=== PATIENT | female | born 1960 | race Caucasian/White ===

== ENCOUNTER 2020-01-11 15:42 | Outpatient (REF) | payer BC, SELFPAY | END 2020-01-11 15:43 | disposition home or self-care (01) | LOC: HO.LNP 15:42 | PROVIDERS: Visit Provider Hospitalist | DX: Z20.828 Contact with and (suspected) exposure to other viral communicable diseases (principal) | CPT/HCPCS: U0003 ==

== ENCOUNTER 2020-05-21 14:21 | Outpatient (REF) | payer MEDICARE, SELFPAY ==
--- NOTE | ~2020-05-21 | MR_ITS ---
EXAMINATION: MR HEAD/BRAIN WITHOUT CONTRAST CLINICAL INFORMATION: 60-year-old with left-sided facial pain syndrome. Evaluate for possible trigeminal nerve lesion. COMPARISON: None TECHNIQUE: Multiplanar multisequence MR imaging of the brain and trigeminal nerve pathways was performed without intravenous contrast material and the study is limited in this regard. FINDINGS: The brain demonstrates normal overall morphology. There is a 4 mm faint FLAIR/T2 hyperintensity in the left parietal white matter which is a nonspecific finding. The remainder of the brain is normal in signal intensity. Scattered perivascular spaces are seen in the white matter bilaterally and in the basal ganglia. DWI imaging demonstrates no restricted diffusion. Specifically, there is no evidence for recent or acute infarct. Gradient echo imaging demonstrates no evidence for hemorrhage, hemosiderin staining or abnormal mineral deposition. The cisternal and cavernous portions of the trigeminal nerves are visualized bilaterally and appear normal with a normal appearance to the root exit zones and adjacent brainstem. Meckel's caves appear unremarkable bilaterally. There is a normal appearance to the trigeminal fat pads bilaterally. The cavernous sinuses are relatively symmetric in appearance with limited assessment without IV contrast. The visualized basal cisterns appear grossly unremarkable. Normal appearance to the infraorbital grooves bilaterally. Infratemporal fossa soft tissue appears normal with normal fat signal. Normal appearance to the infraorbital grooves bilaterally. The ventricular system and subarachnoid spaces appear within normal limits, without hydrocephalus. Normal signal voids are noted in the visualized major intracranial vessels. Note is made of multiple T2 hyperintensities in the premalar fat pads bilaterally, likely reflecting cosmetic injections. Correlate with clinical history. Note is made of bilateral TMJ arthrosis. Mild upper cervical DDD and spondylosis is noted at C4-C5 with slight anterolisthesis at C3-C4 with bilateral cervical facet arthrosis. MR/MR head/brain wo con IMPRESSION: 1. A single small nonspecific left parietal white matter T2 hyperintensity is noted. Remainder of the brain is normal in signal intensity. 2. Unremarkable appearance to the trigeminal nerve pathways bilaterally. No definite lesion identified within the limitations of a noncontrast examination. 3. Bilateral TMJ arthrosis and cervical degenerative changes. Correlate clinically. 4. Findings suggesting bilateral premalar fat pad cosmetic injections. Correlate with clinical history.
[2020-05-21 16:20] LABS: MANUAL DIFF FLAG NO
[2020-05-21 16:28] LABS: Basophils Percent Auto 0.6 % (0-2); Eosinophils Absolute Auto 0.1 X10*3/uL (0.0-0.4); Eosinophils Percent Auto 1.3 % (0-4); Hematocrit 41.5 % (37-47); Hemoglobin 14.2 g/dl (12.0-16.0); Imm Gran Abs Auto 0.01 X10*3/uL (0.00-0.03); Imm Gran Pct Auto 0.2 % (0.0-0.4); Lymphocytes Percent Auto 22.1 % (20-40); Mean Corpuscular HGB Conc 34.2 g/dl (31.0-35.0); Mean Corpuscular Hemoglobin 33.2 pg (27.0-33.0); Mean Platelet Volume 10.3 fL (9.4-12.3); Monocytes Absolute Auto 0.5 X10*3/uL (0.1-1.2); Monocytes Percent Auto 11.1 % (2-11); Neutrophils Percent Auto 64.7 % (45-73); Platelet Count 274 X10*3/uL (160-400); Red Blood Count 4.28 X10*6/uL (4.20-5.50); Red Cell Distribution Width 11.6 % (11.0-16.0); White Blood Count 4.7 X10*3/uL (4.8-10.8)
[2020-05-21 16:33] LABS: Estimated Average Glucose 100 mg/dL; Hemoglobin A1c % 5.1 %
[2020-05-21 16:54] LABS: Alanine Aminotransferase 16 U/L (0-31); Albumin Level 4.4 g/dL (3.5-5.0); Alkaline Phosphatase 66 U/L (39-117); Anion Gap 14 (12-20); Aspartate Amino Transferase 17 U/L (5-31); Bilirubin Total 0.7 mg/dL (0.0-1.0); Blood Urea Nitrogen 21 mg/dL (9-16); Calcium 9.3 mg/dL (8.4-10.2); Carbon Dioxide 28 mmol/L (22-29); Chloride 103 mmol/L (96-108); Cholesterol 189 mg/dL; Estimated Glomerular Filt Rate > 60; Glucose Fasting 90 mg/dL (60-99); HDL Cholesterol 51 mg/dL; LDL Cholesterol Calculated 100 mg/dl; Sodium 141 mmol/L (135-145); Total Protein 7.2 g/dL (6.5-8.0); Triglycerides 193 mg/dL
[2020-05-21 17:12] LABS: Free T4 (Free Thyroxine) 0.97 ng/dL (0.71-1.85)
[2020-05-21 17:15] LABS: Thyroid Stimulating Hormone 0.98 uIU/mL (0.32-4.0)
[2020-05-22 04:11] LABS: Triiodothyronine T3 Free 2.9 pg/mL (2.3-4.2)
[2020-05-22 05:22] LABS: Follicle Stimulating Hormone 86.5 mIU/mL; Lutenizing Hormone 30.7 mIU/mL
[2020-05-22 09:21] LABS: DHEA Sulfate 178 mcg/dL (12-133)
[2020-05-22 11:47] LABS: Thyroglobulin Antibodies 2 IU/mL (< or = 1); Thyroid Peroxidase Antibodies 16 IU/mL (<9)
[2020-05-25 14:31] LABS: Testosterone, Free 2.4 pg/mL (0.1-6.4); Testosterone, Total 28 ng/dL (2-45)
[2020-05-26 11:31] LABS: Pregnenolone, LC/MS 73 ng/dL (22-237)
[2020-05-26 19:41] LABS: Progesterone 0.9 ng/mL
[2020-05-29 17:06] LABS: Estradiol Free 0.07 pg/mL; Estradiol, Ultrasensitive 5 pg/mL
== END 2020-05-21 14:22 | disposition home or self-care (01) ==
LOC: HO.MRI 14:21
PROVIDERS: Internal Medicine; Nurse Practitioner Family; Visit Provider Psychiatry & Neurology Neurology
DX: G50.0 Trigeminal neuralgia (principal)
CPT/HCPCS: 36415; 70551; 80053; 80061; 82306; 82627; 82670; 82681; 83001; 83002; 83036; 84143; 84144; 84402; 84403; 84439; 84443; 84481; 85025; 86376; 86800

== ENCOUNTER 2020-08-08 12:55 | Outpatient (REF) | payer MEDICARE, SELFPAY ==
[2020-08-09 11:53] LABS: CDIFF Ag Negative (Negative); CDIFF Internal ctrl Dots and bkg OK (V); CDiff Toxin Negative (Negative)
== END 2020-08-08 12:56 | disposition home or self-care (01) ==
LOC: HO.HMGCLNP 12:55
PROVIDERS: Visit Provider Internal Medicine
DX: R19.7 Diarrhea, unspecified (principal)
CPT/HCPCS: 87045; 87046; 87324; 87449

== ENCOUNTER 2023-12-01 12:47 | Outpatient (REF) | payer MEDICARE, SELFPAY ==
--- NOTE | ~2023-12-01 | XR_ITS ---
EXAMINATION: XR ABDOMEN KUB CLINICAL INDICATION: Abdominal discomfort COMPARISON: Abdominal ultrasound 06/06/2017 TECHNIQUE: AP view of the abdomen. FINDINGS: The bowel gas pattern is normal with no evidence of ileus or obstruction. About 24 midline surgical clips are noted presumably secondary to the hernia repair which the patient reported concordant 2001. No unusual soft tissue calcifications are noted. The bones are unremarkable aside from mild degenerative changes. XR/XR abdomen 1V IMPRESSION: No evidence of bowel obstruction. Postsurgical changes as described above. Electronically signed by: Ishmael Nguyen MD 12/01/2023 02:40 PM EDT
== END 2023-12-01 12:48 | disposition home or self-care (01) ==
LOC: HO.XRAY 12:47
PROVIDERS: PCP Internal Medicine; Visit Provider Internal Medicine
DX: R10.9 Unspecified abdominal pain (principal)
CPT/HCPCS: 74018

== ENCOUNTER → 2024-04-30 15:54 | Outpatient (AMB) | payer MEDICARE, SELFPAY ==
--- NOTE | 2024-04-30 15:56 | MHC.PC.OV ---
Vital Signs 04/30/24 16:10 Height 5 ft Weight 113 lb BMI 22.1 BP 108/60 Blood Pressure Location Rt brachial Pulse 64 Pulse Source Pulse Oximeter Temp 98.2 F Pulse Oximetry (%) 99 Intake Visit Reasons: neck and right hip pain Intake Note: having a BM issue for over a month Allergies amlodipine Allergy (Unknown, Verified 04/30/24 16:46) tachycardia clyndamycin Allergy (Uncoded 04/30/24 16:46) Abdominal Pain Medication List - Last Reconciled 04/30/24 by Shelli Butterfield PA-C albuterol sulfate 90 mcg/actuation 2 puffs PO Q6H PRN epinephrine IM DIRECTED lorazepam 1 mg PO DAILY PRN metoprolol tartrate 12.5 mg PO BID PFSH Medical History (Updated 04/30/24 @ 16:51 by Shelli Butterfield PA-C) Spondylosis Abdominal pain Left shoulder pain Right hip pain History of mammogram (~01/2023) Clostridium difficile colitis Bee sting allergy Hx gestational diabetes Anxiety Depression GERD (gastroesophageal reflux disease) Paroxysmal supraventricular tachycardia Thyroiditis Hypertension Surgical History History of colonoscopy (~01/12/21) S/P tendon repair History of radiofrequency ablation (RFA) procedure for cardiac arrhythmia History of section History of adenoidectomy History of tonsillectomy History of abdominoplasty Physical exam (Primary Care) Vital Signs: Last Vital Signs Temp 98.2 F 04/30/24 16:10 Pulse 64 04/30/24 16:10 BP 108/60 04/30/24 16:10 Pulse Ox 99 04/30/24 16:10 Care Plan Goal for BP management: <130/80 BMI result Body Mass Index 22.1 normal bmi Coding Level of Care Code Est Pt Level 4 (67920) Complex EM visit Add On G2211 Diagnoses Right hip pain M25.551 Left shoulder pain M25.512 Abdominal pain R10.9 Spondylosis M47.9 Assessment & Plan Assessment & Plan (1) Right hip pain: Code(s): M25.551 - Pain in right hip Category: Medical Plan: With atraumatic right hip pain. On exam she has full range of motion no obvious deformities no signs of infection. Will obtain outpatient x-ray. Refer to physical therapy and orthopedic. Condition is chronic and stable continue to monitor. (2) Left shoulder pain: Code(s): M25.512 - Pain in left shoulder Category: Medical Plan: Patient with atraumatic left shoulder pain. On exam she has full range of motion no obvious deformities no signs of infection. Will obtain outpatient x-ray. Refer to physical therapy and orthopedic. Condition is chronic and stable continue to monitor. (3) Abdominal pain: Code(s): R10.9 - Unspecified abdominal pain Category: Medical Plan: Patient with abdominal pain with gassy sensation. Concerned for C diff as she had this in the past. Will obtain stool cultures if negative will further pursue the abdominal pain. Condition is chronic and stable continue to monitor. (4) Spondylosis: Code(s): M47.9 - Spondylosis, unspecified Category: Medical Plan: Patient with spondylosis of cervical spine. Will refer to physical therapy and she has an appointment with orthopedic. Condition is chronic and stable continue to monitor. Plan Plan Physical therapy is advised for cervical spondylosis and associated neck pain, with an x-ray to examine the right hip. An orthopedic referral was placed, and the patient is scheduled to return in May. Gastrointestinal symptoms prompted stool cultures for bacterial infection screening including H. pylori, with plans for further imaging if needed. Comprehensive blood work has been ordered, excluding diabetes markers as these are monitored by her education rep. Pain management options include NSAIDs or a muscle relaxant, both previously acquired by the patient. Education regarding possible sensitivity to colder environments which could exacerbate symptoms was also provided. Orders: Orders XR hip RT w PEL1V Today M25.551 - Pain in right hip Giardia Ag Stool EIA Today R10.9 - Unspecified abdominal pain H pylori Ag Stool Today R10.9 - Unspecified abdominal pain Chymotrypsin, Stool Today R10.9 - Unspecified abdominal pain Complete Blood Count Auto Diff Today Z00.00 - Encounter for general adult medical examination without abnormal findings Comprehensive [place]. Panel Fast Today Z00.00 - Encounter for general adult medical examination without abnormal findings C Reactive Protein Today Z00.00 - Encounter for general adult medical examination without abnormal findings Liver Panel Today Z00.00 - Encounter for general adult medical examination without abnormal findings Vitamin B1 Today Z00.00 - Encounter for general adult medical examination without abnormal findings Vitamin B12 and Folate Today Z00.00 - Encounter for general adult medical examination without abnormal findings Vitamin D 25-OH Total Today Z00.00 - Encounter for general adult medical examination without abnormal findings TSH reflex Free T4 Today Z00.00 - Encounter for general adult medical examination without abnormal findings CDiff Gene PCR Today R10.9 - Unspecified abdominal pain XR shoulder LT min 2V Today M25.512 - Pain in left shoulder Cyclospora & Isospora Stool Today R10.9 - Unspecified abdominal pain Leukocytes Stool Qualitative Today R10.9 - Unspecified abdominal pain Lipid Panel Today Z00.00 - Encounter for general adult medical examination without abnormal findings Magnesium Today Z00.00 - Encounter for general adult medical examination without abnormal findings Patient Instructions: Patient Instructions - Attend physical therapy sessions for neck and shoulder pain management. - Schedule and complete the x-ray for your right hip as soon as possible. - Submit stool samples for bacterial testing as instructed. - Use currently available pain medications as needed, aware of the advised dosing. - Follow up with the scheduled appointment in May for orthopedic evaluation. - Contact my office should symptoms escalate or if there are adverse reactions to medications. - Monitor any triggers such as cold weather that may exacerbate symptoms. Scribe Plan - Not visible on output: History of Present Illness The patient is a 64-year-old female presenting with neck and hip pain. Her symptoms began with neck pain a couple of months ago, localized on the left side and causing insomnia due to discomfort when lying on that side. Previous x-rays confirmed cervical spondylosis and bone spurs. The neck pain has progressed to involve her shoulder, interfering with activities like arm extension. In recent weeks, she developed right hip pain, described as severe with movement and impacting her daily activities. rn coronary care unit has not alleviated her symptoms. The patient also presents with gastrointestinal disturbances, including abdominal pain, diarrhea, and flatulence. She worries about a recurrence of Clostridioides difficile infection, previously diagnosed eight years ago, although current symptoms lack telltale yellow or mucous stools. Regular stool consistency varies, and she describes an increase in gas production. No significant weight change has been noted, but she reports skinny stools and a prior history of hemorrhoids. Social History - Patient is possibly engaged in dating relationships, having recently been in a relationship with a man born in [place]. 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 - Considers herself active in social affairs, including interactions and relationships. - Denies tobacco or alcohol use pattern in conversation. Review of Systems - Musculoskeletal: Reports neck pain, right hip pain, shoulder pain. - Gastrointestinal: Reports abdominal pain, diarrhea, increased gas production. - Neurologic: Denies memory disturbances. - General: Denies weight changes or fever. Physical Exam Appearance: Alert. Oriented X3. No acute distress. Head: Normal external exam. Normocephalic. Atraumatic. Eyes: Pupils are equal, round, and reactive to light. Extraocular movements intact. Conjunctiva and sclera normal. Eyelids normal. Throat: Pharynx normal. Uvula midline. Moist mucous membranes. Neck: Normal inspection. Neck supple. Full range of motion. No adenopathy. Thyroid Normal. No meningeal signs. No neck mass noted. Patient reports neck pain on the side, possibly related to multilevel cervical spondylosis and bone spurs. Cardiovascular: Normal heart rate and rhythm. Heart sound normal. No murmurs noted. Pulses normal throughout. Respiratory: No respiratory distress. Painless inspiration. Breath sounds normal. No wheezes/rales/rhonchi noted. Chest nontender. No accessory muscle usage noted or decreased air movement noted. Abdomen: Soft and nontender. Bowel sounds normal in all 4 quadrants. No distention noted. No organomegaly noted. No visible injury noted. Patient reports abdominal pain and cramping, with changes in stool consistency. Back: Full range of motion noted. Skin: Skin warm and dry. Normal skin color. Normal skin turgor. No rashes/lesions/lacerations noted. Extremities: Extremities exhibit normal range of motion. Extremities nontender. Patient reports right hip pain and difficulty with movement. Neuro: Oriented X 3. No motor deficit. No sensory deficit. Reflexes normal. Patient reports shoulder pain, particularly on movement. Results - Imaging: Previous diagnostic imaging revealed multilevel cervical spondylosis and cervical bone spurs. Plan Physical therapy is advised for cervical spondylosis and associated neck pain, with an x-ray to examine the right hip. An orthopedic referral was placed, and the patient is scheduled to return in May. Gastrointestinal symptoms prompted stool cultures for bacterial infection screening including H. pylori, with plans for further imaging if needed. Comprehensive blood work has been ordered, excluding diabetes markers as these are monitored by her education rep. Pain management options include NSAIDs or a muscle relaxant, both previously acquired by the patient. Education regarding possible sensitivity to colder environments which could exacerbate symptoms was also provided. Patient was informed and verbally consented to the use of an ambient scribe for clinic note documentation during this visit. Discussion Notes I discussed with the patient the probable diagnosis of cervical spondylosis with related neck and shoulder discomfort, recommending physical therapy as a preferable management modality over chiropractic treatment. An x-ray for the right hip was deemed necessary to determine the source of related discomfort, and an orthopedic consult is scheduled for further assessment. As her gastrointestinal symptoms raised concerns for a potential Clostridioides difficile recurrence, a stool culture was ordered. I explained the value of further testing if initial tests do not yield necessary answers. We considered the impacts of cold weather on her arthritic symptoms, and multiple pain management modalities were elaborated on, although the patient has course of medication already obtained. Follow-ups are contingent upon lab results and additional imaging findings. Patient Instructions - Attend physical therapy sessions for neck and shoulder pain management. - Schedule and complete the x-ray for your right hip as soon as possible. - Submit stool samples for bacterial testing as instructed. - Use currently available pain medications as needed, aware of the advised dosing. - Follow up with the scheduled appointment in May for orthopedic evaluation. - Contact my office should symptoms escalate or if there are adverse reactions to medications. - Monitor any triggers such as cold weather that may exacerbate symptoms.
[2024-04-30 16:10] VITALS: BP 108/60; PULSE 64; TEMP 36.8; O2SAT 99; BMI 22.1
--- OUTSIDE RECORDS SUMMARY | 2024-04-30 18:38 | XMS_ITS | Clinical Summary ---
Author Organization [facility] Address [address] [place] [address] Care Team Providers Care Commercial Account Officer Name Role Phone AngelLars baez Primary Care Provider [phone] Allergies Active Allergy Reactions Criticality Noted Date Comments Amlodipine 06/15/2017 Medications Medication Sig Dispensed Refills Start Date End Date Status metoprolol succinate (TOPROL-XL) 24 hr tablet 25 mg Take by mouth daily. 0 Active omeprazole (PRILOSEC) 20 MG capsule Take 20 mg by mouth daily. 0 Active Active Problems No known active problems Social History Tobacco Use Types Packs/Day Years Used Date Smoking Tobacco: Former Smokeless Tobacco: Never Alcohol Use Standard Drinks/Week Comments Yes 0 (1 standard drink = 0.6 oz pur e alcohol) Sex and Gender Information Value Date Recorded Sex Assigned at Not on file Gender Identity Not on file Sexual Orientation Not on file Job Start Date Occupation Industry Not on file Not on file Not on file Last Filed Vital Signs Vital Sign Reading Time Taken Comments Blood Pressure 110/70 06/15/2017 2:49 PM EDT Pulse - - Temperature - - Respiratory Rate - - Oxygen Saturation - - Inhaled Oxygen Concentration - - Weight 52.6 kg (116 lb) 06/15/2017 2:49 PM EDT Height 154.9 cm (5' 1 ) 06/15/2017 2:49 PM EDT Body Mass Index 21.92 06/15/2017 2:49 PM EDT Plan of Treatment Health Maintenance Due Date Last Done Comments Hepatitis C Screening 1960 COVID-19 Vaccine (#1) 1959 Depression Screening 1971 Preventative Health Evaluation 1977 DTap / Tdap / Td (1 - Tdap) 1978 Cervical Cancer Screening (P ap Smear) 01/26/1980 Colon Cancer Screening (Colonoscopy) 01/26/2004 Breast Cancer Screening (Mammogram) 2009 Shingrix-Zoster Vaccine (1 of 2) 2009 Influenza Vaccine (#1) 2023 Fall Risk Assessment 01/26/2024 Osteoporosis Screening (DEXA Scan) 01/26/2024 Pneumococcal Vaccine (1 of 1 - PCV) 01/26/2024 RSV Adult > 60+ Yrs or Pregn ant (1 - 1-dose 75+ series) 2034 Hepatitis B Vaccines Aged Out No long er eligible based on patient's age to complete this topic Pneumococcal Vaccine Aged Out No long er eligible based on patient's age to complete this topic RSV Ped < 20 months Aged Out No longe r eligible based on patient's age to complete this topic Care Teams Commercial Account Officer Relationship Specialty Start Date End Date Lars Ortiz DO [address] [place] [phone] PCP - General Internal Medicine 06/13/17
--- OUTSIDE RECORDS SUMMARY | 2024-04-30 18:38 | XMS_ITS | Encounter Summary ---
Author Organization [facility] Address [address] [place] [address] Care Team Providers Care Superintendent Sanitation Name Role Phone Lars Ortiz DO Primary Care Provider [phone] Reason for Visit * Reason Comments Follow-up Review 7 day ROCT Encounter Details Date Type Department Care Team (Late st Contact Info) Description 04/23/2024 12:40 PM EST Office Visit [facility] - [address] [place] [phone] Jenifer Brooks PA [address] [place] [address] Palpitations (Primary Dx); PAC (premature atrial contraction); SVT (supraventricular tachycardia) (CMS/HCC); Atrial premature depolarization; Snoring; Other fatigue Social History Tobacco Use Types Packs/Day Years Used Date Smoking Tobacco: Former Smokeless Tobacco: Never Tobacco Cessation:Counseling Given: Not Answered Alcohol Use Standard Drinks/Week Comments No 0 (1 standard drink = 0.6 oz pur e alcohol) Comments Unknown Sex and Gender Information Value Date Recorded Sex Assigned at Not on file Legal Sex Female 4:01 AM EST Gender Identity Not on file Sexual Orientation Not on file documented as of this encounter Last Filed Vital Signs Vital Sign Reading Time Taken Comments Blood Pressure 110/70 04/23/2024 12:52 PM EST Pulse 63 04/23/2024 12:52 PM EST Temperature - - Respiratory Rate - - Oxygen Saturation 98% 04/23/2024 12:52 PM EST Inhaled Oxygen Concentration - - Weight 51.7 kg (114 lb) 04/23/2024 12:52 PM EST Height 157.5 cm (5' 2 ) 04/23/2024 12:52 PM EST Body Mass Index 20.85 04/23/2024 12:52 PM EST documented in this encounter Ordered Prescriptions Prescription Sig Dispense Quantity Refills Last Filled Start Date End Date metoprolol tartrate (LOPRESSOR) 25 mg tabletIndications:Sergo lpitations,Atrial premature depolarization Take 0.5 tablets (12.5 mg total) by mouth 2 (two) times a day. 90 each 2 04/23/2024 documented in this encounter Progress Notes * SERGO Echols - 04/23/2024 12:40 PM EST Please call with any questions or concerns Jenifer Brooks PA-C [phone] [facility] [address] [place] [address] Continue current medication * SERGO Echols - 04/23/2024 12:40 PM EST Images from the original note were not included. 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 old female Past medical history includes- Paroxysmal supraventricular tachycardia. 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 Palpitations correlating to PAC's/PVC's Prolonged Chest pain , EKG with baseline chronic T wave inversions inferior laterally-normal stresstest. Cardiac testing -Coronary calcium score October 2023- Zero -14-day R NOVSeptember 2023 Average heart rate 71 bpm range 45 to 144 bpm PVC and PAC burden less than 1%, brief AT 8 beats, 36 patient triggered events nearly all correlated with normal sinus rhythm She presents today for evaluation of her palpitations. She states on rare instances she feels a skipped beat that makes her anxious. She denies presyncope, syncope, chest pain at rest or exertion, dyspnea at rest or exertion, orthopnea, PND, lower leg edema or change in her weight or exercise capacity. ACTIVE MEDICATIONS: Outpatient Medications Marked as Taking for the 04/23/24 encounter (Office Visit) with SERGO Echols Medication Sig Dispense Refill ASCORBIC ACID, VITAMIN C, ORAL Take by mouth daily. CHOLECALCIFEROL, VITAMIN D3, ORAL Take by mouth. coenzyme Q-10 10 mg capsule Take by mouth. cyanocobalamin (VITAMIN B-12) 250 mcg tablet ferrous gluconate (FERGON) 240 mg (27 mg iron) tablet Take by mouth. folic acid (FOLVITE) 400 mcg tablet Take 400 mcg by mouth daily. metoprolol tartrate (LOPRESSOR) 25 mg tablet Take 0.5 tablets (12.5 mg total) by mouth 2 (two) times a day. 90 each 2 multivitamin (MULTIPLE VITAMINS ORAL) multivitamin with minerals tablet Take 1 tablet by mouth 1 (one) time each day. OMEGA-3 FATTY ACIDS-FISH OIL ORAL Take by mouth. psyllium seed, with sugar, (FIBER ORAL) Take by mouth. ZINC SULFATE ORAL Take by mouth. [DISCONTINUED] metoprolol tartrate (LOPRESSOR) 25 mg tablet TAKE 1/2 TABLET TWICE A DAY BY MOUTH 90tablet 2 ALLERGIES: Allergies Allergen Reactions Amlodipine Bupropion Clindamycin Diarrhea Doxycycline Hyclate Escitalopram Oxalate Lisinopril Moxifloxacin Hcl Omeprazole Diarrhea and Nausea And Vomiting FAMILY HISTORY: No family history on file. SOCIAL HISTORY: Social History Tobacco Use Smoking status: Former Smokeless tobacco: Never Substance Use Topics Alcohol use: No PHYSICAL EXAM: Blood pressure 110/70, pulse 63, height 1.575 m (62 ), weight 51.7 kg (114 lb), SpO2 98%. Body mass index is 20.85 kg/m??. Physical Exam Constitutional: General: She is not in acute distress. Appearance: She is not diaphoretic. Comments: Younger appearing, fit Eyes: Pupils: Pupils are equal, round, and reactive to light. Neck: Vascular: No carotid bruit. Cardiovascular: Rate and Rhythm: Normal rate and regular rhythm. Heart sounds: Normal heart sounds. Pulmonary: Breath sounds: Normal breath sounds. Abdominal: Palpations: Abdomen is soft. Musculoskeletal: General: No swelling. Cervical back: No rigidity. Skin: General: Skin is warm and dry. Coloration: Skin is not jaundiced. Neurological: General: No focal deficit present. Mental Status: She is alert and oriented to person, place, and time. Psychiatric: Mood and Affect: Mood normal. EKG: Normal sinus rhythm rate 63 bpm TESTING: No results found for: NA , K , CL , CO2 , GLUCOSE , BUN , CREATININE , CALCIUM , PROT , ALBUMIN , BILITOT , AST , ALT , URICACID , PHOS , MG , ALKPHOS , CKTOTAL , EGFR , No results found for: WBC , HGB , HCT , MCV , PLT , and Lab Results Component Value Date CHOL 178 09/28/2023 Lab Results Component Value Date HDL 55 09/28/2023 No results found for: LDLCALC Lab Results Component Value Date TRIG 90 09/28/2023 No results found for: CHOLHDL PAST MEDICAL HISTORY: Patient Active Problem List Diagnosis Date Noted Fatigue 09/21/2023 Snoring 09/21/2023 PAC (premature atrial contraction) 11/25/2021 Palpitations 11/25/2021 SOB (shortness of breath) 11/25/2021 Other chest pain 07/15/2020 Hypertensive disorder 02/11/2020 SVT (supraventricular tachycardia) (CMS/HCC) 02/11/2020 As per AHA guidelines and previously established plan of care by Dr. Michael Farah MD we discussed the following today: ASSESSMENT/PLAN: Problem List Items Addressed This Visit PAC (premature atrial contraction) Relevant Medications metoprolol tartrate (LOPRESSOR) 25 mg tablet Palpitations - Primary Relevant Medications metoprolol tartrate (LOPRESSOR) 25 mg tablet Other Relevant Orders ECG 12 lead (Completed) SVT (supraventricular tachycardia) (CMS/HCC) Relevant Medications metoprolol tartrate (LOPRESSOR) 25 mg tablet Other Visit Diagnoses Atrial premature depolarization Relevant Medications metoprolol tartrate (LOPRESSOR) 25 mg tablet Palpitations correlating to PACs brief AT of 8 beats, prior ablation for AVNRT extensive reassurance given she remains on metoprolol 12.5 mg twice daily. History for early coronary artery disease-coronary CTA 0. Presently without angina or overt heart failure. Snoring and daytime fatigue she was to have a sleep study which she has rescheduled several times encouraged to call to make the appointment. Thank you for allowing us to participate in the care of this patient. Today's documentation was made using voice recognition software.This note may contain grammatical errors secondary to this software. Cosigned by Michael Farah MD at 04/24/2024 9:54 AM EST documented in this encounter Plan of Treatment Upcoming Encounters Date Type Department Care Team (Late st Contact Info) Description 10/23/2024 1:40 PM EDT Office Visit [facility] - [address] [place] [address] Jenifer Brooks PA [address] [place] [address] documented as of this encounter Procedures Procedure Name Priority Date/Time Associated Diagnosis Comments ECG 12-LEAD Routine 04/23/2024 1:05 PM EST Palpitations documented in this encounter Results * ECG 12 lead (04/23/2024 1:05 PM EST) Ventricular Rate ECG 63 BPM GEMUSE Atrial Rate 63 BPM GEMUSE P-R Interval 172 ms GEMUSE QRS Duration 90 ms GEMUSE Q-T Interval 414 ms GEMUSE QTc 423 ms GEMUSE P Wave [place] 67 degrees GEMUSE R [place] 46 degrees GEMUSE T [place] 0 degrees GEMUSE ECG Interpretation Normal sinus rhythm When compared with ECG of 11-MAR-2006 10:00, No significant change was found Confirmed by AILEEN SMITH ([id number]) on 04/24/2024 6:06:12 PM GEMUSE 04/23/2024 1:02 PM EST 04/24/2024 6:06 PM EST us Jenifer STEPHEN ECG ORDERABLES Edited Result - Final GEMUSE documented in this encounter Visit Diagnoses Diagnosis Palpitations- Primary PAC (premature atrial contraction) Supraventricular premature beats SVT (supraventricular tachycardia) (CMS/HCC) Other specified cardiac dysrhythmias Atrial premature depolarization Supraventricular premature beats Snoring Other dyspnea and respiratory abnormality Other fatigue documented in this encounter Discontinued Medications Medication Sig Discontinue Reason Start Date End Da te metoprolol tartrate (LOPRESSOR) 25 mg tabletIndications:Palpitat ions,Atrial premature depolarization TAKE 1/2 TABLET TWICE A DAY BY MOUTH Reorder 02/10/2024 04/23/2024 documented as of this encounter Historical Medications * This list may reflect changes made after this encounter. geriatric multivitamins-min erals 0.5-0.6-7-0.7 mg elixir Take 5 mL by mouth 1 (one) time each day. multivitamin with minerals tablet Take 1 tablet by mouth 1 (one) time each day. added in this encounter Care Teams Superintendent Sanitation Relationship Specialty Start Date End Date Lars Ortiz DO [address] [place] [phone] PCP - General Internal Medicine 01/29/20 documented as of this encounter
--- OUTSIDE RECORDS SUMMARY | 2024-04-30 18:38 | XMS_ITS | Clinical Summary ---
Author Organization [address] [place] [address] [place] [phone] Phone Care Team Providers Care Grant Coordinator Name Role Phone Angel Miller Primary Care Provider Allergies Active Allergy Reactions Criticality Noted Date Comments Amlodipine 04/02/2024 Bupropion 08/11/2020 Clindamycin Diarrhea 09/21/2023 Doxycycline Hyclate 04/02/2024 Escitalopram Oxalate 04/02/2024 Lisinopril 04/02/2024 Moxifloxacin Hcl 04/02/2024 Omeprazole Diarrhea,Nausea And Vomiting 021 Medications ASCORBIC ACID, VITAMIN C, ORAL Take by mouth daily. Active coenzyme Q-10 10 mg capsule Take by mouth. Active ferrous gluconate (FERGON) 240 mg (27 mg iron) tablet Take by mouth. Active psyllium seed, with sugar, (FIBER ORAL) Take by mouth. Active multivitamin (MULTIPLE VITAMINS ORAL) Active OMEGA-3 FATTY ACIDS-FISH OIL ORAL Take by mouth. Active CHOLECALCIFEROL, VITAMIN D3, ORAL Take by mouth. Active ZINC SULFATE ORAL Take by mouth. Active cyanocobalamin (VITAMIN B-12) 250 mcg tablet Active folic acid (FOLVITE) 400 mcg tablet Take 400 mcg by mouth daily. Active multivitamin with minerals tablet Take 1 tablet by mouth 1 (one) time each day. 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-mine rals 0.5-0.6-7-0.7 mg elixir Take 5 mL by mouth 1 (one) time each day. Active metoprolol tartrate (LOPRESSOR) 25 mg tabletIndications: Palpitations,Atria l premature depolarization Take 0.5 tablets (12.5 mg total) by mouth 2 (two) times a day. 90 each 2 5 07/23/19 25 Active metoprolol tartrate (LOPRESSOR) 25 mg tabletIndications: Palpitations,Atria l premature depolarization TAKE 1/2 TABLET TWICE A DAY BY MOUTH 90 tablet 2 4 04/23/19 25 Discontin ued(Reord er) Active Problems Problem Noted Date Diagnosed Date Fatigue 09/21/2023 Snoring 09/21/2023 PAC (premature atrial contraction) 11/25/2021 Palpitations 11/25/2021 SOB (shortness of breath) 11/25/2021 Other chest pain 07/15/2020 Hypertensive disorder 02/11/2020 Overview (04/02/2024): Hypertensive disorder SVT (supraventricular tachycardia) 02/11/2020 Encounters Date Type Department Care Team Description 04/23/2024 12:40 PM EST Office Visit [facility] - [address] [place] [address] Jenifer Brooks PA Palpitations (Primary Dx); PAC (premature atrial contraction); SVT (supraventricular tachycardia) (CMS/HCC); Atrial premature depolarization; Snoring; Other fatigue from Last 3 Months Social History Tobacco Use Types Packs/Day Years [...] on file Sexual Orientation Not on file Obstetrics History Last Filed Vital Signs Vital Sign Reading [...] Mass Index 20.85 04/23/2024 12:52 PM EST Plan of Treatment Upcoming Encounters Date Type Department Care Team (Late st Contact Info) Description 10/23/2024 1:40 PM EDT Office Visit [facility] - [address] [place] [address] Jenifer Brooks PA [address] [place] [address] Health Maintenance Due Date Last Done Comments Cervical Cancer Screening: Pap Smear 01/26/1980 Pneumococcal Vaccine: 50+ Years (1 of 1 - PCV) 2009 Zoster Vaccines (1 of 2) 2009 Breast Cancer Screening 12/13/2019 12/12/2017 Colorectal Cancer Screening: Colonoscopy 01/31/2022 Depression Screening 01/31/2022 Hepatitis C Screening 01/31/2022 Medicare Annual Wellness Visit 01/31/2022 Osteoporosis Screening (Bone Density Screening) 01/31/2022 Social Influencers of Health Screening 01/31/2022 COVID-19 Vaccine ( season) 2023 02/15/2022, 04/21/2021, 10/16/2020, Additional history exists Falls Risk Assessment 01/26/2024 Hypertension/CHF/CAD Annual BMP Blood Test 09/27/2024 09/28/2023, 09/28/2023 Cholesterol Screening (Lipid Panel) 09/27/2028 09/28/2023, 09/28/2023 DTaP,Tdap,and Td Vaccines (2 - Td or Tdap) 03/13/2032 03/13/2022 RSV Immunization Patients 60+ Years Old (1 - 1-dose 75+ series) 2034 Influenza Vaccine Completed 01/22/2024, , 01/12/2022, Additional history exists HIB Vaccines Aged Out No longer eligi ble based on patient's age to complete this topic HPV Vaccines Aged Out No longer eligi ble based on patient's age to complete this topic Hepatitis A Vaccines Aged Out No long er eligible based on patient's age to complete this topic Hepatitis B Vaccines Aged Out No long er eligible based on patient's age to complete this topic IPV Vaccines Aged Out No longer eligi ble based on patient's age to complete this topic MMR Vaccines Aged Out No longer eligi ble based on patient's age to complete this topic Meningococcal ACWY Vaccine Aged Out N o longer eligible based on patient's age to complete this topic Meningococcal B Vacine Aged Out No lo nger eligible based on patient's age to complete this topic Pneumococcal Vaccine: Pediatrics (0 to 5 Years) and At-Risk Patients (6 to 64 Years) Aged Out No longer eligible based on patient's age to complete this topic RSV Immunization Patients Under 20 months Aged Out No longer eligible based on patient's age to complete this topic Varicella Vaccines Aged Out No longer eligible based on patient's age to complete this topic Procedures Procedure Name Priority Date/Time Associated Diagnosis Comments ECG 12-LEAD Routine 04/23/2024 1:05 PM EST Palpitations ANNUAL BMP BLOOD TEST Routine 09/28/2023 LIPID PANEL Routine 09/28/2023 [facility] SCREENING DIGITAL Routine 12/12/2017 5:13 PM EDT Encounter for screening mammogram for malignant neoplasm of breast from Last 3 Months or Most Recently Relevant to Health Maintenance Results * ECG 12 lead (04/23/2024 1:05 PM EST) Ventricular Rate ECG 63 BPM GEMUSE Atrial Rate 63 BPM GEMUSE P-R Interval 172 ms GEMUSE QRS Duration 90 ms GEMUSE Q-T Interval 414 ms GEMUSE QTc 423 ms GEMUSE P Wave [place] 67 degrees GEMUSE R [place] 46 degrees GEMUSE T [place] 0 degrees GEMUSE ECG Interpretation Normal sinus rhythm When compared with ECG of 11-MAR-2006 10:00, No significant change was found Confirmed by AILEEN SMITH ([id number]) on 04/24/2024 6:06:12 PM GEMUSE 04/23/2024 1:02 PM EST 04/24/2024 6:06 PM EST us Jenifer STEPHEN ECG ORDERABLES Edited Result - Final GEMUSE * Annual BMP Blood Test (09/28/2023) Annual BMP Blood Test abstracted Historical Provider HEALTH MAINTENANCE Final Result * (ABNORMAL) Lipid panel (09/28/2023) LDL/HDL Ratio 3 0 - 4 Triglycerides 90 0 - 150 mg/dL Cholesterol 178 0 - 200 mg/dL HDL 55 >=40 mg/dL LDL Cholesterol 105(A) 0 - 100 mg/dL Blood Venous blood specimen / Unknown Historical Provider LAB BLOOD ORDERABLES Melida l Result * MIKEY SCREENING DIGITAL (12/12/2017 5:13 PM EDT) Anatomical Region Laterality Modality Mammography 12/12/2017 11:1 4 AM EDT Narrative 12/12/2017 5:13 PM EDT [facility] Diagnostic Imaging Department [address] [place] [address] Patient: ??DAPHNE JACOB ?/Age/Sex: 1960 - 57 - F Unit#: ??[id number] ? Location/Status: ??SPDIMAM/REG CLI ? Mnemonic/Ordering Site: ??DIGSC/SPMAM Ordering Physician: ??MILLER TEJEDA DO Mikey Screening Digital - 12/12/17 - 1154 History: Bilateral breast cancer screening. Previous augmentation mammoplasty. Technique: ??Digital mammography. Conventional CC and MLO projections with implant displaced views, tomography and computer aided detection. Comparison: [facility] 12/30/2005, 11/04/2004 and 07/16/2003. Findings: ?? Breast tissue consists of fatty and fibroglandular elements (category b density) bilaterally. Bilateral subglandular breast implants in place, lucent; therefore, likely saline containing. There is no suspicious group of microcalcifications, mass, architectural distortion or suspicious change in breast tissue density. Impression: No mammographic evidence of malignancy. BIRADS category 1; negative study, 3341F 95619, [id number] Note: Patient information entered into a reminder system with a target due date for the next mammogram: ??CPT II 7025F Dictating Physician: ??GEN RILEY MD Electronically Signed by: ??GEN RILEY MD Dic Date/Time: ??12/12/171711 Sign date/Time: ??12/12/171712 Procedure Note Gen Riley MD - 02/16/2022 [facility] Diagnostic Imaging Department [address] [place] [address] Patient: DAPHNE JACOB Darcie /Age/Sex: 1960 - 57 - F Unit#: [id number] Location/Status: [facility] CLI Mnemonic/Ordering Site: [facility] Ordering Physician: MILLER TEJEDA DO Mikey Screening Digital - 12/12/17 - 1154 History: Bilateral breast cancer screening. Previous augmentationmammoplasty. Technique: Digital mammography. Conventional CC and MLO projectionswith implant displaced views, tomography and computer aided detection. Comparison: [facility] 12/30/2005, 11/04/2004 and 07/16/2003. Findings: Breast tissue consists of fatty and fibroglandular elements (category b density) bilaterally. Bilateral subglandular breast implantsin place, lucent; therefore, likely saline containing. There is no suspiciousgroup of microcalcifications, mass, architectural distortion or suspiciouschange in breast tissue density. Impression: No mammographic evidence of malignancy. BIRADS category 1; negative study, 3341F 03767, [id number] Note: Patient information entered into a reminder system with a target duedate for the next mammogram: CPT II 7025F Dictating Physician: GEN RILEY MD Electronically Signed by: GEN RILEY MD Dic Date/Time: 12/12/171711 Sign date/Time: 12/12/171712 Miller Tejeda DO IMG BI PROCEDURES Final Result from Last 3 Months or Most Recently Relevant to Health Maintenance Insurance [employer] - [place] MEDICARE ADVANTAGE Care Teams Grant Coordinator Relationship Specialty Start Date End Date Miller Tejeda DO [address] [place] [phone] PCP - General Internal Medicine 01/29/20
--- OUTSIDE RECORDS SUMMARY | 2024-04-30 18:39 | XMS_ITS | Data Portability ---
Author Organization [place] - [facility], Allergy Address [address] [address] Assessment Encounter Date Assessment Date Assessment LastModified by Organization Details LastModified Time 08/17/2023 08/17/2023 63 year old female presents today to review CT scan of the sinuses and with dizziness concerns. Her CT scan was normal. Reassurance was provided. Thankfully her facial pressure has improved. She would like to proceed with the RAST testing as planned, order was placed. I will call the patient with the results or she will touch base via the portal. In regards to her dizziness, she did defer Mihaela Hallpike today for fear of symptoms worsening. 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 I am suspicious of some element of migraine given her history of facial pressure and low level imbalance. I did give her some migraine information for her review and suggested a trial of magnesium and riboflavin. [email or web address] Not available 08/17/2023 17:05:57 Plan of Treatment Reminders Order Date Submit Date Provider Last Modified By Organization Details Last Modified Time Details Appointments None recorded. Lab unlisted lab - allergens, zone 1 2023 024 [facility] (Centralized Electronic Ordering - All Locations), Patient Can Go To The Location Of Their Choice, 4 07:35:22 nettle IgE Ab, serum 2023 024 [facility] (Centralized [facility] Ordering - All Locations), Patient Can Go To The Location Of Their Choice, 4 07:46:21 bahia grass IgE Ab, quantitati ve, serum 2023 024 [facility] (Centralized [facility] Ordering - All Locations), Patient Can Go To The Location Of Their Choice, 4 12:52:39 bermuda grass ige, serum 2023 024 [facility] (Centralized [facility] Ordering - All Locations), Patient Can Go To The Location Of Their Choice, 4 12:52:39 thai plantain ige, serum 2023 024 [place] [facility] ([facility] Ordering - All Locations), Patient Can Go To The Location Of Their Choice, 4 07:46:22 ige, total, serum 2023 [place] [facility] ([facility] Ordering - All Locations), Patient Can Go To The Location Of Their Choice, 07:35:23 Referral None recorded. Procedures None recorded. Surgeries None recorded. Imaging None recorded. Medication Orders None recorded. Patient TargetsNo targets recorded. Patient InstructionsNo instructions recorded. Reason for Referral None Reported. Results Created Date Observation Date Name Description Value Unit Range Abnormal Flag Note LastModifiedBy Organization Detail LastModifiedTime 08/18/1908/18/2023 ALLER GENS, ZONE 1 class description Commen t Level s of Speci fic IgE Class Descr iptio n of Class ----- ----- ----- ----- ----- -- ----- ----- ----- ----- ----- < 0.10 0 Negat zaki 0.10 - 0.31 0/I Equiv ocal/ Low 0.32 - 0.55 I Low 0.56 - 1.40 II Moder ate 1.41 - 3.90 III High 3.91 - 19.00 IV Very High 19.01 - 100.0 0 V Very High >100. 00 Very High Not Available [facility] ([facility]) [address] [facility], [place], [address], 08/22/2023 07:35:22 06/20/20 24 08/21/2023 ALLER GENS, ZONE 1 K244-JaL D pteronyssinu s <0.10 kU/L class 0 Not Available [facility] ([facility]) [address] [facility] [place], [address], 08/22/2023 07:35:22 08/18/19 24 08/21/2023 ALLER GENS, ZONE 1 S193-ZkB D farinae <0.10 kU/L class 0 Not Available [facility] ([facility]) [address] [place], [address], 08/22/2023 07:35:22 08/18/19 24 08/21/2023 ALLER GENS, ZONE 1 E217-XpD CAT dander <0.10 kU/L class 0 Not Available [facility] ([facility]) [address] [facility] [place], [address], 08/22/2023 07:35:22 08/18/19 24 08/21/2023 ALLER GENS, ZONE 1 F244-EtW dog dander <0.10 kU/L class 0 Not Available [facility] ([facility]) [address] [place], [address], 08/22/2023 07:35:22 08/18/19 24 08/21/2023 ALLER GENS, ZONE 1 u498-KpO bermuda grass <0.10 kU/L class 0 Not Available [facility] ([facility]) [address] [place], [address], 08/22/2023 07:35:22 08/18/19 24 08/21/2023 ALLER GENS, ZONE 1 u971-RbW bluegrass, [facility] <0.10 kU/L class 0 Not Available [facility] ([facility]) [address] [place], [address], 08/22/2023 07:35:22 08/18/19 24 08/21/2023 ALLER GENS, ZONE 1 h910-VhY bahia grass <0.10 kU/L class 0 Not Available [facility] ([facility]) [address] [place], [address], 08/22/2023 07:35:22 08/18/19 24 08/21/2023 ALLER GENS, ZONE 1 T840-KmS cockroach, paraguayan <0.10 kU/L class 0 Not Available [facility] ([facility]) [address] [place], [address], 08/22/2023 07:35:22 08/18/19 24 08/21/2023 ALLER GENS, ZONE 1 U630-OgU penicillium chrysogen <0.10 kU/L class 0 Not Available [facility] ([facility]) [address] [facility], [place], [address], 08/22/2023 07:35:22 08/18/19 24 08/21/2023 ALLER GENS, ZONE 1 T555-UgD cladosporium herbarum <0.10 kU/L class 0 Not Available [facility] ([facility]) [address] [place], [address], 08/22/2023 07:35:22 08/18/19 24 08/21/2023 ALLER GENS, ZONE 1 J717-ZbA aspergillus fumigatus <0.10 kU/L class 0 Not Available [facility] ([facility]) [address] [place], [address], 08/22/2023 07:35:22 08/18/19 24 08/21/2023 ALLER GENS, ZONE 1 C327-HoL mucor racemosus <0.10 kU/L class 0 Not Available [facility] ([facility]) [address] [place], [address], 08/22/2023 07:35:22 08/18/19 24 08/21/2023 ALLER GENS, ZONE 1 S849-LqN alternaria alternata <0.10 kU/L class 0 Not Available [facility] ([facility]) [address], [place], [address], 08/22/2023 07:35:22 08/18/19 24 08/21/2023 ALLER GENS, ZONE 1 P109-PoU stemphylium herbarum <0.10 kU/L class 0 Not Available [facility] ([facility]) [address], [place], [address], 08/22/2023 07:35:22 08/18/19 24 08/21/2023 ALLER GENS, ZONE 1 J279-XfD common silver birch <0.10 kU/L class 0 Not Available [facility] ([facility]) [address], [place], [address], 08/22/2023 07:35:22 08/18/19 24 08/21/2023 ALLER GENS, ZONE 1 N729-XlO oak, white <0.10 kU/L class 0 Not Available [facility] ([facility]) [address], [place], [address], 08/22/2023 07:35:22 08/18/19 24 08/21/2023 ALLER GENS, ZONE 1 Y991-EyY elm, paraguayan <0.10 kU/L class 0 Not Available [facility] ([facility]) [address], [place], [address], 08/22/2023 07:35:22 08/18/19 24 08/21/2023 ALLER GENS, ZONE 1 J113-UsS den, white <0.10 kU/L class 0 Not Available [facility] ([facility]) [address], [place], [address], 08/22/2023 07:35:22 08/18/19 24 08/21/2023 ALLER GENS, ZONE 1 N199-DsW maple/box elder <0.10 kU/L class 0 Not Available [facility] ([facility]) [address], [place], [address], 08/22/2023 07:35:22 08/18/19 24 08/21/2023 ALLER GENS, ZONE 1 T030-PeO hazelnut tree <0.10 kU/L class 0 Not Available [facility] ([facility]) [address], [place], [address], 08/22/2023 07:35:22 08/18/19 24 08/21/2023 ALLER GENS, ZONE 1 J645-NhS hickory, white <0.10 kU/L class 0 Not Available [facility] ([facility]) [address], [place], [address], 08/22/2023 07:35:22 08/18/19 24 08/21/2023 ALLER GENS, ZONE 1 B549-UeC white mulberry <0.10 kU/L class 0 Not Available [facility] ([facility]) [address], [place], [address], 08/22/2023 07:35:22 08/18/19 24 08/21/2023 ALLER GENS, ZONE 1 X218-ZvE cedar, mountain <0.10 kU/L class 0 Not Available [facility] ([facility]) [address], [place], [address], 08/22/2023 07:35:22 08/18/19 24 08/21/2023 ALLER GENS, ZONE 1 P980-SyR ragweed, short <0.10 kU/L class 0 Not Available [facility] ([facility]) [address], [place], [address], 08/22/2023 07:35:22 08/18/19 24 08/21/2023 ALLER GENS, ZONE 1 P483-CuY mugwort <0.10 kU/L class 0 Not Available [facility] ([place]) [address], [place], [address], 08/22/2023 07:35:22 08/18/19 24 08/21/2023 ALLER GENS, ZONE 1 C826-QlD plantain, thai <0.10 kU/L class 0 Not Available [facility] ([facility]) [address] [facility], [place], [address], 08/22/2023 07:35:22 08/18/19 24 08/21/2023 ALLER GENS, ZONE 1 C479-BgS pigweed, common <0.10 kU/L class 0 Not Available [facility] ([facility]) [address] [facility], [place], [address], 08/22/2023 07:35:22 08/18/19 24 08/21/2023 ALLER GENS, ZONE 1 N378-MrA sheep sorrel <0.10 kU/L class 0 Not Available [facility] ([facility]) [address] [facility], [place], [address], 08/22/2023 07:35:22 08/18/19 24 08/21/2023 ALLER GENS, ZONE 1 G701-SwM nettle <0.10 kU/L class 0 Not Available [facility] ([facility]) [address] [facility], [place], [address], 08/22/2023 07:35:22 08/18/19 24 08/21/2023 IMMUN OGLOB ULIN E, TOTAL immunoglobul in E, total 66 IU/mL 6-495 Not Available [facility] ([facility]) [address] [facility], [place], [address], 08/22/2023 07:35:23 08/02/19 24 02/04/2021 CT, abdom en + pelvi s, w/o contr ast No observ ation record ed. BARCODE Not Available 2023 09:55:11 08/05/19 24 08/04/2023 [facility] Diagno stic Imagin g Depart [address] [address] [phone] ____ Patien t: ANNETTE L,KOLBY Y A /Age/S ex: 1959 - 63 - F Unit#: [id number] Locati on/Sta tus: SPDICA T/REG CLI Accoun t#: [id number] Mnemon ic/Ord ering Site: [facility] MOLINA/SP CT Orderi ng Physic delon: JULIETTE LOU MD ___ CT CT Maxill ofacia l WO - - 1502 Report Status :Vijaya d EXAMIN ATION: CT maxill ofacia l bones INDICA TION left ear pain, atypic al face pain. TECHNI QUE: Noncon trast maxill ofacia l CT obtain ed. No prior studie s availa ble for compar apurva. Scanne r: [employer] peed 64 slice VCT Dose reduct ion techni que: ASIR (Adapt zaki statis tical iterat zaki recons tructi on) and/or AEC (autom ated exposu re contro l) Dose: total exam DLP 1116 mGy/cm FINDIN GS: No eviden ce of acute fractu re. No signif icant soft tissue hemato ma or swelli ng. Parana tila sinuse s are clear. No eviden ce of a paraph arynge al or prever tebral soft tissue swelli ng. Airway patent . Visual ized intrao rbital and intrac ranial conten ts are within normal limits limits except for focal calcif icatio n in the optic disc of bilate ral optic globes . Skull base intact . Visual ized portio ns of the cervic al spine are unrema rkable . IMPRES ARTHUR: No facial fractu re or signif icant soft tissue swelli ng. Incide ntal findin g of bilate ral optic drusen 's. Dictat ing Physic delon: Monty BENITES Electr onical ly Signed by: Monty BENITES Dic Date/T jacek: 1117 Sign date/T jacek: 1124 [email or web address] [facility] ([facility]) Any [facility], [place], [address], 08/05/2023 13:06:37 08/17/19 24 08/04/2023 CT, maxil lofac ial, w/o contr ast No observ ation record ed. [email or web address] Not Available 2023 16:37:11 10/19/19 24 06/02/2023 imagi ng/di agnos tic resul t No observ ation record ed. [email or web address] Not Available 20:58:19 10/19/19 24 10/16/2018 imagi ng/di agnos tic resul t No observ ation record ed. [email or web address] Not Available 20:58:25 10/19/19 24 10/16/2018 audio gram No observ ation record ed. [email or web address] Not Available 20:59:18 Result Notes None recorded. Problems Name Problem SNOMED Code Status Onset Date Resolution Date Notes Provider Name and Address Organization Details Recorded Time Gastroeso phageal reflux disease without esophagit is 986368760 Active 2016 Gastro-es ophageal reflux disease without esophagit is; Note: Date Diagnosed : 03/25/2016 12:06 PM (K21.9) Not Available [facility] 02:34:48 Bilateral temporoma ndibular joint pain 15308520189 780815 Active 2020 Arthralgi a of bilateral temporoma ndibular joint; Note: Date Diagnosed : 04/09/2020 2:38 PM (M26.623) Not Available [facility] 4 02:34:56 Temporoma ndibular joint disorder 69401096 Active 2016 Temporoma ndibular joint disorder, unspecifi ed; Note: Date Diagnosed : 03/24/2016 12:38 PM (M26.60) Not Available [facility] 4 02:34:44 Otalgia of left ear 6231714215 Active 2020 Otalgia, left ear; Note: Date Diagnosed : 04/09/2020 2:38 PM (H92.02) Not Available [facility] 4 02:34:51 Chronic rhinitis 96036185 Active 2016 Chronic rhinitis; Note: Date Diagnosed : 03/25/2016 12:05 PM (J31.0) Not Available [facility] 4 02:34:49 Benign paroxysma l positiona l vertigo 185415460 Active 2017 Benign paroxysma l vertigo, right ear; Note: Date Diagnosed : 01/03/2018 3:32 PM (H81.11) Benign paroxysma l vertigo, left ear; Note: Date Diagnosed : 7 4:29 PM (H81.12) ; Start Date : 7 Not Available [facility] 4 02:34:49 Dizziness and giddiness 873582688 Active 2016 Dizziness and giddiness ; Note: Date Diagnosed : 7 4:11 PM (R42) Not Available [facility] 4 02:34:43 Acute sinusitis 60961114 Active 2022 Other acute sinusitis ; Note: Date Diagnosed : 07/05/2022 12:08 PM (J01.80) Not Available [facility] 4 02:34:43 Atypical facial pain 00255100 Active 2023 CRISTINA MOROCHO MD [address] [place] [address], [facility] [place], [place], [phone] , [facility] - [facility] 4 21:21:14 Pain of left temporoma ndibular joint 40056037971 221273 Active 2023 Arthralgi a of left temporoma ndibular joint; Note: Date Diagnosed : 06/02/2023 3:09 PM (M26.622) Not Available [facility] 02:34:53 Problem Notes None recorded. Procedures Surgical History None recorded. Imaging Results Imaging Date Name Status LastModified by Organiz ation Details LastModified Time 02/04/2021 CT, abdomen + pelvis, w/o contrast completed BARCODE Information not available 08/02/2023 09:55:11 08/04/20[email or web address] [place] [address] ( [facility]) [facility] [place], [address], 08/05/2023 13:06:37 08/04/2023 CT, maxillofacial, w/o contrast completed [email or web address] Information not available 08/17/2023 16:37:11 06/02/2023 imaging/diagno stic result completed Information not available 10/19/2023 20:58:19 10/16/2018 imaging/diagno stic result completed Information not available 10/19/2023 20:58:25 10/16/2018 audiogram completed Information not available 10/19/2023 20:59:18 Procedure Notes None recorded. Medical Equipment None Reported. Allergies Allergen ID Allergen Name Allergen Category Reaction Reaction Severity Criticality Documentation Date Start Date Code Code System Note Provider Name and Address Organization Details Recorded Time 398241 amlodipin e medicatio n Not available Not available Not available 08/17/2023 64026 RxNorm Jenifer mehta [place] - [facility] 14:16:13 Medications Name Sig Start Date Stop Date Status Note LastModified by Organization Details LastModified Time amoxicill in 500 mg capsule TAKE 1 CAPSULE BY MOUTH THREE TIMES A DAY FOR 7 DAYS 08/16 completed Not Available Not Available Not Available Augmentin 875 mg-125 mg tablet Take 1 tablet by mouth twice a day with meals 08/16 completed Medicati on ID: [id number] D uration Value: 14 Brand Name: Augmenti n Send Method: E-Prescr ibed Sub s Allowed: subs OK Medic ationGen ericName : Augmenti n Medica tion ID: [id number] D uration Value: 14 Brand Name: Augmenti n Send Method: E-Prescr ibed Sub s Allowed: subs OK Medic ationGen ericName : Augmenti n Not Available Not Available Not Available fluconazo le 150 mg tablet TAKE 1 TABLET BY MOUTH FOR 1 DAY,MAY REPEAT IN 3 DAYS 08/16 completed Not Available Not Available Not Available valacyclo vir 500 mg tablet 07/05 completed Medicati on ID: [id number] D uration Value: 30 Brand Name: valacycl ovir Sen d Method: E-Prescr ibed Sub s Allowed: subs OK Medic ationGen ericName : valacycl ovir Not Available Not Available Not Available tramadol 50 mg tablet TAKE 1 TABLET 4 TIMES DAILY NEEDED FOR PAIN. 08/16 completed Not Available Not Available Not Available famotidin e 20 mg tablet active Medicati on ID: [id number] B rand Name: famotidi ne Send Method: E-Prescr ibed Sub s Allowed: subs OK Medic ationGen ericName : famotidi ne Not Available Not Available Not Available sulfaceta mide sodium 10 % eye drops INSTILL 1 DROP INTO AFFECTED EYE EVERY 6 HOURS FOR 5 DAYS 08/16 completed Not Available Not Available Not Available cephalexi n 500 mg capsule TAKE 1 CAPSULE BY MOUTH EVERY 8 HOURS UNTIL FINISHED 08/16 completed Not Available Not Available Not Available paroxetin e 20 mg tablet 01/27 completed Medicati on ID: [id number] D uration Value: 30 Brand Name: paroxeti ne HCl Send Method: E-Prescr ibed Sub s Allowed: subs OK Medic ationGen ericName : paroxeti ne HCl Not Available Not Available Not Available mupirocin 2 % topical ointment PLEASE SEE ATTACHED FOR DETAILED DIRECTIO NS active Not Available Not Available No t Available lorazepam 1 mg tablet active Medicati on ID: [id number] B rand Name: lorazepa m Send Method: E-Prescr ibed Sub s Allowed: subs OK Medic ationGen ericName : lorazepa m Not Available Not Available Not Available epinephri ne 0.3 mg/0.3 mL injection , auto-inje ctor INJECT 1 PEN INTRAMUS CULARLY DIRECTED active Not Available Not Available No t Available ibuprofen 600 mg tablet TAKE 1 TABLET BY MOUTH THREE TIMES A DAY WITH FOOD NEEDED 08/16 completed Not Available Not Available Not Available albuterol sulfate HFA 90 mcg/actua tion aerosol inhaler INHALE 1 PUFF INTO THE LUNGS EVERY 4 HOURS NEEDED FOR 30 DAYS active Not Available Not Available No t Available cyclobenz aprine 5 mg tablet TAKE 1 TABLET BY MOUTH THREE TIMES A DAY NEEDED 08/16 completed Not Available Not Available Not Available metoprolo l tartrate 25 mg tablet active Not Available Not Available Not Available nitrofura ntoin monohydra te/macroc rystals 100 mg capsule TAKE 1 CAPSULE BY MOUTH EVERY 12 HOURS FOR 5 DAYS active Not Available Not Available No t Available OneTouch Ultra Blue Test Strip 07/05 completed Medicati on ID: [id number] D uration Value: 90 Brand Name: OneTouch Ultra Blue Test Strip Se nd Method: E-Prescr ibed Sub s Allowed: subs OK Medic ationGen ericName : OneTouch Ultra Blue Test Strip Not Available Not Available Not Available Vitals Date Recorded Body height Body mass index (BMI) Body weight Provider Name and Address Organization Details Last Updated DateTime 08/17/2023 154.94 cm 20.6 kg/m2 15912.57 g Jenifer Olivera [place] - [facility] 08/17/2023 14:16:02 Social History None recorded. Functional Status None recorded. Mental Status None recorded. Family History Nothing Reported. Medical History No medical history recorded. Gynecological HistoryNo gynecological history recorded. Obstetrics History GPAL:G 0 P 0 0 0 0 Past Encounters Encounter ID Performer Location Encounter Start Date Encounter Closed Date Diagnosis/Indication Diagnosis SNOMED-CT Code Diagnosis ICD10 Code Diagnosis Note [id number] MASHA TORRES PA-C [facility] [address] [place] [address] 08/17/2023 14:06:29 08/17/2023 14:44:36 Chronic rhinitis 66289943 J31.0 Atypical facial pain 713 15266 G50.1 Dizziness and giddiness 675193978 R42 Health Concerns Section Related Observation LastModified by Organization Detai ls LastModified Time None Recorded Concern Status LastModified by Organization Details LastModified Time None Recorded Advance Directives Directive None Recorded Payers Encounter Date Sequence Insurance Name Policy Number Policy Waterman Covered Member ID Waterman Member ID Guarantor Name 08/17/2023 1 [place] (MEDICARE REPLACEMENT PPO) [id number] Daphne Ernst [id number] Daphne Ernst Notes Date Note Type Note Provider Name and Address Organization Details Recorded Time 08/17/2023 text/html 63 year old emilee thomas presents today to review CT scan of the sinuses. CT scan was ordered by . She was seen by him for ear pressure, which was felt to be related to TMJ issues. She was complaining of left cheek pressure at the time, so a CT was ordered. Previously seen by ZAFAR Garza for sinus issues, and RAST testing was ordered, but was not done. She does feel the prior facial pressure has resolved mostly, but it had lingered for quite some time following a URI in the spring. She also has concerns today about dizziness. She has a history of recurrent BPPV. She is currently seeing PT for bilateral BPPV and is feeling discouraged by how long it is taking for her symptoms to resolve. She has had BPPV for over 10 years now. She has had a chronic low level sense of imbalance for about 3-4 years, as though she feels she is on a boat. She is doing balance exercises with PT too. She reports some light sensitivity but equates this to vision issues with her left eye. She has no real headache history, she maybe had a few menstrual migraines when she was younger. No fluctuations in hearing or tinnitus when she has the dizziness. Audiogram in May with demonstrated normal hearing. ZAFAR WAITE-Cyril [address] [place] [address], [place], [address], [facility] - [facility] 08/17/2023 17:07:03 OBGyn Episode No OBEpisode recorded.
--- OUTSIDE RECORDS SUMMARY | 2024-04-30 18:39 | XMS_ITS ---
[facility] Address [address] [place] [address] Care Team Providers Care Environmental Services Coordinator Name Role Phone Lars Ortiz MD Primary Care Provider Unavail able Tommie Avila Unavailable [phone] Allergies Allergen (clinical drug ingredient) Drug/Non Drug Allergy documented on EMR Reaction Allergy Type Onset Date Status amlodipine amLODIPine Besylate Tachycardia Drug Allergy Active moxifloxacin Avelox Dizziness/Palpit a tions Drug Allergy Active clindamycin Clindamycin HCl Clostridium Difficile Drug Allergy Active doxycycline Doxycycline Hyclate Dizziness/Nausea/ Headache Drug Allergy Active escitalopram Lexapro Dizziness/Nausea Drug Allergy Active Lisinopril Cough Drug Allergy Active bupropion Wellbutrin XL Headache Drug Allergy Act zaki Bee Sting Unknown Allergy Active Medications Medication SIG (Take, Route, Frequency, Duration) Notes Start Date End Date Status Fish Oil 1200 MG 1 capsule Orally Onc e a day Active Metoprolol Tartrate 25 MG 1 tablet with food Orally Twice a day Active Multivitamin - 1 tablet Orally Once a day Active Florastor 250 MG as directed Orally Active Vitamin D 25 MCG (1000 UT) 1 tablet Orally Once a day Active Vitamin C 1000 MG 1 tablet Orally Once a day Active Folic Acid 800 MCG 1 tablet Orally Once a day Active Ibuprofen 800 MG 1 tablet with food o r milk as needed Orally every 8 hrs Active Zinc 50 MG 1 tablet Orally Once a day Active ProAir HFA 108(90BAse) Active EPINEPHrine 0.3 MG/0.3ML as directed Injection Active LORazepam 1 MG 1 tablet at bedtime as needed Orally Once a day Active Social History Tobacco Use: Social History Observation Description Date Details (start date - stop date) Former Smoker NA - NA Tobacco Use/Smoking Question Answer Notes Are you a: former smoker Additional Findings: Tobacco Non-User Current no n-smoker Alcohol Screen Question Answer Notes Did you have a drink containing alcohol in the p ast year? Yes Points 0 Interpretation Negative Tobacco use other than smoking: Question Answer Notes Are you an other tobacco user? No Vital Signs Height 5'1 in 11/10/2022 Weight 108 lbs 11/10/2022 BMI 20.4 kg/m2 11/10/2022 Encounters Encounter Location Date [facility] [place] [address] [place] [address] 11/10/2022 Tommie Avila Plan Of Treatment No Information Progress Notes * Daphne JACOB ADOB:[birth year] (64 yo F)Acc No.[id number]:11/10/2022 Progress Notes Patient:?Daphne JACOB A Provider:?Tommie Avila DPM :1960???Age:62 Y???Sex:Female D ate:11/10/2022 Phone: Address:[address] [place] [address] [place] Pcp:Lars Ortiz MD Subjective: * Chief Complaints: * ??? * ROS:?General/Constitutional:?Nausea?denies.?Vomiting?denies.?Hunger Thirst?denies.?Loss appetite?denies.?Chills?denies.?Fatigue?denies.?Fever?denies.?Night Sweats?denies.?Unexplained weight loss?denies.?Unexplained weight gain?denies.?HEENTM:?Dentures?denies.?Dizziness?denies.?Glasses/contacts?denies.?Retinopathy?de nies.?Blurred/double vision?admits.?TMJ?denies.?Discharge/drainage?denies.?Implants?denies.?Sore throat?denies.?Dental implants?denies.?Hard of hearing ?denies.?Difficulty chewing/swallowing/speaking?denies.?Nose bleeds?denies.?Sore mouth?denies.?Respiratory:?On Oxygen?denies.?Pneumonia/pleurisy?denies.?Bronchitis?denies.?Emphysema?denies.?C oughing?denies.?Cough blood?denies.?Shortness of breath?denies.?Wheezing?denies.?Cardiovascular:?Pacemaker?denies.?MVP?denies.?WPW?denies.?CHF?denies.?Heart attack?denies.?Septal defect?denies.?Rapid beat?denies.?Chest pain ?denies.?Atrial Fib.?denies.?Murmur/Palpitations?denies.?Gastrointestinal:?Hemorrhoids?denies.?Stomach/Abdominal pain?denies.?Dark blood stool?denies.?Irritable bowel ?denies.?Constipation?denies.?Diarrhea?denies.?Hematology:?Swelling?denies.?Clots?denies.?Varicose Veins?denies.?Bruising?denies.?Bleeding problem?denies.?Genitourinary:?Blood urine?denies.?Frequent/Painfu/urination/bladder control?denies.?Kidney stones?denies.?Infection (UTI)?denies.?Nephropathy?denies.?sex trans dis (STD)?denies.?Prostate?denies.?Musculoskeletal:?Hammertoes?denies.?Bunions?denies.?Back Pain?denies.?Muscle Cramps/ Resting?denies.?Muscle cramps / walking?denies.?Generalized aches and pains?denies.?Weakness?denies.?Integ.:?Root?denies.?Scars?denies.?Corns/calluses?denies.?Ingrown nails?denies.?Painful nails?denies.?Open Sores?denies.?Rashes?denies.?Neurologic:?Difficulty sleeping?denies.?Brain disorder?denies.?Numbness?denies.?Balance trouble?denies.?Confusion?denies.?Fainting/blackouts?denies.?Tingling?denies.?Tr emors?denies.? * Medical History:?High blood pressure, Thyroiditis, Reflux ( GERD), Depression, Anxiety, Gestational diabetes, Paroxysmal Supraventricular lachycardia, Clostridium Difficile, Hernia. * Surgical History:?tonsillect ada and adenoidectomy , wisdom teeth extraction , section 3x , dilatation and curettage , Tummy tuck , cardiac ablasion , tendon repair . * Family History:?Mother: dece ased, heart disease, diagnosed with Unspecified heart disease.?Father: , hypertension, diabetes mellitus, heart disease, diagnosed with Diabetic - NIDDM, Unspecified essential hypertension, Unspecified heart disease.?Son(s): alive, attention deficit hyperactivity disorder, Asberger's Syndrome (son).?Siblings: congestive heart failure, Older sister()thyroid cancer, thyroidectomy, Younger sister (Alive), diagnosed with Unspecified heart disease, Other malignant neoplasm of unspecified site.? * Social History:?Tobacco Use:?Tobacco Use/Smoking?Are you a:?former smoker ?Additional Findings: Tobacco Non-User?Current non-smoker ?Tobacco use other than smoking?Are you an other tobacco user??No ???Drugs/Alcohol:?Drugs?Have you used drugs other than those for medical reasons in the past 12 months??No ?Alcohol Screen?Did you have a drink containing alcohol in the past year??Yes ?Points?0 ?Interpretation?Negative ???Miscellaneous:?Caffeine: yes, 1-2 cups per day. ?Children: yes. ?Exercise: yes, occasional. ?Home smoke detector use: yes, smoke detectors, carbon monoxide detector. ?Housing: owning. ?Marital status: single, . ?Occupation: Employed, [employer]. * Medications:?Taking EPINEPHr ine 0.3 MG/0.3ML Solution Prefilled Syringe as directed Injection , Taking LORazepam 1 MG Tablet 1 tablet at bedtime as needed Orally Once a day , Taking ProAir HFA , Notes to Pharmacist: 108(90BAse), Taking Ibuprofen 800 MG Tablet 1 tablet with food or milk as needed Orally every 8 hrs , Taking Zinc 50 MG Tablet 1 tablet Orally Once a day , Taking Vitamin C 1000 MG Tablet 1 tablet Orally Once a day , Taking Folic Acid 800 MCG Tablet 1 tablet Orally Once a day , Taking Vitamin D 25 MCG (1000 UT) Tablet 1 tablet Orally Once a day , Taking Multivitamin - Tablet 1 tablet Orally Once a day , Taking Florastor 250 MG Capsule as directed Orally , Taking Fish Oil 1200 MG Capsule 1 capsule Orally Once a day , Taking Metoprolol Tartrate 25 MG Tablet 1 tablet with food Orally Twice a day * Allergies:?Bee Sting, Lisino pril: Cough, amLODIPine Besylate: Tachycardia, Wellbutrin XL: Headache, Lexapro: Dizziness/Nausea, Doxycycline Hyclate: Dizziness/Nausea/Headache, Avelox: Dizziness/Palpitations, Clindamycin HCl: Clostridium Difficile. Objective: * Vitals:?Ht:5'1 , Wt:108, BMI :20.4, Ht-cm: 154.94 cm, Wt-k.99 kg. Assessment: Plan: * Treatment: * Images: * The named appointment provid er may or may not be the originator of this progress note, and it is not deemed complete until electronically signed by the appointment provider. Sign off status: Pending * Provider:?Tommie Avila DPM Date:? 023 Generated for Sushma pathak/Shana/Ida on:?04/30/2024 06:39 PM EST
--- OUTSIDE RECORDS SUMMARY | 2024-04-30 18:39 | XMS_ITS | Patient Health Record ---
Author Organization [facility] Jasmeet Diaz Address [address] [place] [address] Care Team Providers Care Cuffer Name Role Phone Lars Ortiz MD Primary Care Provider Unavail able Tommie Avila Unavailable [phone] Allergies Allergen (clinical drug ingredient) Drug/Non Drug [...] Act zaki Bee Sting Unknown Allergy Active Reason For Referral No Information Medications Medication SIG (Take, Route, Frequency, Duration) Notes Start Date End Date Status Fish Oil 1200 MG 1 capsule Orally Onc e a day Active EPINEPHrine 0.3 MG/0.3ML as directed Injection Active Metoprolol Tartrate 25 MG 1 tablet [...] 1 tablet Orally Once a day Active LORazepam 1 MG 1 tablet at bedtime as needed Orally Once a day Active ProAir HFA 108(90BAse) Active Social History Tobacco Use: Social History [...] Are you an other tobacco user? No Plan Of Treatment No Information Insurance Providers Payer Name Payer Address Payer Phone Subscriber Number Group Number Insured Name Patient Relationship to Insured Coverage Start Date Coverage End Date [facility] Others [address] [place] [address] [phone] [id number] Daphne Ernst Self - patient is the insured Medical (General) History Medical History History ICD Code High blood pressure thyroiditis Reflux ( GERD) Depression Anxiety gestational diabetes Paroxysmal Supraventricular lachycardia Clostridium Difficile Hernia Surgical History Surgery Date(Month/Year) tonsillectomy and adenoidectomy wisdom teeth extraction section 3x dilatation and curettage Tummy tuck cardiac ablasion tendon repair
== END ==
LOC: HO.HMCSH 15:54
PROVIDERS: PCP Internal Medicine; Visit Provider Physician Assistant Medical
DX: M25.551 Pain in right hip (principal); M25.512 Pain in left shoulder; R10.9 Unspecified abdominal pain; M47.9 Spondylosis, unspecified

== ENCOUNTER → 2024-04-30 15:54 | Outpatient (BNVA) | payer MEDICARE, SELFPAY | PROVIDERS: PCP Internal Medicine; Visit Provider Physician Assistant Medical | DX: M25.551 Pain in right hip (principal); M25.512 Pain in left shoulder; R10.9 Unspecified abdominal pain; M47.9 Spondylosis, unspecified | CPT/HCPCS: 99212 ==

== ENCOUNTER 2024-05-11 13:34 | Outpatient (AMB) | payer MEDICARE, SELFPAY ==
--- NOTE | 2024-05-11 13:35 | MHC.PC.OV ---
Intake Visit Reasons: recurring indigestion Escrow Processor Required: No Campaign Specialist: Not Required per policy Accompanied by: Self / Same As Patient Allergies amlodipine Allergy (Unknown, Verified 05/11/24 13:56) tachycardia clyndamycin Allergy (Uncoded 05/11/24 13:56) Abdominal Pain Medication List - Last Reconciled 05/11/24 by Shelli Butterfield PA-C albuterol sulfate 90 mcg/actuation 2 puffs PO Q6H PRN epinephrine IM DIRECTED lorazepam 1 mg PO DAILY PRN metoprolol tartrate 12.5 mg PO BID Tobacco use date assessed: 05/11/24 Fall risk assessment: No Falls in past year Last assessed Fall Risk: 05/11/24 Dental Screening Dental Screen Date: 05/11/24 Did you have a dental visit in the last 12 months?: Yes Did you have a dental problem in the last 6 months where you did not have access to dental care?: No Was dental information given to patient?: Patient has [facility] Medical History Chest discomfort Spondylosis Abdominal pain Left shoulder pain Right hip pain History of mammogram (~01/2023) Clostridium difficile colitis Bee sting allergy Hx gestational diabetes Anxiety Depression GERD (gastroesophageal reflux disease) Paroxysmal supraventricular tachycardia Thyroiditis Hypertension Surgical History History of colonoscopy (~01/12/21) S/P tendon repair History of radiofrequency ablation (RFA) procedure for cardiac arrhythmia History of section History of adenoidectomy History of tonsillectomy History of abdominoplasty Social History Housing: House Alcohol intake: current Alcohol intake frequency: holidays/special occasions only Patient Tobacco Use Status: Former Tobacco user e-Cigarette/Vaping Use: Never Used Second Hand Smoke Exposure: Yes service: No Current occupational status: disabled Vision needs: Yes (Reading glasses) Questionnaire PHQ-9 Over the last 2 weeks, how often have you been bothered by any of the following problems? 1. Little interest or pleasure in doing things: not at all 2. Feeling down, depressed, or hopeless: not at all 3. Trouble falling or staying asleep, or sleeping too much: not at all 4. Feeling tired or having little energy: not at all 5. Poor appetite or overeating: not at all 6. Feeling bad about yourself - or that you are a failure or have let yourself or your family down: not at all 7. Trouble concentrating on things, such as reading the newspaper or watching television: not at all 8. Moving or speaking so slowly that other people could have noticed. Or the opposite - being so fidgety or restless that you have been moving around a lot more than usual: not at all 9. Thoughts that you would be better off or of hurting yourself in some way: not at all Total score: 0 Depression Screening Interpretation: Negative Depression Screening Done: Yes Source: Developed by Drs. Lars Clay, Yanet Manriquez, Og Oliver and colleagues, with an educational jm from [employer]. Thrive Questionnaire Date Thrive assessed: 05/11/24 I am a: Patient What is your living situation today?: I have a steady place to live Within the past 12 months, did the food you bought not last and you didn't have the money to get more?: Never true Within the past 12 months, did you worry whether your food would run out before you got money to buy more?: Never true Do you have trouble paying for medicines?: No Do you have trouble getting transportation to medical appointments?: No Do you have trouble paying your heating and electricity bill?: No Do you have trouble taking care of your child, family member or friend?: No Do you have trouble with day-to-day activities such as bathing, preparing meals, shopping, managing finances, etc.?: No Are you currently unemployed and looking for a job?: No Are you interested in more education?: No Please select the resources that you would like help with: None Currently or been in a relationship where the following occur: No concerns reported THRIVE Score: 0 AUDIT C Alcohol Use Questionnaire (AUDIT-C) 1. How often do you have a drink containing alcohol?: Never Total Score: 0 RADHA-7 AMB Questionnaire RADHA-7 Date RADHA - 7 assessed: 05/11/24 Feeling nervous, anxious, or on edge: 0 = Not at all Not being able to stop or control worryin = Not at all Worrying too much about different things: 0 = Not at all Trouble relaxin = Not at all Being so restless that it is hard to sit still: 0 = Not at all Becoming easily annoyed or irritable: 0 = Not at all Feeling afraid as if something awful might happen: 0 = Not at all Total RADHA-7 score (0-4 normal; 5-9 mild; 10-14 moderate; 15-21 severe): 0 Source: Developed by Drs. Lars Clay, Yanet Manriquez, Og Oliver and colleagues, with an educational jm from [employer]. Physical exam (Primary Care) Tobacco/Smoking Status: Tobacco use Status Tobacco use date assessed 05/11/24 05/11/24 13:38 Patient Tobacco Use Status Former Tobacco user 05/11/24 13:38 e-Cigarette/Vaping Use Never Used 05/11/24 13:38 PHQ-9: PHQ-9 Score PHQ-9: Total score 0 05/11/24 13:38 Depression Screening Interpretation: Negative Thrive Assessment: Date of Thrive Assessment Date Thrive assessed 05/11/24 05/11/24 13:38 Currently or been in a relationship where the following occur: No concerns reported Telehealth Telehealth Telehealth Platform: Telephone Location of provider rendering services: practice address Location of patient: address on file Patient Identification confirmed using: Name, : Yes Telehealth method: voice only Patient verbally consented to treatment: Yes Patient verbally consented to billing insurance company: Yes Patient informed of any privacy concerns related to visit: Yes Minutes spent on Phone/Video with Pt.: 15 Coding Level of Care Code Tele Est Pt Level 4 (26548) Complex EM visit Add On G2211 Diagnoses Chest discomfort R07.89 Assessment & Plan Assessment & Plan (1) Chest discomfort: Code(s): R07.89 - Other chest pain Category: Medical Plan: Patient directed to take aspirin 324 mg chewable. To head directly to the emergency department for further evaluation and treatment. She understands the risks and benefits. Plan Plan Patient was informed and verbally consented to the use of an ambient scribe for clinic note documentation during this visit. 1. Chest Pain Recommend emergency department evaluation for EKG and serial cardiac enzyme studies to rule out myocardial infarction; aspirin administration was recommended. Further evaluation needed to exclude acute cardiac conditions. 2. Dyspepsia Current symptoms managed with Tums; further assessment warranted if unresolved after addressing cardiac concerns. 3. History Of Heart Disease Elevated risk for cardiac events due to prior cardiac history; necessary cardiac workup and potential cardiology consultation based on emergency department findings. Discussion Notes We discussed the likely differential of dyspepsia and possible cardiac involvement given the patient's reported symptoms and significant cardiac history. I emphasized the importance of emergency evaluation due to the risk of atypical presentations in females and the necessity for an EKG and cardiac enzyme testing to rule out myocardial infarction. The patient was advised that emergency presentation was the appropriate course of action for timely evaluation and possible intervention. Aspirin's role was explained as a preventative measure pending further cardiac assessment. I explained the transfer procedures if immediate intervention at a cardiac-specialized facility becomes necessary or warranted based on findings. Immediate ED visit and subsequent care were stressed as necessary considering her clinical presentation. Patient Instructions: Patient Instructions - Seek immediate evaluation at the emergency department for EKG and cardiac enzyme testing due to chest pain and pressure. - Continue aspirin as directed if experiencing chest discomfort until seen by medical personnel. - Follow up with cardiac care at [facility] if transfer is needed after initial evaluation. - Report any worsening symptoms such as increased chest pain, shortness of breath, or changes in intensity/frequency. Scribe Plan - Not visible on output: History of Present Illness The patient is a 64-year-old female presenting with indigestion and chest pain. She has been experiencing these symptoms since Tuesday night, leading to her current telehealth visit. The indigestion is being managed intermittently with Tums, but she is concerned due to a history of heart disease. This concern is compounded by episodes of chest pressure that she intermittently experiences. The patient's previous heart issues prompt her to consider the possibility of a cardiac cause for her symptoms, although an at-home EKG showed a normal sinus rhythm. The patient is aware of the need for a more comprehensive assessment in a hospital setting, particularly looking at cardiac enzymes to evaluate heart muscle damage. While she took aspirin which provided some symptom relief, indicating possible cardiac involvement, she remains apprehensive about visiting the emergency department due to prolonged waiting periods, although she acknowledges the necessity should symptoms persist. Review of Systems - Cardiovascular: Reports chest pain and pressure, alleviated in part by aspirin. - Gastrointestinal: Reports indigestion managed intermittently with Tums.
--- OUTSIDE RECORDS SUMMARY | 2024-05-11 15:12 | XMS_ITS | Encounter Summary ---
Author Organization [facility] Address [address] [place] [address] Care Team Providers Care Order Checker Packer Processer Name Role Phone Lars Ortiz DO Primary Care Provider [phone] Reason for Visit * Reason Comments Follow-up Review 7 day ROCT Encounter Details Date Type Department Care Team (Late st Contact Info) Description 04/23/2024 12:40 PM EST Office Visit [facility] - [address] [place] [phone] Jenifer Brooks PA [address] [place] [address] Palpitations (Primary Dx); PAC (premature atrial contraction); [...] any questions or concerns Jenifer Brooks PA-C [phone] [facility] [address] [place] [address] Continue current medication * SERGO Echols - 04/23/2024 12:40 PM EST Images from the original note were not included. PRIMARY TECHNICAL SUPPORT MANAGER: Carrol Smith MD PCP: DO Daphne Moe [...] Description 10/23/2024 1:40 PM EDT Office Visit [facility] - [address] [place] [address] Jenifer Brooks PA [address] [place] [address] documented as of this encounter Procedures Procedure [...] GEMUSE QTc 423 ms GEMUSE P Wave [place] 67 degrees GEMUSE R [place] 46 degrees GEMUSE T [place] 0 degrees GEMUSE ECG Interpretation Normal sinus [...] day. added in this encounter Care Teams Order Checker Packer Processer Relationship Specialty Start Date End Date Lars Ortiz DO [address] [place] [phone] PCP - General Internal Medicine 01/29/20 documented as of this encounter
--- OUTSIDE RECORDS SUMMARY | 2024-05-11 15:12 | XMS_ITS | Clinical Summary ---
Author Organization [address] [place] [address] [place] [phone] Phone Care Team Providers Care Historic Sites Registrar Name Role Phone Angel Miller Primary Care Provider [phone] Allergies Active Allergy Reactions Criticality Noted Date [...] Description 04/23/2024 12:40 PM EST Office Visit [facility] - [address] [place] [address] Jenifer Brooks PA Palpitations (Primary Dx); PAC [...] Description 10/23/2024 1:40 PM EDT Office Visit [facility] - [address] [place] [address] Jenifer Brooks PA [address] [place] [address] Health Maintenance Due Date Last Done Comments [...] TEST Routine 09/28/2023 LIPID PANEL Routine 09/28/2023 [facility] SCREENING DIGITAL Routine 12/12/2017 5:13 PM [...] GEMUSE QTc 423 ms GEMUSE P Wave [place] 67 degrees GEMUSE R [place] 46 degrees GEMUSE T [place] 0 degrees GEMUSE ECG Interpretation Normal sinus [...] EDT Narrative 12/12/2017 5:13 PM EDT [facility] Diagnostic Imaging Department [address] [place] [address] Patient: ??DAPHNE JACOB ?/Age/Sex: 1960 - 57 - F Unit#: ??[id number] ? Location/Status: ??SPDIMAM/REG CLI ? Mnemonic/Ordering Site: ??DIGSC/SPMAM Ordering Physician: ??MILLER TEJEDA DO Mikey Screening Digital - 12/12/17 - 1154 History: Bilateral breast cancer screening. Previous augmentation mammoplasty. Technique: ??Digital mammography. Conventional CC and MLO projections with implant displaced views, tomography and computer aided detection. Comparison: [facility] 12/30/2005, 11/04/2004 and 07/16/2003. Findings: ?? Breast tissue consists of fatty and fibroglandular elements (category b density) bilaterally. Bilateral subglandular breast implants in place, lucent; therefore, likely saline containing. There is no suspicious group of microcalcifications, mass, architectural distortion or suspicious change in breast tissue density. Impression: No mammographic evidence of malignancy. BIRADS category 1; negative study, 3341F [id number], [id number] Note: Patient information entered into a reminder system with a target due date for the next mammogram: ??CPT II 7025F Dictating Physician: ??GEN RILEY MD Electronically Signed by: ??GEN RILEY MD Dic Date/Time: ??12/12/171711 Sign date/Time: ??12/12/171712 Procedure Note Gen Riley MD - 02/16/2022 [facility] Diagnostic Imaging Department [address] [place] [address] Patient: DAPHNE JACOB Darcie /Age/Sex: 1960 - 57 - F Unit#: [id number] Location/Status: [facility] CLI Mnemonic/Ordering Site: [facility] Ordering Physician: MILLER TEJEDA DO Mikey Screening Digital - 12/12/17 - 1154 History: Bilateral breast cancer screening. Previous augmentationmammoplasty. Technique: Digital mammography. Conventional CC and MLO projectionswith implant displaced views, tomography and computer aided detection. Comparison: [facility] 12/30/2005, 11/04/2004 and 07/16/2003. Findings: Breast tissue consists of fatty and fibroglandular elements (category b density) bilaterally. Bilateral subglandular breast implantsin place, lucent; therefore, likely saline containing. There is no suspiciousgroup of microcalcifications, mass, architectural distortion or suspiciouschange in breast tissue density. Impression: No mammographic evidence of malignancy. BIRADS category 1; negative study, 3341F [id number], [id number] Note: Patient information entered into a reminder [...] CROSS - [place] [employer] [employer] Care Teams Historic Sites Registrar Relationship Specialty Start Date End Date Miller Tejeda DO [address] [place] [phone] PCP - General Internal Medicine 01/29/20
--- OUTSIDE RECORDS SUMMARY | 2024-05-11 15:12 | XMS_ITS | Clinical Summary ---
Author Organization [facility] Address [address] [place] [address] Care Team Providers Care Client Services Administrator Name Role Phone AngelLars baez Primary Care Provider [phone] Allergies Active Allergy Reactions Criticality Noted Date [...] age to complete this topic Care Teams Client Services Administrator Relationship Specialty Start Date End Date Lars Ortiz DO [address] [place] [phone] PCP - General Internal Medicine 06/13/17
--- OUTSIDE RECORDS SUMMARY | 2024-05-11 15:13 | XMS_ITS | Data Portability ---
Author Organization [place] - [facility], Allergy Address [address] [address] Assessment Encounter Date Assessment Date Assessment LastModified [...] IgE Ab, quantitati ve, serum 2023 024 [facility] ([facility] Ordering - All Locations), Patient Can Go To The Location Of Their Choice, 4 12:52:39 bermuda grass ige, serum 2023 024 [facility] ([facility] Ordering - All Locations), Patient Can Go To The Location Of Their Choice, 4 12:52:39 palestinian plantain ige, serum 2023 024 [place] [facility] ([facility] Ordering - All Locations), Patient Can Go To The Location Of Their Choice, 4 07:46:22 ige, total, serum 2023 [place] [facility] ([facility]ized Electronic Ordering - All Locations), [...] >100. 00 Very High Not Available [facility] ([facility]) [address] [facility], [place], [address], 08/22/2023 07:35:22 06/20/20 24 08/21/2023 ALLER GENS, ZONE 1 S642-IpL D pteronyssinu s <0.10 kU/L class 0 Not Available [facility] ([facility]) [address] [facility] [place], [address], 08/22/2023 07:35:22 08/18/19 24 08/21/2023 ALLER GENS, ZONE 1 H468-YoV D farinae <0.10 kU/L class 0 Not Available [facility] ([facility]) [address] [place], [address], 08/22/2023 07:35:22 08/18/19 24 08/21/2023 ALLER GENS, ZONE 1 K963-ObC CAT dander <0.10 kU/L class 0 Not Available [facility] ([facility]) [address] [facility] [place], [address], 08/22/2023 07:35:22 08/18/19 24 08/21/2023 ALLER GENS, ZONE 1 M341-DzR dog dander <0.10 kU/L class 0 Not Available [facility] ([facility]) [address] [place], [address], 08/22/2023 07:35:22 08/18/19 24 08/21/2023 ALLER GENS, ZONE 1 i098-RpP bermuda grass <0.10 kU/L class 0 Not Available [facility] ([facility]) [address] [place], [address], 08/22/2023 07:35:22 08/18/19 24 08/21/2023 ALLER GENS, ZONE 1 z004-SfB bluegrass, kentgrand view healthy <0.10 kU/L class 0 Not Available [facility] ([facility]) [address] [place], [address], 08/22/2023 07:35:22 08/18/19 24 08/21/2023 ALLER GENS, ZONE 1 n792-KlD bahia grass <0.10 kU/L class 0 Not Available [facility] ([facility]) [address] [place], [address], 08/22/2023 07:35:22 08/18/19 24 08/21/2023 ALLER GENS, ZONE 1 G063-BuW cockroach, cypriot <0.10 kU/L class 0 Not Available [facility] ([facility]) [address] [place], [address], 08/22/2023 07:35:22 08/18/19 24 08/21/2023 ALLER GENS, ZONE 1 D584-SeG penicillium chrysogen <0.10 kU/L class 0 Not Available [facility] ([facility]) [address] [facility], [place], [address], 08/22/2023 07:35:22 08/18/19 24 08/21/2023 ALLER GENS, ZONE 1 C249-OnT cladosporium herbarum <0.10 kU/L class 0 Not Available [facility] ([facility]) [address] [place], [address], 08/22/2023 07:35:22 08/18/19 24 08/21/2023 ALLER GENS, ZONE 1 C149-UgU aspergillus fumigatus <0.10 kU/L class 0 Not Available [facility] ([facility]) [address] [place], [address], 08/22/2023 07:35:22 08/18/19 24 08/21/2023 ALLER GENS, ZONE 1 H948-GjZ mucor racemosus <0.10 kU/L class 0 Not Available [facility] ([facility]) [address] [place], [address], 08/22/2023 07:35:22 08/18/19 24 08/21/2023 ALLER GENS, ZONE 1 W498-WwP alternaria alternata <0.10 kU/L class 0 Not Available [facility] ([facility]) [address], [place], [address], 08/22/2023 07:35:22 08/18/19 24 08/21/2023 ALLER GENS, ZONE 1 V818-DbM stemphylium herbarum <0.10 kU/L class 0 Not Available [facility] ([facility]) [address], [place], [address], 08/22/2023 07:35:22 08/18/19 24 08/21/2023 ALLER GENS, ZONE 1 M283-WgQ common silver birch <0.10 kU/L class 0 Not Available [facility] ([facility]) [address], [place], [address], 08/22/2023 07:35:22 08/18/19 24 08/21/2023 ALLER GENS, ZONE 1 C736-DkR oak, white <0.10 kU/L class 0 Not Available [facility] ([facility]) [address], [place], [address], 08/22/2023 07:35:22 08/18/19 24 08/21/2023 ALLER GENS, ZONE 1 M647-VuV elm, cypriot <0.10 kU/L class 0 Not Available [facility] ([facility]) [address], [place], [address], 08/22/2023 07:35:22 08/18/19 24 08/21/2023 ALLER GENS, ZONE 1 G386-QuL den, white <0.10 kU/L class 0 Not Available [facility] ([facility]) [address], [place], [address], 08/22/2023 07:35:22 08/18/19 24 08/21/2023 ALLER GENS, ZONE 1 D012-CbF maple/box elder <0.10 kU/L class 0 Not Available [facility] ([facility]) [address], [place], [address], 08/22/2023 07:35:22 08/18/19 24 08/21/2023 ALLER GENS, ZONE 1 X449-SwW hazelnut tree <0.10 kU/L class 0 Not Available [facility] ([facility]) [address], [place], [address], 08/22/2023 07:35:22 08/18/19 24 08/21/2023 ALLER GENS, ZONE 1 U559-RiJ hickory, white <0.10 kU/L class 0 Not Available [facility] ([facility]) [address], [place], [address], 08/22/2023 07:35:22 08/18/19 24 08/21/2023 ALLER GENS, ZONE 1 J335-XkP white mulberry <0.10 kU/L class 0 Not Available [facility] ([facility]) [address], [place], [address], 08/22/2023 07:35:22 08/18/19 24 08/21/2023 ALLER GENS, ZONE 1 F145-RiE cedar, mountain <0.10 kU/L class 0 Not Available [facility] ([facility]) [address], [place], [address], 08/22/2023 07:35:22 08/18/19 24 08/21/2023 ALLER GENS, ZONE 1 P881-PcA ragweed, short <0.10 kU/L class 0 Not Available [facility] ([facility] [facility]) [address], [place], [address], 08/22/2023 07:35:22 08/18/19 24 08/21/2023 ALLER GENS, ZONE 1 Q102-PlE mugwort <0.10 kU/L class 0 Not Available [facility] ([place] [facility]) [address], [place], [address], 08/22/2023 07:35:22 08/18/19 24 08/21/2023 ALLER GENS, ZONE 1 G865-MiY plantain, palestinian <0.10 kU/L class 0 Not Available [facility] ([facility]) [address] [facility], [place], [address], 08/22/2023 07:35:22 08/18/19 24 08/21/2023 ALLER GENS, ZONE 1 W173-KbL pigweed, common <0.10 kU/L class 0 Not Available [facility] ([facility]) [address] [facility], [place], [address], 08/22/2023 07:35:22 08/18/19 24 08/21/2023 ALLER GENS, ZONE 1 H231-OnT sheep sorrel <0.10 kU/L class 0 Not Available [facility] ([facility]) [address] [facility], [place], [address], 08/22/2023 07:35:22 08/18/19 24 08/21/2023 ALLER GENS, ZONE 1 U915-IwG nettle <0.10 kU/L class 0 Not Available [facility] ([facility]) [address] [facility], [place], [address], 08/22/2023 07:35:22 08/18/19 24 08/21/2023 IMMUN OGLOB ULIN E, TOTAL immunoglobul in E, total 66 IU/mL 6-495 Not Available [facility] ([facility]) [address] [facility], [place], [address], 08/22/2023 07:35:23 08/02/19 24 02/04/2021 CT, abdom en + pelvi s, w/o contr ast No observ ation record ed. BARCODE Not Available 2023 09:55:11 08/05/19 24 08/04/2023 [facility] Diagno stic Imagin g Depart [address] [address] [phone] ____ Patien t: ANNETTE L,KOLBY Y A /Age/S ex: 1959 - 63 - F Unit#: [id number] Locati on/Sta tus: SPDICA T/REG CLI Accoun t#: [id number] Mnemon ic/Ord ering Site: [facility] MOLINA/SP CT [...] availa ble for compar apurva. Scanne r: [employer] peed 64 slice VCT Dose reduct ion [...] Date/T jacek: 1117 Sign date/T jacek: 1124 [id number] [facility] ([facility] [[email or web address] Central Scheduling) [facility], [place], [address], 08/05/2023 13:06:37 08/17/19 24 08/04/2023 CT, maxil [...] Gastroeso phageal reflux disease without esophagit is 543068885 Active 2016 Gastro-es ophageal reflux disease without esophagit is; Note: Date Diagnosed : 03/25/2016 12:06 PM (K21.9) Not Available [facility] 02:34:48 Bilateral temporoma ndibular joint pain 77874576594 058621 Active 2020 Arthralgi a of bilateral temporoma ndibular joint; Note: Date Diagnosed : 04/09/2020 2:38 PM (M26.623) Not Available [facility] 02:34:56 Temporoma ndibular joint disorder 67023492 Active 2016 Temporoma ndibular joint disorder, unspecifi ed; Note: Date Diagnosed : 03/24/2016 12:38 PM (M26.60) Not Available [facility] 4 02:34:44 Otalgia of left ear 0648628135 Active 2020 Otalgia, left ear; Note: Date Diagnosed : 04/09/2020 2:38 PM (H92.02) Not Available [facility] 4 02:34:51 Chronic rhinitis 95395972 Active 2016 Chronic rhinitis; Note: Date Diagnosed : 03/25/2016 12:05 PM (J31.0) Not Available [facility] 4 02:34:49 Benign paroxysma l positiona l vertigo 406483923 Active 2017 Benign paroxysma l vertigo, right ear; Note: Date Diagnosed : 01/03/2018 3:32 PM (H81.11) Benign paroxysma l vertigo, left ear; Note: Date Diagnosed : 7 4:29 PM (H81.12) ; Start Date : 7 Not Available [facility] 4 02:34:49 Dizziness and giddiness 915054324 Active 2016 Dizziness and giddiness ; Note: Date Diagnosed : 7 4:11 PM (R42) Not Available [facility] 4 02:34:43 Acute sinusitis 91410067 Active 2022 Other acute sinusitis ; Note: Date Diagnosed : 07/05/2022 12:08 PM (J01.80) Not Available [facility] 4 02:34:43 Atypical facial pain 07220398 Active 2023 CRISTINA MOROCHO MD [address] [place] [address], [facility] [place], [place], [address] , [facility] - [facility] 4 21:21:14 Pain of left temporoma ndibular joint 19644754359 978102 Active 2023 Arthralgi a of left temporoma ndibular joint; Note: Date Diagnosed : 06/02/2023 3:09 PM (M26.622) Not Available [facility] 02:34:53 Problem Notes None recorded. Procedures Surgical History None recorded. Imaging Results Imaging Date Name Status LastModified by Organiz ation Details LastModified Time 02/04/2021 CT, abdomen + pelvis, w/o contrast completed BARCODE Information not available 08/02/2023 09:55:11 08/04/2023 [email or web address] completed [id number] [place] [address] ( [facility] [[email or web address] Central Scheduling) [email or web address], [place], [address], 08/05/2023 13:06:37 08/04/2023 CT, maxillofacial, w/o contrast [...] Name and Address Organization Details Recorded Time 128061 amlodipin e medicatio n Not available Not available Not available 08/17/2023 52257 RxNorm Jenifer mehta [place] - [facility] 14:16:13 Medications Name Sig Start Date Stop Date Status Note LastModified by Organization Details LastModified Time amoxicill in 500 mg capsule TAKE 1 CAPSULE BY MOUTH THREE TIMES A DAY FOR 7 DAYS 08/16 completed Not Available Not Available Not Available Augmentin 875 mg-125 mg tablet Take 1 tablet by mouth twice a day with meals 08/16 completed Medicati on ID: [id number] D uration Value: 14 Brand Name: Augmenti n Send Method: E-Prescr ibed Sub s Allowed: subs OK Medic ationGen ericName : Augmenti n Medica tion ID: [id number] D uration Value: 14 Brand Name: Augmenti [...] mg tablet 07/05 completed Medicati on ID: [id number] D uration Value: 30 Brand Name: valacycl ovir Sen d Method: E-Prescr ibed Sub s Allowed: subs OK Medic ationGen ericName : valacycl ovir Not Available Not Available Not Available tramadol 50 mg tablet TAKE 1 TABLET 4 TIMES DAILY NEEDED FOR PAIN. 08/16 completed Not Available Not Available Not Available famotidin e 20 mg tablet active Medicati on ID: [id number] B rand Name: famotidi ne Send Method: [...] mg tablet 01/27 completed Medicati on ID: [id number] D uration Value: 30 Brand Name: paroxeti ne HCl Send Method: E-Prescr ibed Sub s Allowed: subs OK Medic ationGen ericName : paroxeti ne HCl Not Available Not Available Not Available mupirocin 2 % topical ointment PLEASE SEE ATTACHED FOR DETAILED DIRECTIO NS active Not Available Not Available No t Available lorazepam 1 mg tablet active Medicati on ID: [id number] B rand Name: lorazepa m Send Method: [...] Test Strip 07/05 completed Medicati on ID: [id number] D uration Value: 90 Brand Name: OneTouch Ultra Blue Test Strip Se nd Method: E-Prescr ibed Sub s Allowed: subs OK Medic ationGen ericName : OneTouch Ultra Blue Test Strip Not Available Not Available Not Available Vitals Date Recorded Body height Body mass index (BMI) Body weight Provider Name and Address Organization Details Last Updated DateTime 08/17/2023 154.94 cm 20.6 kg/m2 51458.57 g Jenifer Olivera [place] - [facility] 08/17/2023 14:16:02 Social History None recorded. Functional [...] Note 4356 MASHA TORRES PA-C [facility] on [address] [place] [address] 08/17/2023 14:06:29 08/17/2023 14:44:36 Chronic rhinitis 07374490 J31.0 Atypical facial pain 713 [address]2810 G50.1 Dizziness and giddiness 690708283 R42 Health Concerns Section Related Observation LastModified by Organization Detai ls LastModified Time None Recorded Concern Status LastModified by Organization Details LastModified Time None Recorded Advance Directives Directive None Recorded Payers Encounter Date Sequence Insurance Name Policy Number Policy Waterman Covered Member ID Waterman Member ID Guarantor Name 08/17/2023 1 [place] (MEDICARE REPLACEMENT PPO) [id number] Daphne Ernst [id number] Daphne Ernst Notes Date Note Type [...] May with demonstrated normal hearing. ZAFAR WAITE-Cyril [address] [place] [address], [place], [address], [facility] - [facility] 08/17/2023 17:07:03 OBGyn Episode No OBEpisode recorded.
== END 2024-05-11 13:59 | disposition home or self-care (01) ==
LOC: HO.HMCH 13:34
PROVIDERS: PCP Internal Medicine; Visit Provider Physician Assistant Medical
DX: R07.89 Other chest pain (principal)

== ENCOUNTER → 2024-05-11 13:34 | Outpatient (BNVA) | payer MEDICARE, SELFPAY | PROVIDERS: PCP Internal Medicine; Visit Provider Physician Assistant Medical ==

== ENCOUNTER 2024-05-11 14:29 | Emergency (ER) | payer MEDICARE, SELFPAY ==
--- NOTE | ~2024-05-11 | XR_ITS ---
EXAMINATION: XR CHEST 2 VIEWS HISTORY: chest pain COMPARISON: There are no prior studies for comparison. FINDINGS: PA and lateral views of the chest are submitted. The lungs are expanded and clear. There is no pleural effusion, pneumothorax, or pulmonary vascular congestion. The heart is normal in size. The bones are intact. XR/XR chest 2V IMPRESSION: Clear lungs. Electronically signed by: Lars Callejas MD 05/11/2024 03:03 PM EDT
--- NOTE | 2024-05-11 14:31 | ECG_ITS ---
Test Reason : chestpain Blood Pressure : */* mmHG Vent. Rate : 65 BPM Atrial Rate : 65 BPM P-R Int : 176 ms QRS Dur : 88 ms QT Int : 388 ms P-R-T Axes : 71 14 8 degrees QTcB Int : 403 ms Normal sinus rhythm Possible Left atrial enlargement T wave abnormality, consider inferior ischemia Abnormal ECG When compared with ECG of 28-Jun-2002 14:23, Inverted T waves have replaced nonspecific T wave abnormality in Inferior leads Referred By: Gela Matthews Electronically Signed By: JEWELL MAZARIEGOS
[2024-05-11 14:55] LABS: MANUAL DIFF FLAG NO
[2024-05-11 14:58] VITALS: BP 133/64; PULSE 62; RESP 18; TEMP 36.9; O2SAT 99; BMI 21.9
[2024-05-11 15:00] LABS: Basophils Percent Auto 0.6 % (0-2); Eosinophils Absolute Auto 0.1 X10*3/uL (0.0-0.4); Eosinophils Percent Auto 1.2 % (0-4); Hematocrit 39.5 % (37.0-47.0); Hemoglobin 13.7 g/dl (12.0-16.0); Imm Gran Abs Auto 0.03 X10*3/uL (0.00-0.03); Imm Gran Pct Auto 0.4 % (0.0-0.4); Lymphocytes Absolute Auto 1.3 X10*3/uL (1.2-4.9); Lymphocytes Percent Auto 18.1 % (20-40); Mean Corpuscular HGB Conc 34.7 g/dl (31.0-35.0); Mean Corpuscular Hemoglobin 34.2 pg (27.0-33.0); Mean Corpuscular Volume 98.5 fL (80.0-98.0); Mean Platelet Volume 9.7 fL (9.4-12.3); Monocytes Absolute Auto 0.6 X10*3/uL (0.1-1.2); Monocytes Percent Auto 8.7 % (2-11); Neutrophils Absolute Auto 4.9 x10*3/uL (2.0-8.3); Platelet Count 258 X10*3/uL (160-400); Red Blood Count 4.01 X10*6/uL (4.20-5.50); Red Cell Distribution Width 11.6 % (11.0-16.0); White Blood Count 6.9 X10*3/uL (4.8-10.8)
--- NOTE | 2024-05-11 15:08 | ED_ITS ---
HPI - Chest Pain General Chief Complaint: Chest Pain Stated Complaint: Chest pressure Time Seen by Provider: 05/11/24 17:38 Source: patient Mode of arrival: ambulatory Limitations: no limitations History of Present Illness ED Provider: Rani Ott PA-C HPI narrative: Patient is a 64 year old assigned female at with a history of depression, anxiety, HTN, GERD, atrial fib s/p ablation NOT on ACs, presenting to the emergency department today with central chest pain and nausea. Patient states that over the last 5 days she has had central chest pain with nausea. Patient states that nothing has made it better and nothing has made it worse. Patient denies any dizziness, lightheadedness, abdominal pain, vomiting, fever, chills, blurry vision, double vision, loss of vision, difficulty breathing, shortness of breath, back pain, night sweats, pain with urination, increased urinary frequency, increased urinary urgency, blood in her urine or stool, syncope or a near syncopal episode, recent trauma or falls, bowel incontinence, bladder incontinence, or any other complaints at this time. Related Data Home Medications ?Medication ?Instructions ?Recorded ?Confirmed albuterol sulfate 90 mcg/actuation 2 puff PO Q6H PRN 01/11/20 05/11/24 aerosol inhaler epinephrine 0.3 mg/0.3 mL IM DIRECTED 01/11/20 05/11/24 injection, auto-injector metoprolol tartrate 25 mg tablet 12.5 mg PO BID 01/11/20 05/11/24 Previous Rx's ?Medication ?Instructions ?Recorded lorazepam 1 mg tablet 1 mg PO DAILY PRN anxiety #30 tabs 04/18/24 Allergies Allergy/AdvReac Type Severity Reaction Status Date / Time amlodipine Allergy Intermediate tachycardia Verified 05/11/24 14:59 clyndamycin Allergy Intermediate Abdominal Uncoded 05/11/24 14:58 Pain Review of Systems 2 Constitutional: Constitutional: Reports no additional constitutional complaints, Denies chills, Denies fever(s) and Denies night sweats Eyes: Eyes: Reports no additional eye complaints, Denies blurry vision, Denies change in vision, Denies diplopia, Denies eye discharge, Denies loss of vision and Denies eye pain ENT: Denies dizziness Cardiovascular: Cardiovascular: Reports no additional cardiovascular complaints, Reports chest pain (central - non-radiating), Denies lightheadedness, Denies Loss of Consciousness and Denies dyspnea Respiratory: Respiratory: Reports no additional respiratory complaints and Denies dyspnea Gastrointestinal: Gastrointestinal: Reports no additional gastrointestinal complaints, Denies abdominal pain, Denies melena, Denies hematochezia, Denies change in bowel habits, Denies change in stool character, Reports nausea and Denies vomiting Genitourinary: Genitourinary: Denies hematuria, Denies urinary frequency, Denies dysuria, Denies urinary incontinence, Denies urinary hesitancy and Denies urinary urgency Musculoskeletal: Musculoskeletal: Reports no additional musculoskeletal complaints, Denies numbness and Denies tingling Neurologic: Denies dizziness, Denies loss of vision, Denies numbness and Denies tingling Psychiatric: Psychiatric: Reports no additional psychiatric complaints Endocrine: Endocrine: Reports no additional endocrine complaints Hematologic/Lymphatic: Hematologic/Lymphatic: Reports no additional hematologic/lymphatic complaints Allergic/Immunologic: Allergic/Immunologic: Reports no additional allergic/immunologic complaints PMFSH Past Medical History Attestation statement: The following information was validated with the patient. Source: old records reviewed and nursing notes reviewed Medical History Chest discomfort Spondylosis Abdominal pain Left shoulder pain Right hip pain History of mammogram (~01/2023) Clostridium difficile colitis Bee sting allergy Hx gestational diabetes Anxiety Depression GERD (gastroesophageal reflux disease) Paroxysmal supraventricular tachycardia Thyroiditis Hypertension Surgical History History of colonoscopy (~01/12/21) S/P tendon repair History of radiofrequency ablation (RFA) procedure for cardiac arrhythmia History of section History of adenoidectomy History of tonsillectomy History of abdominoplasty Social History Social History Housing: House Alcohol intake: current Alcohol intake frequency: holidays/special occasions only Patient Tobacco Use Status: Former Tobacco user e-Cigarette/Vaping Use: Never Used Second Hand Smoke Exposure: Yes Advance Directives: No Advance Directives Information Provided: No Do you have a plan to hurt others: No Plan service: No Current occupational status: disabled Vision needs: Yes (Reading glasses) Physical Exam 2 Vital Signs: Vital Signs: Last Vital Signs Temp 98.4 F 05/11/24 14:58 Pulse 62 05/11/24 14:58 Resp 18 05/11/24 14:58 BP 133/64 05/11/24 14:58 Pulse Ox 99 05/11/24 14:58 O2 Del Method Room Air 05/11/24 14:58 BMI result Body Mass Index 21.9 Const: General: cooperative, no acute distress, alert and awake Nutritional Appearance: well nourished Orientation/consciousness: patient oriented x3 Limitations: no limitations HEENT: Head: Yes normal to inspection and Yes atraumatic Ears: hearing grossly normal bilaterally and external ears normal General nose exam: Normal external nose present, no nasal discharge noted and no epistaxis Face and sinus: Yes normal facial exam, No abrasion and No laceration Mouth: Normal oral and palatal mucosa present, no drooling and no muffled voice Eyes: General: appearance normal, both eyes and all related structures P eriorbital: periorbital findings normal Eyelids: Yes eyelids normal C onjunctivae: conjunctivae normal Pupils: Equal, round and reactive pupils present EOM: EOMs intact bilaterally Neck: Neck: Yes normal visual inspection, Yes full ROM and Yes no lymphadenopathy Chest: Chest palpation & inspection: normal inspection of the chest Resp: Effort & Inspection: normal respiratory effort and able to speak in complete sentences GI: Inspection: Yes normal to inspection Neuro: General: patient oriented x3, moves all extremities and CN's II-XI intact bilaterally Cranial nerves: Yes Equal, round and reactive pupils present Cognition (Neuro): normal cognition Extrem: General: Yes normal to inspection, Yes full ROM and Yes capillary refill normal Psych: Appearance: grossly normal Mental Status: mental status grossly normal Affect: normal affect Attitude: cooperative Thought process: N ormal thought process present Thought content: Normal thought content present Insight: Good insight present (Psych) Course Course Course Narrative: This is a rapid medical exam performed by Facundo Matthews NP: Additional HPI, ROS, PE not included below will be deferred to primary provider. Patient is a 64y/o F with history of HTN, thyroiditis, GERD, paroxysmal SVT presenting from PCP office with complaint of chest pain x 1 week, rates 3-4/10. Also complaining of indigestion, left shoulder pain. EKG was normal at PCP office. Plan: EKG, labs, CXR Medical Decision Making Medical Decision Making [facility] Narrative: Patient is a 64 year old assigned female at with a history of depression, anxiety, HTN, GERD, atrial fib s/p ablation NOT on ACs, presenting to the emergency department today with central chest pain and nausea. Patient's physical exam was unremarkable. Patient's blood work was unremarkable including 2 troponin levels. Patient's EKG was unremarkable. Patient's chest x-ray showed no acute process. I explained my physical exam findings as well as all test results to the patient. I answered all questions asked by the patient. I stressed the importance of the patient taking her medication as directed (either prescribed or as the over the counter packaging recommends). I stressed the importance of the patient following up with her primary care provider and her dietician. I stressed the importance of the patient returning to the emergency department immediately if her symptoms were to worsen or if she were to develop any dizziness, shortness of breath, difficulty breathing, chest pain, blurry vision, loss of vision, nausea, vomiting, abdominal pain, fever, chills, back pain, or any other complaints. Patient verbalized agreement and understanding with this treatment plan and discharge. Differential Diagnosis Differential Diagnoses: The differential diagnosis associated with the presentation includes Chest pain GERD Nausea Vomiting Admission/Observation Consideration of admission/observation: Escalation of care including admission/observation considered Patient would have been admitted to the hospital had her work up had any findings where hospital admission was appropriate and her clinical presentation warranted hospital admission. Lab Data [facility] Lab Attestation statement: I reviewed the patient's lab results. My interpretation of these results are in the [facility] Rationale portion of this note. 05/11/24 14:45 05/11/24 14:45 Labs: Lab Results 05/11/24 05/11/24 Range/Units 14:45 17:09 WBC 6.9 (4.8-10.8) X10*3/uL RBC 4.01 L (4.20-5.50) X10*6/uL Hgb 13.7 (12.0-16.0) g/dl Hct 39.5 (37.0-47.0) % MCV 98.5 H (80.0-98.0) fL MCH 34.2 H (27.0-33.0) pg MCHC 34.7 (31.0-35.0) g/dl RDW 11.6 (11.0-16.0) % Plt Count 258 (160-400) X10*3/uL MPV 9.7 (9.4-12.3) fL Immature Gran % (Auto) 0.4 (0.0-0.4) % Neut % (Auto) 71.0 (45-73) % Lymph % (Auto) 18.1 L (20-40) % [place] % (Auto) 8.7 (2-11) % Eos % (Auto) 1.2 (0-4) % Baso % (Auto) 0.6 (0-2) % Lymph # (Auto) 1.3 (1.2-4.9) X10*3/uL [place] # (Auto) 0.6 (0.1-1.2) X10*3/uL Eos # (Auto) 0.1 (0.0-0.4) X10*3/uL Baso # (Auto) 0.0 (0.0-0.2) X10*3/uL Abs Immat Gran (auto) 0.03 (0.00-0.03) X10*3/uL Absolute Neuts (auto) 4.9 (2.0-8.3) x10*3/uL Absolute Nucleated RBC 0.000 (0.0-0.012) X10*3/uL Nucleated RBC % (auto) 0.0 (0.0-0.2) /100WBC Sodium 140 (135-145) mmol/L Potassium 3.9 (3.3-5.1) mmol/L Chloride 107 (96-108) mmol/L Carbon Dioxide 27 (22-29) mmol/L Anion Gap 10 L (12-20) BUN 17 H (9-16) mg/dL Creatinine 0.74 (0.5-1.4) mg/dL Estim Creat Clear Calc 54.4 Estimated GFR > 60 Random Glucose 98 (60-115) mg/dL Calcium 8.6 D (8.4-10.2) mg/dL Magnesium 1.7 (1.6-2.6) mg/dL Total Bilirubin 0.5 (0.0-1.0) mg/dL AST 13 (5-31) U/L ALT 15 (0-31) U/L Alkaline Phosphatase 47 (39-117) U/L Troponin I High Sens < 2.7 < 2.7 (<3.5-17.0) ng/L Total Protein 6.7 (6.5-8.0) g/dL Albumin 3.7 (3.5-5.0) g/dL TSH 0.84 (0.32-4.0) uIU/mL Influenza Type A (PCR) NEGATIVE (Negative) Influenza Type B (PCR) NEGATIVE (Negative) RSV RNA Qual (PCR) NEGATIVE (Negative) SARS-CoV-2 RNA (RT-PCR) NEGATIVE (Negative) Independent Interpretation I performed an independent interpretation of an: EKG and Plain X-Ray Interpretation: My interpretation is in agreement with the radiologist's impression of this imaging study. L EXAMINATION: XR CHEST 2 VIEWS HISTORY: chest pain COMPARISON: There are no prior studies for comparison. FINDINGS: PA and lateral views of the chest are submitted. The lungs are expanded and clear. There is no pleural effusion, pneumothorax, or pulmonary vascular congestion. The heart is normal in size. The bones are intact. XR/XR chest 2V IMPRESSION: Clear lungs. Electronically signed by: Lars Callejas MD 05/11/2024 03:03 PM EDT RP Dictated By: Lars Callejas MD Signed By: Electronically signed by Lars Callejas MD 05/11/24 1503 I independently interpreted this EKG and am in agreement with the below findings: Vent. Rate: 65 BPM Atrial Rate: 65 BPM P-R Int: 176 ms QRS Dur: 88 ms QT Int: 388 ms P-R-T Axes: 71 14 8 degrees QTcB Int: 403 ms Normal sinus rhythm Possible Left atrial enlargement T wave abnormality When compared with ECG of 28-Jun-2002 14:23, Inverted T waves have replaced nonspecific T wave abnormality in Inferior leads DD/ 1434 Radiology Impression Discussion of test interpretation with radiology: I have reviewed the radiologist's reading. Discharge Plan Discharge Clinical Impression: Atypical chest pain Patient Disposition: Home, Self-Care Instructions: Chest Pain (DC) Additional Instructions: Your work up today was reassuring. Follow up with your primary care provider and your dietician. Return to the emergency department immediately if your symptoms worsen or if you develop any numbness, tingling, dizziness, shortness of breath, difficulty breathing, chest pain, blurry vision, loss of vision, nausea, vomiting, abdominal pain, fever, chills, back pain, or any other complaints. Please see the information below about our Patient Portal. If you are not yet enrolled in the [facility] Patient Portal, you will receive an enrollment email invitation following your visit to any [facility] care setting. You may also self-enroll in the Patient Portal by visiting our website: [email or web address] The following information is required to access the Patient Portal: - Your [facility] Medical Record Number - Your personal home email address (must match what is in your electronic medical record, Registration staff can assist with this) - Name - Date of Capabilities of the Patient Portal: - Message some providers - View upcoming appointments - Access your health summary, medical history, and visit history - View current conditions and allergies - View procedure and lab results - View your medications, including guidelines, side effects, and precautions - Complete pre-appointment questionnaires requested by your provider - Ready summary reports of your office visits and procedures To access the Patient Portal Mobile [employer], follow these directions: - Search [employer] in the [employer] Store or [employer] Store - Download the [employer] - Search for [facility] - Enter your login/password Prescriptions: No Action lorazepam 1 mg tablet 1 mg PO DAILY PRN (Reason: anxiety) Qty: 30 0RF metoprolol tartrate 25 mg tablet 12.5 mg PO BID epinephrine 0.3 mg/0.3 mL auto-injector IM DIRECTED albuterol sulfate 90 mcg/actuation HFA aerosol inhaler 2 puff PO Q6H PRN Referrals: Pop Gómez MD [Primary Care Provider] - Discharge Date/Time: 05/11/24 17:49 Print Language: Uzbek
[2024-05-11 15:18] LABS: Alanine Aminotransferase 15 U/L (0-31); Albumin Level 3.7 g/dL (3.5-5.0); Alkaline Phosphatase 47 U/L (39-117); Anion Gap 10 (12-20); Aspartate Amino Transferase 13 U/L (5-31); Bilirubin Total 0.5 mg/dL (0.0-1.0); Blood Urea Nitrogen 17 mg/dL (9-16); Calcium 8.6 mg/dL (8.4-10.2); Carbon Dioxide 27 mmol/L (22-29); Chloride 107 mmol/L (96-108); Creatinine Clr Calc Pharmacy 54.4; Estimated Glomerular Filt Rate > 60; Glucose Random 98 mg/dL (60-115); Magnesium 1.7 mg/dL (1.6-2.6); Potassium 3.9 mmol/L (3.3-5.1); Sodium 140 mmol/L (135-145); Total Protein 6.7 g/dL (6.5-8.0)
[2024-05-11 15:22] LABS: Troponin-I High Sensitivity < 2.7 ng/L (<3.5-17.0)
[2024-05-11 15:32] LABS: TSH reflex Free T4 0.84 uIU/mL (0.32-4.0)
[2024-05-11 15:37] LABS: Influenza A PCR NEGATIVE (Negative); Influenza B PCR NEGATIVE (Negative); Resp Syncy Virus RNA Qual PCR NEGATIVE (Negative); SARS COV2 PCR INHOUSE NEGATIVE (Negative)
[2024-05-11 17:43] LABS: Troponin-I High Sensitivity < 2.7 ng/L (<3.5-17.0)
--- OUTSIDE RECORDS SUMMARY | 2024-05-11 17:43 | XMS_ITS | Encounter Summary ---
Author Organization [facility] Address [address] [place] [address] Care Team Providers Care Spindle Tester Name Role Phone Lars Ortiz DO Primary Care Provider [phone] Reason for Visit * Reason Comments Follow-up Review 7 day ROCT Encounter Details Date Type Department Care Team (Late st Contact Info) Description 04/23/2024 12:40 PM EST Office Visit [facility] - [address] [place] [phone] Jenifer Brooks PA [address] [place] [address] Palpitations (Primary Dx); PAC (premature atrial contraction); [...] any questions or concerns Jenifer Brooks PA-C [phone] [facility] [address] [place] [address] Continue current medication * SERGO Echols - 04/23/2024 12:40 PM EST Images from the original note were not included. PRIMARY SUPERVISOR CONTINGENTS: Carrol Smith MD PCP: DO Daphne Moe [...] Description 10/23/2024 1:40 PM EDT Office Visit [facility] - [address] [place] [address] Jenifer Brooks PA [address] [place] [address] documented as of this encounter Procedures Procedure [...] GEMUSE QTc 423 ms GEMUSE P Wave [place] 67 degrees GEMUSE R [place] 46 degrees GEMUSE T [place] 0 degrees GEMUSE ECG Interpretation Normal sinus [...] day. added in this encounter Care Teams Spindle Tester Relationship Specialty Start Date End Date Lars Ortiz DO [address] [place] [phone] PCP - General Internal Medicine 01/29/20 documented as of this encounter
--- OUTSIDE RECORDS SUMMARY | 2024-05-11 17:43 | XMS_ITS | Clinical Summary ---
Author Organization [facility] Address [address] [place] [address] Care Team Providers Care Boiler House Supervisor Name Role Phone AngelLars baez Primary Care Provider [phone] Allergies Active Allergy Reactions Criticality Noted Date [...] age to complete this topic Care Teams Boiler House Supervisor Relationship Specialty Start Date End Date Lars Ortiz DO [address] [place] [phone] PCP - General Internal Medicine 06/13/17
--- OUTSIDE RECORDS SUMMARY | 2024-05-11 17:43 | XMS_ITS | Clinical Summary ---
Author Organization [address] [place] [address] [place] [phone] Phone Care Team Providers Care Machine Fancy Stitcher Name Role Phone Angel Miller Primary Care Provider [phone] Allergies Active Allergy Reactions Criticality Noted Date [...] Description 04/23/2024 12:40 PM EST Office Visit [facility] - [address] [place] [address] Jenifer Brooks PA Palpitations (Primary Dx); PAC [...] Description 10/23/2024 1:40 PM EDT Office Visit [facility] - [address] [place] [address] Jenifer Brooks PA [address] [place] [address] Health Maintenance Due Date Last Done Comments [...] TEST Routine 09/28/2023 LIPID PANEL Routine 09/28/2023 [facility] SCREENING DIGITAL Routine 12/12/2017 5:13 PM EDT [...] GEMUSE QTc 423 ms GEMUSE P Wave [place] 67 degrees GEMUSE R [place] 46 degrees GEMUSE T [place]arr[place] 0 degrees GEMUSE ECG Interpretation Normal sinus [...] AM EDT Narrative 12/12/2017 5:13 PM EDT [facility] Diagnostic Imaging Department [address] [place] [address] Patient: ??DAPHNE JACOB ?/Age/Sex: 1960 - 57 - F Unit#: ??[id number] ? Location/Status: ??SPDIMAM/REG CLI ? Mnemonic/Ordering Site: ??DIGSC/SPMAM Ordering Physician: ??MILLER TEJEDA DO Mikey Screening Digital - 12/12/17 - 1154 History: Bilateral breast cancer screening. Previous augmentation mammoplasty. Technique: ??Digital mammography. Conventional CC and MLO projections with implant displaced views, tomography and computer aided detection. Comparison: [facility] 12/30/2005, 11/04/2004 and 07/16/2003. Findings: ?? Breast tissue consists of fatty and fibroglandular elements (category b density) bilaterally. Bilateral subglandular breast implants in place, lucent; therefore, likely saline containing. There is no suspicious group of microcalcifications, mass, architectural distortion or suspicious change in breast tissue density. Impression: No mammographic evidence of malignancy. BIRADS category 1; negative study, 3341F 41308, [address] Note: Patient information entered into a reminder system with a target due date for the next mammogram: ??CPT II 7025F Dictating Physician: ??GEN RILEY MD Electronically Signed by: ??GEN RILEY MD Dic Date/Time: ??12/12/171711 Sign date/Time: ??12/12/171712 Procedure Note Gen Riley MD - 02/16/2022 [facility] Diagnostic Imaging Department [address] [place] [address] Patient: DAPHNE JACOB Darcie /Age/Sex: 1960 - 57 - F Unit#: [id number] Location/Status: [facility] CLI Mnemonic/Ordering Site: [facility] Ordering Physician: MILLER TEJEDA DO Mikey Screening Digital - 12/12/17 - 1154 History: Bilateral breast cancer screening. Previous augmentationmammoplasty. Technique: Digital mammography. Conventional CC and MLO projectionswith implant displaced views, tomography and computer aided detection. Comparison: [facility] 12/30/2005, 11/04/2004 and 07/16/2003. Findings: Breast tissue consists of fatty and fibroglandular elements (category b density) bilaterally. Bilateral subglandular breast implantsin place, lucent; therefore, likely saline containing. There is no suspiciousgroup of microcalcifications, mass, architectural distortion or suspiciouschange in breast tissue density. Impression: No mammographic evidence of malignancy. BIRADS category 1; negative study, 3341F [address], [address] Note: Patient information entered into a reminder [...] [place] - [place] Care Teams Machine Fancy Stitcher Relationship Specialty Start Date End Date Miller Tejeda DO [address] [place] [phone] PCP - General Internal Medicine 01/29/20
--- NOTE | 2024-05-11 17:49 | PC.NURSE ---
PT WAS SEEN AND DISCHARGED BY PROVIDER FROM
== END 2024-05-11 17:49 | disposition home or self-care (01) ==
LOC: HO.ED 17:41
PROVIDERS: Registered Nurse Emergency; Emergency Provider Emergency Medicine; PCP Internal Medicine
DX: R07.89 Other chest pain (principal); R11.0 Nausea; Z03.818 Encounter for observation for suspected exposure to other biological agents ruled out; Z79.899 Other long term (current) drug therapy; Z87.891 Personal history of nicotine dependence
CPT/HCPCS: 0241U; 36415; 71046; 80053; 83735; 84443; 84484; 85025; 93005; 99283

== ENCOUNTER → 2024-05-11 14:31 | Outpatient (BNV) | payer MEDICARE, SELFPAY | PROVIDERS: Emergency Provider Emergency Medicine; PCP Internal Medicine; Visit Provider Internal Medicine | DX: R94.31 Abnormal electrocardiogram [ECG] [EKG] (principal); R07.9 Chest pain, unspecified | CPT/HCPCS: 93010 ==

== ENCOUNTER → 2024-05-11 14:32 | Outpatient (BNV) | payer MEDICARE, SELFPAY | PROVIDERS: PCP Internal Medicine; Visit Provider Radiology Diagnostic Radiology | DX: R07.9 Chest pain, unspecified (principal) | CPT/HCPCS: 71046 ==

== ENCOUNTER 2024-05-21 11:25 | Outpatient (REF) | payer MEDICARE, SELFPAY ==
[2024-05-21 13:34] LABS: MANUAL DIFF FLAG NO
[2024-05-21 13:42] LABS: Basophils Percent Auto 0.7 % (0-2); Eosinophils Absolute Auto 0.1 X10*3/uL (0.0-0.4); Eosinophils Percent Auto 2.2 % (0-4); Hematocrit 40.2 % (37.0-47.0); Hemoglobin 13.9 g/dl (12.0-16.0); Imm Gran Abs Auto 0.01 X10*3/uL (0.00-0.03); Imm Gran Pct Auto 0.2 % (0.0-0.4); Lymphocytes Absolute Auto 1.3 X10*3/uL (1.2-4.9); Lymphocytes Percent Auto 24.6 % (20-40); Mean Corpuscular HGB Conc 34.6 g/dl (31.0-35.0); Mean Corpuscular Hemoglobin 34.5 pg (27.0-33.0); Mean Corpuscular Volume 99.8 fL (80.0-98.0); Mean Platelet Volume 10.4 fL (9.4-12.3); Monocytes Absolute Auto 0.7 X10*3/uL (0.1-1.2); Monocytes Percent Auto 12.1 % (2-11); Neutrophils Absolute Auto 3.3 x10*3/uL (2.0-8.3); Neutrophils Percent Auto 60.2 % (45-73); Platelet Count 253 X10*3/uL (160-400); Red Blood Count 4.03 X10*6/uL (4.20-5.50); Red Cell Distribution Width 11.7 % (11.0-16.0); White Blood Count 5.5 X10*3/uL (4.8-10.8)
[2024-05-21 13:57] LABS: Alanine Aminotransferase 15 U/L (0-31); Albumin Level 3.9 g/dL (3.5-5.0); Alkaline Phosphatase 49 U/L (39-117); Anion Gap 10 (12-20); Aspartate Amino Transferase 19 U/L (5-31); Bilirubin Direct 0.3 mg/dL (0.0-0.5); Blood Urea Nitrogen 14 mg/dL (9-16); C Reactive Protein < 0.10 mg/dL (< or = 0.50); Calcium 8.4 mg/dL (8.4-10.2); Carbon Dioxide 27 mmol/L (22-29); Chloride 105 mmol/L (96-108); Cholesterol 192 mg/dL (<200); Estimated Glomerular Filt Rate > 60; Glucose Fasting 86 mg/dL (60-99); HDL Cholesterol 53 mg/dL (>40); LDL Cholesterol Calculated 122 mg/dL (<100); Potassium 3.5 mmol/L (3.3-5.1); Sodium 138 mmol/L (135-145); Total Protein 6.7 g/dL (6.5-8.0); Triglycerides 89 mg/dL (<150)
[2024-05-21 14:13] LABS: TSH reflex Free T4 1.11 uIU/mL (0.32-4.0); Vitamin D 25-OH Total 83.7 ng/mL (>30)
[2024-05-21 14:22] LABS: Vitamin B12 1020 pg/mL (200-900)
[2024-05-28 05:49] LABS: Vitamin B1 11 nmol/L (8-30)
== END 2024-05-21 11:26 | disposition home or self-care (01) ==
LOC: HO.HMGCLDS 11:25
PROVIDERS: PCP Internal Medicine; Visit Provider Physician Assistant Medical
DX: Z00.00 Encounter for general adult medical examination without abnormal findings (principal); Z13.6 Encounter for screening for cardiovascular disorders
CPT/HCPCS: 36415; 80053; 80061; 80076; 82248; 82306; 82607; 82746; 83735; 84425; 84443; 85025; 86140

== ENCOUNTER 2024-05-28 13:38 | Outpatient (AMB) | payer MEDICARE, SELFPAY ==
--- NOTE | 2024-05-28 13:40 | A.OFFPC_ITS ---
Vital Signs 05/28/24 13:43 Height 5 ft Weight 112 lb BMI 21.9 BP 138/68 Blood Pressure Location Rt brachial Pulse 70 Pulse Source Pulse Oximeter Temp 98.4 F Pulse Oximetry (%) 99 Intake Visit Reasons: elevated BPs Intake Note: chest pain Allergies amlodipine Allergy (Intermediate, Verified 05/28/24 14:53) tachycardia clyndamycin Allergy (Intermediate, Uncoded 05/28/24 14:53) Abdominal Pain Medication List - Last Reconciled 05/28/24 by Shelli Butterfield PA-C albuterol sulfate 90 mcg/actuation 2 puffs PO Q6H PRN aspirin (Mishel Chewable Low Dose Aspirin) 81 mg PO DAILY epinephrine IM DIRECTED lorazepam 1 mg PO DAILY PRN metoprolol tartrate 12.5 mg PO BID multivitamin 1 tab PO DAILY valsartan 40 mg PO ONCE Tobacco use date assessed: 05/11/24 Dental Screening Dental Screen Date: 05/11/24 [facility] Medical History (Updated 05/28/24 @ 14:58 by Shelli Butterfield PA-C) Atrial fibrillation Chest discomfort Spondylosis Abdominal pain Left shoulder pain Right hip pain History of mammogram (~01/2023) Clostridium difficile colitis Bee sting allergy Hx gestational diabetes Anxiety Depression GERD (gastroesophageal reflux disease) Paroxysmal supraventricular tachycardia Thyroiditis Hypertension Surgical History History of colonoscopy (~01/12/21) S/P tendon repair History of radiofrequency ablation (RFA) procedure for cardiac arrhythmia History of section History of adenoidectomy History of tonsillectomy History of abdominoplasty Social History Housing: House Alcohol intake: current Alcohol intake frequency: holidays/special occasions only Patient Tobacco Use Status: Former Tobacco user e-Cigarette/Vaping Use: Never Used Second Hand Smoke Exposure: Yes service: No Current occupational status: disabled Vision needs: Yes (Reading glasses) Questionnaire PHQ-9 Over the last 2 weeks, how often have you been bothered by any of the following problems? 1. Little interest or pleasure in doing things: not at all 2. Feeling down, depressed, or hopeless: not at all 3. Trouble falling or staying asleep, or sleeping too much: several days 4. Feeling tired or having little energy: several days 5. Poor appetite or overeating: not at all 6. Feeling bad about yourself - or that you are a failure or have let yourself or your family down: not at all 7. Trouble concentrating on things, such as reading the newspaper or watching television: not at all 8. Moving or speaking so slowly that other people could have noticed. Or the opposite - being so fidgety or restless that you have been moving around a lot more than usual: not at all 9. Thoughts that you would be better off or of hurting yourself in some way: not at all Total score: 2 Depression Screening Interpretation: Negative Depression Screening Done: Yes 86316 - PHQ-9 Billing: Yes Source: Developed by Drs. Lars Clay, Yanet Manriquez, Og Oliver and colleagues, with an educational jm from [employer]. Thrive Questionnaire Date Thrive assessed: 05/28/24 I am a: Patient What is your living situation today?: I have a steady place to live Within the past 12 months, did the food you bought not last and you didn't have the money to get more?: Never true Within the past 12 months, did you worry whether your food would run out before you got money to buy more?: Never true Do you have trouble paying for medicines?: No Do you have trouble getting transportation to medical appointments?: No Do you have trouble paying your heating and electricity bill?: No Do you have trouble taking care of your child, family member or friend?: No Do you have trouble with day-to-day activities such as bathing, preparing meals, shopping, managing finances, etc.?: No Are you currently unemployed and looking for a job?: No Are you interested in more education?: No THRIVE Score: 0 AUDIT C Alcohol Use Questionnaire (AUDIT-C) 1. How often do you have a drink containing alcohol?: 2-4 times a month 3. How often do you have six or more drinks on one occasion?: Never Total Score: 2 Score Reviewed/Action Taken: No RADHA-7 AMB Questionnaire RADHA-7 Date RADHA - 7 assessed: 05/28/24 Feeling nervous, anxious, or on edge: 0 = Not at all Not being able to stop or control worryin = Not at all Worrying too much about different things: 0 = Not at all Trouble relaxin = Not at all Being so restless that it is hard to sit still: 0 = Not at all Becoming easily annoyed or irritable: 0 = Not at all Feeling afraid as if something awful might happen: 0 = Not at all Total RADHA-7 score (0-4 normal; 5-9 mild; 10-14 moderate; 15-21 severe): 0 Source: Developed by Drs. Lars Clay, Yanet Manriquez, Og Oliver and colleagues, with an educational jm from [employer]. RADHA-7 Assessment Billing RADHA-7 Assessment Tool: RADHA-7 Assessment 10071 Physical exam (Primary Care) Vital Signs: Last Vital Signs Temp 98.4 F 05/28/24 13:43 Pulse 70 05/28/24 13:43 BP 138/68 05/28/24 13:43 Pulse Ox 99 05/28/24 13:43 Care Plan Goal for BP management: <130/80 patient will be started on valsartan 40 mg daily BMI result Body Mass Index 21.9 Normal BMI Tobacco/Smoking Status: Tobacco use Status Tobacco use date assessed 05/11/24 05/28/24 13:46 Patient Tobacco Use Status Former Tobacco user 05/28/24 13:46 e-Cigarette/Vaping Use Never Used 05/28/24 13:46 PHQ-9: PHQ-9 Score PHQ-9: Total score 2 05/28/24 15:16 Depression Screening Interpretation: Negative Thrive Assessment: Date of Thrive Assessment Date Thrive assessed 05/28/24 05/28/24 13:54 Office Procedures EKG Details: EKG normal sinus rhythm with ventricular rate of 64 with a normal NE interval normal QRS duration normal QT/QTC interval no acute ischemic change are noted. 42880-Rdbiakhfxrnrvcleq, Complete Coding Level of Care Code Est Pt Level 4 (60752) Complex EM visit Add On G2211 Diagnoses Chest discomfort R07.89 Hypertension I10 Anxiety F41.9 Atrial fibrillation I48.91 CPT Codes EKG - CPT: 82595-Ajryszbzjcfxohtnu, Complete ([id number]) Additional Codes RADHA-7 Assessment Billing - RADHA-7 Assessment Tool: RADHA-7 Assessment 72735 ([id number]) PHQ-9 - 45411 - PHQ-9 Billing: Yes ([id number]) Assessment & Plan Assessment & Plan (1) Chest discomfort: Code(s): R07.89 - Other chest pain Category: Medical Plan: Implemented plan involves diagnostic imaging and monitoring while continuing aspirin therapy given symptomatology reflective of potential cardiac issues. Arranged for echocardiogram and Holter monitor to evaluate cardiac function and ascertain reasons for possible ischemia. Focus was placed on sharing EKG changes from 5061-0675 with her general duty nurse for further insight. (2) Hypertension: Code(s): I10 - Essential (primary) hypertension Category: Medical Plan: The particular focus was placed on controlling elevated blood pressure with valsartan 40 mg, adjusting timing based on symptom flare-ups, and maintaining metoprolol twice daily. Continued use of aspirin was highlighted, given the hypertensive episodes. (3) Anxiety: Code(s): F41.9 - Anxiety disorder, unspecified Category: Medical Plan: Patient to continue lorazepam daily/p.r.n. as needed. (4) Atrial fibrillation: Code(s): I48.91 - Unspecified atrial fibrillation Category: Medical Plan: Current management relies on metoprolol for heart rate control and continued observation through Holter monitor data over the prescribed period. Plan Plan Patient was informed and verbally consented to the use of an ambient scribe for clinic note documentation during this visit. 1. Essential Hypertension The particular focus was placed on controlling elevated blood pressure with valsartan 40 mg, adjusting timing based on symptom flare-ups, and maintaining metoprolol twice daily. Continued use of aspirin was highlighted, given the hypertensive episodes. 2. Hypersensitivity To Medications Medication decisions consider her history of adverse reactions, opting for valsartan over previously ineffective or adverse reaction-producing treatments. 3. Atrial Fibrillation Current management relies on metoprolol for heart rate control and continued observation through Holter monitor data over the prescribed period. 4. Possible Cardiac Ischemia Arranged for echocardiogram and Holter monitor to evaluate cardiac function and ascertain reasons for possible ischemia. Focus was placed on sharing EKG changes with her general duty nurse for further insight. 5. Chest Pain Implemented plan involves diagnostic imaging and monitoring while continuing aspirin therapy given symptomatology reflective of potential cardiac issues. Discussion Notes I discussed with the patient the arrangements for a comprehensive cardiac evaluation including an echocardiogram and Holter monitor. It was emphasized that potential ischemia needed exploration based on EKG observations and that cardiac imaging would assist in assessing heart function. We reviewed potential pharmacological therapies, particularly for blood pressure management. Specific mediation plans considered previous hypersensitivity responses, including reactions to lisinopril and amlodipine, and opted for valsartan given its reduced risk for adverse effects such as cough. The patient was advised of the continuing regimen of metoprolol as necessary, daily aspirin therapy, and reviewed timing for potential symptom flare-up monitoring. Follow-up discussions are encouraged with her general duty nurse once new results become available. Given her symptoms, a new oncology specialist opinion was offered to discuss broader or new therapeutic avenues. Plans for blood work were adjusted for non-fasting protocol to accommodate immediate analysis. I advised self-monitoring of blood pressure, emphasizing the importance of documenting readings for potential fluctuation patterns. Orders: Orders Prolactin Today . - Encounter for general adult medical examination without abnormal findings Parathyroid Hormone Intact Today . - Encounter for general adult medical examination without abnormal findings Erythrocyte Sedimentation Rate Today .00 - Encounter for general adult medical examination without abnormal findings C Reactive Protein Today . - Encounter for general adult medical examination without abnormal findings Hemoglobin A1c Today Z.00 - Encounter for general adult medical examination without abnormal findings Magnesium Today Z00.00 - Encounter for general adult medical examination without abnormal findings CA echo transthoracic complete Today R07.89 - Other chest pain Comprehensive Met. Panel Today Z. - Encounter for general adult medical examination without abnormal findings Progesterone Today Z.00 - Encounter for general adult medical examination without abnormal findings Testosterone, Total Today Z00.00 - Encounter for general adult medical examination without abnormal findings Estrogen Today Z.00 - Encounter for general adult medical examination without abnormal findings Phosphorus Today Z.00 - Encounter for general adult medical examination without abnormal findings Complete Blood Count Auto Diff Today Z00.00 - Encounter for general adult medical examination without abnormal findings Creatine Kinase Total Today Z00.00 - Encounter for general adult medical examination without abnormal findings Liver Panel Today Z00.00 - Encounter for general adult medical examination without abnormal findings Troponin-I High Sensitivity Today R07.89 - Other chest pain Medications: New valsartan 40 mg PO ONCE 30 tabs 0RF aspirin (Mishel Chewable Low Dose Aspirin) 81 mg PO DAILY 90 tabs 1RF Patient Instructions: Patient Instructions - Begin valsartan 40 mg daily to manage blood pressure. - Take prescribed aspirin 81 mg daily for heart health. - Continue metoprolol 12.5 mg twice daily for heart rate control. - Adhere to the Holter monitor placement and troubleshooting as advised. - Undergo an echocardiogram as scheduled. - Monitor blood pressure at home and bring documented readings in for review. - Contact your general duty nurse to share the results of recent monitoring and diagnostics. - Return to the office in 2-4 weeks or sooner should symptoms escalate. - Maintain lifestyle adjustments such as regular exercise and balanced diet. - Pay attention to signs indicating a worsening condition prompting timely medical review. Scribe Plan - Not visible on output: History of Present Illness The patient is a 64-year-old female presenting with elevated blood pressure and intermittent chest pain. Her symptoms began approximately two and a half weeks ago, with episodes of spiking blood pressure peaking at 175 mmHg systolic accompanied by chest pressure radiating to the back, jaw, and wrists. These symptoms mimic prior episodes that eventually led to the diagnosis of atrial fibrillation in 2011. Multiple evaluations including ED visits and previous Holter monitoring have detected abnormalities back in 2011 although has been stable since. Despite normal cardiac enzyme tests, she's suspected of experiencing possible cardiac ischemia due to episodic chest pain and changes in her electrocardiogram observed over the years. She continues treatment with metoprolol and attempted withdrawal from testosterone supplements to determine symptom causality. The patient is under evaluation for additional cardiac assessment, including echocardiogram and current Holter monitor arrangement with her general duty nurse at [facility]. She?s explored self-management strategies including baby aspirin and lorazepam, albeit observed consistent elevation of her blood pressure intermittently without specific causality determined. Her history includes hypersensitivity to medications, with adverse reactions to previous antihypertensive agents like amlodipine and lisinopril. Social History - Engages in regular stretching and yoga as a form of exercise. - Attempts lifestyle modifications including stopping testosterone supplements. - Consumes a diet with an emphasis on vegetable intake following cholesterol concerns. - Uses self-monitoring techniques such as checking blood pressure at home. Review of Systems - Cardiovascular: Reports episodes of chest pressure, discomfort radiating to the back, jaw, and wrists, palpitations. - Neurological: Reports occasional episodic headaches. - Gastrointestinal: Denies symptoms consistent with acid reflux despite initial self-treatment attempts. Physical Exam Appearance: Alert. Oriented X3. No acute distress. Head: Normal external exam. Normocephalic. Atraumatic. Eyes: Pupils are equal, round, and reactive to light. Extraocular movements intact. Conjunctiva and sclera normal. Eyelids normal. Ears: External auditory canal normal. Tympanic membranes normal. Throat: Pharynx normal. Uvula midline. Moist mucous membranes. Neck: Normal inspection. Neck supple. Full range of motion. No adenopathy. Thyroid Normal. No meningeal signs. No neck mass noted. Cardiovascular: Normal heart rate and rhythm. Heart sound normal. No murmurs noted. Pulses normal throughout. Respiratory: No respiratory distress. Painless inspiration. Breath sounds normal. No wheezes/rales/rhonchi noted. Chest nontender. No accessory muscle usage noted or decreased air movement noted. Abdomen: Soft and nontender. Bowel sounds normal in all 4 quadrants. No distention noted. No organomegaly noted. No visible injury noted. Back: No costovertebral angle tenderness. Full range of motion noted. Pain in the middle of the back noted. Skin: Skin warm and dry. Normal skin color. Normal skin turgor. No rashes/lesions/lacerations noted. Extremities: No lower extremity edema. Extremities exhibit normal range of motion. Extremities nontender. Pain in the wrists noted. Neuro: Oriented X 3. No motor deficit. No sensory deficit. Reflexes normal. Pain in the jaw noted. Results - Tests and Diagnostics: Previous blood work returned normal values, thyroid panel normal. Recent EKG findings indicate normal sinus rhythm with a heart rate of 64 beats per minute.
[2024-05-28 13:43] VITALS: BP 138/68; PULSE 70; TEMP 36.9; O2SAT 99; BMI 21.9
--- OUTSIDE RECORDS SUMMARY | 2024-05-28 15:25 | XMS_ITS | Encounter Summary ---
Author Organization [facility] Address [address] [place] [address] Care Team Providers Care Art Sales Consultant Name Role Phone Lars Ortiz DO Primary Care Provider [phone] Reason for Visit * Reason Onset Date Comments [id number] (ok to book) 05/24/2024 ROCT Enrollment 05/22/2024 Enrolling patien t for 14 day ROCT Encounter Details Date Type Department Care Team (Late st Contact Info) Description 05/22/2024 Telephone [facility] - [facility] [address] [facility] [address] [place] [id number] Deanna Noriega MD [address] [facility] [address] [place] [address] [id number] (ok to book); ROCT Enrollment (Enrolling patient for 14 day ROCT) Social History Tobacco Use Types Packs/Day Years Used Date Smoking Tobacco: Former Smokeless Tobacco: Never Alcohol Use Standard Drinks/Week Comments No 0 (1 standard drink = 0.6 oz pur e alcohol) Comments Unknown Sex and Gender Information Value Date Recorded Sex Assigned at Not on file Legal Sex Female 4:01 AM EST Gender Identity Not on file Sexual Orientation Not on file documented as of this encounter Progress Notes * Sarabjit Johnson MA - 05/28/2024 8:49 AM EDT 05/28/24- Enrolling patient for 14 day ROCT ordered by CARIDAD Santamaria// to read Dx: Palps, SVT I called and left a detailed message letting patient know [facility] will be reaching out to set up home delivery. * Adrianne Diaz MA - 05/24/2024 3:56 PM EDT Tentative date: Patient will be enrolled for 14 day ROCT with [facility] for home delivery per ZAFAR Echols/Dr. Noriega Dx: Palpitations and SVT. * Maliha De Luna - 05/24/2024 9:24 AM EDT Prior Auth Status: APPROVED Auth Number: [id number] Prior Auth Validity Dates: 05/22/24-08/20/24 CPT: 91557 - ROCT DX: R00.2, I47.10 Duration: 14 [place]: Hari BARR to BOOK * Maliha De Luna - 05/23/2024 9:41 AM EDT medical necessity review in progress conf# [id number] * Maliha De Luna - 05/22/2024 9:43 AM EDT Review for medical necessity for cpt code: 23591 submitted to [employer] [place]. documented in this encounter Plan of Treatment Upcoming Encounters Date Type Department Care Team (Late st Contact Info) Description 10/23/2024 1:40 PM EDT Office Visit [facility] - [address] [place] [address] Jenifer Brooks PA [address] [place] [address] documented as of this encounter Visit Diagnoses Not on filedocumented in this encounter Care Teams Art Sales Consultant Relationship Specialty Start Date End Date Lars Ortiz DO [address] [place] [phone] PCP - General Internal Medicine 01/29/20 documented as of this encounter
--- OUTSIDE RECORDS SUMMARY | 2024-05-28 15:25 | XMS_ITS | Clinical Summary ---
Author Organization [facility] Address [address] [place] [address] Care Team Providers Care Garnett Feeder Name Role Phone AngelLars baez Primary Care Provider [phone] Allergies Active Allergy Reactions Criticality Noted Date [...] age to complete this topic Care Teams Garnett Feeder Relationship Specialty Start Date End Date Lars Ortiz DO [address] [place] [phone] PCP - General Internal Medicine 06/13/17
--- OUTSIDE RECORDS SUMMARY | 2024-05-28 15:25 | XMS_ITS | Clinical Summary ---
Author Organization [address] [place] [address] [place] [phone] Phone Care Team Providers Care Research Assistant Professor Name Role Phone Nikhil Miller Primary Care Provider [phone] Allergies Active Allergy Reactions Criticality Noted Date [...] 1 (one) time each day. 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 Active metoprolol tartrate (LOPRESSOR) 25 mg tabletIndications:P alpitations,Atrial premature depolarization Take 0.5 tablets (12.5 mg total) by mouth 2 (two) times a day. 90 each 2 07/23/19 Active Active Problems Problem Noted Date Diagnosed Date Fatigue 09/21/2023 Snoring 09/21/2023 PAC (premature atrial contraction) 11/25/2021 Palpitations 11/25/2021 SOB (shortness of breath) 11/25/2021 Other chest pain 07/15/2020 Hypertensive disorder 02/11/2020 Overview (04/02/2024): Hypertensive disorder SVT (supraventricular tachycardia) 02/11/2020 Encounters Date Type Department Care Team Description 05/22/2024 Telephone [facility] - [address] [facility] [address] [place] [address] Deanna Smith MD [id number] (ok to book); ROCT Enrollment (Enrolling patient for 14 day ROCT) 05/16/2024 Telephone [facility] - [address] [facility] [address] [place] [address] Deanna Smith MD Chest Pain 04/23/2024 12:40 PM EST Office Visit [facility] - [address] [facility] [address] [place] [address] Jenifer Brooks PA Palpitations (Primary Dx); PAC [...] 1:40 PM EDT Office Visit [facility] - [address] [place] [address] Jenifer Brooks PA [address] [place] [address] Health Maintenance Due Date Last Done Comments [...] Name Priority Date/Time Associated Diagnosis Comments ECG EXTERNAL Routine 05/18/2024 10:46 AM EDT ECG 12-LEAD Routine 04/23/2024 1:05 PM EST Palpitations ANNUAL BMP BLOOD TEST Routine 09/28/2023 LIPID PANEL Routine 09/28/2023 [facility] SCREENING DIGITAL Routine 12/12/2017 5:13 PM EDT Encounter for screening mammogram for malignant neoplasm of breast from Last 3 Months or Most Recently Relevant to Health Maintenance Results * ECG-External (05/18/2024 10:46 AM EDT) us Historical Provider ECG ORDERABLES Final Res ult * ECG 12 lead (04/23/2024 1:05 PM EST) Ventricular Rate ECG 63 BPM GEMUSE Atrial Rate 63 BPM GEMUSE P-R Interval 172 ms GEMUSE QRS Duration 90 ms GEMUSE Q-T Interval 414 ms GEMUSE QTc 423 ms GEMUSE P Wave Braggadocio 67 degrees GEMUSE R Braggadocio 46 degrees GEMUSE T Braggadocio 0 degrees GEMUSE ECG Interpretation Normal sinus rhythm When compared with ECG of 11-MAR-2006 10:00, No significant change was found Confirmed by AILEEN SMITH ([id number]) on 04/24/2024 6:06:12 PM GEMUSE 04/23/2024 1:02 PM EST 04/24/2024 6:06 PM EST Jenifer STEPHEN ECG ORDERABLES Edited Result - Final GEMUSE * Annual BMP Blood Test (09/28/2023) Pathologist [facility] Annual BMP Blood Test abstracted Historical Provider [...] AM EDT Narrative 12/12/2017 5:13 PM EDT [facility] Diagnostic Imaging Department [address] [place] [address] Patient: ??DAPHNE JACOB ?/Age/Sex: 1960 - 57 - F Unit#: ??[id number] ? Location/Status: ??SPDIMAM/REG CLI ? Mnemonic/Ordering Site: ??DIGSC/SPMAM Ordering Physician: ??NIKHILMILLER DO Mikey Screening Digital - 12/12/17 - 1154 History: Bilateral breast cancer screening. Previous augmentation mammoplasty. Technique: ??Digital mammography. Conventional CC and MLO projections with implant displaced views, tomography and computer aided detection. Comparison: [facility] 12/30/2005, 11/04/2004 and 07/16/2003. Findings: ?? Breast tissue consists of fatty and fibroglandular elements (category b density) bilaterally. Bilateral subglandular breast implants in place, lucent; therefore, likely saline containing. There is no suspicious group of microcalcifications, mass, architectural distortion or suspicious change in breast tissue density. Impression: No mammographic evidence of malignancy. BIRADS category 1; negative study, 3341F [id number], [id number] Note: Patient information entered into a reminder system with a target due date for the next mammogram: ??CPT II 7025F Dictating Physician: ??GEN RILEY MD Electronically Signed by: ??GEN RILEY MD Dic Date/Time: ??12/12/171711 Sign date/Time: ??12/12/171712 Procedure Note Gen Riley MD - 02/16/2022 [facility] Diagnostic Imaging Department [address] [place] [address] Patient: NIDIADAPHNE /Age/Sex: 1960 - 57 - F Unit#: [id number] Location/Status: SPDIMAM/REG CLI Mnemonic/Ordering Site: [facility] Ordering Physician: MILLER TEJEDA DO Mikey Screening Digital - 12/12/17 - 1154 History: Bilateral breast cancer screening. Previous augmentationmammoplasty. Technique: Digital mammography. Conventional CC and MLO projectionswith implant displaced views, tomography and computer aided detection. Comparison: [facility] 12/30/2005, 11/04/2004 and 07/16/2003. Findings: Breast tissue consists of fatty and fibroglandular elements (category b density) bilaterally. Bilateral subglandular breast implantsin place, lucent; therefore, likely saline containing. There is no suspiciousgroup of microcalcifications, mass, architectural distortion or suspiciouschange in breast tissue density. Impression: No mammographic evidence of malignancy. BIRADS category 1; negative study, [id number], [id number] Note: Patient information entered into a reminder [...] CROSS - [place] MED[place] Care Teams Research Assistant Professor Relationship Specialty Start Date End Date Miller Tejeda DO [address] [place] [phone] PCP - General Internal Medicine 01/29/20
--- OUTSIDE RECORDS SUMMARY | 2024-05-28 15:26 | XMS_ITS | Encounter Summary ---
Author Organization [facility] Address [address] [place] [address] Care Team Providers Care Head Waitress Name Role Phone Angel Lars Primary Care Provider [phone] Reason for Referral * Cardiac Stress Testing (Routine) - Authorized Specialty Diagnoses / Procedures Referred By Contac t Referred To Contact Cardiology Diagnoses Palpitations SVT (supraventricular tachycardia) ([facility]) Procedures Cardiac event monitor RI EXTERNAL PATIENT ACTIVATED ECG DOWNLOAD W RESULTS & INTERP <= 30 DAYS RI EXTERNAL PAT AUTO ACTIVATED ECG INCLUDING TRANSMISSION UP TO 30 DAYS RI EXTERNAL MOBILE CV TELEMETRY W ECG RECORDING <=30D PHYSCIAN REV & INTERP RI EXTERNAL MOBILE CV TELEMETRY W ECG RECORDING TECH SUPPORT UP TO 30 DAYS RI ECG UP TO 30 DAYS RECORDING Jenifer Brooks PA [address] [place] [address] Phone: tel: fax: [facility] - [address] [place] [address] Phone: tel: fax: Referral ID Status Reason Start Date Expiration Date V isits Requested Visits Authorized [id number] Authorized 05/22/2024 08/20/2024 1 1 Reason for Visit * Reason Onset Date Comments Chest Pain 05/16/2024 Encounter Details Date Type Department Care Team (Late st Contact Info) Description 05/16/2024 Telephone [facility] - [address] [place] [phone] Deanna Noriega MD [address] [place] [address] Chest Pain Social History Tobacco Use Types Packs/Day Years [...] as of this encounter Progress Notes * Collette Larry RN - 05/21/2024 6:26 AM EDT Could you please advise patient of status of PA for ROCT ordered 05/16/24? Thank you. * Tal Davis RN - 05/18/2024 11:58 AM EDT Called pt back this AM and made aware of response below from Jessy Dougherty. Is aware to f/u with PCPregarding MOREL as most likely the SBP of 140 is not causing the MOREL. States she will do this. Is awarethat she can take Tylenol for the MOREL. Made aware again, If continuing to have chest pain or symptoms persist or worsen to return back to the emergency room and wait to be evaluated. Is also aware that a 14 day ROCT was ordered on 05/16 by Chace Brooks. * Martine Dougherty NP - 05/18/2024 11:30 AM EDT Unlikely this is cardiac in nature as evident by Jenifer's recent note in response to the patient's request for cardiac enzymes being drawn after her visit to [facility] ER. Would recommend Tylenol to help treat her headache as it is unlikely that a systolic blood pressure of 140 is causing her symptoms. She can also follow-up with her PCP to rule out noncardiac etiologies of her headache . If she continues to have chest pain or symptoms persist or worsen she needs to return back to the emergency room and wait until she is evaluated. * Tal Davis RN - 05/18/2024 10:37 AM EDT Please see below. Chace Brooks has ordered 14 day ROCT on 05/16. Had also been seen at [facility]. Not able to scan in ER notes as pt left AMA from [facility] yesterday. Scanned in ER labs/EKG for review. BP elevated yesterday and had MOREL/nausea/light CP. SBP 140s. Took xtra dose of metoprolol 12.5mg on top of her scheduled 12.5mg BID and xtra 81mg ASA on top of her scheduled ASA 81mg daily - states xtra ASA/extra Metoprolol 12.5mg helps with MOREL and chest pressure. HR 53 after xtra dose of Metoprolol. Went to [facility] for continued intermittent chest pressure/MOREL. Early this AM at midnight she had left AMA, stated her chest pressure was better. When she got homeshe took 3 asa, PRN lorazepam, xtra Metoprolol 1/4 of a 25mg pill and slept trough the rest of the AM. Later this AM after waking up she had a recurring bounding MOREL/slight chest pressure intermittently,had taken her AM meds and 2 (81mg) ASA tabs. Denies SOB. SBP continues in the 140s. Is aware to not take xtra doses of Metoprolol for BP - is aware this can cause symptomatic bradycardia. I have also asked her to stop taking additional ASA. Please advise further. Is aware for any continued CP lasting 10 min or longer or any other concerning s/s to call 911. * Cheyenne Fagan - 05/18/2024 9:38 AM EDT Patient is returning call, she went to the ER at [facility] on 05/15/24 and states no one saw her. Shesays her blood pressure is high with a headache and pressure still in her chest. She has been taking an extra metoprolol to try to help her increased blood pressure. Please give her a call back at [phone]. * Ines Manriquez RN - 05/16/2024 12:12 PM EDT Spoke with patient and relayed LM response. Cancelled hosp f/u appt. * ZAFAR Echols - 05/16/2024 12:03 PM EDT She does not need a hospital follow up on 05/23 will order 14 day roct for palpitaitons if any abnormalites will call her was just seen on 04/24 * Ines Manriquez RN - 05/16/2024 11:57 AM EDT Patient made aware LM response. Patient states last time sx started like this and had a Holter monitor ordered to diagnose issues. Booked hosp f/u appt. * ZAFAR Echols - 05/16/2024 11:32 AM EDT As you are well aware we do not do cardiac enzymes as outpatient, only can be done in the hospital her recent troponins were normal-her coronary calcium score was 0 with a normal stress test again highly supporting noncardiac chest pain. I did review the records at [facility] for noncardiac chest pain andnausea. Her adrenaline feeling with a normal heart rate does not support her prior history of AT. Blood pressure is stable there . If her symptoms gets worse she needs to go to the ER as they instructed her. * Ines Manriquez RN - 05/16/2024 10:37 AM EDT Patient asking for outpatient blood work cardiac enzymes. See my chart message yesterday and records from [facility]. I stated if still having cardiac sx to return to ER. She denied chest pressure at time of call. See [facility] notes 05/11/24. Patient reports adrenaline feeling but denied feeling hr elevated. Has anxious adrenaline feeling. States feels mild. Reports prior to this had same issue and was found to be having atrial tach. She reports takes baby asa or Tums and pressure goes away. Now reports does not have it today but then states only slight. No dizziness lightheadedness. Speaking full sentences. 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 She states BP was (see 05/15- my chart as well) 05/15. 126/75 a.m ,. P.M. 130/81 05/16 after speaking with me and walking around she checked BP 131/85 * Cheyenne Fagan - 05/16/2024 10:17 AM EDT Patient is calling, please reference patient messages 05/14/24. She is concerned she needs testing /enzyme labs, she is concerned she is feeling unwell with chest pressure. Patient is aware her records from [facility] are under review. documented in this encounter Plan of Treatment Upcoming Encounters Date Type Department Care Team (Late st Contact Info) Description 10/23/2024 1:40 PM EDT Office Visit [facility] - [address] [place] [phone] Jenifer Brooks PA [address] [place] [address] Scheduled Orders Name Type Priority Associated Diagnoses Orde r Schedule Cardiac event monitor Cardiac Services Routine Palpitations SVT (supraventricular tachycardia) ([facility]) Expected: 05/23/2024, Expires: 05/16/2025 documented as of this encounter Visit Diagnoses Diagnosis Palpitations- Primary SVT (supraventricular tachycardia) ([facility]) Other specified cardiac dysrhythmias documented in this encounter Care Teams Head Waitress Relationship Specialty Start Date End Date Lars Ortiz DO [address] [place] [phone] PCP - General Internal Medicine 01/29/20 documented as of this encounter
--- OUTSIDE RECORDS SUMMARY | 2024-05-28 15:26 | XMS_ITS | Data Portability ---
Author Organization [place] - [facility], Allergy Address [address] [address] Assessment Encounter Date Assessment Date Assessment LastModified [...] IgE Ab, quantitati ve, serum 2023 024 [facility] (Centralized [facility] Ordering - All Locations), Patient Can Go To The Location Of Their Choice, 4 12:52:39 bermuda grass ige, serum 2023 024 [facility] ([facility] Ordering - All Locations), Patient Can Go To The Location Of Their Choice, 4 12:52:39 polish plantain ige, serum 2023 024 [place] [facility] ([facility] Order[facility] - All Locations), Patient Can Go To The Location Of Their Choice, 4 07:46:22 ige, total, serum 2023 [place] [facility] ([facility] Order[facility] - All Locations), [...] >100. 00 Very High Not Available [facility] ([facility]) [address] [facility], [place], [address], 08/22/2023 07:35:22 06/20/20 24 08/21/2023 ALLER GENS, ZONE 1 U277-MsY D pteronyssinu s <0.10 kU/L class 0 Not Available [facility] ([facility]) [address] [facility], [address], 08/22/2023 07:35:22 08/18/19 24 08/21/2023 ALLER GENS, ZONE 1 V264-HmM D farinae <0.10 kU/L class 0 Not Available [facility] ([facility]) [address] [place], [address], 08/22/2023 07:35:22 08/18/19 24 08/21/2023 ALLER GENS, ZONE 1 R105-IkL CAT dander <0.10 kU/L class 0 Not Available [facility] ([facility]) [address] [facility], [address], 08/22/2023 07:35:22 08/18/19 24 08/21/2023 ALLER GENS, ZONE 1 C381-OlV dog dander <0.10 kU/L class 0 Not Available [facility] ([facility]) [address] [place], [address], 08/22/2023 07:35:22 08/18/19 24 08/21/2023 ALLER GENS, ZONE 1 i382-VjF bermuda grass <0.10 kU/L class 0 Not Available [facility] ([facility]) [address] [place], [address], 08/22/2023 07:35:22 08/18/19 24 08/21/2023 ALLER GENS, ZONE 1 j093-OvT bluegrass, [facility] <0.10 kU/L class 0 Not Available [facility] ([facility]) [address] [place], [address], 08/22/2023 07:35:22 08/18/19 24 08/21/2023 ALLER GENS, ZONE 1 f357-MpR bahia grass <0.10 kU/L class 0 Not Available [facility] ([facility]) [address] [place], [address], 08/22/2023 07:35:22 08/18/19 24 08/21/2023 ALLER GENS, ZONE 1 T621-QcJ cockroach, equatorial guinean <0.10 kU/L class 0 Not Available [facility] ([facility]) [address] [place], [address], 08/22/2023 07:35:22 08/18/19 24 08/21/2023 ALLER GENS, ZONE 1 T626-DsQ penicillium chrysogen <0.10 kU/L class 0 Not Available [facility] ([facility]) [address] [facility], [place], [address], 08/22/2023 07:35:22 08/18/19 24 08/21/2023 ALLER GENS, ZONE 1 J477-TbZ cladosporium herbarum <0.10 kU/L class 0 Not Available [facility] ([facility]) [address] [place], [address], 08/22/2023 07:35:22 08/18/19 24 08/21/2023 ALLER GENS, ZONE 1 B861-PsG aspergillus fumigatus <0.10 kU/L class 0 Not Available [facility] ([facility]) [address] [place], [address], 08/22/2023 07:35:22 08/18/19 24 08/21/2023 ALLER GENS, ZONE 1 I443-QaJ mucor racemosus <0.10 kU/L class 0 Not Available [facility] ([facility]) [address] [place], [address], 08/22/2023 07:35:22 08/18/19 24 08/21/2023 ALLER GENS, ZONE 1 Y000-RdZ alternaria alternata <0.10 kU/L class 0 Not Available [facility] ([facility]) [address], [place], [address], 08/22/2023 07:35:22 08/18/19 24 08/21/2023 ALLER GENS, ZONE 1 G557-WvM stemphylium herbarum <0.10 kU/L class 0 Not Available [facility] ([facility]) [address], [place], [address], 08/22/2023 07:35:22 08/18/19 24 08/21/2023 ALLER GENS, ZONE 1 L102-KuS common silver birch <0.10 kU/L class 0 Not Available [facility] ([facility]) [address], [place], [address], 08/22/2023 07:35:22 08/18/19 24 08/21/2023 ALLER GENS, ZONE 1 F903-IbD oak, white <0.10 kU/L class 0 Not Available [facility] ([facility]) [address], [place], [address], 08/22/2023 07:35:22 08/18/19 24 08/21/2023 ALLER GENS, ZONE 1 S215-TvQ elm, equatorial guinean <0.10 kU/L class 0 Not Available [facility] ([facility]) [address], [place], [address], 08/22/2023 07:35:22 08/18/19 24 08/21/2023 ALLER GENS, ZONE 1 A284-NwD den, white <0.10 kU/L class 0 Not Available [facility] ([facility]) [address], [place], [address], 08/22/2023 07:35:22 08/18/19 24 08/21/2023 ALLER GENS, ZONE 1 Y856-EiW maple/box elder <0.10 kU/L class 0 Not Available [facility] ([facility]) [address], [place], [address], 08/22/2023 07:35:22 08/18/19 24 08/21/2023 ALLER GENS, ZONE 1 W604-VvK hazelnut tree <0.10 kU/L class 0 Not Available [facility] ([facility]) [address], [place], [address], 08/22/2023 07:35:22 08/18/19 24 08/21/2023 ALLER GENS, ZONE 1 V161-ZlP hickory, white <0.10 kU/L class 0 Not Available [facility] ([facility]) [address], [place], [address], 08/22/2023 07:35:22 08/18/19 24 08/21/2023 ALLER GENS, ZONE 1 A029-BtU white mulberry <0.10 kU/L class 0 Not Available [facility] ([facility]) [address], [place], [address], 08/22/2023 07:35:22 08/18/19 24 08/21/2023 ALLER GENS, ZONE 1 G298-KaJ cedar, mountain <0.10 kU/L class 0 Not Available [facility] ([facility]) [address], [place], [address], 08/22/2023 07:35:22 08/18/19 24 08/21/2023 ALLER GENS, ZONE 1 R755-XvY ragweed, short <0.10 kU/L class 0 Not Available [facility] ([place] [facility]) [address], [place], [address], 08/22/2023 07:35:22 08/18/19 24 08/21/2023 ALLER GENS, ZONE 1 Y382-AqJ mugwort <0.10 kU/L class 0 Not Available [facility] ([place] [facility]) [address], [place], [address], 08/22/2023 07:35:22 08/18/19 24 08/21/2023 ALLER GENS, ZONE 1 S970-QcQ plantain, polish <0.10 kU/L class 0 Not Available [facility] ([facility]) [address] [facility], [place], [address], 08/22/2023 07:35:22 08/18/19 24 08/21/2023 ALLER GENS, ZONE 1 X723-CpC pigweed, common <0.10 kU/L class 0 Not Available [facility] ([facility]) [address] [facility], [place], [address], 08/22/2023 07:35:22 08/18/19 24 08/21/2023 ALLER GENS, ZONE 1 C867-LxE sheep sorrel <0.10 kU/L class 0 Not Available [facility] ([facility]) [address] [facility], [place], [address], 08/22/2023 07:35:22 08/18/19 24 08/21/2023 ALLER GENS, ZONE 1 C633-ClK nettle <0.10 kU/L class 0 Not Available [facility] ([facility]) [address] [facility], [place], [address], 08/22/2023 07:35:22 08/18/19 24 08/21/2023 IMMUN OGLOB ULIN E, TOTAL immunoglobul in E, total 66 IU/mL 6-495 Not Available [facility] ([facility]) [address] [facility], [place], [address], 08/22/2023 07:35:23 08/02/19 24 02/04/2021 CT, abdom en + pelvi s, w/o contr ast No observ ation record ed. BARCODE Not Available 2023 09:55:11 08/05/19 24 08/04/2023 ctsin inscription [facility] Diagno stic Imagin g Depart [address] [address] ____ Patien t: ANNETTE L,KOLBY Y A /Age/S ex: 1959 - 63 - F Unit#: [id number] Locati on/Sta tus: SPDICA T/REG CLI Accoun t#: [id number] Mnemon ic/Ord ering Site: [facility] MOLINA/SP CT [...] availa ble for compar apurva. Scanne r: [employer] peed 64 slice VCT Dose reduct ion [...] Date/T jacek: 1117 Sign date/T jacek: 1124 [id number] [facility] ([facility] Scheduling) Any [place], [place], [address], 08/05/2023 13:06:37 08/17/19 24 08/04/2023 CT, maxil [...] Gastroeso phageal reflux disease without esophagit is 425753506 Active 2016 Gastro-es ophageal reflux disease without esophagit is; Note: Date Diagnosed : 03/25/2016 12:06 PM (K21.9) Not Available [facility] 02:34:48 Bilateral temporoma ndibular joint pain 51761354945 203611 Active 2020 Arthralgi a of bilateral temporoma ndibular joint; Note: Date Diagnosed : 04/09/2020 2:38 PM (M26.623) Not Available [facility] 02:34:56 Temporoma ndibular joint disorder 74123801 Active 2016 Temporoma ndibular joint disorder, unspecifi ed; Note: Date Diagnosed : 03/24/2016 12:38 PM (M26.60) Not Available [facility] 4 02:34:44 Otalgia of left ear 4469734700 Active 2020 Otalgia, left ear; Note: Date Diagnosed : 04/09/2020 2:38 PM (H92.02) Not Available [facility] 4 02:34:51 Chronic rhinitis 68116105 Active 2016 Chronic rhinitis; Note: Date Diagnosed : 03/25/2016 12:05 PM (J31.0) Not Available [facility] 4 02:34:49 Benign paroxysma l positiona l vertigo 159348707 Active 2017 Benign paroxysma l vertigo, right ear; Note: Date Diagnosed : 01/03/2018 3:32 PM (H81.11) Benign paroxysma l vertigo, left ear; Note: Date Diagnosed : 7 4:29 PM (H81.12) ; Start Date : 7 Not Available [facility] 4 02:34:49 Dizziness and giddiness 644046008 Active 2016 Dizziness and giddiness ; Note: Date Diagnosed : 7 4:11 PM (R42) Not Available [facility] 4 02:34:43 Acute sinusitis 81261206 Active 2022 Other acute sinusitis ; Note: Date Diagnosed : 07/05/2022 12:08 PM (J01.80) Not Available [facility] 4 02:34:43 Atypical facial pain 13322084 Active 2023 CRISTINA MOROCHO MD [address] [place] [address], [facility] [place], [place], [address] , [facility] - [facility] 4 21:21:14 Pain of left temporoma ndibular joint 30307892624 649341 Active 2023 Arthralgi a of left temporoma ndibular joint; Note: Date Diagnosed : 06/02/2023 3:09 PM (M26.622) Not Available [facility] 02:34:53 Problem Notes None recorded. Procedures Surgical History None recorded. Imaging Results Imaging Date Name Status LastModified by Organiz ation Details LastModified Time 02/04/2021 CT, abdomen + pelvis, w/o contrast completed BARCODE Information not available 08/02/2023 09:55:11 08/04/2023 [id number] [place] [address] ( [facility] Sched[facility]) [facility] [place], [place], [address], 08/05/2023 13:06:37 08/04/2023 CT, maxillofacial, w/o contrast [...] Name and Address Organization Details Recorded Time 618958 amlodipin e medicatio n Not available Not available Not available 08/17/2023 45347 RxNorm Jenifer mehta [place] - [facility] 14:16:13 Medications Name Sig Start Date Stop Date Status Note LastModified by Organization Details LastModified Time amoxicill in 500 mg capsule TAKE 1 CAPSULE BY MOUTH THREE TIMES A DAY FOR 7 DAYS 08/16 completed Not Available Not Available Not Available Augmentin 875 mg-125 mg tablet Take 1 tablet by mouth twice a day with meals 08/16 completed Medicati on ID: [id number] D uration Value: 14 Brand Name: Augmenti n Send Method: E-Prescr ibed Sub s Allowed: subs OK Medic ationGen ericName : Augmenti n Medica tion ID: [id number] D uration Value: 14 Brand Name: Augmenti [...] mg tablet 07/05 completed Medicati on ID: [id number] D uration Value: 30 Brand Name: valacycl ovir Sen d Method: E-Prescr ibed Sub s Allowed: subs OK Medic ationGen ericName : valacycl ovir Not Available Not Available Not Available tramadol 50 mg tablet TAKE 1 TABLET 4 TIMES DAILY NEEDED FOR PAIN. 08/16 completed Not Available Not Available Not Available famotidin e 20 mg tablet active Medicati on ID: [id number] B rand Name: famotidi ne Send Method: [...] mg tablet 01/27 completed Medicati on ID: [id number] D uration Value: 30 Brand Name: paroxeti ne HCl Send Method: E-Prescr ibed Sub s Allowed: subs OK Medic ationGen ericName : paroxeti ne HCl Not Available Not Available Not Available mupirocin 2 % topical ointment PLEASE SEE ATTACHED FOR DETAILED DIRECTIO NS active Not Available Not Available No t Available lorazepam 1 mg tablet active Medicati on ID: [id number] B rand Name: lorazepa m Send Method: [...] Test Strip 07/05 completed Medicati on ID: [id number] D uration Value: 90 Brand Name: OneTouch Ultra Blue Test Strip Se nd Method: E-Prescr ibed Sub s Allowed: subs OK Medic ationGen ericName : OneTouch Ultra Blue Test Strip Not Available Not Available Not Available Vitals Date Recorded Body height Body mass index (BMI) Body weight Provider Name and Address Organization Details Last Updated DateTime 08/17/2023 154.94 cm 20.6 kg/m2 19910.57 g Jenifer Olivera [place] - [facility] 08/17/2023 14:16:02 Social History None recorded. [...] Note [id number] MASHA TORRES PA-C [facility] on [address] [place] [address] 08/17/2023 14:06:29 08/17/2023 14:44:36 Chronic rhinitis 70531331 J31.0 Atypical facial pain 713 35717 G50.1 Dizziness and giddiness 223944250 R42 Health Concerns Section Related Observation LastModified by Organization Detai ls LastModified Time None Recorded Concern Status LastModified by Organization Details LastModified Time None Recorded Advance Directives Directive None Recorded Payers Encounter Date Sequence Insurance Name Policy Number Policy Waterman Covered Member ID Waterman Member ID Guarantor Name 08/17/2023 1 [place] (MEDICARE [place]PLACEMENT PPO) [id number] Daphne Ernst [id number] Daphne Ernst Notes Date Note Type [...] May with demonstrated normal hearing. ZAFAR WAITE-Cyril [address] [place] [address], [place], [address], [facility] - [facility] 08/17/2023 17:07:03 OBGyn Episode No OBEpisode recorded.
== END 2024-05-28 14:33 | disposition home or self-care (01) ==
LOC: HO.HMCSH 13:38
PROVIDERS: PCP Internal Medicine; Visit Provider Physician Assistant Medical
DX: R07.89 Other chest pain (principal); I10 Essential (primary) hypertension; F41.9 Anxiety disorder, unspecified; I48.91 Unspecified atrial fibrillation

== ENCOUNTER → 2024-05-28 13:38 | Outpatient (BNVA) | payer MEDICARE, SELFPAY | PROVIDERS: PCP Internal Medicine; Visit Provider Physician Assistant Medical | DX: Z00.00 Encounter for general adult medical examination without abnormal findings (principal); R07.89 Other chest pain; I10 Essential (primary) hypertension; F41.9 Anxiety disorder, unspecified; I48.91 Unspecified atrial fibrillation | CPT/HCPCS: 93005; 96127; 99212 ==

== ENCOUNTER 2024-06-14 12:20 | Outpatient (REF) | payer MEDICARE, SELFPAY ==
[2024-06-14 13:14] LABS: MANUAL DIFF FLAG NO
[2024-06-14 13:31] LABS: Estimated Average Glucose 103 mg/dL; Hemoglobin A1c % 5.2 % (<6.0); Total Hemoglobin (HGBA1C) 4008.7993 umol/L
[2024-06-14 13:38] LABS: Basophils Absolute Auto 0.1 X10*3/uL (0.0-0.2); Basophils Percent Auto 1.1 % (0-2); Eosinophils Absolute Auto 0.2 X10*3/uL (0.0-0.4); Eosinophils Percent Auto 3.4 % (0-4); Hematocrit 44.2 % (37.0-47.0); Hemoglobin 15.2 g/dl (12.0-16.0); Imm Gran Abs Auto 0.01 X10*3/uL (0.00-0.03); Imm Gran Pct Auto 0.2 % (0.0-0.4); Lymphocytes Absolute Auto 1.2 X10*3/uL (1.2-4.9); Lymphocytes Percent Auto 27.4 % (20-40); Mean Corpuscular HGB Conc 34.4 g/dl (31.0-35.0); Mean Corpuscular Hemoglobin 33.9 pg (27.0-33.0); Mean Corpuscular Volume 98.4 fL (80.0-98.0); Mean Platelet Volume 9.9 fL (9.4-12.3); Monocytes Absolute Auto 0.5 X10*3/uL (0.1-1.2); Monocytes Percent Auto 10.5 % (2-11); Neutrophils Absolute Auto 2.5 x10*3/uL (2.0-8.3); Neutrophils Percent Auto 57.4 % (45-73); Platelet Count 277 X10*3/uL (160-400); Red Blood Count 4.49 X10*6/uL (4.20-5.50); Red Cell Distribution Width 11.8 % (11.0-16.0); White Blood Count 4.4 X10*3/uL (4.8-10.8)
[2024-06-14 14:04] LABS: Alanine Aminotransferase 23 U/L (0-31); Albumin Level 4.2 g/dL (3.5-5.0); Anion Gap 11 (12-20); Aspartate Amino Transferase 20 U/L (5-31); Bilirubin Direct 0.2 mg/dL (0.0-0.5); Bilirubin Total 0.7 mg/dL (0.0-1.0); Blood Urea Nitrogen 18 mg/dL (9-16); C Reactive Protein < 0.04 mg/dL (< or = 0.50); Calcium 8.9 mg/dL (8.4-10.2); Carbon Dioxide 28 mmol/L (22-29); Chloride 105 mmol/L (96-108); Estimated Glomerular Filt Rate > 60; Glucose Random 100 mg/dL (60-115); Magnesium 2.1 mg/dL (1.6-2.6); Phosphorus 3.5 mg/dL (2.7-4.5); Potassium 3.8 mmol/L (3.3-5.1); Sodium 140 mmol/L (135-145); Total Protein 7.1 g/dL (6.5-8.0); Troponin-I High Sensitivity < 2.7 ng/L (<3.5-17.0)
[2024-06-14 14:18] LABS: Erythrocyte Sedimentation Rate 4 MM/HR (0-20)
[2024-06-14 14:25] LABS: Alkaline Phosphatase 55 U/L (39-117)
--- OUTSIDE RECORDS SUMMARY | 2024-06-14 15:09 | XMS_ITS | Data Portability ---
Author Organization [place] - [facility], Allergy Address [address] [address] Assessment Encounter Date Assessment Date Assessment LastModified [...] IgE Ab, quantitati ve, serum 2023 024 [facility] [place] [facility] ([facility] - All Locations), Patient Can Go To The Location Of Their Choice, 4 12:52:39 bermuda grass ige, serum 2023 024 [facility] [place] [facility] ([facility] - All Locations), Patient Can Go To The Location Of Their Choice, 4 12:52:39 trinidadian plantain ige, serum 2023 024 [place] [facility] ([facility] Ordering - All Locations), Patient Can Go To The Location Of Their Choice, 4 07:46:22 ige, total, serum 2023 [place] [facility] ([facility] Ordering - All Locations), [...] Very High Not Available [facility] ([facility]) [address] [facility], [place], [address], 08/22/2023 07:35:22 06/20/20 24 08/21/2023 ALLER GENS, ZONE 1 N500-OxA D pteronyssinu s <0.10 kU/L class 0 Not Available [facility] ([facility]) [address] [place], [address], 08/22/2023 07:35:22 08/18/19 24 08/21/2023 ALLER GENS, ZONE 1 R457-ClW D farinae <0.10 kU/L class 0 Not Available [facility] ([facility]) [address] [place], [address], 08/22/2023 07:35:22 08/18/19 24 08/21/2023 ALLER GENS, ZONE 1 X930-NaJ CAT dander <0.10 kU/L class 0 Not Available [facility] ([facility]) [address] [place], [address], 08/22/2023 07:35:22 08/18/19 24 08/21/2023 ALLER GENS, ZONE 1 U421-CoQ dog dander <0.10 kU/L class 0 Not Available [facility] ([facility]) [address] [place], [address], 08/22/2023 07:35:22 08/18/19 24 08/21/2023 ALLER GENS, ZONE 1 m956-SpT bermuda grass <0.10 kU/L class 0 Not Available [facility] ([facility]) [address] [place], [address], 08/22/2023 07:35:22 08/18/19 24 08/21/2023 ALLER GENS, ZONE 1 e376-QdV bluegrass, [facility] <0.10 kU/L class 0 Not Available [facility] ([facility]) [address] [place], [address], 08/22/2023 07:35:22 08/18/19 24 08/21/2023 ALLER GENS, ZONE 1 j456-RqC bahia grass <0.10 kU/L class 0 Not Available [facility] ([facility]) [address] [place], [address], 08/22/2023 07:35:22 08/18/19 24 08/21/2023 ALLER GENS, ZONE 1 V858-QcW cockroach, marshallese <0.10 kU/L class 0 Not Available [facility] ([facility]) [address] [place], [address], 08/22/2023 07:35:22 08/18/19 24 08/21/2023 ALLER GENS, ZONE 1 B132-MlZ penicillium chrysogen <0.10 kU/L class 0 Not Available [facility] ([facility]) [address] [facility], [place], [address], 08/22/2023 07:35:22 08/18/19 24 08/21/2023 ALLER GENS, ZONE 1 Q749-BoP cladosporium herbarum <0.10 kU/L class 0 Not Available [facility] ([facility]) [address] [place], [address], 08/22/2023 07:35:22 08/18/19 24 08/21/2023 ALLER GENS, ZONE 1 Y314-FdU aspergillus fumigatus <0.10 kU/L class 0 Not Available [facility] ([facility]) [address] [place], [address], 08/22/2023 07:35:22 08/18/19 24 08/21/2023 ALLER GENS, ZONE 1 B066-CdQ mucor racemosus <0.10 kU/L class 0 Not Available [facility] ([facility]) [address] [place], [address], 08/22/2023 07:35:22 08/18/19 24 08/21/2023 ALLER GENS, ZONE 1 X037-JgP alternaria alternata <0.10 kU/L class 0 Not Available [facility] ([facility]) [address], [place], [address], 08/22/2023 07:35:22 08/18/19 24 08/21/2023 ALLER GENS, ZONE 1 Y683-KcY stemphylium herbarum <0.10 kU/L class 0 Not Available [facility] ([facility]) [address], [place], [address], 08/22/2023 07:35:22 08/18/19 24 08/21/2023 ALLER GENS, ZONE 1 V025-IfV common silver birch <0.10 kU/L class 0 Not Available [facility] ([facility]) [address], [place], [address], 08/22/2023 07:35:22 08/18/19 24 08/21/2023 ALLER GENS, ZONE 1 E995-DhT oak, white <0.10 kU/L class 0 Not Available [facility] ([facility]) [address], [place], [address], 08/22/2023 07:35:22 08/18/19 24 08/21/2023 ALLER GENS, ZONE 1 Q382-NtM elm, marshallese <0.10 kU/L class 0 Not Available [facility] ([facility]) [address], [place], [address], 08/22/2023 07:35:22 08/18/19 24 08/21/2023 ALLER GENS, ZONE 1 K654-CmS den, white <0.10 kU/L class 0 Not Available [facility] ([facility]) [address], [place], [address], 08/22/2023 07:35:22 08/18/19 24 08/21/2023 ALLER GENS, ZONE 1 J640-CaI maple/box elder <0.10 kU/L class 0 Not Available [facility] ([facility]) [address], [place], [address], 08/22/2023 07:35:22 08/18/19 24 08/21/2023 ALLER GENS, ZONE 1 V303-MzH hazelnut tree <0.10 kU/L class 0 Not Available [facility] ([place] [facility]) [address], [place], [address], 08/22/2023 07:35:22 08/18/19 24 08/21/2023 ALLER GENS, ZONE 1 K758-QfX hickory, white <0.10 kU/L class 0 Not Available [facility] ([place] [facility]) [address], [place], [address], 08/22/2023 07:35:22 08/18/19 24 08/21/2023 ALLER GENS, ZONE 1 G786-WfM white mulberry <0.10 kU/L class 0 Not Available [facility] ([place] [facility]) [address], [place], [address], 08/22/2023 07:35:22 08/18/19 24 08/21/2023 ALLER GENS, ZONE 1 Y260-OsL cedar, mountain <0.10 kU/L class 0 Not Available [facility] ([place] [facility]) [address], [place], [address], 08/22/2023 07:35:22 08/18/19 24 08/21/2023 ALLER GENS, ZONE 1 T690-RnF ragweed, short <0.10 kU/L class 0 Not Available [facility] ([place] [facility]) [address], [place], [address], 08/22/2023 07:35:22 08/18/19 24 08/21/2023 ALLER GENS, ZONE 1 R255-QqL mugwort <0.10 kU/L class 0 Not Available [facility] ([place] [facility]) [address], [place], [address], 08/22/2023 07:35:22 08/18/19 24 08/21/2023 ALLER GENS, ZONE 1 R463-TxX plantain, trinidadian <0.10 kU/L class 0 Not Available [facility] ([facility]) [address] [facility], [place], [address], 08/22/2023 07:35:22 08/18/19 24 08/21/2023 ALLER GENS, ZONE 1 L593-FhL pigweed, common <0.10 kU/L class 0 Not Available [facility] ([facility]) [address] [facility], [place], [address], 08/22/2023 07:35:22 08/18/19 24 08/21/2023 ALLER GENS, ZONE 1 V018-IjS sheep sorrel <0.10 kU/L class 0 Not Available [facility] ([facility]) [address] [facility], [place], [address], 08/22/2023 07:35:22 08/18/19 24 08/21/2023 ALLER GENS, ZONE 1 I115-BmY nettle <0.10 kU/L class 0 Not Available [facility] ([facility]) [address] [facility], [place], [address], 08/22/2023 07:35:22 08/18/19 24 08/21/2023 IMMUN OGLOB ULIN E, TOTAL immunoglobul in E, total 66 IU/mL 6-495 Not Available [facility] ([facility] [address] [facility], [place], [address], 08/22/2023 07:35:23 08/02/19 24 02/04/2021 CT, abdom en + pelvi s, w/o contr ast No observ ation record ed. BARCODE Not Available 2023 09:55:11 08/05/19 24 08/04/2023 [facility] Diagno stic Imagin g Depart [address] [address] ____ Patien t: ANNETTE L,KOLBY Y A /Age/S ex: 1959 - 63 - F Unit#: [id number] Locati on/Sta tus: SPDICA T/REG CLI Accoun t#: [id number] Mnemon ic/Ord ering Site: [facility] MOLINA/SP CT [...] availa ble for compar apurva. Scanne r: Emotify peed 64 slice VCT Dose reduct ion [...] Date/T jacek: 1117 Sign date/T jacek: 1124 [id number] [facility] ([facility] Scheduling) [facility], [place], [address], 08/05/2023 13:06:37 08/17/19 24 08/04/2023 CT, maxil [...] Gastroeso phageal reflux disease without esophagit is 645610016 Active 2016 Gastro-es ophageal reflux disease without esophagit is; Note: Date Diagnosed : 03/25/2016 12:06 PM (K21.9) Not Available [facility] 02:34:48 Bilateral temporoma ndibular joint pain 82196091837 346178 Active 2020 Arthralgi a of bilateral temporoma ndibular joint; Note: Date Diagnosed : 04/09/2020 2:38 PM (M26.623) Not Available [facility] 4 02:34:56 Temporoma ndibular joint disorder 68707769 Active 2016 Temporoma ndibular joint disorder, unspecifi ed; Note: Date Diagnosed : 03/24/2016 12:38 PM (M26.60) Not Available [facility] 4 02:34:44 Otalgia of left ear 5230680836 Active 2020 Otalgia, left ear; Note: Date Diagnosed : 04/09/2020 2:38 PM (H92.02) Not Available [facility] 4 02:34:51 Chronic rhinitis 13384977 Active 2016 Chronic rhinitis; Note: Date Diagnosed : 03/25/2016 12:05 PM (J31.0) Not Available [facility] 4 02:34:49 Benign paroxysma l positiona l vertigo 731667500 Active 2017 Benign paroxysma l vertigo, right ear; Note: Date Diagnosed : 01/03/2018 3:32 PM (H81.11) Benign paroxysma l vertigo, left ear; Note: Date Diagnosed : 7 4:29 PM (H81.12) ; Start Date : 7 Not Available [facility] 4 02:34:49 Dizziness and giddiness 425470438 Active 2016 Dizziness and giddiness ; Note: Date Diagnosed : 7 4:11 PM (R42) Not Available [facility] 4 02:34:43 Acute sinusitis 53704786 Active 2022 Other acute sinusitis ; Note: Date Diagnosed : 07/05/2022 12:08 PM (J01.80) Not Available [facility] 4 02:34:43 Atypical facial pain 79826900 Active 2023 CRISTINA MOROCHO MD [address] [place] [address], [facility] [place], [place], [address] , [facility] - [facility] 4 21:21:14 Pain of left temporoma ndibular joint 67834163552 458644 Active 2023 Arthralgi a of left temporoma ndibular joint; Note: Date Diagnosed : 06/02/2023 3:09 PM (M26.622) Not Available [facility] 02:34:53 Problem Notes None recorded. Procedures Surgical History None recorded. Imaging Results Imaging Date Name Status LastModified by Organiz ation Details LastModified Time 02/04/2021 CT, abdomen + pelvis, w/o contrast completed BARCODE Information not available 08/02/2023 09:55:11 08/04/2023 [email or web address] completed [id number] [place] [address] ( [facility] Scheduling) [facility], [place], [address], 08/05/2023 13:06:37 08/04/2023 CT, maxillofacial, w/o contrast [...] Name and Address Organization Details Recorded Time 206152 amlodipin e medicatio n Not available Not available Not available 08/17/2023 64114 RxNorm Jenifer mehta [place] - [facility] 14:16:13 Medications Name Sig Start Date Stop Date Status Note LastModified by Organization Details LastModified Time amoxicill in 500 mg capsule TAKE 1 CAPSULE BY MOUTH THREE TIMES A DAY FOR 7 DAYS 08/16 completed Not Available Not Available Not Available Augmentin 875 mg-125 mg tablet Take 1 tablet by mouth twice a day with meals 08/16 completed Medicati on ID: [id number] D uration Value: 14 Brand Name: Augmenti n Send Method: E-Prescr ibed Sub s Allowed: subs OK Medic ationGen ericName : Augmenti n Medica tion ID: [id number] D uration Value: 14 Brand Name: Augmenti [...] mg tablet 07/05 completed Medicati on ID: [id number] D uration Value: 30 Brand Name: valacycl ovir Sen d Method: E-Prescr ibed Sub s Allowed: subs OK Medic ationGen ericName : valacycl ovir Not Available Not Available Not Available tramadol 50 mg tablet TAKE 1 TABLET 4 TIMES DAILY NEEDED FOR PAIN. 08/16 completed Not Available Not Available Not Available famotidin e 20 mg tablet active Medicati on ID: [id number] B rand Name: famotidi ne Send Method: [...] mg tablet 01/27 completed Medicati on ID: [id number] D uration Value: 30 Brand Name: paroxeti ne HCl Send Method: E-Prescr ibed Sub s Allowed: subs OK Medic ationGen ericName : paroxeti ne HCl Not Available Not Available Not Available mupirocin 2 % topical ointment PLEASE SEE ATTACHED FOR DETAILED DIRECTIO NS active Not Available Not Available No t Available lorazepam 1 mg tablet active Medicati on ID: [id number] B rand Name: lorazepa m Send Method: [...] Test Strip 07/05 completed Medicati on ID: [id number] D uration Value: 90 Brand Name: OneTouch Ultra Blue Test Strip Se nd Method: E-Prescr ibed Sub s Allowed: subs OK Medic ationGen ericName : OneTouch Ultra Blue Test Strip Not Available Not Available Not Available Vitals Date Recorded Body height Body mass index (BMI) Body weight Provider Name and Address Organization Details Last Updated DateTime 08/17/2023 154.94 cm 20.6 kg/m2 63479.57 g Jenifer Olivera [place] - [facility] 08/17/2023 14:16:02 Social History None recorded. Functional Status None recorded. Mental Status None recorded. Family History Nothing Reported. Medical History No medical history recorded. Gynecological HistoryNo gynecological history recorded. Obstetrics History GPAL:G 0 P 0 0 0 0 Past Encounters Encounter ID Performer Location Encounter Start Date Encounter Closed Date Diagnosis/Indication Diagnosis SNOMED-CT Code Diagnosis ICD10 Code Diagnosis Note [id number] Codie Baldwin [facility] on [address] [place] [address] 08/17/2023 14:06:29 08/17/2023 14:44:36 Chronic rhinitis 60319437 J31.0 Atypical facial pain 713 45530 G50.1 Dizziness and giddiness 311364121 R42 Health Concerns Section Related Observation LastModified by Organization Detai ls LastModified Time None Recorded Concern Status LastModified by Organization Details LastModified Time None Recorded Advance Directives Directive None Recorded Payers Encounter Date Sequence Insurance Name Policy Number Policy Waterman Covered Member ID Waterman Member ID Guarantor Name 08/17/2023 1 [place]: MEDIC[place] PPO BLUE (MEDICARE REPLACEMENT PPO) [id number] Daphne Ernst [id number] Daphne Ernst Notes Date Note Type [...] Audiogram in May with demonstrated normal hearing. Codie mehta [place] - [facility] 08/17/2023 17:07:03 OBGyn Episode No OBEpisode recorded.
--- OUTSIDE RECORDS SUMMARY | 2024-06-14 15:09 | XMS_ITS | Clinical Summary ---
Author Organization [address] [place] [address] [place] [address] Phone Care Team Providers Care Tipple Operator Name Role Phone Angel Miller Primary Care Provider [phone] Allergies Active Allergy Reactions Criticality Noted Date [...] 1 (one) time each day. 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 0.5-0.6-7-0.7 mg elixir Take 5 mL [...] Overview (04/02/2024): Hypertensive disorder SVT (supraventricular tachycardia) ([facility] V24) 02/11/2020 Encounters Date Type Department Care Team Description 06/05/2024 9:00 AM EDT Ancillary Procedure [facility] [address] [place] [address] Palpitations; SVT (supraventricular tachycardia) ([facility] V24) 05/22/2024 Telephone [facility] [address] [place] [address] Deanna Smith MD [id number] (ok to book); ROCT Enrollment (Enrolling patient for 14 day ROCT) 05/16/2024 Telephone [facility] [address] [place] [address] Deanna Smith MD Chest Pain 04/23/2024 12:40 PM EST Office Visit [facility] [address] [place] [address] Jenifer Brooks PA Palpitations (Primary Dx); PAC (premature atrial contraction); SVT (supraventricular tachycardia) ([facility] V24); Atrial premature depolarization; Snoring; Other fatigue from [...] Description 10/23/2024 1:40 PM EDT Office Visit [facility] [address] [place] [address] Jenifer Brooks PA [address] [place] [address] Health Maintenance Due Date Last Done Comments Pneumococcal Vaccine: 50+ Years (1 of 2 - PCV) 1978 Pneumococcal Vaccine: Pediatrics (0 to 5 Years) and At-Risk Patients (6 to 64 Years) (1 of 2 - PCV) 1978 Zoster Vaccines (1 of 2) 1978 Cervical Cancer Screening: Pap Smear 01/26/1980 Breast Cancer Screening 12/13/2019 12/12/2017 Colorectal Cancer [...] Td or Tdap) 03/13/2032 03/13/2022 RSV Immunization Adult Patients (1 - 1-dose 75+ series) 2034 Influenza [...] age to complete this topic Meningococcal B Vaccine Aged Out No l onger eligible based on patient's age to complete [...] TEST Routine 09/28/2023 LIPID PANEL Routine 09/28/2023 MIKEY SCREENING DIGITAL Routine 12/12/2017 5:13 PM EDT Encounter for screening mammogram for malignant neoplasm of breast from Last 3 Months or Most Recently Relevant to Health Maintenance Results * ECG-External (05/18/2024 10:46 AM EDT) us Historical Provider ECG ORDERABLES Final Res ult * ECG 12 lead (04/23/2024 1:05 PM EST) [facility] Ventricular Rate ECG 63 BPM GEMUSE Atrial Rate 63 BPM GEMUSE P-R Interval 172 ms GEMUSE QRS Duration 90 ms GEMUSE Q-T Interval 414 ms GEMUSE QTc 423 ms GEMUSE P Wave [place] 67 degrees GEMUSE R [place] 46 degrees GEMUSE T [place] 0 degrees GEMUSE ECG Interpretation Normal sinus rhythm When compared with ECG of 11-MAR-2006 10:00, No significant change was found Confirmed by AILEEN SMITH ([id number]) on 04/24/2024 6:06:12 PM GEMUSE 04/23/2024 1:02 PM EST 04/24/2024 6:06 PM EST Jenifer STEPHEN ECG ORDERABLES Edited Result - Final GEMUSE * Annual BMP Blood Test (09/28/2023) Pathologist [facility] Annual BMP Blood Test abstracted Historical Provider HEALTH MAINTENANCE Final Result * (ABNORMAL) Lipid panel (09/28/2023) [facility] LDL/HDL Ratio 3 0 - 4 Triglycerides [...] AM EDT Narrative 12/12/2017 5:13 PM EDT [facility] Diagnostic Imaging Department [address] [place] [address] Patient: ??DAPHNE JACOB ?/Age/Sex: 1960 - 57 - F Unit#: ??[id number] ? Location/Status: ??SPDIMAM/REG CLI ? Mnemonic/Ordering Site: ??DIGSC/SPMAM Ordering Physician: ??MILLER TEJEDA DO Mikey Screening Digital - 12/12/17 - 1154 History: Bilateral breast cancer screening. Previous augmentation mammoplasty. Technique: ??Digital mammography. Conventional CC and MLO projections with implant displaced views, tomography and computer aided detection. Comparison: [facility] 12/30/2005, 11/04/2004 and 07/16/2003. Findings: ?? Breast tissue consists of fatty and fibroglandular elements (category b density) bilaterally. Bilateral subglandular breast implants in place, lucent; therefore, likely saline containing. There is no suspicious group of microcalcifications, mass, architectural distortion or suspicious change in breast tissue density. Impression: No mammographic evidence of malignancy. BIRADS category 1; negative study, 3341F [address]5795, [address] Note: Patient information entered into a reminder system with a target due date for the next mammogram: ??CPT II 7025F Dictating Physician: ??GEN RILEY MD Electronically Signed by: ??GEN RILEY MD Dic Date/Time: ??12/12/171711 Sign date/Time: ??12/12/171712 Procedure Note Gen Riley MD - 02/16/2022 [facility] Diagnostic Imaging Department [address] [place] [address] Patient: DAPHNE JACOB /Age/Sex: 1960 - 57 - F Unit#: [id number] Location/Status: SPDIMAM/REG CLI Mnemonic/Ordering Site: [facility] Ordering Physician: MILLER TEJEDA DO Mikey Screening Digital - 12/12/17 - 1154 History: Bilateral breast cancer screening. Previous augmentationmammoplasty. Technique: Digital mammography. Conventional CC and MLO projectionswith implant displaced views, tomography and computer aided detection. Comparison: [facility] 12/30/2005, 11/04/2004 and 07/16/2003. Findings: Breast tissue consists of fatty and fibroglandular elements (category b density) bilaterally. Bilateral subglandular breast implantsin place, lucent; therefore, likely saline containing. There is no suspiciousgroup of microcalcifications, mass, architectural distortion or suspiciouschange in breast tissue density. Impression: No mammographic evidence of malignancy. BIRADS category 1; negative study, 3341F [address]2400, [id number] Note: Patient information entered into a reminder [...] [place] - [place] Care Teams Tipple Operator Relationship Specialty Start Date End Date Miller Tejeda DO [address] [place] [phone] PCP - General Internal Medicine 01/29/20
--- OUTSIDE RECORDS SUMMARY | 2024-06-14 15:09 | XMS_ITS | Encounter Summary ---
Author Organization [facility] Address [address] [place] [address] Care Team Providers Care Crushing Machine Operator Name Role Phone Angel Lars Primary Care Provider [phone] Reason for Referral * Cardiac Stress Testing (Routine) - Closed Specialty Diagnoses / Procedures Referred By Contac t Referred To Contact Cardiology Diagnoses Palpitations SVT (supraventricular tachycardia) ([facility] V24) Procedures Cardiac event monitor UT EXTERNAL PATIENT ACTIVATED ECG DOWNLOAD W RESULTS & INTERP <= 30 DAYS UT EXTERNAL PAT AUTO ACTIVATED ECG INCLUDING TRANSMISSION UP TO 30 DAYS UT EXTERNAL MOBILE CV TELEMETRY W ECG RECORDING <=30D PHYSCIAN REV & INTERP UT EXTERNAL MOBILE CV TELEMETRY W ECG RECORDING TECH SUPPORT UP TO 30 DAYS UT ECG UP TO 30 DAYS RECORDING Jenifer Brooks PA [address] [place] [address] Phone: tel: fax: [facility] - [address] [place] [address] Phone: tel: fax: Referral ID Status Reason Start Date Expiration Date Visits Re quested Visits Authorized [id number] Closed 05/22/2024 08/20/2024 1 1 Reason for Visit * Reason Onset Date Comments Chest Pain 05/16/2024 Encounter Details Date Type Department Care Team (Late st Contact Info) Description 05/16/2024 Telephone [facility] - [address] [place] [phone] Deanna Noriega MD [address] [place] [address] Chest Pain Social History Tobacco Use Types [...] enzymes being drawn after her visit to [facility] ER. Would recommend Tylenol to help treat [...] on 05/16. Had also been seen at [facility] ER. Not able to scan in ER notes as pt left AMA from [facility] ER yesterday. Scanned in ER labs/EKG for review. BP elevated yesterday and had MOREL/nausea/light CP. SBP 140s. Took xtra dose of metoprolol 12.5mg on top of her scheduled 12.5mg BID and xtra 81mg ASA on top of her scheduled ASA 81mg daily - states xtra ASA/extra Metoprolol 12.5mg helps with MOREL and chest pressure. HR 53 after xtra dose of Metoprolol. Went to [facility] ER for continued intermittent chest pressure/MOREL. Early [...] call, she went to the ER at [facility] on 05/15/24 and states no one saw her. Shesays her blood pressure is high with a headache and pressure still in her chest. She has been taking an extra metoprolol to try to help her increased blood pressure. Please give her a call back at [phone]. * Ines Manriquez RN - 05/16/2024 12:12 [...] pain. I did review the records at [facility] for noncardiac chest pain andnausea. Her adrenaline [...] my chart message yesterday and records from [facility]. I stated if still having cardiac sx to return to ER. She denied chest pressure at time of call. See [facility] notes 05/11/24. 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 She states BP was (see 05/15- [...] pressure. Patient is aware her records from [facility] are under review. documented in this encounter Plan of Treatment Upcoming Encounters Date Type Department Care Team (Late st Contact Info) Description 10/23/2024 1:40 PM EDT Office Visit [facility] - [address] [place] [phone] Jenifer Brooks PA [address] [place] [address] Pending Results Name Type Priority Associated Diagnoses Date /Time Cardiac event monitor Cardiac Services Routine Palpitations SVT (supraventricular tachycardia) ([facility] V24) 06/06/2024 11:04 AM EDT Scheduled Orders Name Type Priority Associated Diagnoses Orde r Schedule Cardiac event monitor Cardiac Services Routine Palpitations SVT (supraventricular tachycardia) ([facility] V24) Expected: 05/23/2024, Expires: 05/16/2025 documented as of this encounter Visit Diagnoses Diagnosis Palpitations- Primary SVT (supraventricular tachycardia) ([facility] V24) Other specified cardiac dysrhythmias documented in this encounter Care Teams Crushing Machine Operator Relationship Specialty Start Date End Date Lars Ortiz DO [address] [place] [phone] PCP - General Internal Medicine 01/29/20 documented as of this encounter
--- OUTSIDE RECORDS SUMMARY | 2024-06-14 15:09 | XMS_ITS | Clinical Summary ---
Author Organization [facility] Address [address] [place] [address] Care Team Providers Care Director Product Name Role Phone AngelLars baez Primary Care Provider [phone] Allergies Active Allergy Reactions Criticality Noted Date [...] age to complete this topic Care Teams Director Product Relationship Specialty Start Date End Date Lars Ortiz DO [address] [place] [phone] PCP - General Internal Medicine 06/13/17
== END 2024-06-14 12:21 | disposition home or self-care (01) ==
LOC: HO.HMGCLDS 12:20
PROVIDERS: Visit Provider Physician Assistant Medical
DX: Z00.00 Encounter for general adult medical examination without abnormal findings (principal); R07.89 Other chest pain; Z13.1 Encounter for screening for diabetes mellitus
CPT/HCPCS: 36415; 80053; 82248; 82550; 83036; 83735; 84100; 84484; 85025; 85652; 86140

== ENCOUNTER 2024-06-18 13:10 | Outpatient (AMB) | payer MEDICARE, SELFPAY ==
[2024-06-18 13:03] VITALS: BP 132/80; PULSE 80; RESP 16; TEMP 36.4; O2SAT 98; BMI 21.7
--- NOTE | 2024-06-18 13:03 | A.OFFPC_ITS ---
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 Required: No Accompanied by: Self / Same As Patient Allergies amlodipine Allergy (Intermediate, Verified 06/18/24 14:46) tachycardia clyndamycin Allergy (Intermediate, Uncoded 06/18/24 14:46) Abdominal Pain Medication List - Last Reconciled 06/18/24 by Shelli Butterfield PA-C albuterol sulfate 90 mcg/actuation 2 puffs PO Q6H PRN aspirin (Mishel Chewable Low Dose Aspirin) 81 mg PO DAILY epinephrine IM DIRECTED lorazepam 1 mg PO DAILY PRN metoprolol tartrate 12.5 mg PO BID multivitamin 1 tab PO DAILY valacyclovir (Valtrex) 1,000 mg PO DAILY 5 days valsartan 40 mg PO DAILY Tobacco use date assessed: 06/18/24 Fall risk assessment: No Falls in past year Last assessed Fall Risk: 06/18/24 Dental Screening Dental Screen Date: 06/18/24 Did you have a dental visit in the last 12 months?: Yes Did you have a dental problem in the last 6 months where you did not have access to dental care?: No Was dental information given to patient?: Patient has dentist HPI 3 week follow up HPI Details The patient is a 64-year-old female presenting with concerns about her blood pressure management. Her blood pressure has been well-controlled during the day but experiences nocturnal hypertension, reaching up to 170 mmHg. She attributes recent spikes to alcohol consumption and has observed variability in her readings, often influenced by her experienced anxiety. The patient has a prior prescription for Losartan but has not initiated it, opting instead to base her intake on blood pressure readings. Additionally, the patient is addressing her anxiety management strategy, including the usage of Ativan, and is currently experiencing a herpes labialis outbreak prompted by stress. She prefers oral Valtrex for treatment of these episodes. Socail History - Reports being a former smoker. - Reports occasional alcohol consumption . - Notes exercise consisting of brisk wal kelly uphill. - Mentions stress related to family resp onsibilities and relationship. [facility] Medical History (Updated 06/18/24 @ 14:58 by Shelli Butterfield PA-C) Herpes labialis Atrial fibrillation Chest discomfort Spondylosis Abdominal pain Left shoulder pain Right hip pain History of mammogram (~01/2023) Clostridium difficile colitis Bee sting allergy Hx gestational diabetes Anxiety Depression GERD (gastroesophageal reflux disease) Paroxysmal supraventricular tachycardia Thyroiditis Hypertension Surgical History History of colonoscopy (~01/12/21) S/P tendon repair History of radiofrequency ablation (RFA) procedure for cardiac arrhythmia History of section History of adenoidectomy History of tonsillectomy History of abdominoplasty Social History Housing: House Alcohol intake: current Alcohol intake frequency: holidays/special occasions only Patient Tobacco Use Status: Former Tobacco user e-Cigarette/Vaping Use: Never Used Second Hand Smoke Exposure: Yes service: No Current occupational status: disabled Cognitive needs: No Hearing needs: No Vision needs: Yes (Reading glasses) Questionnaire PHQ-9 Over the last 2 weeks, how often have you been bothered by any of the following problems? 1. Little interest or pleasure in doing things: not at all 2. Feeling down, depressed, or hopeless: not at all 3. Trouble falling or staying asleep, or sleeping too much: several days 4. Feeling tired or having little energy: several days 5. Poor appetite or overeating: not at all 6. Feeling bad about yourself - or that you are a failure or have let yourself or your family down: not at all 7. Trouble concentrating on things, such as reading the newspaper or watching television: not at all 8. Moving or speaking so slowly that other people could have noticed. Or the opposite - being so fidgety or restless that you have been moving around a lot more than usual: not at all 9. Thoughts that you would be better off or of hurting yourself in some way: not at all Total score: 2 Depression Screening Interpretation: Negative Depression Screening Done: Yes 10078 - PHQ-9 Billing: Yes Source: Developed by Drs. Lars Clay, Yanet Manriquez, Og Oliver and colleagues, with an educational jm from [employer]. Thrive Questionnaire Date Thrive assessed: 05/28/24 I am a: Patient What is your living situation today?: I have a steady place to live Within the past 12 months, did the food you bought not last and you didn't have the money to get more?: Never true Within the past 12 months, did you worry whether your food would run out before you got money to buy more?: Never true Do you have trouble paying for medicines?: No Do you have trouble getting transportation to medical appointments?: No Do you have trouble paying your heating and electricity bill?: No Do you have trouble taking care of your child, family member or friend?: No Do you have trouble with day-to-day activities such as bathing, preparing meals, shopping, managing finances, etc.?: No Are you currently unemployed and looking for a job?: No Are you interested in more education?: No THRIVE Score: 0 AUDIT C Alcohol Use Questionnaire (AUDIT-C) 1. How often do you have a drink containing alcohol?: 2-4 times a month 3. How often do you have six or more drinks on one occasion?: Never Total Score: 2 Score Reviewed/Action Taken: No RADHA-7 AMB Questionnaire RADHA-7 Date RADHA - 7 assessed: 05/28/24 Feeling nervous, anxious, or on edge: 0 = Not at all Not being able to stop or control worryin = Not at all Worrying too much about different things: 0 = Not at all Trouble relaxin = Not at all Being so restless that it is hard to sit still: 0 = Not at all Becoming easily annoyed or irritable: 0 = Not at all Feeling afraid as if something awful might happen: 0 = Not at all Total RADHA-7 score (0-4 normal; 5-9 mild; 10-14 moderate; 15-21 severe): 0 Source: Developed by Drs. Lars Clay, Yanet Manriquez, Og Oliver and colleagues, with an educational jm from [employer]. RADHA-7 Assessment Billing RADHA-7 Assessment Tool: RADHA-7 Assessment 47668 Review of Systems Const Details: - Cardiovascular: Reports elevated blood pressure readings at night. - Respiratory: Denies shortness of breath. - Psychiatric: Reports anxiety; taking Ativan as needed. - Dermatological: Reports cold sore on the face indicative of herpes labialis. Physical exam (Primary Care) Vital Signs: Last Vital Signs Temp 97.6 F 06/18/24 13:03 Pulse 80 06/18/24 13:03 Resp 16 06/18/24 13:03 BP 132/80 06/18/24 13:03 Pulse Ox 98 06/18/24 13:03 Oxygen Delivery Method Room Air 06/18/24 13:03 Care Plan Goal for BP management: <130/90 at Goal at this time BMI result Body Mass Index 21.7 normal bmi Tobacco/Smoking Status: Tobacco use Status Tobacco use date assessed 06/18/24 06/18/24 13:05 Patient Tobacco Use Status Former Tobacco user 06/18/24 13:05 e-Cigarette/Vaping Use Never Used 06/18/24 13:05 PHQ-9: PHQ-9 Score PHQ-9: Total score 2 06/18/24 13:16 Depression Screening Interpretation: Negative Thrive Assessment: Date of Thrive Assessment Date Thrive assessed 05/28/24 06/18/24 13:05 Const Other: Appearance: Alert. Oriented X3. No acute distress. Head: Normal external exam. Normocephalic. Atraumatic. Eyes: Pupils are equal, round, and reactive to light. Extraocular movements intact. Conjunctiva and sclera normal. Eyelids normal. Throat: Pharynx normal. Uvula midline. Moist mucous membranes. Neck: Normal inspection. Neck supple. Full range of motion. Cardiovascular: Normal heart rate and rhythm. Respiratory: No respiratory distress. Painless inspiration. Back: Full range of motion noted. Skin: Skin warm and dry. Normal skin color. Normal skin turgor. Sore noted to left upper lip. No signs of acute infection. No additional sores noted. No rashes/lacerations noted. Extremities: Extremities exhibit normal range of motion. Extremities nontender. Neuro: Oriented X 3. No motor deficit. No sensory deficit. Reflexes normal. Results Reviewed Results Reviewed: - Labs: Kidney function tests performed on reported as normal. - Tests: Undergoing Holter monitoring; scheduled for echocardiogram. Coding Level of Care Code Est Pt Level 3 (76374) Complex EM visit Add On G2211 Diagnoses Herpes labialis B00.1 Anxiety F41.9 Hypertension I10 Additional Codes RADHA-7 Assessment Billing - RADHA-7 Assessment Tool: RADHA-7 Assessment 80873 ([id number]) PHQ-9 - 81922 - PHQ-9 Billing: Yes ([id number]) Assessment & Plan Assessment & Plan (1) Herpes labialis: Code(s): B00.1 - Herpesviral vesicular dermatitis Category: Medical Plan: Prescribed Valtrex for outbreak management, with refills for future episodes. Encouraged prompt initiation upon symptom onset. Condition is chronic and stable continue to monitor. (2) Anxiety: Code(s): F41.9 - Anxiety disorder, unspecified Category: Medical Plan: Ativan prescription updated to increase tablet quantity. Discussed potential stressors and management strategies. Condition is chronic and stable continue to monitor. (3) Hypertension: Code(s): I10 - Essential (primary) hypertension Category: Medical Plan: The patient is advised to take Losartan at night if blood pressure readings are elevated but avoid use if readings are normal. Echocardiogram and Holter monitoring are scheduled for further evaluation. Condition is chronic and stable continue to monitor. Plan Plan Patient was informed and verbally consented to the use of an ambient scribe for clinic note documentation during this visit. 1. Herpes Labialis Prescribed Valtrex for outbreak management, with refills for future episodes. Encouraged prompt initiation upon symptom onset. 2. Essential Hypertension The patient is advised to take Losartan at night if blood pressure readings are elevated but avoid use if readings are normal. Echocardiogram and Holter monitoring are scheduled for further evaluation. 3. Anxiety Disorder Ativan prescription updated to increase tablet quantity. Discussed potential stressors and management strategies. During this appointment, we discussed the management of her essential hypertension, emphasizing adaptation of medication use based on blood pressure monitoring. I reassured her regarding kidney function following recent tests and addressed her concerns regarding nocturnal spikes in blood pressure. For her anxiety, we continue managing with Ativan, providing more tablets but maintaining current dosage, advising on stress reduction strategies due to external psychosocial factors. Regarding herpes labialis, I reviewed her preference for Valtrex dosing and equipped her with adequate refills to address future episodes effectively. Recommended follow-up post echocardiogram results to further evaluate treatment efficacy and adjustments, if necessary. Medications: New valacyclovir (Valtrex) 1,000 mg PO DAILY 5 days 5 tabs 6RF cold sores Refilled lorazepam 1 mg PO DAILY PRN 60 tabs 0RF anxiety Patient Instructions: - Take Losartan at night if your blood pressure readings are high. - Don't take blood pressure meds if readings are normal in the morning. - Use Ativan as needed for anxiety; avoid increasing dose on your own. - Start Valtrex at the first sign of your cold sore to help it heal faster. - Follow up after your echocardiogram and other tests. - Continue with stress management strategies to help manage anxiety.
--- OUTSIDE RECORDS SUMMARY | 2024-06-18 13:12 | XMS_ITS | Clinical Summary ---
Author Organization [address] [place] [address] [place] [phone] Phone Care Team Providers Care Physicist Light And Optics Name Role Phone Angel Miller Primary Care Provider [phone] Allergies Active Allergy Reactions Criticality Noted Date [...] 1 (one) time each day. 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 als 0.5-0.6-7-0.7 mg elixir Take 5 [...] Overview (04/02/2024): Hypertensive disorder SVT (supraventricular tachycardia) ([facility] V24) 02/11/2020 Encounters Date Type Department Care Team Description 06/05/2024 9:00 AM EDT Ancillary Procedure [facility] [address] [place] [address] Palpitations; SVT (supraventricular tachycardia) ([facility] V24) 05/22/2024 Telephone [facility] [address] [place] [address] Deanna Smith MD [id number] (ok to book); ROCT Enrollment (Enrolling patient for 14 day ROCT) 05/16/2024 Telephone [facility] [address] [place] [address] Deanna Smith MD Chest Pain 04/23/2024 12:40 PM EST Office Visit [facility] [address] [place] [address] Jenifer Brooks PA Palpitations (Primary Dx); PAC (premature atrial contraction); SVT (supraventricular tachycardia) ([facility] V24); Atrial premature depolarization; Snoring; Other fatigue [...] Description 10/23/2024 1:40 PM EDT Office Visit [facility] [address] [place] [address] Jenifer Brooks PA [address] [place] [address] Health Maintenance Due Date Last Done Comments [...] ECG 12 lead (04/23/2024 1:05 PM EST) [facility] Ventricular Rate ECG 63 BPM GEMUSE Atrial Rate 63 BPM GEMUSE P-R Interval 172 ms GEMUSE QRS Duration 90 ms GEMUSE Q-T Interval 414 ms GEMUSE QTc 423 ms GEMUSE P Wave Lawrence 67 degrees GEMUSE R Lawrence 46 degrees GEMUSE T Lawrence 0 degrees GEMUSE ECG Interpretation Normal sinus rhythm When compared with ECG of 11-MAR-2006 10:00, No significant change was found Confirmed by AILEEN SMITH ([id number]) on 04/24/2024 6:06:12 PM GEMUSE 04/23/2024 1:02 PM EST 04/24/2024 6:06 PM EST Jenifer STEPHEN ECG ORDERABLES Edited Result - Final GEMUSE * Annual BMP Blood Test (09/28/2023) Pathologist [facility] Annual BMP Blood Test abstracted Historical Provider HEALTH MAINTENANCE Final Result * (ABNORMAL) Lipid panel (09/28/2023) [facility] LDL/HDL Ratio 3 0 - 4 Triglycerides [...] AM EDT Narrative 12/12/2017 5:13 PM EDT [facility] Diagnostic Imaging Department [address] [place] [id number] Patient: ??DAPHNE JACOB ?/Age/Sex: 1960 - 57 - F Unit#: ??[id number] ? Location/Status: ??SPDIMAM/REG CLI ? Mnemonic/Ordering Site: ??[facility]SC/SPMAM Ordering Physician: ??MILLER TEJEDA DO Mikey Screening Digital - 12/12/17 - 1154 History: Bilateral breast cancer screening. Previous augmentation mammoplasty. Technique: ??Digital mammography. Conventional CC and MLO projections with implant displaced views, tomography and computer aided detection. Comparison: [facility] 12/30/2005, 11/04/2004 and 07/16/2003. Findings: ?? Breast tissue consists of fatty and fibroglandular elements (category b density) bilaterally. Bilateral subglandular breast implants in place, lucent; therefore, likely saline containing. There is no suspicious group of microcalcifications, mass, architectural distortion or suspicious change in breast tissue density. Impression: No mammographic evidence of malignancy. BIRADS category 1; negative study, 3341F 80071, 19707 Note: Patient information entered into a reminder system with a target due date for the next mammogram: ??CPT II 7025F Dictating Physician: ??GEN RILEY MD Electronically Signed by: ??GEN RILEY MD Dic Date/Time: ??12/12/171711 Sign date/Time: ??12/12/171712 Procedure Note Gen Riley MD - 02/16/2022 [facility] Diagnostic Imaging Department [address] [place] [id number] Patient: DAPHNE JACOB /Age/Sex: 1960 - 57 - F Unit#: [id number] Location/Status: SPDIMAM/REG CLI Mnemonic/Ordering Site: [facility] Ordering Physician: MILLER TEJEDA DO Mikey Screening Digital - 12/12/17 - 1154 History: Bilateral breast cancer screening. Previous augmentationmammoplasty. Technique: Digital mammography. Conventional CC and MLO projectionswith implant displaced views, tomography and computer aided detection. Comparison: [facility] 12/30/2005, 11/04/2004 and 07/16/2003. Findings: Breast tissue consists of fatty and fibroglandular elements (category b density) bilaterally. Bilateral subglandular breast implantsin place, lucent; therefore, likely saline containing. There is no suspiciousgroup of microcalcifications, mass, architectural distortion or suspiciouschange in breast tissue density. Impression: No mammographic evidence of malignancy. BIRADS category 1; negative study, 3341F [id number], 76251 Note: Patient information entered into a reminder [...] CROSS - [place] MED[place] Care Teams Physicist [employer] Optics Relationship Specialty Start Date End Date Miller Tejeda DO [address] [place] [phone] PCP - General Internal Medicine 01/29/20
--- OUTSIDE RECORDS SUMMARY | 2024-06-18 13:12 | XMS_ITS | Clinical Summary ---
Author Organization [facility] Address [address] [place] [address] Care Team Providers Care Rat Farmer Name Role Phone AngelLars baez Primary Care Provider [phone] Allergies Active Allergy Reactions Criticality Noted Date [...] age to complete this topic Care Teams Rat Farmer Relationship Specialty Start Date End Date Lars Ortiz DO [address] [place] [phone] PCP - General Internal Medicine 06/13/17
--- OUTSIDE RECORDS SUMMARY | 2024-06-18 13:12 | XMS_ITS | Encounter Summary ---
Author Organization [facility] Address [address] [place] [address] Care Team Providers Care Analyst [employer] Name Role Phone Angel Lars Primary Care Provider [phone] Reason for Referral * Cardiac Stress Testing (Routine) - Closed Specialty Diagnoses / Procedures Referred By Contac t Referred To Contact Cardiology Diagnoses Palpitations SVT (supraventricular tachycardia) ([facility] V24) Procedures Cardiac event monitor OR EXTERNAL PATIENT ACTIVATED ECG DOWNLOAD W RESULTS & INTERP <= 30 DAYS OR EXTERNAL PAT AUTO ACTIVATED ECG INCLUDING TRANSMISSION UP TO 30 DAYS OR EXTERNAL MOBILE CV TELEMETRY W ECG RECORDING <=30D PHYSCIAN REV & INTERP OR EXTERNAL MOBILE CV TELEMETRY W ECG RECORDING TECH SUPPORT UP TO 30 DAYS OR ECG UP TO 30 DAYS RECORDING Jenifer Brooks PA [address] [place] [address] Phone: tel: fax: [facility] - [address] [place] [address] Phone: tel: fax: Referral ID Status Reason Start Date Expiration Date Visits Re quested Visits Authorized [id number] Closed 05/22/2024 08/20/2024 1 1 Reason for Visit * Reason Onset Date Comments Chest Pain 05/16/2024 Encounter Details Date Type Department Care Team (Late st Contact Info) Description 05/16/2024 Telephone [facility] - [address] [place] [phone] Deanna Noriega MD [address] [place] [address] Chest Pain Social History Tobacco Use Types [...] enzymes being drawn after her visit to [facility] ER. Would recommend Tylenol to help treat [...] on 05/16. Had also been seen at [facility]. Not able to scan in ER notes as pt left AMA from [facility] yesterday. Scanned in ER labs/EKG for review. BP elevated yesterday and had MOREL/nausea/light CP. SBP 140s. Took xtra dose of metoprolol 12.5mg on top of her scheduled 12.5mg BID and xtra 81mg ASA on top of her scheduled ASA 81mg daily - states xtra ASA/extra Metoprolol 12.5mg helps with MOREL and chest pressure. HR 53 after xtra dose of Metoprolol. Went to [facility] for continued intermittent chest pressure/MOREL. Early [...] call, she went to the ER at [facility] on 05/15/24 and states no one saw her. Shesays her blood pressure is high with a headache and pressure still in her chest. She has been taking an extra metoprolol to try to help her increased blood pressure. Please give her a call back at [phone]. * Ines Manriquez RN - 05/16/2024 12:12 [...] pain. I did review the records at [facility] for noncardiac chest pain andnausea. Her adrenaline [...] my chart message yesterday and records from [facility]. I stated if still having cardiac sx to return to ER. She denied chest pressure at time of call. See [facility] notes 05/11/24. 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 She states BP was (see 05/15- [...] pressure. Patient is aware her records from [facility] are under review. documented in this encounter Plan of Treatment Upcoming Encounters Date Type Department Care Team (Late st Contact Info) Description 10/23/2024 1:40 PM EDT Office Visit [facility] - [address] [place] [phone] Jenifer Brooks PA [address] [place] [address] Pending Results Name Type Priority Associated Diagnoses Date /Time Cardiac event monitor Cardiac Services Routine Palpitations SVT (supraventricular tachycardia) ([facility] V24) 06/06/2024 11:04 AM EDT Scheduled Orders Name Type Priority Associated Diagnoses Orde r Schedule Cardiac event monitor Cardiac Services Routine Palpitations SVT (supraventricular tachycardia) ([facility] V24) Expected: 05/23/2024, Expires: 05/16/2025 documented as of this encounter Visit Diagnoses Diagnosis Palpitations- Primary SVT (supraventricular tachycardia) ([facility] V24) Other specified cardiac dysrhythmias documented in this encounter Care Teams Analyst [employer]ochemical [employer]ing Relationship Specialty Start Date End Date Lars Ortiz DO [address] [place] [phone] PCP - General Internal Medicine 01/29/20 documented as of this encounter
== END 2024-06-18 13:40 | disposition home or self-care (01) ==
LOC: HO.HMCSH 13:10
PROVIDERS: PCP Internal Medicine; Visit Provider Physician Assistant Medical
DX: B00.1 Herpesviral vesicular dermatitis (principal); F41.9 Anxiety disorder, unspecified; I10 Essential (primary) hypertension

== ENCOUNTER → 2024-06-18 13:10 | Outpatient (BNVA) | payer MEDICARE, SELFPAY | PROVIDERS: PCP Internal Medicine; Visit Provider Physician Assistant Medical | DX: I10 Essential (primary) hypertension (principal); B00.1 Herpesviral vesicular dermatitis; F41.9 Anxiety disorder, unspecified; Z79.899 Other long term (current) drug therapy | CPT/HCPCS: 96127; 99212 ==

== ENCOUNTER 2024-06-27 15:30 | Outpatient (AMB) | payer MEDICARE, SELFPAY ==
[2024-06-27 15:43] VITALS: BP 122/70; PULSE 72; RESP 14; TEMP 37.7; O2SAT 99; BMI 21.7
--- NOTE | 2024-06-27 15:43 | MHC.PC.OV ---
Vital Signs 06/27/24 15:43 Height 5 ft Weight 111 lb BMI 21.7 BP 122/70 Respiration 14 Pulse 72 Pulse Source Pulse Oximeter Temp 99.9 F Temp Source Temporal Artery Scan Pulse Oximetry (%) 99 Oxygen Delivery Method Room Air Intake Visit Reasons: Blood Pressure Wire Drawer Required: No Accompanied by: Self / Same As Patient Allergies amlodipine Allergy (Intermediate, Verified 06/27/24 17:01) tachycardia clyndamycin Allergy (Intermediate, Uncoded 06/27/24 17:01) Abdominal Pain Medication List - Last Reconciled 06/27/24 by Shelli Butterfield PA-C albuterol sulfate 90 mcg/actuation 2 puffs PO Q6H PRN aspirin (Mishel Chewable Low Dose Aspirin) 81 mg PO DAILY epinephrine IM DIRECTED lorazepam 1 mg PO DAILY PRN metoprolol tartrate 12.5 mg PO BID multivitamin 1 tab PO DAILY valacyclovir (Valtrex) 1,000 mg PO DAILY 5 days valsartan 40 mg PO DAILY Tobacco use date assessed: 06/18/24 Fall risk assessment: No Falls in past year Last assessed Fall Risk: 06/27/24 Dental Screening Dental Screen Date: 06/27/24 Did you have a dental visit in the last 12 months?: Yes Did you have a dental problem in the last 6 months where you did not have access to dental care?: No Was dental information given to patient?: Patient has dentist HPI Blood Pressure HPI Details The patient is a 64-year-old female presenting with persistent chest and wrist discomfort. She describes the chest discomfort as pressure-like and reminiscent of indigestion. Symptoms have been intermittent for the past year, initiated after a breast implant replacement in January 2024, for which there has been no follow-up mammogram. Alongside this, the patient reports intermittent wrist pain and a sensation in her chest that has been concerning her, though she denies any shortness of breath. She is currently being followed by cardiology and has had negative workups. She has been seen in the emergency department and has had outpatient blood work ordered by myself and all has been negative including negative troponins and EKGs. She is scheduled for echocardiogram. She also reports having experienced extreme fatigue and unexplained fever recently, which was noted on exam today. She reports associated symptoms with generalized fatigue, malaise, sore throat and intermittent cough without sputum production. She denies any other symptoms related to this. She has a relevant medical history of essential hypertension managed with medications, including metoprolol, and mentioned that her blood pressure fluctuations cause additional concern. 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 [facility] Medical History Upper respiratory infection General medical exam Herpes labialis Atrial fibrillation Chest discomfort Spondylosis Abdominal pain Left shoulder pain Right hip pain History of mammogram (~01/2023) Clostridium difficile colitis Bee sting allergy Hx gestational diabetes Anxiety Depression GERD (gastroesophageal reflux disease) Paroxysmal supraventricular tachycardia Thyroiditis Hypertension Surgical History (Updated 06/27/24 @ 17:08 by Shelli Butterfield PA-C) Hx of breast implants, bilateral History of colonoscopy (~01/12/21) S/P tendon repair History of radiofrequency ablation (RFA) procedure for cardiac arrhythmia History of section History of adenoidectomy History of tonsillectomy History of abdominoplasty Social History Housing: House Alcohol intake: current Alcohol intake frequency: holidays/special occasions only Patient Tobacco Use Status: Former Tobacco user e-Cigarette/Vaping Use: Never Used Second Hand Smoke Exposure: Yes service: No Current occupational status: disabled Cognitive needs: No Hearing needs: No Vision needs: Yes (Reading glasses) Questionnaire PHQ-9 Over the last 2 weeks, how often have you been bothered by any of the following problems? 1. Little interest or pleasure in doing things: not at all 2. Feeling down, depressed, or hopeless: not at all 3. Trouble falling or staying asleep, or sleeping too much: several days 4. Feeling tired or having little energy: several days 5. Poor appetite or overeating: not at all 6. Feeling bad about yourself - or that you are a failure or have let yourself or your family down: not at all 7. Trouble concentrating on things, such as reading the newspaper or watching television: not at all 8. Moving or speaking so slowly that other people could have noticed. Or the opposite - being so fidgety or restless that you have been moving around a lot more than usual: not at all 9. Thoughts that you would be better off or of hurting yourself in some way: not at all Total score: 2 Depression Screening Interpretation: Negative Depression Screening Done: Yes 51446 - PHQ-9 Billing: Yes Source: Developed by Drs. Lars Clay, Yanet Manriquez, Og Oliver and colleagues, with an educational jm from [employer]. Thrive Questionnaire Date Thrive assessed: 06/18/24 I am a: Patient What is your living situation today?: I have a steady place to live Within the past 12 months, did the food you bought not last and you didn't have the money to get more?: Never true Within the past 12 months, did you worry whether your food would run out before you got money to buy more?: Never true Do you have trouble paying for medicines?: No Do you have trouble getting transportation to medical appointments?: No Do you have trouble paying your heating and electricity bill?: No Do you have trouble taking care of your child, family member or friend?: No Do you have trouble with day-to-day activities such as bathing, preparing meals, shopping, managing finances, etc.?: No Are you currently unemployed and looking for a job?: No Are you interested in more education?: No THRIVE Score: 0 AUDIT C Alcohol Use Questionnaire (AUDIT-C) 1. How often do you have a drink containing alcohol?: 2-4 times a month 3. How often do you have six or more drinks on one occasion?: Never Total Score: 2 Score Reviewed/Action Taken: No RADHA-7 AMB Questionnaire RADHA-7 Date RADHA - 7 assessed: 06/18/24 Feeling nervous, anxious, or on edge: 0 = Not at all Not being able to stop or control worryin = Not at all Worrying too much about different things: 0 = Not at all Trouble relaxin = Not at all Being so restless that it is hard to sit still: 0 = Not at all Becoming easily annoyed or irritable: 0 = Not at all Feeling afraid as if something awful might happen: 0 = Not at all Total RADHA-7 score (0-4 normal; 5-9 mild; 10-14 moderate; 15-21 severe): 0 Source: Developed by Drs. Lars Clay, Yanet Manriquez, Og Oliver and colleagues, with an educational jm from [employer]. RADHA-7 Assessment Billing RADHA-7 Assessment Tool: RADHA-7 Assessment 40456 Review of Systems Const Details: - General: Reports fatigue, denies weight loss. - Cardiovascular: Reports chest discomfort, denies palpitations. - Gastrointestinal: Reports indigestion-like symptoms. - Respiratory: Denies cough, shortness of breath. - Musculoskeletal: Reports wrist pain, denies joint swelling. - Neurological: Reports headaches. Physical exam (Primary Care) Vital Signs: Last Vital Signs Temp 99.9 F 06/27/24 15:43 Pulse 72 06/27/24 15:43 Resp 14 06/27/24 15:43 BP 122/70 06/27/24 15:43 Pulse Ox 99 06/27/24 15:43 Oxygen Delivery Method Room Air 06/27/24 15:43 Care Plan Goal for BP management: <130/90 at Goal BMI result Body Mass Index 21.7 normal bmi Tobacco/Smoking Status: Tobacco use Status Tobacco use date assessed 06/18/24 06/27/24 15:47 Patient Tobacco Use Status Former Tobacco user 06/27/24 15:47 e-Cigarette/Vaping Use Never Used 06/27/24 15:47 PHQ-9: PHQ-9 Score PHQ-9: Total score 2 06/27/24 15:49 Depression Screening Interpretation: Negative Thrive Assessment: Date of Thrive Assessment Date Thrive assessed 06/18/24 06/27/24 15:49 Const Other: Appearance: Alert. Oriented X3. No acute distress. Head: Normal external exam. Normocephalic. Atraumatic. Eyes: Pupils are equal, round, and reactive to light. Extraocular movements intact. Conjunctiva and sclera normal. Eyelids normal. Ears: External auditory canal normal. Tympanic membranes normal. No significant wax buildup. Throat: Pharynx normal. Uvula midline. Moist mucous membranes. Slight sore throat noted. Neck: Normal inspection. Neck supple. Full range of motion. No adenopathy. Thyroid Normal. No meningeal signs. No neck mass noted. Cardiovascular: Normal heart rate and rhythm. Heart sound normal. Slight murmur noted. Pulses normal throughout. Respiratory: No respiratory distress. Painless inspiration. Breath sounds normal. No wheezes/rales/rhonchi noted. Chest nontender. No accessory muscle usage noted or decreased air movement noted. Back: Full range of motion noted. Skin: Skin warm and dry. Normal skin color. Normal skin turgor. No rashes/lesions/lacerations noted. Extremities: No lower extremity edema. Extremities exhibit normal range of motion. Extremities nontender. Neuro: Oriented X 3. No motor deficit. No sensory deficit. Reflexes normal. Results Reviewed Results Reviewed: - Labs: White blood cell count low at 4.4 (variable), Hemoglobin A1c 5.2, Troponin and CRP negative. - Previous Imaging (not current): Normal chest X-ray findings. Coding Level of Care Code Est Pt Level 4 (68340) Complex EM visit Add On G2211 Diagnoses Chest discomfort R07.89 Upper respiratory infection J06.9 GERD (gastroesophageal reflux disease) K21.9 Hx of breast implants, bilateral Z98.82 Additional Codes RADHA-7 Assessment Billing - RADHA-7 Assessment Tool: RADHA-7 Assessment 69162 ([id number]) PHQ-9 - 39939 - PHQ-9 Billing: Yes ([id number]) Assessment & Plan Assessment & Plan (1) Chest discomfort: Code(s): R07.89 - Other chest pain Category: Medical Plan: Patient being followed by Cardiology. Has had negative EKGs and negative troponins. Is scheduled for echocardiogram. Condition is chronic and stable continue to monitor. (2) Upper respiratory infection: Code(s): J06.9 - Acute upper respiratory infection, unspecified Category: Medical Plan: The patient will undergo swab retesting to evaluate for possible COVID/RSV/flu/mononucleosis/strep, and preventive measures were discussed to minimize family transmission. Condition is acute and stable will continue to monitor. (3) GERD (gastroesophageal reflux disease): Code(s): K21.9 - Gastro-esophageal reflux disease without esophagitis Category: Medical Plan: I suggested retrying omeprazole and referred her to a activities attendant for further evaluation to rule out esophageal or gastric abnormalities. Condition is chronic and stable continue to monitor. (4) Hx of breast implants, bilateral: Code(s): Z98.82 - Breast implant status Category: Surgical Plan: A mammogram and CT of the chest were arranged to understand if any implant complications were contributing to her discomfort, especially considering poor follow-up post-procedure. Condition is chronic and stable continue to monitor. Plan Plan Patient was informed and verbally consented to the use of an ambient scribe for clinic note documentation during this visit. 1. URI The patient will undergo swab testing for COVID/RSV/flu/strep and mononucleosis. 2. Essential Hypertension The continued antihypertensive treatment with metoprolol was recommended, with encouragement for periodic monitoring and reporting any new symptoms. 3. Gastroesophageal Reflux Disease Gerd I suggested retrying omeprazole and referred her to a activities attendant for further evaluation to rule out esophageal or gastric abnormalities. 4. Breast Implant Complications A mammogram and CT of the chest were arranged to understand if any implant complications were contributing to her discomfort, especially considering poor follow-up post-procedure. During this consultation, we discussed the importance of testing for COVID-19/RSV/flu/strep/mononucleosis. Her longstanding chest discomfort post-implant was explored with plans for chest imaging and a mammogram. Management with metoprolol is stabilized for hypertension but requires follow-up for consistency. Omeprazole will be retried for G.E.R.D., with activities attendant input advised if symptoms persist. Comprehensive testing and retesting will be conducted to address both current and underlying health concerns. Orders: Orders CT chest wo IV con Today R07.89 - Other chest pain MM screening mammo BI Today Z12.31 - Encounter for screening mammogram for malignant neoplasm of breast Monotest Today J06.9 - Acute upper respiratory infection, unspecified H pylori Ag Stool Today R10.9 - Unspecified abdominal pain Estradiol Ultra Sensitive Today Z00.00 - Encounter for general adult medical examination without abnormal findings Estrad Free (Tot Ultra + Free) Today Z00.00 - Encounter for general adult medical examination without abnormal findings Estrone Today Z00.00 - Encounter for general adult medical examination without abnormal findings SARS-CoV2/FLU/RSV Today R09.89 - Other specified symptoms and signs involving the circulatory and respiratory systems Strep A Nucleic Acid Today J02.9 - Acute pharyngitis, unspecified Patient Instructions: - Isolate from others while awaiting COVID-19/RSV/flu/strep and mono test results. - Continue taking prescribed medications like metoprolol. - Try omeprazole for indigestion symptoms as tolerated. - Schedule and attend mammogram and CTA chest imaging appointments. - Follow up with referred specialists as advised. - Seek medical attention if symptoms severely worsen. - Monitor blood pressure periodically and note fluctuations.
--- OUTSIDE RECORDS SUMMARY | 2024-06-27 16:25 | XMS_ITS | Clinical Summary ---
Author Organization [facility] Address [address] [place] [address] Care Team Providers Care Checker In Name Role Phone AngelLars baez Primary Care Provider [phone] Allergies Active Allergy Reactions Criticality Noted Date [...] age to complete this topic Care Teams Checker In Relationship Specialty Start Date End Date Lars Ortiz DO [address] [place] [phone] PCP - General Internal Medicine 06/13/17
--- OUTSIDE RECORDS SUMMARY | 2024-06-27 16:25 | XMS_ITS | Clinical Summary ---
Author Organization [address] [place] [address] [place] [phone] Phone Care Team Providers Care Plant Quality Manager Name Role Phone Angel Miller Primary Care Provider [phone] Allergies Active Allergy Reactions Criticality Noted Date [...] 1 (one) time each day. 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-analytical data miner als 0.5-0.6-7-0.7 mg elixir Take 5 mL [...] Overview (04/02/2024): Hypertensive disorder SVT (supraventricular tachycardia) ([facility] V24) 02/11/2020 Encounters Date Type Department Care Team Description 06/05/2024 9:00 AM EDT Ancillary Procedure [facility] Cardiology [facility] - [address] [place] [address] Palpitations; SVT (supraventricular tachycardia) ([facility] V24) 05/22/2024 Telephone [facility] Cardiology [facility] - [address] [place] [address] Deanna Smith MD [id number] (ok to book); ROCT Enrollment (Enrolling patient for 14 day ROCT) 05/16/2024 Telephone [facility] - [address] [place] [address] Deanna Smith MD Chest Pain 04/23/2024 12:40 PM EST Office Visit [facility] Cardiology [facility] - [address] [place] [address] Jenifer Brooks PA Palpitations (Primary Dx); PAC (premature atrial contraction); SVT (supraventricular tachycardia) ([facility] V24); Atrial premature depolarization; Snoring; Other fatigue [...] Description 10/23/2024 1:40 PM EDT Office Visit [facility] [address] [place] [address] Jenifer Brooks PA [address] [place] [address] Health Maintenance Due Date Last Done Comments [...] ECG 12 lead (04/23/2024 1:05 PM EST) [facility] Ventricular Rate ECG 63 BPM GEMUSE Atrial Rate 63 BPM GEMUSE P-R Interval 172 ms GEMUSE QRS Duration 90 ms GEMUSE Q-T Interval 414 ms GEMUSE QTc 423 ms GEMUSE P Wave [place] 67 degrees GEMUSE R [place] 46 degrees GEMUSE T [place] 0 degrees GEMUSE ECG Interpretation Normal sinus rhythm When compared with ECG of 11-MAR-2006 10:00, No significant change was found Confirmed by AILEEN SMITH ([id number]) on 04/24/2024 6:06:12 PM GEMUSE 04/23/2024 1:02 PM EST 04/24/2024 6:06 PM EST Jenifer STEPHEN ECG ORDERABLES Edited Result - Final GEMUSE * Annual BMP Blood Test (09/28/2023) Pathologist [facility] Annual BMP Blood Test abstracted Historical Provider HEALTH MAINTENANCE Final Result * (ABNORMAL) Lipid panel (09/28/2023) [facility] LDL/HDL Ratio 3 0 - 4 Triglycerides [...] AM EDT Narrative 12/12/2017 5:13 PM EDT [facility] Diagnostic Imaging Department [address] [place] [address] Patient: ??DAPHNE JACOB ?/Age/Sex: 1960 - 57 - F Unit#: ??[id number] ? Location/Status: ??SPDIMAM/REG CLI ? Mnemonic/Ordering Site: ??DIGSC/SPMAM Ordering Physician: ??MILLER TEJEDA DO Mikey Screening Digital - 12/12/17 - 1154 History: Bilateral breast cancer screening. Previous augmentation mammoplasty. Technique: ??Digital mammography. Conventional CC and MLO projections with implant displaced views, tomography and computer aided detection. Comparison: [facility] 12/30/2005, 11/04/2004 and 07/16/2003. Findings: ?? Breast tissue consists of fatty and fibroglandular elements (category b density) bilaterally. Bilateral subglandular breast implants in place, lucent; therefore, likely saline containing. There is no suspicious group of microcalcifications, mass, architectural distortion or suspicious change in breast tissue density. Impression: No mammographic evidence of malignancy. BIRADS category 1; negative study, 3341F [id number], [id number] Note: Patient information entered into a reminder system with a target due date for the next mammogram: ??CPT II 7025F Dictating Physician: ??GEN RILEY MD Electronically Signed by: ??GEN RILEY MD Dic Date/Time: ??12/12/171711 Sign date/Time: ??12/12/171712 Procedure Note Gen Riley MD - 02/16/2022 [facility] Diagnostic Imaging Department [address] [place] [address] Patient: DAPHNE JACOB /Age/Sex: 1960 - 57 - F Unit#: [id number] Location/Status: SPDIMAM/REG CLI Mnemonic/Ordering Site: [facility] Ordering Physician: MILLER TEJEDA DO Mikey Screening Digital - 12/12/17 - 1154 History: Bilateral breast cancer screening. Previous augmentationmammoplasty. Technique: Digital mammography. Conventional CC and MLO projectionswith implant displaced views, tomography and computer aided detection. Comparison: [facility] 12/30/2005, 11/04/2004 and 07/16/2003. Findings: Breast tissue consists of fatty and fibroglandular elements (category b density) bilaterally. Bilateral subglandular breast implantsin place, lucent; therefore, likely saline containing. There is no suspiciousgroup of microcalcifications, mass, architectural distortion or suspiciouschange in breast tissue density. Impression: No mammographic evidence of malignancy. BIRADS category 1; negative study, 3341F [id number], [id number] Note: Patient information entered into a reminder [...] CROSS - [place] MED[place] Care Teams Plant Quality Manager Relationship Specialty Start Date End Date Miller Tejeda DO [address] [place] [phone] PCP - General Internal Medicine 01/29/20
== END 2024-06-27 16:19 | disposition home or self-care (01) ==
LOC: HO.HMCSH 15:30
PROVIDERS: PCP Internal Medicine; Visit Provider Physician Assistant Medical
DX: R07.89 Other chest pain (principal); J06.9 Acute upper respiratory infection, unspecified; K21.9 Gastro-esophageal reflux disease without esophagitis; Z98.82 Breast implant status

== ENCOUNTER → 2024-06-27 15:30 | Outpatient (BNVA) | payer MEDICARE, SELFPAY | PROVIDERS: PCP Internal Medicine; Visit Provider Physician Assistant Medical | DX: R07.89 Other chest pain (principal); J06.9 Acute upper respiratory infection, unspecified; K21.9 Gastro-esophageal reflux disease without esophagitis; J02.9 Acute pharyngitis, unspecified; Z98.82 Breast implant status | CPT/HCPCS: 96127; 99212 ==

== ENCOUNTER 2024-06-28 15:09 | Outpatient (REF) | payer MEDICARE, SELFPAY ==
[2024-06-28 16:49] LABS: Monotest Negative (Negative)
[2024-06-28 16:55] LABS: Parathyroid Hormone Intact 48.3 pg/mL (8.7-77.1)
--- OUTSIDE RECORDS SUMMARY | 2024-06-28 17:02 | XMS_ITS | Clinical Summary ---
Author Organization [facility] Address [address] [place] [address] Care Team Providers Care Marzipan Maker Name Role Phone AngelLars baez Primary Care Provider [phone] Allergies Active Allergy Reactions Criticality Noted Date [...] age to complete this topic Care Teams Marzipan Maker Relationship Specialty Start Date End Date Lars Ortiz DO [address] [place] [phone] PCP - General Internal Medicine 06/13/17
--- OUTSIDE RECORDS SUMMARY | 2024-06-28 17:02 | XMS_ITS | Clinical Summary ---
Author Organization [address] [place] [address] [place] [phone] Phone Care Team Providers Care Netbackup Admin Name Role Phone Angel Miller Primary Care Provider [phone] Allergies Active Allergy Reactions Criticality Noted Date [...] 1 (one) time each day. 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 als 0.5-0.6-7-0.7 mg elixir Take 5 [...] Overview (04/02/2024): Hypertensive disorder SVT (supraventricular tachycardia) ([facility] V24) 02/11/2020 Encounters Date Type Department Care Team Description 06/05/2024 9:00 AM EDT Ancillary Procedure [facility] Cardiology [facility] - [address] [place] [address] Palpitations; SVT (supraventricular tachycardia) ([facility] V24) 05/22/2024 Telephone [facility] Cardiology [facility] - [address] [place] [address] Deanna Smith MD [id number] (ok to book); ROCT Enrollment (Enrolling patient for 14 day ROCT) 05/16/2024 Telephone [facility] - [address] [place] [address] Deanna Smith MD Chest Pain 04/23/2024 12:40 PM EST Office Visit [facility] Cardiology [facility] - [address] [place] [address] Jenifer Brooks PA Palpitations (Primary Dx); PAC (premature atrial contraction); SVT (supraventricular tachycardia) ([facility] V24); Atrial premature depolarization; Snoring; Other fatigue [...] Description 10/23/2024 1:40 PM EDT Office Visit [facility] - [address] [place] [address] Jenifer Brooks PA [address] [place] [address] Health Maintenance Due Date Last Done Comments [...] ECG 12 lead (04/23/2024 1:05 PM EST) [facility] Ventricular Rate ECG 63 BPM GEMUSE Atrial Rate 63 BPM GEMUSE P-R Interval 172 ms GEMUSE QRS Duration 90 ms GEMUSE Q-T Interval 414 ms GEMUSE QTc 423 ms GEMUSE P Wave [place] 67 degrees GEMUSE R [place] 46 degrees GEMUSE T [place] 0 degrees GEMUSE ECG Interpretation Normal sinus rhythm When compared with ECG of 11-MAR-2006 10:00, No significant change was found Confirmed by AILEEN SMITH ([id number]) on 04/24/2024 6:06:12 PM GEMUSE 04/23/2024 1:02 PM EST 04/24/2024 6:06 PM EST Jenifer STEPHEN ECG ORDERABLES Edited Result - Final GEMUSE * Annual BMP Blood Test (09/28/2023) Pathologist [facility] Annual BMP Blood Test abstracted Historical Provider HEALTH MAINTENANCE Final Result * (ABNORMAL) Lipid panel (09/28/2023) [facility] LDL/HDL Ratio 3 0 - 4 Triglycerides [...] AM EDT Narrative 12/12/2017 5:13 PM EDT [facility] Diagnostic Imaging Department [address] [place] [address] Patient: ??DAPHNE JACOB ?/Age/Sex: 1960 - 57 - F Unit#: ??[id number] ? Location/Status: ??SPDIMAM/REG CLI ? Mnemonic/Ordering Site: ??[facility]SC/SPMAM Ordering Physician: ??MILLER TEJEDA DO Mikey Screening Digital - 12/12/17 - 1154 History: Bilateral breast cancer screening. Previous augmentation mammoplasty. Technique: ??Digital mammography. Conventional CC and MLO projections with implant displaced views, tomography and computer aided detection. Comparison: [facility] 12/30/2005, 11/04/2004 and 07/16/2003. Findings: ?? Breast tissue consists of fatty and fibroglandular elements (category b density) bilaterally. Bilateral subglandular breast implants in place, lucent; therefore, likely saline containing. There is no suspicious group of microcalcifications, mass, architectural distortion or suspicious change in breast tissue density. Impression: No mammographic evidence of malignancy. BIRADS category 1; negative study, 3341F 92959, [address] Note: Patient information entered into a reminder system with a target due date for the next mammogram: ??CPT II 7025F Dictating Physician: ??GEN RILEY MD Electronically Signed by: ??GEN RILEY MD Dic Date/Time: ??12/12/171711 Sign date/Time: ??12/12/171712 Procedure Note Gen Riley MD - 02/16/2022 [facility] Diagnostic Imaging Department [address] [place] [address] Patient: DAPHNE JACOB /Age/Sex: 1960 - 57 - F Unit#: [id number] Location/Status: SPDIMAM/REG CLI Mnemonic/Ordering Site: [facility] Ordering Physician: MILLER TEJEDA DO Mikey Screening Digital - 12/12/17 - 1154 History: Bilateral breast cancer screening. Previous augmentationmammoplasty. Technique: Digital mammography. Conventional CC and MLO projectionswith implant displaced views, tomography and computer aided detection. Comparison: [facility] 12/30/2005, 11/04/2004 and 07/16/2003. Findings: Breast tissue consists of fatty and fibroglandular elements (category b density) bilaterally. Bilateral subglandular breast implantsin place, lucent; therefore, likely saline containing. There is no suspiciousgroup of microcalcifications, mass, architectural distortion or suspiciouschange in breast tissue density. Impression: No mammographic evidence of malignancy. BIRADS category 1; negative study, 3341F 40846, 85515 Note: Patient information entered into a reminder [...] [place] - [place] Care Teams Netbackup Admin Relationship Specialty Start Date End Date Miller Tejeda DO [address] [place] [phone] PCP - General Internal Medicine 01/29/20
--- OUTSIDE RECORDS SUMMARY | 2024-06-28 17:02 | XMS_ITS | Data Portability ---
Author Organization [place] - [facility], Allergy Address [address] [address] Assessment Encounter Date Assessment Date Assessment LastModified [...] regards to her dizziness, she did defer [place] today for fear of symptoms worsening. [...] IgE Ab, quantitati ve, serum 2023 024 [facility] (Centralized [facility] Ordering - All Locations), Patient Can Go To The Location Of Their Choice, 4 12:52:39 bermuda grass ige, serum 2023 024 [facility] ([facility]ized [facility] Ordering - All Locations), Patient Can Go To The Location Of Their Choice, 4 12:52:39 kenyan plantain ige, serum 2023 024 [place] [facility] ([facility]ized [facility] Ordering - All Locations), Patient Can Go To The Location Of Their Choice, 4 07:46:22 ige, total, serum 2023 [place] [facility] (Centralized [facility] Ordering - All Locations), [...] >100. 00 Very High Not Available [facility] ([facility]) [address] [facility], [place], [address], 08/22/2023 07:35:22 06/20/20 24 08/21/2023 ALLER GENS, ZONE 1 Q908-JvT D pteronyssinu s <0.10 kU/L class 0 Not Available [facility] ([facility]) [address] [facility] [place] [place], [address], 08/22/2023 07:35:22 08/18/19 24 08/21/2023 ALLER GENS, ZONE 1 I658-YfQ D farinae <0.10 kU/L class 0 Not Available [facility] ([facility]) [address] [place], [address], 08/22/2023 07:35:22 08/18/19 24 08/21/2023 ALLER GENS, ZONE 1 N278-EkL CAT dander <0.10 kU/L class 0 Not Available [facility] ([facility]) [address] [facility] [place] [place], [address], 08/22/2023 07:35:22 08/18/19 24 08/21/2023 ALLER GENS, ZONE 1 O212-GxU dog dander <0.10 kU/L class 0 Not Available [facility] ([facility]) [address] [place], [address], 08/22/2023 07:35:22 08/18/19 24 08/21/2023 ALLER GENS, ZONE 1 i845-EaR bermuda grass <0.10 kU/L class 0 Not Available [facility] ([facility]) [address] [place], [address], 08/22/2023 07:35:22 08/18/19 24 08/21/2023 ALLER GENS, ZONE 1 y319-YgP bluegrass, [facility] <0.10 kU/L class 0 Not Available [facility] ([facility]) [address] [place], [address], 08/22/2023 07:35:22 08/18/19 24 08/21/2023 ALLER GENS, ZONE 1 a128-DjY bahia grass <0.10 kU/L class 0 Not Available [facility] ([facility]) [address] [place], [address], 08/22/2023 07:35:22 08/18/19 24 08/21/2023 ALLER GENS, ZONE 1 A132-TfC cockroach, mozambican <0.10 kU/L class 0 Not Available [facility] ([facility]) [address] [place], [address], 08/22/2023 07:35:22 08/18/19 24 08/21/2023 ALLER GENS, ZONE 1 T112-JtF penicillium chrysogen <0.10 kU/L class 0 Not Available [facility] ([facility]) [address] [facility], [place], [address], 08/22/2023 07:35:22 08/18/19 24 08/21/2023 ALLER GENS, ZONE 1 X846-GvM cladosporium herbarum <0.10 kU/L class 0 Not Available [facility] ([facility]) [address] [place], [address], 08/22/2023 07:35:22 08/18/19 24 08/21/2023 ALLER GENS, ZONE 1 F220-TyL aspergillus fumigatus <0.10 kU/L class 0 Not Available [facility] ([facility]) [address] [place], [address], 08/22/2023 07:35:22 08/18/19 24 08/21/2023 ALLER GENS, ZONE 1 P917-HyX mucor racemosus <0.10 kU/L class 0 Not Available [facility] ([facility]) [address] [place], [address], 08/22/2023 07:35:22 08/18/19 24 08/21/2023 ALLER GENS, ZONE 1 P857-JjX alternaria alternata <0.10 kU/L class 0 Not Available [facility] ([facility]) [address], [place], [address], 08/22/2023 07:35:22 08/18/19 24 08/21/2023 ALLER GENS, ZONE 1 J728-YxA stemphylium herbarum <0.10 kU/L class 0 Not Available [facility] ([facility]) [address], [place], [address], 08/22/2023 07:35:22 08/18/19 24 08/21/2023 ALLER GENS, ZONE 1 W777-IeD common silver birch <0.10 kU/L class 0 Not Available [facility] ([facility]) [address], [place], [address], 08/22/2023 07:35:22 08/18/19 24 08/21/2023 ALLER GENS, ZONE 1 O018-QeZ oak, white <0.10 kU/L class 0 Not Available [facility] ([facility]) [address], [place], [address], 08/22/2023 07:35:22 08/18/19 24 08/21/2023 ALLER GENS, ZONE 1 A981-QoP elm, mozambican <0.10 kU/L class 0 Not Available [facility] ([facility]) [address], [place], [address], 08/22/2023 07:35:22 08/18/19 24 08/21/2023 ALLER GENS, ZONE 1 M138-AwX den, white <0.10 kU/L class 0 Not Available [facility] ([facility]) [address], [place], [address], 08/22/2023 07:35:22 08/18/19 24 08/21/2023 ALLER GENS, ZONE 1 J232-DiR maple/box elder <0.10 kU/L class 0 Not Available [facility] ([facility]) [address], [place], [address], 08/22/2023 07:35:22 08/18/19 24 08/21/2023 ALLER GENS, ZONE 1 N956-SyB hazelnut tree <0.10 kU/L class 0 Not Available [facility] ([facility]) [address], [place], [address], 08/22/2023 07:35:22 08/18/19 24 08/21/2023 ALLER GENS, ZONE 1 C716-PaS hickory, white <0.10 kU/L class 0 Not Available [facility] ([facility]) [address], [place], [address], 08/22/2023 07:35:22 08/18/19 24 08/21/2023 ALLER GENS, ZONE 1 T517-VdK white mulberry <0.10 kU/L class 0 Not Available [facility] ([facility]) [address], [place], [address], 08/22/2023 07:35:22 08/18/19 24 08/21/2023 ALLER GENS, ZONE 1 G985-WzY cedar, mountain <0.10 kU/L class 0 Not Available [facility] ([facility]) [address], [place], [address], 08/22/2023 07:35:22 08/18/19 24 08/21/2023 ALLER GENS, ZONE 1 S818-MmI ragweed, short <0.10 kU/L class 0 Not Available [facility] ([facility]) [address], [place], [address], 08/22/2023 07:35:22 08/18/19 24 08/21/2023 ALLER GENS, ZONE 1 L889-ReS mugwort <0.10 kU/L class 0 Not Available [facility] ([facility]) [address], [place], [address], 08/22/2023 07:35:22 08/18/19 24 08/21/2023 ALLER GENS, ZONE 1 T267-CqC plantain, kenyan <0.10 kU/L class 0 Not Available [facility] ([facility]) [address] [facility], [place], [address], 08/22/2023 07:35:22 08/18/19 24 08/21/2023 ALLER GENS, ZONE 1 B824-EtZ pigweed, common <0.10 kU/L class 0 Not Available [facility] ([facility]) [address] [facility], [place], [address], 08/22/2023 07:35:22 08/18/19 24 08/21/2023 ALLER GENS, ZONE 1 G686-ZxB sheep sorrel <0.10 kU/L class 0 Not Available [facility] ([facility]) [address] [facility], [place], [address], 08/22/2023 07:35:22 08/18/19 24 08/21/2023 ALLER GENS, ZONE 1 E342-ZlD nettle <0.10 kU/L class 0 Not Available [facility] ([facility]) [address] [facility], [place], [address], 08/22/2023 07:35:22 08/18/19 24 08/21/2023 IMMUN OGLOB ULIN E, TOTAL immunoglobul in E, total 66 IU/mL 6-495 Not Available [facility] ([facility]) [address] [facility], [place], [address], 08/22/2023 07:35:23 08/02/19 24 02/04/2021 CT, abdom en + pelvi s, w/o contr ast No observ ation record ed. BARCODE Not Available 2023 09:55:11 08/05/19 24 08/04/2023 ctsin unm cancer centero [facility] Diagno stic Imagin g Depart [address] [address] [phone] ____ Patien t: ANNETTE L,KOLBY Y A /Age/S ex: 1959 - 63 - F Unit#: [id number] Locati on/Sta tus: SPDICA T/REG CLI Accoun t#: [id number] Mnemon ic/Ord ering Site: [facility] MOLINA/SP CT [...] availa ble for compar apurva. Scanne r: [employer] peed 64 slice VCT Dose reduct ion [...] Date/T jacek: 1117 Sign date/T jacek: 1124 [facility] ([facility] Central Scheduling) Any [place], [place], [address], 08/05/2023 13:06:37 08/17/19 24 08/04/2023 CT, maxil [...] Gastroeso phageal reflux disease without esophagit is 761932649 Active 2016 Gastro-es ophageal reflux disease without esophagit is; Note: Date Diagnosed : 03/25/2016 12:06 PM (K21.9) Not Available [facility] 02:34:48 Bilateral temporoma ndibular joint pain [id number] 413156 Active 2020 Arthralgi a of bilateral temporoma ndibular joint; Note: Date Diagnosed : 04/09/2020 2:38 PM (M26.623) Not Available [facility] 02:34:56 Temporoma ndibular joint disorder 89306202 Active 2016 Temporoma ndibular joint disorder, unspecifi ed; Note: Date Diagnosed : 03/24/2016 12:38 PM (M26.60) Not Available [facility] 4 02:34:44 Otalgia of left ear 6744937220 Active 2020 Otalgia, left ear; Note: Date Diagnosed : 04/09/2020 2:38 PM (H92.02) Not Available [facility] 4 02:34:51 Chronic rhinitis 32198717 Active 2016 Chronic rhinitis; Note: Date Diagnosed : 03/25/2016 12:05 PM (J31.0) Not Available [facility] 4 02:34:49 Benign paroxysma l positiona l vertigo 471732695 Active 2017 Benign paroxysma l vertigo, right ear; Note: Date Diagnosed : 01/03/2018 3:32 PM (H81.11) Benign paroxysma l vertigo, left ear; Note: Date Diagnosed : 7 4:29 PM (H81.12) ; Start Date : 7 Not Available [facility] 4 02:34:49 Dizziness and giddiness 903998205 Active 2016 Dizziness and giddiness ; Note: Date Diagnosed : 7 4:11 PM (R42) Not Available [facility] 4 02:34:43 Acute sinusitis 77612365 Active 2022 Other acute sinusitis ; Note: Date Diagnosed : 07/05/2022 12:08 PM (J01.80) Not Available [facility] 4 02:34:43 Atypical facial pain 49479553 Active 2023 CRISTINA MOROCHO MD [address] [place] [address], [facility] [place], [place], [address] , [facility] - [facility] 4 21:21:14 Pain of left temporoma ndibular joint 49702688211 524364 Active 2023 Arthralgi a of left temporoma ndibular joint; Note: Date Diagnosed : 06/02/2023 3:09 PM (M26.622) Not Available [facility] 02:34:53 Problem Notes None recorded. Procedures Surgical History None recorded. Imaging Results Imaging Date Name Status LastModified by Organiz ation Details LastModified Time 02/04/2021 CT, abdomen + pelvis, w/o contrast completed BARCODE Information not available 08/02/2023 09:55:11 08/04/2023 [email or web address] completed [email or web address] [place] [address] ( [facility] Central Scheduling) [facility] [place], [place], [address], 08/05/2023 13:06:37 08/04/2023 CT, maxillofacial, w/o contrast [...] Name and Address Organization Details Recorded Time 428106 amlodipin e medicatio n Not available Not available Not available 08/17/2023 70119 RxNorm Jenifer mehta [place] - [facility] 14:16:13 Medications Name Sig Start Date Stop Date Status Note LastModified by Organization Details LastModified Time amoxicill in 500 mg capsule TAKE 1 CAPSULE BY MOUTH THREE TIMES A DAY FOR 7 DAYS 08/16 completed Not Available Not Available Not Available Augmentin 875 mg-125 mg tablet Take 1 tablet by mouth twice a day with meals 08/16 completed Medicati on ID: [id number] D uration Value: 14 Brand Name: Augmenti n Send Method: E-Prescr ibed Sub s Allowed: subs OK Medic ationGen ericName : Augmenti n Medica tion ID: [id number] D uration Value: 14 Brand Name: Augmenti [...] mg tablet 07/05 completed Medicati on ID: [id number] D uration Value: 30 Brand Name: valacycl ovir Sen d Method: E-Prescr ibed Sub s Allowed: subs OK Medic ationGen ericName : valacycl ovir Not Available Not Available Not Available tramadol 50 mg tablet TAKE 1 TABLET 4 TIMES DAILY NEEDED FOR PAIN. 08/16 completed Not Available Not Available Not Available famotidin e 20 mg tablet active Medicati on ID: [id number] B rand Name: famotidi ne Send Method: [...] mg tablet 01/27 completed Medicati on ID: [id number] D uration Value: 30 Brand Name: paroxeti ne HCl Send Method: E-Prescr ibed Sub s Allowed: subs OK Medic ationGen ericName : paroxeti ne HCl Not Available Not Available Not Available mupirocin 2 % topical ointment PLEASE SEE ATTACHED FOR DETAILED DIRECTIO NS active Not Available Not Available No t Available lorazepam 1 mg tablet active Medicati on ID: [id number] B rand Name: lorazepa m Send Method: [...] Test Strip 07/05 completed Medicati on ID: [id number] D uration Value: 90 Brand Name: OneTouch Ultra Blue Test Strip Se nd Method: E-Prescr ibed Sub s Allowed: subs OK Medic ationGen ericName : OneTouch Ultra Blue Test Strip Not Available Not Available Not Available Vitals Date Recorded Body height Body mass index (BMI) Body weight Provider Name and Address Organization Details Last Updated DateTime 08/17/2023 154.94 cm 20.6 kg/m2 93281.57 g Jenifer Olivera [place] - [facility] 08/17/2023 14:16:02 Social History None recorded. Functional Status None recorded. Mental Status None recorded. Family History Nothing Reported. Medical History No medical history recorded. Gynecological HistoryNo gynecological history recorded. Obstetrics History GPAL:G 0 P 0 0 0 0 Past Encounters Encounter ID Performer Location Encounter Start Date Encounter Closed Date Diagnosis/Indication Diagnosis SNOMED-CT Code Diagnosis ICD10 Code Diagnosis Note [id number] CODIE TORRES PA-C [facility] on [address] [place] [address] 08/17/2023 14:06:29 08/17/2023 14:44:36 Chronic rhinitis 88867007 J31.0 Atypical facial pain 713 13966 G50.1 Dizziness and giddiness 656713280 R42 Health Concerns Section Related Observation LastModified by Organization Detai ls LastModified Time None Recorded Concern Status LastModified by Organization Details LastModified Time None Recorded Advance Directives Directive None Recorded Payers Encounter Date Sequence Insurance Name Policy Number Policy Waterman Covered Member ID Waterman Member ID Guarantor Name 08/17/2023 1 [place]: [place] P[place] BLUE (MEDICARE REPLACEMENT PPO) [id number] Daphne Ernst [id number] Daphne Ernst Notes Date Note Type [...] mehta [place] - [facility] 08/17/2023 17:07:03 OBGyn Episode No OBEpisode recorded.
[2024-06-29 09:05] LABS: Prolactin 2.9 ng/mL
[2024-07-04 15:59] LABS: Testosterone, Total 29 ng/dL (2-45)
[2024-07-04 16:29] LABS: Estrogen 102 pg/mL
[2024-07-06 05:24] LABS: Estrone 16 pg/mL
[2024-07-12 03:49] LABS: Estradiol Free <0.03 pg/mL; Estradiol, Ultrasensitive <2 pg/mL
[2024-07-16 00:49] LABS: Progesterone 0.4 ng/mL
== END 2024-06-28 15:10 | disposition home or self-care (01) ==
LOC: HO.HMGCLDS 15:09
PROVIDERS: PCP Internal Medicine; Visit Provider Physician Assistant Medical
DX: Z00.00 Encounter for general adult medical examination without abnormal findings (principal); J06.9 Acute upper respiratory infection, unspecified
CPT/HCPCS: 36415; 82670; 82672; 82679; 82681; 83970; 84144; 84146; 84403; 86308

== ENCOUNTER 2024-07-02 14:20 | Outpatient (AMB) | payer MEDICARE, SELFPAY ==
--- NOTE | 2024-07-02 14:35 | A.OFFPC_ITS ---
Vital Signs 07/02/24 14:38 Temp 101.1 F H Temp Source Oral Comment temperature taken at home by patient. 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 Required: No Accompanied by: Self / Same As Patient Allergies amlodipine Allergy (Intermediate, Verified 07/02/24 15:06) tachycardia prednisone Allergy (Mild, Verified 07/02/24 15:06) tachycardia clyndamycin Allergy (Intermediate, Uncoded 07/02/24 15:06) Abdominal Pain Medication List - Last Reconciled 07/02/24 by Shelli Butterfield PA-C albuterol sulfate 90 mcg/actuation 2 puffs PO Q6H PRN amoxicillin 500 mg PO BID aspirin (Mishel Chewable Low Dose Aspirin) 81 mg PO DAILY azithromycin For 250 mg dose pack: take 500 mg today (day 1), then 250 mg for 4 days (days 2-5) PO codeine-guaifenesin 10-100 mg/5 mL 5 mL PO Q6H PRN epinephrine IM DIRECTED lorazepam 1 mg PO DAILY PRN metoprolol tartrate 12.5 mg PO BID multivitamin 1 tab PO DAILY ondansetron 4 mg PO Q8H PRN valacyclovir (Valtrex) 1,000 mg PO DAILY 5 days valsartan 40 mg PO DAILY Tobacco use date assessed: 06/18/24 Dental Screening Dental Screen Date: 06/27/24 HPI sick HPI Details The patient is a 64-year-old female presenting with persistent cough and chest congestion. Her symptoms began approximately one week ago, characterized by intense chest congestion and uncontrolled coughing fits. An urgent care visit resulted in a prescription for amoxicillin, but significant improvement was not noted. On administration of prednisone, the patient observed an increased heart rate up to 125 bpm, acknowledging her history of atrial tachycardia as a complicating factor. The lack of fever and negative viral swab tests for COVID-19, RSV, and influenza, alongside a negative chest X-ray, provide context to the current concerns. Persistent inflammation of the lungs was identified, raising concerns about appropriate antibiotic coverage. The patient's existing issues with atrial tachycardia complicate medication selection, necessitating careful consideration of treatment regimens to avoid exacerbation of this condition. [facility] Medical History Upper respiratory disease Upper respiratory infection General medical exam Herpes labialis Atrial fibrillation Chest discomfort Spondylosis Abdominal pain Left shoulder pain Right hip pain History of mammogram (~01/2023) Clostridium difficile colitis Bee sting allergy Hx gestational diabetes Anxiety Depression GERD (gastroesophageal reflux disease) Paroxysmal supraventricular tachycardia Thyroiditis Hypertension Surgical History Hx of breast implants, bilateral History of colonoscopy (~01/12/21) S/P tendon repair History of radiofrequency ablation (RFA) procedure for cardiac arrhythmia History of section History of adenoidectomy History of tonsillectomy History of abdominoplasty Social History Housing: House Alcohol intake: current Alcohol intake frequency: holidays/special occasions only Patient Tobacco Use Status: Former Tobacco user e-Cigarette/Vaping Use: Never Used Second Hand Smoke Exposure: Yes service: No Current occupational status: disabled Cognitive needs: No Hearing needs: No Vision needs: Yes (Reading glasses) Questionnaire Thrive Questionnaire Date Thrive assessed: 06/18/24 RADHA-7 AMB Questionnaire RADHA-7 Date RADHA - 7 assessed: 06/18/24 Source: Developed by Drs. Lars Clay, Yanet Manriquez, Og Oliver and colleagues, with an educational jm from [employer]. Review of Systems Const Details: - Respiratory: Reports severe chest congestion and coughing fits, difficulty expectorating sputum. - Cardiovascular: Reports increased heart rate upon taking prednisone; known history of atrial tachycardia. - General: Denies fever; complaints of body aches and general malaise. - Infectious Disease: Negative COVID-19, influenza, and RSV testing. Physical exam (Primary Care) Vital Signs: Last Vital Signs Temp 101.1 F H 07/02/24 14:38 Tobacco/Smoking Status: Tobacco use Status Tobacco use date assessed 06/18/24 07/02/24 14:39 Patient Tobacco Use Status Former Tobacco user 07/02/24 14:39 e-Cigarette/Vaping Use Never Used 07/02/24 14:39 Thrive Assessment: Date of Thrive Assessment Date Thrive assessed 06/18/24 07/02/24 14:39 Telehealth Telehealth Telehealth Platform: Telephone Location of provider rendering services: practice address Location of patient: address on file Patient Identification confirmed using: Name, : Yes Telehealth method: voice only Patient verbally consented to treatment: Yes Patient verbally consented to billing insurance company: Yes Patient informed of any privacy concerns related to visit: Yes Minutes spent on Phone/Video with Pt.: 15 Coding Level of Care Code Tao Pt Level 4 (50704) Diagnoses Upper respiratory infection J06.9 Assessment & Plan Assessment & Plan (1) Upper respiratory infection: Code(s): J06.9 - Acute upper respiratory infection, unspecified Category: Medical Plan: The current respiratory symptoms led to prescription adjustments. Alongside ongoing amoxicillin, azithromycin was added to cover a broader spectrum of pathogens due to lack of improvement on amoxicillin alone. Administering dextromethorphan-guaifenesin with codeine will help alleviate severe coughing, and ondansetron will be provided to manage nausea. Plan Plan Patient was informed and verbally consented to the use of an ambient scribe for clinic note documentation during this visit. 1. Upper respiratory infection The current respiratory symptoms led to prescription adjustments. Alongside ongoing amoxicillin, azithromycin was added to cover a broader spectrum of pat hogens due to lack of improvement on amoxicillin alone. Administering dextromethorphan-guaifenesin with codeine will help alleviate severe coughing, and ondansetron will be provided to manage nausea. 2. Atrial Tachycardia The patient's atrial tachycardia was considered when adjusting the treatment plan, particularly after prednisone use resulted in tachycardia. Safer alternatives were chosen, focusing on minimal cardiovascular impact while ensuring effective management of her current symptoms. The medication regimen was optimized to avoid exacerbating tachycardia. During the visit, the treatment approach was reviewed due to the ongoing symptoms of coughing and chest congestion. I decided to add azithromycin to her treatment alongside existing amoxicillin based on ongoing symptoms and the need for broader antimicrobial coverage. Robitussin with codeine was discussed as beneficial for managing cough while addressing any associated nausea with ondansetron. We reviewed atrial tachycardia management, deciding to carefully limit medications that exacerbate heart rate. Emphasis was placed on adherence and timely follow-up with a repeat chest X-ray within a week at her preferred location to monitor symptom resolution and lung status. Orders: Orders XR chest 2V Today J06.9 - Acute upper respiratory infection, unspecified Medications: New codeine-guaifenesin 10-100 mg/5 mL 5 mL PO Q6H PRN 120 mL 0RF cough azithromycin For 250 mg dose pack: take 500 mg today (day 1), then 250 mg for 4 days (days 2-5) PO 6 tabs 0RF ondansetron 4 mg PO Q8H PRN 20 tabs 0RF nausea and vomiting Patient Instructions: - Take amoxicillin as prescribed for 10 days and start azithromycin for 5 days. - Use Robitussin with codeine at the same time as lorazepam; it may make you sleepy. - If you feel nauseous, take the nausea medication provided. - Monitor your symptoms and return for medical attention if they worsen. - Follow up with a chest X-ray at [facility] within one week. - Let us know if you experience any side effects or new symptoms. - Keep hydrated and rest as much as possible.
[2024-07-02 14:38] VITALS: TEMP 38.4
--- OUTSIDE RECORDS SUMMARY | 2024-07-02 15:52 | XMS_ITS | Data Portability ---
Author Organization [place] - [facility], Allergy Address [address] [address] Assessment Encounter Date Assessment Date Assessment LastModified [...] regards to her dizziness, she did defer [place] today for fear of symptoms worsening. [...] IgE Ab, quantitati ve, serum 2023 024 [facility] (Centralized Electronic Ordering - All Locations), Patient Can Go To The Location Of Their Choice, 4 12:52:39 bermuda grass ige, serum 2023 024 [facility] (Centralized Electronic Ordering - All Locations), Patient Can Go To The Location Of Their Choice, 4 12:52:39 macanese plantain ige, serum 2023 024 [place] [facility] ([facility]ized Electronic Ordering - All Locations), Patient Can Go To The Location Of Their Choice, 4 07:46:22 ige, total, serum 2023 [place] [facility] (Centralized [facility] Ordering - All Locations), [...] 00 Very High Not Available [facility] ([facility]) [address] [facility], [place], [address], 08/22/2023 07:35:22 06/20/20 24 08/21/2023 ALLER GENS, ZONE 1 B422-ImJ D pteronyssinu s <0.10 kU/L class 0 Not Available [facility] ([facility]) [address] [place], [address], 08/22/2023 07:35:22 08/18/19 24 08/21/2023 ALLER GENS, ZONE 1 X332-TpL D farinae <0.10 kU/L class 0 Not Available [facility] ([facility]) [address] [place], [address], 08/22/2023 07:35:22 08/18/19 24 08/21/2023 ALLER GENS, ZONE 1 H561-ZyB CAT dander <0.10 kU/L class 0 Not Available [facility] ([facility]) [address] [place], [address], 08/22/2023 07:35:22 08/18/19 24 08/21/2023 ALLER GENS, ZONE 1 B952-MvY dog dander <0.10 kU/L class 0 Not Available [facility] ([facility]) [address] [place], [address], 08/22/2023 07:35:22 08/18/19 24 08/21/2023 ALLER GENS, ZONE 1 b149-ObP bermuda grass <0.10 kU/L class 0 Not Available [facility] ([facility]) [address] [place], [address], 08/22/2023 07:35:22 08/18/19 24 08/21/2023 ALLER GENS, ZONE 1 v385-NlM bluegrass, [facility] <0.10 kU/L class 0 Not Available [facility] ([facility]) [address] [place], [address], 08/22/2023 07:35:22 08/18/19 24 08/21/2023 ALLER GENS, ZONE 1 x943-SzQ bahia grass <0.10 kU/L class 0 Not Available [facility] ([facility]) [address] [place], [address], 08/22/2023 07:35:22 08/18/19 24 08/21/2023 ALLER GENS, ZONE 1 X733-CcW cockroach, mongolian <0.10 kU/L class 0 Not Available [facility] ([facility]) [address] [place], [address], 08/22/2023 07:35:22 08/18/19 24 08/21/2023 ALLER GENS, ZONE 1 G764-WvR penicillium chrysogen <0.10 kU/L class 0 Not Available [facility] ([facility]) [address] [facility], [place], [address], 08/22/2023 07:35:22 08/18/19 24 08/21/2023 ALLER GENS, ZONE 1 D450-PlV cladosporium herbarum <0.10 kU/L class 0 Not Available [facility] ([facility]) [address] [place], [address], 08/22/2023 07:35:22 08/18/19 24 08/21/2023 ALLER GENS, ZONE 1 L945-FjS aspergillus fumigatus <0.10 kU/L class 0 Not Available [facility] ([facility]) [address] [place], [address], 08/22/2023 07:35:22 08/18/19 24 08/21/2023 ALLER GENS, ZONE 1 L794-IvY mucor racemosus <0.10 kU/L class 0 Not Available [facility] ([facility]) [address] [place], [address], 08/22/2023 07:35:22 08/18/19 24 08/21/2023 ALLER GENS, ZONE 1 S902-RfV alternaria alternata <0.10 kU/L class 0 Not Available [facility] ([facility]) [address], [place], [address], 08/22/2023 07:35:22 08/18/19 24 08/21/2023 ALLER GENS, ZONE 1 M896-NmG stemphylium herbarum <0.10 kU/L class 0 Not Available [facility] ([facility]) [address], [place], [address], 08/22/2023 07:35:22 08/18/19 24 08/21/2023 ALLER GENS, ZONE 1 R276-JwY common silver birch <0.10 kU/L class 0 Not Available [facility] ([facility]) [address], [place], [address], 08/22/2023 07:35:22 08/18/19 24 08/21/2023 ALLER GENS, ZONE 1 M975-UoG oak, white <0.10 kU/L class 0 Not Available [facility] ([facility]) [address], [place], [address], 08/22/2023 07:35:22 08/18/19 24 08/21/2023 ALLER GENS, ZONE 1 T434-XyR elm, mongolian <0.10 kU/L class 0 Not Available [facility] ([facility]) [address], [place], [address], 08/22/2023 07:35:22 08/18/19 24 08/21/2023 ALLER GENS, ZONE 1 D329-YdE den, white <0.10 kU/L class 0 Not Available [facility] ([facility]) [address], [place], [address], 08/22/2023 07:35:22 08/18/19 24 08/21/2023 ALLER GENS, ZONE 1 R750-CaS maple/box elder <0.10 kU/L class 0 Not Available [facility] ([facility]) [address], [place], [address], 08/22/2023 07:35:22 08/18/19 24 08/21/2023 ALLER GENS, ZONE 1 M895-TcY hazelnut tree <0.10 kU/L class 0 Not Available [facility] ([facility]) [address], [place], [address], 08/22/2023 07:35:22 08/18/19 24 08/21/2023 ALLER GENS, ZONE 1 F583-WtB hickory, white <0.10 kU/L class 0 Not Available [facility] ([facility]) [address], [place], [address], 08/22/2023 07:35:22 08/18/19 24 08/21/2023 ALLER GENS, ZONE 1 P969-TnD white mulberry <0.10 kU/L class 0 Not Available [facility] ([facility]) [address], [place], [address], 08/22/2023 07:35:22 08/18/19 24 08/21/2023 ALLER GENS, ZONE 1 V043-HjH cedar, mountain <0.10 kU/L class 0 Not Available [facility] ([facility]) [address], [place], [address], 08/22/2023 07:35:22 08/18/19 24 08/21/2023 ALLER GENS, ZONE 1 O781-TtQ ragweed, short <0.10 kU/L class 0 Not Available [facility] ([facility]) [address], [place], [address], 08/22/2023 07:35:22 08/18/19 24 08/21/2023 ALLER GENS, ZONE 1 Q064-AkJ mugwort <0.10 kU/L class 0 Not Available [facility] ([facility] [facility]) [address], [place], [address], 08/22/2023 07:35:22 08/18/19 24 08/21/2023 ALLER GENS, ZONE 1 A971-VcJ plantain, macanese <0.10 kU/L class 0 Not Available [facility] ([facility]) [address] [facility], [place], [address], 08/22/2023 07:35:22 08/18/19 24 08/21/2023 ALLER GENS, ZONE 1 L395-CrC pigweed, common <0.10 kU/L class 0 Not Available [facility] ([facility]) [address] [facility], [place], [address], 08/22/2023 07:35:22 08/18/19 24 08/21/2023 ALLER GENS, ZONE 1 R673-WyQ sheep sorrel <0.10 kU/L class 0 Not Available [facility] ([facility]) [address] [facility], [place], [address], 08/22/2023 07:35:22 08/18/19 24 08/21/2023 ALLER GENS, ZONE 1 E984-JkM nettle <0.10 kU/L class 0 Not Available [facility] ([facility]) [address] [facility], [place], [address], 08/22/2023 07:35:22 08/18/19 24 08/21/2023 IMMUN OGLOB ULIN E, TOTAL immunoglobul in E, total 66 IU/mL 6-495 Not Available [facility] ([facility]) [address] [facility], [place], [address], 08/22/2023 07:35:23 08/02/19 24 02/04/2021 CT, abdom en + pelvi s, w/o contr ast No observ ation record ed. BARCODE Not Available 2023 09:55:11 08/05/19 24 08/04/2023 [facility] Diagno stic Imagin g Depart [address] [address] [phone] ____ Patien t: ANNETTE L,KOLBY Y A /Age/S ex: 1959 - 63 - F Unit#: [id number] Locati on/Sta tus: SPDICA T/REG CLI Accoun t#: [id number] Mnemon ic/Ord ering Site: [facility] MOLINA/SP CT [...] availa ble for compar apurva. Scanne r: [employer] peed 64 slice VCT Dose reduct ion [...] Date/T jacek: 1117 Sign date/T jacek: 1124 [email or web address] [facility] ([facility] Scheduling) [facility], [place], [address], 08/05/2023 13:06:37 08/17/19 24 08/04/2023 CT, maxil [...] Gastroeso phageal reflux disease without esophagit is 641387223 Active 2016 Gastro-es ophageal reflux disease without esophagit is; Note: Date Diagnosed : 03/25/2016 12:06 PM (K21.9) Not Available [facility] 02:34:48 Bilateral temporoma ndibular joint pain 34563217919 200964 Active 2020 Arthralgi a of bilateral temporoma ndibular joint; Note: Date Diagnosed : 04/09/2020 2:38 PM (M26.623) Not Available [facility] 02:34:56 Temporoma ndibular joint disorder 28384292 Active 2016 Temporoma ndibular joint disorder, unspecifi ed; Note: Date Diagnosed : 03/24/2016 12:38 PM (M26.60) Not Available [facility] 4 02:34:44 Otalgia of left ear 6488636430 Active 2020 Otalgia, left ear; Note: Date Diagnosed : 04/09/2020 2:38 PM (H92.02) Not Available [facility] 4 02:34:51 Chronic rhinitis 06502005 Active 2016 Chronic rhinitis; Note: Date Diagnosed : 03/25/2016 12:05 PM (J31.0) Not Available [facility] 4 02:34:49 Benign paroxysma l positiona l vertigo 522665827 Active 2017 Benign paroxysma l vertigo, right ear; Note: Date Diagnosed : 01/03/2018 3:32 PM (H81.11) Benign paroxysma l vertigo, left ear; Note: Date Diagnosed : 7 4:29 PM (H81.12) ; Start Date : 7 Not Available [facility] 4 02:34:49 Dizziness and giddiness 935036821 Active 2016 Dizziness and giddiness ; Note: Date Diagnosed : 7 4:11 PM (R42) Not Available [facility] 4 02:34:43 Acute sinusitis 59387635 Active 2022 Other acute sinusitis ; Note: Date Diagnosed : 07/05/2022 12:08 PM (J01.80) Not Available [facility] 4 02:34:43 Atypical facial pain 16654466 Active 2023 CRISTINA MOROCHO MD [address] [place] [address], [facility] [place], [place], [address] , [facility] - [facility] 4 21:21:14 Pain of left temporoma ndibular joint 74166031268 313206 Active 2023 Arthralgi a of left temporoma ndibular joint; Note: Date Diagnosed : 06/02/2023 3:09 PM (M26.622) Not Available [facility] 02:34:53 Problem Notes None recorded. Procedures Surgical History None recorded. Imaging Results Imaging Date Name Status LastModified by Organiz ation Details LastModified Time 02/04/2021 CT, abdomen + pelvis, w/o contrast completed BARCODE Information not available 08/02/2023 09:55:11 08/04/2023 [email or web address] [place] [address] ( [facility]) [facility], [place], [address], 08/05/2023 13:06:37 08/04/2023 CT, maxillofacial, w/o contrast [...] Name and Address Organization Details Recorded Time 216598 amlodipin e medicatio n Not available Not available Not available 08/17/2023 52985 RxNorm Jenifer mehta [place] - [facility] 14:16:13 Medications Name Sig Start Date Stop Date Status Note LastModified by Organization Details LastModified Time amoxicill in 500 mg capsule TAKE 1 CAPSULE BY MOUTH THREE TIMES A DAY FOR 7 DAYS 08/16 completed Not Available Not Available Not Available Augmentin 875 mg-125 mg tablet Take 1 tablet by mouth twice a day with meals 08/16 completed Medicati on ID: [id number] D uration Value: 14 Brand Name: Augmenti n Send Method: E-Prescr ibed Sub s Allowed: subs OK Medic ationGen ericName : Augmenti n Medica tion ID: [id number] D uration Value: 14 Brand Name: Augmenti [...] mg tablet 07/05 completed Medicati on ID: [id number] D uration Value: 30 Brand Name: valacycl ovir Sen d Method: E-Prescr ibed Sub s Allowed: subs OK Medic ationGen ericName : valacycl ovir Not Available Not Available Not Available tramadol 50 mg tablet TAKE 1 TABLET 4 TIMES DAILY NEEDED FOR PAIN. 08/16 completed Not Available Not Available Not Available famotidin e 20 mg tablet active Medicati on ID: [id number] B rand Name: famotidi ne Send Method: [...] mg tablet 01/27 completed Medicati on ID: [id number] D uration Value: 30 Brand Name: paroxeti ne HCl Send Method: E-Prescr ibed Sub s Allowed: subs OK Medic ationGen ericName : paroxeti ne HCl Not Available Not Available Not Available mupirocin 2 % topical ointment PLEASE SEE ATTACHED FOR DETAILED DIRECTIO NS active Not Available Not Available No t Available lorazepam 1 mg tablet active Medicati on ID: [id number] B rand Name: lorazepa m Send Method: [...] Test Strip 07/05 completed Medicati on ID: [id number] D uration Value: 90 Brand Name: OneTouch Ultra Blue Test Strip Se nd Method: E-Prescr ibed Sub s Allowed: subs OK Medic ationGen ericName : OneTouch Ultra Blue Test Strip Not Available Not Available Not Available Vitals Date Recorded Body height Body mass index (BMI) Body weight Provider Name and Address Organization Details Last Updated DateTime 08/17/2023 154.94 cm 20.6 kg/m2 39962.57 g Jenifer Olivera [place] - [facility] 08/17/2023 14:16:02 Social History None recorded. Functional [...] Note 4356 CODIE TORRES PA-C [facility] on [address] [place] [address] 08/17/2023 14:06:29 08/17/2023 14:44:36 Chronic rhinitis 02929149 J31.0 Atypical facial pain 713 74476 G50.1 Dizziness and giddiness 232610042 R42 Health Concerns Section Related Observation LastModified by Organization Detai ls LastModified Time None Recorded Concern Status LastModified by Organization Details LastModified Time None Recorded Advance Directives Directive None Recorded Payers Encounter Date Sequence Insurance Name Policy Number Policy Waterman Covered Member ID Waterman Member ID Guarantor Name 08/17/2023 1 JENNY-AR: MEDICARE PPO BLUE (MEDICARE REPLACEMENT PPO) [id number] Daphne Ernst [id number] Daphne Ernst Notes Date Note Type [...] mehta [place] - [facility] 08/17/2023 17:07:03 OBGyn Episode No OBEpisode recorded.
--- OUTSIDE RECORDS SUMMARY | 2024-07-02 15:52 | XMS_ITS | Clinical Summary ---
Author Organization [address] [place] [address] [place] [phone] Phone Care Team Providers Care Automated Manufacturing Instructor Name Role Phone Angel Miller Primary Care Provider [phone] Allergies Active Allergy Reactions Criticality Noted Date [...] 1 (one) time each day. 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 0.5-0.6-7-0.7 mg elixir Take 5 [...] Overview (04/02/2024): Hypertensive disorder SVT (supraventricular tachycardia) ([facility] V24) 02/11/2020 Encounters Date Type Department Care Team Description 06/05/2024 9:00 AM EDT Ancillary Procedure [facility] [address] [place] [address] Palpitations; SVT (supraventricular tachycardia) ([facility] V24) 05/22/2024 Telephone [facility] [address] [place] [address] Deanna Smith MD [id number] (ok to book); ROCT Enrollment (Enrolling patient for 14 day ROCT) 05/16/2024 Telephone [facility] [address] [place] [address] Deanna Smith MD Chest Pain 04/23/2024 12:40 PM EST Office Visit [facility] [address] [place] [address] Jenifer Brooks PA Palpitations (Primary Dx); PAC (premature atrial contraction); SVT (supraventricular tachycardia) ([facility] V24); Atrial premature depolarization; Snoring; Other fatigue [...] Description 10/23/2024 1:40 PM EDT Office Visit [facility] [address] [place] [address] Jenifer Brooks PA [address] [place] [address] Health Maintenance Due Date Last Done Comments [...] ECG 12 lead (04/23/2024 1:05 PM EST) [facility] Ventricular Rate ECG 63 BPM GEMUSE Atrial Rate 63 BPM GEMUSE P-R Interval 172 ms GEMUSE QRS Duration 90 ms GEMUSE Q-T Interval 414 ms GEMUSE QTc 423 ms GEMUSE P Wave Roosevelt 67 degrees GEMUSE R Roosevelt 46 degrees GEMUSE T Roosevelt 0 degrees GEMUSE ECG Interpretation Normal sinus rhythm When compared with ECG of 11-MAR-2006 10:00, No significant change was found Confirmed by AILEEN SMITH ([id number]) on 04/24/2024 6:06:12 PM GEMUSE 04/23/2024 1:02 PM EST 04/24/2024 6:06 PM EST Jenifer STEPHEN ECG ORDERABLES Edited Result - Final GEMUSE * Annual BMP Blood Test (09/28/2023) Pathologist [facility] Annual BMP Blood Test abstracted Historical Provider HEALTH MAINTENANCE Final Result * (ABNORMAL) Lipid panel (09/28/2023) [facility] LDL/HDL Ratio 3 0 - 4 [...] AM EDT Narrative 12/12/2017 5:13 PM EDT [facility] Diagnostic Imaging Department [address] [place] [address] Patient: ??DAPHNE JACOB ?/Age/Sex: 1960 - 57 - F Unit#: ??[id number] ? Location/Status: ??SPDIMAM/REG CLI ? Mnemonic/Ordering Site: [...] malignancy. BIRADS category 1; negative study, 3341F [address]5589, [address] Note: Patient information entered into a reminder system with a target due date for the next mammogram: ??CPT II 7025F Dictating Physician: ??GEN RILEY MD Electronically Signed by: ??GEN RILEY MD Dic Date/Time: ??12/12/171711 Sign date/Time: ??12/12/171712 Procedure Note Gen Riley MD - 02/16/2022 [facility] Diagnostic Imaging Department [address] [place] [address] Patient: DAPHNE JACOB /Age/Sex: 1960 - 57 - F Unit#: [id number] Location/Status: SPDIMAM/REG CLI Mnemonic/Ordering Site: [facility] Ordering Physician: MILLER TEJEDA DO Mikey Screening [...] malignancy. BIRADS category 1; negative study, 3341F [address], [address] Note: Patient information entered into a reminder [...] CROSS - [place] MEDICARE ADVANTAGE Care Teams Automated Manufacturing Instructor Relationship Specialty Start Date End Date Miller Tejeda DO [address] [place] [phone] PCP - General Internal Medicine 01/29/20
--- OUTSIDE RECORDS SUMMARY | 2024-07-02 15:52 | XMS_ITS | Clinical Summary ---
Author Organization [facility] Address [address] [place] [address] Care Team Providers Care Public Administration Professor Name Role Phone AngelLars baez Primary Care Provider [phone] Allergies Active Allergy Reactions Criticality Noted Date [...] age to complete this topic Care Teams Public Administration Professor Relationship Specialty Start Date End Date Lars Ortiz DO [address] [place] [address] PCP - General Internal Medicine 06/13/17
== END 2024-07-02 15:04 | disposition home or self-care (01) ==
LOC: HO.HMCSH 14:20
PROVIDERS: PCP Internal Medicine; Visit Provider Physician Assistant Medical
DX: J06.9 Acute upper respiratory infection, unspecified (principal)

== ENCOUNTER → 2024-07-02 14:20 | Outpatient (BNVA) | payer MEDICARE, SELFPAY | PROVIDERS: PCP Internal Medicine; Visit Provider Physician Assistant Medical | DX: J06.9 Acute upper respiratory infection, unspecified (principal) | CPT/HCPCS: 99212 ==

== ENCOUNTER → 2024-07-09 13:09 | Outpatient (REF) | payer MEDICARE, SELFPAY ==
--- NOTE | ~2024-07-09 | XR_ITS ---
EXAMINATION: XR CHEST 2 VIEWS HISTORY: J06.9 - Acute upper respiratory infection, unspecified COMPARISON: Comparison is made with the prior examination dated 05/11/2024. FINDINGS: PA and lateral views of the chest are submitted. The lungs are expanded and clear. There is no pleural effusion, pneumothorax, or pulmonary vascular congestion. The heart is normal in size. The bones are intact. XR/XR chest 2V IMPRESSION: No acute cardiopulmonary abnormality. Electronically signed by: Lars Callejas MD 07/09/2024 02:17 PM EDT
--- NOTE | 2024-07-09 13:11 | CA_ITS ---
Transthoracic Echocardiogram Patient (Last, First, Middle): Daphne Ernst A Gender: Female Date of : 1960 Age: 64 Procedure Date: 07/09/2024 Procedure Type: Transthoracic Echocardiogram Location: OP Height: 152. cm Weight: 49.44 kg BSA: 1.44 m2 Heart Rate: 71 bpm BP: 115 / 70 mmHg Leather Etcher: ZOIE Cowart MD: Shelli Butterfield PA-C Mill Stenciler: Geoffrey Gilman MD Symptoms: R07.89 - Other chest pain Study Quality: Adequate ECG Rhythm: Sinus Conclusions: - 1. Normal LV ejection fraction of 65-70% with grade 1 diastolic dysfunction 2. Normal cardiac valvular Dopplers 3. No gross pericardial effusion Findings Left Ventricle Normal left ventricular size, thickness, and systolic function. The visually estimated ejection fraction is between 65-70%. Spectral Doppler is indicative of an impaired relaxation filling pattern. E/E prime ratio is <8, consistent with normal filling pressures. Right Ventricle Normal right ventricular cavity size and systolic function. Atria Both atria are normal in size. There is no evidence of interatrial shunt. Aortic Valve The aortic valve structure and function is likely normal. There is no aortic valve stenosis. There is no aortic valve regurgitation. Mitral Valve Normal mitral valve structure and function. There is trace mitral valve regurgitation. There is no mitral valve stenosis. Pulmonic Valve The pulmonic valve was not well visualized. Tricuspid Valve Likely normal tricuspid valve structure and function. Tricuspid regurgitation envelope is inadequate for calculation of right ventricular systolic pressure. Normal right atrial pressure. Great Vessels All visible segments of the aorta are normal in size. The pulmonary artery was not well visualized. There is no dilatation of the ascending aorta measuring 2.90 cm. Venous The inferior vena cava is normal in size and collapses greater than 50% with inspiration. Pericardium/Pleural There is no evidence of pericardial effusion. Prior Study Comparison No prior study available for comparison. Measurements 2D Linear Measurements IVSd: 0.76 0.6-0.9/0.6-1.0 cm LVIDd: 3.51 3.9-5.3/4.2-5.9 cm LVIDd Index: 2.44 2.4-3.2/2.2-3.1 cm/m2 LVIDs: 2.15 2.0-3.6 cm LVPWd: 1.00 0.7-1.1 cm LA Diam: 3.00 2.7-3.8/3.0-4.0 cm LAIDs Index: 2.08 1.5-2.3 cm/m2 LV Mass: 106.98 67-162/88-224 g LV Mass Index: 74.29 43-95/49-115 g/m2 LVOT Diam: 2.00 3.0+(-)1.3 cm 2D Systolic Function EF 4C: 67.90 >55% EF 2C: 74.80 >55% EF BiP: 70.20 >55% Mitral Valve MV Pk E: 0.62 MV PK A: 0.76 MV Decel Time: 321.00 E/A: 0.80 E'Lateral: 6.96 E'Medial: 6.53 E/E' Med: 9.40 E/E' Lat: 8.90 PHT: 94.00 MVA PHT: 2.34 Decel Rosebud: 1.92 Aortic Valve AoV Pk Lester: 1.22 AoV Mn Lester: 0.86 AoV VTI: 0.27 AoV Pk Grad: 6.00 Aov Mn Grad: 3.00 JOHANNA Cont.VTI: 2.15 LVOT LVOT Pk Lester: 0.88 LVOT Mn Lester: 0.61 LVOT VTI: 0.18 LVOT Pk Grad: 3.00 LVOT Mn Grad: 2.00 LVOT Diam: 2.00 LVOT Area: 3.14 Diastolic Function MV Pk E: 0.62 MV Pk A: 0.76 E/A: 0.80 E'Medial: 6.53 E/E' Med: 9.40 E' Laterial: 6.96 E/E' Lat: 8.90 Right Ventricle TAPSE (mm): 23.60 TVS' Lester: 10.40 Tricuspid Valve RA Press: 3.00 Great Vessels Aorta Sinus of Valsalva: 3.10 2.0-3.5 cm Ao Asc: 2.90 2.1-3.4 cm Pulmonary Valve PV Pk Lester: 1.10 Peak PV Grad: 5.00 Updated in Other Vendor System with Status of Final Geoffrey Gilman MD electronically signed on 07/10/2024 12:30:51 PM with status of Final
--- OUTSIDE RECORDS SUMMARY | 2024-07-09 13:27 | XMS_ITS | Clinical Summary ---
Author Organization [facility] Address [address] [place] [address] Care Team Providers Care Cell Maker Name Role Phone AngelLars baez Primary Care Provider [phone] Allergies Active Allergy Reactions Criticality Noted Date [...] age to complete this topic Care Teams Cell Maker Relationship Specialty Start Date End Date Lars Ortiz DO [address] [place] [phone] PCP - General Internal Medicine 06/13/17
--- OUTSIDE RECORDS SUMMARY | 2024-07-09 13:28 | XMS_ITS | Data Portability ---
Author Organization [place] - [facility], Allergy Address [address] [address] Assessment Encounter Date Assessment Date Assessment LastModified [...] IgE Ab, quantitati ve, serum 2023 024 [facility] ([facility] Ordering - All Locations), Patient Can Go To The Location Of Their Choice, 4 12:52:39 bermuda grass ige, serum 2023 024 [facility] [place] ([facility] Order[facility] - All Locations), Patient Can Go To The Location Of Their Choice, 4 12:52:39 uruguayan plantain ige, serum 2023 024 [place] [facility] ([facility] Ordering - All Locations), Patient Can Go To The Location Of Their Choice, 4 07:46:22 ige, total, serum 2023 [place] [facility] (Central[facility] Ordering - All Locations), [...] >100. 00 Very High Not Available [facility] ([facility]) [address] [facility], [place], [address], 08/22/2023 07:35:22 06/20/20 24 08/21/2023 ALLER GENS, ZONE 1 M870-AkM D pteronyssinu s <0.10 kU/L class 0 Not Available [facility] ([facility]) [address] [facility] [place], [address], 08/22/2023 07:35:22 08/18/19 24 08/21/2023 ALLER GENS, ZONE 1 C314-JpJ D farinae <0.10 kU/L class 0 Not Available [facility] ([facility]) [address] [place], [address], 08/22/2023 07:35:22 08/18/19 24 08/21/2023 ALLER GENS, ZONE 1 R073-FkG CAT dander <0.10 kU/L class 0 Not Available [facility] ([facility]) [address] [facility] [place], [address], 08/22/2023 07:35:22 08/18/19 24 08/21/2023 ALLER GENS, ZONE 1 Z990-FrX dog dander <0.10 kU/L class 0 Not Available [facility] ([facility]) [address] [place], [address], 08/22/2023 07:35:22 08/18/19 24 08/21/2023 ALLER GENS, ZONE 1 k555-UdW bermuda grass <0.10 kU/L class 0 Not Available [facility] ([facility]) [address] [place], [address], 08/22/2023 07:35:22 08/18/19 24 08/21/2023 ALLER GENS, ZONE 1 c576-QaM bluegrass, [place] view healthy <0.10 kU/L class 0 Not Available [facility] ([facility]) [address] [place], [address], 08/22/2023 07:35:22 08/18/19 24 08/21/2023 ALLER GENS, ZONE 1 f306-GbP bahia grass <0.10 kU/L class 0 Not Available [facility] ([facility]) [address] [place], [address], 08/22/2023 07:35:22 08/18/19 24 08/21/2023 ALLER GENS, ZONE 1 I171-OgL cockroach, estonian <0.10 kU/L class 0 Not Available [facility] ([facility]) [address] [place], [address], 08/22/2023 07:35:22 08/18/19 24 08/21/2023 ALLER GENS, ZONE 1 C910-WyJ penicillium chrysogen <0.10 kU/L class 0 Not Available [facility] ([facility]) [address] [facility], [place], [address], 08/22/2023 07:35:22 08/18/19 24 08/21/2023 ALLER GENS, ZONE 1 I466-YhL cladosporium herbarum <0.10 kU/L class 0 Not Available [facility] ([facility]) [address] [place], [address], 08/22/2023 07:35:22 08/18/19 24 08/21/2023 ALLER GENS, ZONE 1 P677-KqR aspergillus fumigatus <0.10 kU/L class 0 Not Available [facility] ([facility]) [address] [place], [address], 08/22/2023 07:35:22 08/18/19 24 08/21/2023 ALLER GENS, ZONE 1 L848-YcJ mucor racemosus <0.10 kU/L class 0 Not Available [facility] ([facility]) [address] [place], [address], 08/22/2023 07:35:22 08/18/19 24 08/21/2023 ALLER GENS, ZONE 1 J946-CxE alternaria alternata <0.10 kU/L class 0 Not Available [facility] ([facility]) [address], [place], [address], 08/22/2023 07:35:22 08/18/19 24 08/21/2023 ALLER GENS, ZONE 1 Z608-KwW stemphylium herbarum <0.10 kU/L class 0 Not Available [facility] ([facility]) [address], [place], [address], 08/22/2023 07:35:22 08/18/19 24 08/21/2023 ALLER GENS, ZONE 1 U412-NeM common silver birch <0.10 kU/L class 0 Not Available [facility] ([facility]) [address], [place], [address], 08/22/2023 07:35:22 08/18/19 24 08/21/2023 ALLER GENS, ZONE 1 J833-RcF oak, white <0.10 kU/L class 0 Not Available [facility] ([facility]) [address], [place], [address], 08/22/2023 07:35:22 08/18/19 24 08/21/2023 ALLER GENS, ZONE 1 R371-PeX elm, estonian <0.10 kU/L class 0 Not Available [facility] ([facility]) [address], [place], [address], 08/22/2023 07:35:22 08/18/19 24 08/21/2023 ALLER GENS, ZONE 1 Z632-AjN den, white <0.10 kU/L class 0 Not Available [facility] ([facility]) [address], [place], [address], 08/22/2023 07:35:22 08/18/19 24 08/21/2023 ALLER GENS, ZONE 1 M718-FxZ maple/box elder <0.10 kU/L class 0 Not Available [facility] ([facility]) [address], [place], [address], 08/22/2023 07:35:22 08/18/19 24 08/21/2023 ALLER GENS, ZONE 1 Y778-ZtV hazelnut tree <0.10 kU/L class 0 Not Available [facility] ([facility]) [address], [place], [address], 08/22/2023 07:35:22 08/18/19 24 08/21/2023 ALLER GENS, ZONE 1 P726-XpD hickory, white <0.10 kU/L class 0 Not Available [facility] ([facility]) [address], [place], [address], 08/22/2023 07:35:22 08/18/19 24 08/21/2023 ALLER GENS, ZONE 1 Z243-QiG white mulberry <0.10 kU/L class 0 Not Available [facility] ([facility]) [address], [place], [address], 08/22/2023 07:35:22 08/18/19 24 08/21/2023 ALLER GENS, ZONE 1 L792-AlX cedar, mountain <0.10 kU/L class 0 Not Available [facility] ([facility]) [address], [place], [address], 08/22/2023 07:35:22 08/18/19 24 08/21/2023 ALLER GENS, ZONE 1 Y888-QkY ragweed, short <0.10 kU/L class 0 Not Available [facility] ([place] [facility]) [address], [place], [address], 08/22/2023 07:35:22 08/18/19 24 08/21/2023 ALLER GENS, ZONE 1 R630-YwV mugwort <0.10 kU/L class 0 Not Available [facility] ([facility] [facility]) [address], [place], [address], 08/22/2023 07:35:22 08/18/19 24 08/21/2023 ALLER GENS, ZONE 1 R407-FyB plantain, uruguayan <0.10 kU/L class 0 Not Available [facility] ([facility]) [address] [facility], [place], [address], 08/22/2023 07:35:22 08/18/19 24 08/21/2023 ALLER GENS, ZONE 1 M058-PgK pigweed, common <0.10 kU/L class 0 Not Available [facility] ([facility]) [address] [facility], [place], [address], 08/22/2023 07:35:22 08/18/19 24 08/21/2023 ALLER GENS, ZONE 1 D779-CyE sheep sorrel <0.10 kU/L class 0 Not Available [facility] ([facility]) [address] [facility], [place], [address], 08/22/2023 07:35:22 08/18/19 24 08/21/2023 ALLER GENS, ZONE 1 W171-XkP nettle <0.10 kU/L class 0 Not Available [facility] ([facility]) [address] [facility], [place], [address], 08/22/2023 07:35:22 08/18/19 24 08/21/2023 IMMUN OGLOB ULIN E, TOTAL immunoglobul in E, total 66 IU/mL 6-495 Not Available [facility] ([facility]) [address] [facility], [place], [address], 08/22/2023 07:35:23 08/02/19 24 02/04/2021 CT, abdom en + pelvi s, w/o contr ast No observ ation record ed. BARCODE Not Available 2023 09:55:11 08/05/19 24 08/04/2023 [facility] Diagno stic Imagin g Depart [address] [address] ____ Patien t: ANNETTE L,KOLBY Y A /Age/S ex: 1959 - 63 - F Unit#: [id number] Locati on/Sta tus: SPDICA T/REG CLI Accoun t#: [id number] Mnemon ic/Ord ering Site: [facility] MOLINA/SP CT [...] availa ble for compar apurva. Scanne r: Fusion Sheep peed 64 slice VCT Dose reduct ion [...] BENITES Dic Date/T jacek: 1117 Sign date/T jacke: 1124 [id number] [facility] ([facility] Central Scheduling) [facility] [place], [place], [address], 08/05/2023 13:06:37 08/17/19 24 08/04/2023 CT, maxil [...] Gastroeso phageal reflux disease without esophagit is 383235208 Active 2016 Gastro-es ophageal reflux disease without esophagit is; Note: Date Diagnosed : 03/25/2016 12:06 PM (K21.9) Not Available [facility] 02:34:48 Bilateral temporoma ndibular joint pain [id number] 851976 Active 2020 Arthralgi a of bilateral temporoma ndibular joint; Note: Date Diagnosed : 04/09/2020 2:38 PM (M26.623) Not Available [facility] 02:34:56 Temporoma ndibular joint disorder 81081649 Active 2016 Temporoma ndibular joint disorder, unspecifi ed; Note: Date Diagnosed : 03/24/2016 12:38 PM (M26.60) Not Available [facility] 4 02:34:44 Otalgia of left ear 9172639917 Active 2020 Otalgia, left ear; Note: Date Diagnosed : 04/09/2020 2:38 PM (H92.02) Not Available [facility] 4 02:34:51 Chronic rhinitis 23278353 Active 2016 Chronic rhinitis; Note: Date Diagnosed : 03/25/2016 12:05 PM (J31.0) Not Available [facility] 4 02:34:49 Benign paroxysma l positiona l vertigo 041368919 Active 2017 Benign paroxysma l vertigo, right ear; Note: Date Diagnosed : 01/03/2018 3:32 PM (H81.11) Benign paroxysma l vertigo, left ear; Note: Date Diagnosed : 7 4:29 PM (H81.12) ; Start Date : 7 Not Available [facility] 4 02:34:49 Dizziness and giddiness 282925758 Active 2016 Dizziness and giddiness ; Note: Date Diagnosed : 7 4:11 PM (R42) Not Available [facility] 4 02:34:43 Acute sinusitis 52093670 Active 2022 Other acute sinusitis ; Note: Date Diagnosed : 07/05/2022 12:08 PM (J01.80) Not Available [facility] 4 02:34:43 Atypical facial pain 06100469 Active 2023 CRISTINA MOROCHO MD [address] [place] [address], [facility] [place], [place], [address] , [facility] - [facility] 4 21:21:14 Pain of left temporoma ndibular joint 48204197097 813340 Active 2023 Arthralgi a of left temporoma ndibular joint; Note: Date Diagnosed : 06/02/2023 3:09 PM (M26.622) Not Available [facility] 02:34:53 Problem Notes None recorded. Procedures Surgical History None recorded. Imaging Results Imaging Date Name Status LastModified by Organiz ation Details LastModified Time 02/04/2021 CT, abdomen + pelvis, w/o contrast completed BARCODE Information not available 08/02/2023 09:55:11 08/04/2023 [id number] [place] [address] ( [facility] Central Scheduling) [facility] [place], [place], [address], 08/05/2023 13:06:37 08/04/2023 CT, maxillofacial, w/o contrast [...] Name and Address Organization Details Recorded Time 555414 amlodipin e medicatio n Not available Not available Not available 08/17/2023 45199 RxNorm Jenifer mehta [place] - [facility] 14:16:13 Medications Name Sig Start Date Stop Date Status Note LastModified by Organization Details LastModified Time amoxicill in 500 mg capsule TAKE 1 CAPSULE BY MOUTH THREE TIMES A DAY FOR 7 DAYS 08/16 completed Not Available Not Available Not Available Augmentin 875 mg-125 mg tablet Take 1 tablet by mouth twice a day with meals 08/16 completed Medicati on ID: [id number] D uration Value: 14 Brand Name: Augmenti n Send Method: E-Prescr ibed Sub s Allowed: subs OK Medic ationGen ericName : Augmenti n Medica tion ID: [id number] D uration Value: 14 Brand Name: Augmenti [...] mg tablet 07/05 completed Medicati on ID: [id number] D uration Value: 30 Brand Name: valacycl ovir Sen d Method: E-Prescr ibed Sub s Allowed: subs OK Medic ationGen ericName : valacycl ovir Not Available Not Available Not Available tramadol 50 mg tablet TAKE 1 TABLET 4 TIMES DAILY NEEDED FOR PAIN. 08/16 completed Not Available Not Available Not Available famotidin e 20 mg tablet active Medicati on ID: [id number] B rand Name: famotidi ne Send Method: [...] mg tablet 01/27 completed Medicati on ID: [id number] D uration Value: 30 Brand Name: paroxeti ne HCl Send Method: E-Prescr ibed Sub s Allowed: subs OK Medic ationGen ericName : paroxeti ne HCl Not Available Not Available Not Available mupirocin 2 % topical ointment PLEASE SEE ATTACHED FOR DETAILED DIRECTIO NS active Not Available Not Available No t Available lorazepam 1 mg tablet active Medicati on ID: [id number] B rand Name: lorazepa m Send Method: [...] Test Strip 07/05 completed Medicati on ID: [id number] D uration Value: 90 Brand Name: OneTouch Ultra Blue Test Strip Se nd Method: E-Prescr ibed Sub s Allowed: subs OK Medic ationGen ericName : OneTouch Ultra Blue Test Strip Not Available Not Available Not Available Vitals Date Recorded Body height Body mass index (BMI) Body weight Provider Name and Address Organization Details Last Updated DateTime 08/17/2023 154.94 cm 20.6 kg/m2 82286.57 g Jenifer Olivera [place] - [facility] 08/17/2023 14:16:02 Social History None recorded. [...] Note 4356 CODIE TORRES PA-C [facility] on [address] [place] [address] 08/17/2023 14:06:29 08/17/2023 14:44:36 Chronic rhinitis 55861549 J31.0 Atypical facial pain 713 69702 G50.1 Dizziness and giddiness 061256587 R42 Health Concerns Section Related Observation LastModified by Organization Detai ls LastModified Time None Recorded Concern Status LastModified by Organization Details LastModified Time None Recorded Advance Directives Directive None Recorded Payers Insurance Date Sequence Insurance Name Policy Number Policy Waterman Covered Member ID Waterman Member ID Guarantor Name 03/01/2024 1 [place]: [place] P[place] BLUE (MEDICARE REPLACEMENT PPO) [id number] Daphne Ernst [id number] Daphne Ernst Notes Date Note Type [...] mehta [place] - [facility] 08/17/2023 17:07:03 OBGyn Episode No OBEpisode recorded.
== END ==
LOC: HO.CARD 13:09
PROVIDERS: PCP Internal Medicine; Visit Provider Physician Assistant Medical
DX: R07.89 Other chest pain (principal); J06.9 Acute upper respiratory infection, unspecified
CPT/HCPCS: 71046; 93306

== ENCOUNTER → 2024-07-09 13:11 | Outpatient (BNV) | payer MEDICARE, SELFPAY | PROVIDERS: PCP Internal Medicine; Visit Provider Internal Medicine Cardiovascular Disease | DX: R07.89 Other chest pain (principal) | CPT/HCPCS: 93306 ==

== ENCOUNTER → 2024-07-09 13:54 | Outpatient (BNV) | payer MEDICARE, SELFPAY | PROVIDERS: PCP Internal Medicine; Visit Provider Radiology Diagnostic Radiology | DX: J06.9 Acute upper respiratory infection, unspecified (principal) | CPT/HCPCS: 71046 ==

== ENCOUNTER 2024-07-31 12:55 | Outpatient (AMB) | payer MEDICARE, SELFPAY ==
--- NOTE | 2024-07-31 09:13 | MHC.PC.OV ---
Vital Signs 07/31/24 13:04 Height 5 ft Weight 112 lb 0.6 oz BMI 21.9 BP 120/62 Blood Pressure Location Rt brachial Pulse 69 Pulse Source Pulse Oximeter Temp 98.8 F Pulse Oximetry (%) 98 Intake Visit Reasons: 6 week follow up Intake Note: patient doubled her metoprolol on her own Allergies amlodipine Allergy (Intermediate, Verified 07/31/24 13:27) tachycardia prednisone Allergy (Mild, Verified 07/31/24 13:27) tachycardia clyndamycin Allergy (Intermediate, Uncoded 07/31/24 13:27) Abdominal Pain Medication List - Last Reconciled 07/31/24 by Shelli Butterfield PA-C albuterol sulfate 90 mcg/actuation 2 puffs PO Q6H PRN aspirin (Mishel Chewable Low Dose Aspirin) 81 mg PO DAILY epinephrine IM DIRECTED lorazepam 1 mg PO DAILY PRN metoprolol tartrate 25 mg PO BID 90 days multivitamin 1 tab PO DAILY ondansetron 4 mg PO Q8H PRN valacyclovir (Valtrex) 1,000 mg PO DAILY 5 days Tobacco use date assessed: 06/18/24 Dental Screening Dental Screen Date: 06/27/24 HPI 6 week follow up HPI Details The patient is a 64-year-old female presenting with management of hypertension, request for medication refills, and vertigo. She reports adjusting her metoprolol dosage to 25 mg administered twice daily, a change introduced due to elevated blood pressure. She has adhered to metoprolol since 2011 and reports considering alternative medications. However, side effects such as leg swelling and heart palpitations from other agents like amlodipine have led her to maintain metoprolol use. Reports she is not taking the valsartan 40 mg instead she is taking the metoprolol 25 mg p.o. b.i.d.. She was taking metoprolol 12.5 mg p.o. b.i.d.. She reports since switching her medications she feels much better. Episodes of vertigo have become noticeable, primarily manifesting in the spring and potentially aggravated by an upper respiratory infection or allergies. Currently in physical therapy for vertigo. Has an appointment today. Social History - Exercises regularly but has noted a decrease from prior levels. - Experiences stress contributing potentially to blood pressure issues. - Recent adjustment in nutritional habits mentioned; no specific details provided. [facility] Medical History (Updated 07/31/24 @ 13:35 by Shelli Butterfield PA-C) Hormone replacement therapy Vertigo Upper respiratory disease Upper respiratory infection General medical exam Herpes labialis Atrial fibrillation Chest discomfort Spondylosis Abdominal pain Left shoulder pain Right hip pain History of mammogram (~01/2023) Clostridium difficile colitis Bee sting allergy Hx gestational diabetes Anxiety Depression GERD (gastroesophageal reflux disease) Paroxysmal supraventricular tachycardia Thyroiditis Hypertension Surgical History Hx of breast implants, bilateral History of colonoscopy (~01/12/21) S/P tendon repair History of radiofrequency ablation (RFA) procedure for cardiac arrhythmia History of section History of adenoidectomy History of tonsillectomy History of abdominoplasty Social History Housing: House Alcohol intake: current Alcohol intake frequency: holidays/special occasions only Patient Tobacco Use Status: Former Tobacco user e-Cigarette/Vaping Use: Never Used Second Hand Smoke Exposure: Yes service: No Current occupational status: disabled Cognitive needs: No Hearing needs: No Vision needs: Yes (Reading glasses) Questionnaire PHQ-9 Over the last 2 weeks, how often have you been bothered by any of the following problems? 1. Little interest or pleasure in doing things: not at all 2. Feeling down, depressed, or hopeless: not at all 3. Trouble falling or staying asleep, or sleeping too much: several days 4. Feeling tired or having little energy: several days 5. Poor appetite or overeating: not at all 6. Feeling bad about yourself - or that you are a failure or have let yourself or your family down: not at all 7. Trouble concentrating on things, such as reading the newspaper or watching television: not at all 8. Moving or speaking so slowly that other people could have noticed. Or the opposite - being so fidgety or restless that you have been moving around a lot more than usual: not at all 9. Thoughts that you would be better off or of hurting yourself in some way: not at all Total score: 2 Depression Screening Interpretation: Negative Depression Screening Done: Yes 57392 - PHQ-9 Billing: Yes Source: Developed by Yanet ValenteW. Declan, Og Oliver and colleagues, with an educational jm from [employer]. Thrive Questionnaire Date Thrive assessed: 06/18/24 AUDIT C Alcohol Use Questionnaire (AUDIT-C) 1. How often do you have a drink containing alcohol?: 2-4 times a month 3. How often do you have six or more drinks on one occasion?: Never Total Score: 2 Score Reviewed/Action Taken: No RADHA-7 AMB Questionnaire RADHA-7 Date RADHA - 7 assessed: 06/18/24 Source: Developed by Drs. Lars Clay, Yanet Manriquez, Og Oliver and colleagues, with an educational jm from [employer]. Review of Systems Const Details: - Cardiovascular: Reports occasional palpitations. - Endocrine: Denies any new symptoms outside ongoing hormone therapy adjustments. - Neurological: Reports experiencing vertigo. - General: Reports increased blood pressure with recent self-adjustment of medication. Physical exam (Primary Care) Vital Signs: Last Vital Signs Temp 98.8 F 07/31/24 13:04 Pulse 69 07/31/24 13:04 BP 120/62 07/31/24 13:04 Pulse Ox 98 07/31/24 13:04 Care Plan Goal for BP management: <140/90 at Goal BMI result Body Mass Index 21.9 normal bmi Tobacco/Smoking Status: Tobacco use Status Tobacco use date assessed 06/18/24 07/31/24 09:14 Patient Tobacco Use Status Former Tobacco user 07/31/24 09:14 e-Cigarette/Vaping Use Never Used 07/31/24 09:14 PHQ-9: PHQ-9 Score PHQ-9: Total score 2 07/31/24 13:06 Depression Screening Interpretation: Negative Thrive Assessment: Date of Thrive Assessment Date Thrive assessed 06/18/24 07/31/24 09:14 Const Other: Appearance: Alert. Oriented X3. No acute distress. Head: Normal external exam. Normocephalic. Atraumatic. Eyes: Pupils are equal, round, and reactive to light. Extraocular movements intact. Conjunctiva and sclera normal. Eyelids normal. Throat: Moist mucous membranes. Neck: Normal inspection. Neck supple. Full range of motion. Cardiovascular: Normal heart rate and rhythm. Respiratory: No respiratory distress. Painless inspiration. Back: Full range of motion noted. Skin: Skin warm and dry. Normal skin color. Extremities: Extremities exhibit normal range of motion. Results Reviewed Results Reviewed: - Labs: Thyroid function tests taken in April, reported as normal. Coding Level of Care Code Est Pt Level 4 (96786) Complex EM visit Add On G2211 Diagnoses Hypertension I10 Vertigo R42 Hormone replacement therapy Z79.890 Additional Codes PHQ-9 - 94821 - PHQ-9 Billing: Yes ([id number]) Assessment & Plan Assessment & Plan (1) Hypertension: Code(s): I10 - Essential (primary) hypertension Category: Medical Plan: <140/90 at Goal. Patient to continue metoprolol 25 mg p.o. b.i.d.. Patient discontinued valsartan 40 mg blood pressure at goal today therefore valsartan to be discontinued from the medication list as well in patient instructed not to take this medication at home if she is taking 25 mg metoprolol twice a day. Condition is chronic and stable will continue to monitor. (2) Vertigo: Code(s): R42 - Dizziness and giddiness Category: Medical Plan: Patient to follow-up with physical therapy as scheduled. Condition is chronic and stable will continue to monitor (3) Hormone replacement therapy: Code(s): Z79.890 - Hormone replacement therapy Category: Medical Plan: Patient to continue hormone replacement therapy as scheduled. Condition is chronic and stable continue to monitor. Plan Plan Patient was informed and verbally consented to the use of an ambient scribe for clinic note documentation during this visit. 1. Hypertension Patient remains on metoprolol 25 mg twice daily, controlling her blood pressure while minimizing adverse effects. Continuous monitoring of blood pressure and symptoms is advised. 2. Vertigo Patient to follow-up with physical therapy as scheduled. Condition is chronic and stable will continue to monitor. 3. Hormone Replacement Therapy The estrogen dose was adjusted to manage menopausal symptoms. Regular monitoring of therapy efficacy and side effects remains critical. 4. Benzodiazepine Use Managed continued use of lorazepam with necessary refills, emphasizing the risk-benefit balance. I have discussed with the patient their hypertension management, reaffirming the suitability of metoprolol, notwithstanding the interest in alternative medications. The rationale for maintaining metoprolol includes its consistent efficacy and minimized risk profile compared to alternatives like amlodipine. We reviewed and reinforced understanding of her condition and the corresponding plan tailored toward maintaining and monitoring her ongoing health issues, emphasizing the importance of symptom observation and the need for any adjustments. Medications: Changed From metoprolol tartrate 12.5 mg (1/2 x 25 mg) PO BID 90 tabs 0RF To metoprolol tartrate 25 mg PO BID 180 tabs 1RF 90 days Refilled lorazepam 1 mg PO DAILY PRN 60 tabs 0RF anxiety Discontinued valsartan Discontinued Reason: Doctor's Order 40 mg PO DAILY 90 tabs 1RF Patient Instructions: - Continue taking metoprolol 25 mg twice daily for blood pressure management. - Monitor your blood pressure regularly and report any significant changes. - Maintain regular physical activity and reduce stress as much as possible. - Observe your vertigo symptoms and seek help if they persist or worsen. - Attend follow-up appointments as scheduled within three months to reassess treatment efficacy. - Inform me of any new or worsening symptoms that arise, particularly palpitations or swelling. - Discuss any concerns or questions about hormone therapy or lorazepam use during follow-ups.
[2024-07-31 13:04] VITALS: BP 120/62; PULSE 69; TEMP 37.1; O2SAT 98; BMI 21.9
--- OUTSIDE RECORDS SUMMARY | 2024-07-31 14:18 | XMS_ITS | Clinical Summary ---
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 Active coenzyme Q-10 10 mg capsule Take by mouth. Acti ve ferrous gluconate (FERGON) 240 mg (27 mg iron) tablet Take by mouth. Activ e psyllium seed, with sugar, (FIBER ORAL) Take by mouth. Activ e multivitamin (MULTIPLE VITAMINS ORAL) Active OMEGA-3 FATTY ACIDS-FISH OIL ORAL Take by mouth. Activ e CHOLECALCIFEROL, VITAMIN D3, ORAL Take by mouth. [...] (two) times a day. 90 each 2 Active valsartan (DIOVAN) 40 mg tablet Take 1 tablet (40 mg total) by mouth 1 (one) time each day. Take medication for SBP > 130, HOLD medication for SBP < 130 PCP started pt on this medication Active Active Problems Problem Noted Date Diagnosed Date Fatigue 09/21/2023 Snoring 09/21/2023 PAC (premature atrial contraction) 11/25/2021 Palpitations 11/25/2021 SOB (shortness of breath) 11/25/2021 Other chest pain 07/15/2020 Hypertensive disorder 02/11/2020 Overview (04/02/2024): Hypertensive disorder SVT (supraventricular tachycardia) ([facility] V24) 02/11/2020 Encounters Date Type Department Care Team Description 07/10/2024 Telephone [facility] [address] [place] [address] Deanna Noriega MD Hypertension (High blood pressure ) 06/05/2024 9:00 AM EDT Ancillary Procedure [facility] [address] [place] [address] Palpitations; SVT (supraventricular tachycardia) ([facility]/HCC V24) 05/22/2024 Telephone [facility] - [address] [place] [address] Deanna Noriega MD [id number] (ok to book); ROCT Enrollment (Enrolling patient for 14 day ROCT) 05/16/2024 Telephone [facility] - [address] [place] [address] Deanna Noriega MD Chest Pain from Last 3 Months Social History Tobacco [...] Description 10/23/2024 1:40 PM EDT Office Visit [facility] - [address] [place] [address] Jenifer Brooks PA [address] [place] [address] Health Maintenance Due Date Last Done Comments [...] Procedure Name Priority Date/Time Associated Diagnosis Comments CARDIAC ELECTROTYPE CASTER W/ CONNECTION (MCOT) Routine 06/06/2024 11:04 AM EDT Palpitations SVT (supraventricular tachycardia) (CMS/HCC V24) ECG EXTERNAL Routine 05/18/2024 10:46 AM EDT ANNUAL BMP BLOOD TEST Routine 09/28/2023 LIPID PANEL Routine 09/28/2023 MIKEY SCREENING DIGITAL Routine 12/12/2017 5:13 PM EDT Encounter for screening mammogram for malignant neoplasm of breast from Last 3 Months or Most Recently Relevant to Health Maintenance Results * CARDIAC ELECTROTYPE CASTER W/ CONNECTION (MCOT) (06/06/2024 11:04 AM EDT) Anatomical Region Laterality Modality Cardiac Diagnost ic Impressions 07/05/2024 9:11 AM EDT Predominant normal sinus rhythm. Occasional premature atrial contraction with short episodes of atrial tachycardia. Occasional premature ventricular contraction. Patient triggered events correlated with normal sinus rhythm. No other sustained arrhythmias noted. Narrative 07/05/2024 9:11 AM EDT [facility] DIAGNOSTIC TESTING DEPARTMENT [address] [place] [address], [id number] [address] TEL: FAX: TYPE OF TEST 14 day ROCT monitor. DATES OF MONITORIN06/05/24-06/19/24 REQUESTING PHYSICIAN: ZAFAR Echols PRIMARY CARE PROVIDER: Miller Tejeda DO INDICATION: Palpitations, SVT FINDINGS: 1. The predominant rhythm was sinus, with sinus arrhythmia. 2. The average heart rate was 67 bpm, minimum heart rate was 46 bpm, maximum heart rate was 135 bpm. 3. Total VE burden: 0.4% consisting of singles, & VE Couplet. 4. Total SVE burden: 1.5% consisting of singles, & SVE Triplet. 5. There were 13 patient triggered symptomatic events. ??Majority of them correlated with normal sinus rhythm. Result [facility] Jenifer STEPHEN CV CARDIAC SERVICES PROCEDURES F inal Result * ECG-External (05/18/2024 10:46 AM EDT) Historical Provider ECG ORDERABLES Final Res ult * Annual BMP Blood Test (09/28/2023) Pathologist [facility] Annual [facility] Blood Test abstracted Result [facility] Historical Provider HEALTH MAINTENANCE Final Result * (ABNORMAL) Lipid panel (09/28/2023) [facility] LDL/HDL Ratio 3 0 - 4 Triglycerides 90 0 - 150 mg/dL Cholesterol 178 0 - 200 mg/dL HDL 55 >=40 mg/dL LDL Cholesterol 105(A) 0 - 100 mg/dL Blood Venous blood specimen / Unknown us Historical Provider LAB BLOOD ORDERABLES Melida swanson Result * [facility] SCREENING DIGITAL (12/12/2017 5:13 PM EDT) Anatomical Region Laterality Modality Mammography 12/12/2017 11:1 4 AM EDT Narrative 12/12/2017 5:[address] [facility] Diagnostic Imaging Department [address] [place], [place] [id number] Patient: ??DAPHNE JACOB ?/Age/Sex: 1960 - 57 - F Unit#: ??[id number] ? Location/Status: ??SPDIMAM/REG CLI ? Mnemonic/Ordering Site: [...] malignancy. BIRADS category 1; negative study, 3341F 22778, [id number] Note: Patient information entered into a reminder system with a target due date for the next mammogram: ??CPT II 7025F Dictating Physician: ??GEN RILEY MD Electronically Signed by: ??GEN RILEY MD Dic Date/Time: ??12/12/171711 Sign date/Time: ??12/12/171712 Procedure Note Gen Riley MD - 02/16/2022 [facility] Diagnostic Imaging Department [address] [place] [address] Patient: DAPHNE JACOB /Age/Sex: 1960 - 57 - F Unit#: [id number] Location/Status: [facility] Mnemonic/Ordering Site: [facility] Ordering Physician: MILLER TEJEDA DO Mikey [...] malignancy. BIRADS category 1; negative study, 3341F 10915, [id number] Note: Patient information entered into a reminder [...] CROSS - [place] [employer] [employer] Care Teams Gyroscopic Instrument Mechanic Relationship Specialty Start Date End Date Miller Tejeda DO [address] [place] [id number] PCP - General Internal Medicine 01/29/20
== END 2024-07-31 13:18 | disposition home or self-care (01) ==
LOC: HO.HMCSH 12:55
PROVIDERS: PCP Internal Medicine; Visit Provider Physician Assistant Medical
DX: I10 Essential (primary) hypertension (principal); R42 Dizziness and giddiness; Z79.890 Hormone replacement therapy

== ENCOUNTER → 2024-07-31 12:55 | Outpatient (BNVA) | payer MEDICARE, SELFPAY | PROVIDERS: PCP Internal Medicine; Visit Provider Physician Assistant Medical | DX: I10 Essential (primary) hypertension (principal); R42 Dizziness and giddiness; R00.2 Palpitations; Z79.890 Hormone replacement therapy | CPT/HCPCS: 96127; 99212 ==

== ENCOUNTER 2024-09-26 13:32 | Outpatient (AMB) | payer BC, SELFPAY ==
--- NOTE | 2024-09-26 13:41 | HO.NEPHOV_ITS ---
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 She has longstanding hypertension and had tried amlodipine in the past as well as valsartan. Amlodipine had caused edema. She had cardiac arrhythmias needing ablation in the past. Her blood pressure has been reasonably controlled on metoprolol. She had discontinued her valsartan. Her PCP had increased metoprolol to 25 mg twice daily which she had not started taking that dose. She has no history of peripheral arterial disease, renal artery stenosis, coronary artery disease, carotid stenosis, CVA, CHF, drug use, hypokalemia, uncontrolled thyroid disorders, palpitation, sweating, orthostasis, renal dysfunction or proteinuria. She denied any headache, double vision, chest pain, shortness of breath, paroxysmal nocturnal dyspnea, orthopnea or pedal edema. She does not take excessive nonsteroidal anti-inflammatories or excessive sodium in the diet. [facility] Medical History (Updated 09/29/24 @ 17:13 by Trent Dye MD) SVT (supraventricular tachycardia) Other chest pain SOB (shortness of breath) Palpitations PAC (premature atrial contraction) Snoring Fatigue Hormone replacement therapy Vertigo Upper respiratory disease Upper respiratory infection General medical exam Herpes labialis Atrial fibrillation Chest discomfort Spondylosis Abdominal pain Left shoulder pain Right hip pain History of mammogram (~01/2023) Clostridium difficile colitis Bee sting allergy Hx gestational diabetes Anxiety Depression GERD (gastroesophageal reflux disease) Paroxysmal supraventricular tachycardia Thyroiditis Hypertension Surgical History Hx of breast implants, bilateral History of colonoscopy (~01/12/21) S/P tendon repair History of radiofrequency ablation (RFA) procedure for cardiac arrhythmia History of section History of adenoidectomy History of tonsillectomy History of abdominoplasty Social History Housing: House Alcohol intake: current Alcohol intake frequency: holidays/special occasions only Patient Tobacco Use Status: Former Tobacco user e-Cigarette/Vaping Use: Never Used Second Hand Smoke Exposure: Yes service: No Current occupational status: disabled Cognitive needs: No Hearing needs: No Vision needs: Yes (Reading glasses) Review of Systems Const All systems reviewed & are unremarkable except as noted in HPI and below Physical Exam Vital Signs: Last Vital Signs Pulse 84 09/26/24 13:44 BP 110/60 09/26/24 13:44 Pulse Ox 95 09/26/24 13:44 Oxygen Delivery Method Room Air 09/26/24 13:44 BMI result Body Mass Index 22.1 Const General: comfortable and no acute distress Orientation/consciousness: patient oriented x3 HEENT Head: Yes normocephalic Mouth: Normal oral and palatal mucosa present Eyes EOM: EOMs intact bilaterally Neck Neck: Yes supple Resp Auscultation: clear to auscultation bilaterally Cardio Jugular venous distension: no JVD Rate: regular rate Heart sounds: Murmur heart sound present GI Palpation (GI): Soft to palpation Auscultation: normal bowel sounds General: Yes no CVA tenderness Back/Spine/Pelvis Back: no CVA tenderness Skin General skin exam: no rashes or lesions noted Neuro General: patient oriented x3 and moves all extremities Extrem General: Yes no pedal edema Assessment & Plan Assessment & Plan (1) Hypertension: Code(s): I10 - Essential (primary) hypertension Category: Medical Qualifiers: Hypertension type: primary hypertension Qualified Code(s): I10 - Essential (primary) hypertension Plan Has hypertension for well over a decade Did not tolerate Amlodipine ( edema) Stopped taking Valsartan on her own Has H/O cardiac arrhythmia needing ablation Low sodium diet & continued life style modification No H/O end organ issues; Only taking axoavkrwyl64.5 mg bid Normal renal function with no H/O proteinuria or M/S hematuria Shall consider doing 24 hour ABPM if BP is fluctuant Shall streamline medications based on data Answered all questions; F/U given Orders: Orders Electrolytes 6 Months I10 - Essential (primary) hypertension Creatinine 6 Months I10 - Essential (primary) hypertension Protein Creatinine Ratio, Ur 6 Months I10 - Essential (primary) hypertension Blood Urea Nitrogen 6 Months I10 - Essential (primary) hypertension Coding Level of Care Code New Pt Level 4 (46901) Diagnoses Primary hypertension I10 Hypertension type: primary hypertension
[2024-09-26 13:44] VITALS: BP 110/60; PULSE 84; O2SAT 95; BMI 22.1
--- OUTSIDE RECORDS SUMMARY | 2024-09-26 14:07 | XMS_ITS | Clinical Summary ---
Author Organization [address] [place] [address] [place] [phone] Phone Care Team Providers Care Marketing Development Manager Name Role Phone Pop Gómez MD Primary Care Provider +1- [phone] Allergies Active Allergy Reactions Criticality Noted Date [...] Take 400 mcg by mouth daily. 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-mine rals 0.5-0.6-7-0.7 mg elixir Take 5 mL by mouth 1 (one) time each day. Active metoprolol tartrate (LOPRESSOR) 25 mg tabletIndications: Palpitations,Atria l premature depolarization Take 0.5 tablets (12.5 mg total) by mouth 2 (two) times a day. 90 each 2 5 Active tretinoin (RETIN-A) 0.05 % cream Apply topically at bedtime. Active Active Problems Problem Noted Date Diagnosed Date Fatigue 09/21/2023 Snoring 09/21/2023 PAC (premature atrial contraction) 11/25/2021 Palpitations 11/25/2021 SOB (shortness of breath) 11/25/2021 Other chest pain 07/15/2020 Hypertensive disorder 02/11/2020 Overview (04/02/2024): Hypertensive disorder SVT (supraventricular tachycardia) (CMS/HCC V24) 02/11/2020 Encounters Date Type Department Care Team Description 08/23/2024 Telephone [facility] [address] [place] [address] Pop Gómez MD Medical Records 08/15/2024 Telephone [facility] [address] [place] [address] Deanna Noriega MD Referral 08/09/2024 11:10 AM EDT Office Visit [facility] [address] [place] [address] Jenifer Brooks PA Palpitations (Primary Dx); Elevated blood pressure reading; Other chest pain; Hypertension, unspecified type; SVT (supraventricular tachycardia) (CMS/HCC V24); PAC (premature atrial contraction) 08/02/2024 Telephone [facility] [address] [place] [address] Deanna Noriega MD Hypertension 07/10/2024 Telephone [facility] [address] [place] [address] Deanna Noriega MD Hypertension (High blood pressure ) from Last 3 Months Social History Tobacco [...] Sign Reading Time Taken Comments Blood Pressure 122/83 08/09/2024 11:18 AM EDT Pulse 62 08/09/2024 11:18 AM EDT Temperature - - Respiratory Rate - - Oxygen Saturation 97% 08/09/2024 11:04 AM EDT Inhaled Oxygen Concentration - - Weight 51 kg (112 lb 6.4 oz) 08/09/2024 11:04 AM EDT Height 157.5 cm (5' 2 ) 08/09/2024 11:04 AM EDT Body Mass Index 20.56 08/09/2024 11:04 AM EDT Plan of Treatment Upcoming Encounters Date Type Department Care Team (Late st Contact Info) Description 10/23/2024 1:40 PM EDT Office Visit [facility] - [facility] [address] [facility] [address] [place] [address] Jenifer Brooks PA [address] [place] [address] Health Maintenance Due Date Last Done Comments Cervical Cancer Screening: Pap Smear 01/26/1980 Pneumococcal Vaccine: 50+ Years (1 of 1 - PCV) 2009 Zoster Vaccines (1 of 2) 2009 Breast Cancer Screening 12/13/2019 12/12/2017 Colorectal Cancer Screening: Colonoscopy 01/31/2022 Hepatitis C Screening 01/31/2022 Medicare Annual Wellness Visit 01/31/2022 Osteoporosis Screening (Bone Density Screening) 01/31/2022 Social Influencers of Health Screening 01/31/2022 COVID-19 Vaccine ( season) 2023 02/15/2022, 04/21/2021, 10/16/2020, Additional history exists Falls Risk Assessment 01/26/2024 Depression Screening 02/29/2024 Hypertension/CHF/CAD Annual BMP Blood Test 09/27/2024 09/28/2023, 09/28/2023 Influenza Vaccine (#1) 2024 , 01/10/2023, 01/12/2022, Additional history exists Cholesterol Screening (Lipid Panel) 09/27/2028 09/28/2023, 09/28/2023 DTaP,Tdap,and Td Vaccines (2 - Td or Tdap) 03/13/2032 03/13/2022 RSV Immunization Adult Patients (1 - 1-dose 75+ series) 2034 HIB Vaccines Aged Out No longer eligi [...] Procedure Name Priority Date/Time Associated Diagnosis Comments EXTERNAL CLINICAL LAB Routine 06/28/2024 11:19 AM EDT ANNUAL BMP BLOOD TEST Routine 09/28/2023 LIPID PANEL Routine 09/28/2023 MIKEY SCREENING DIGITAL Routine 12/12/2017 5:13 PM EDT Encounter for screening mammogram for malignant neoplasm of breast from Last 3 Months or Most Recently Relevant to Health Maintenance Results * External clinical lab (06/28/2024 11:19 AM EDT) us Historical Provider LAB BLOOD ORDERABLES Melida l Result * Annual BMP Blood Test (09/28/2023) Annual [...] us Historical Provider LAB BLOOD ORDERABLES Melida l Result * [facility] SCREENING DIGITAL (12/12/2017 5:13 PM EDT) Anatomical Region Laterality Modality Mammography 12/12/2017 11:1 4 AM EDT Narrative 12/12/2017 5:13 PM EDT [facility] Diagnostic Imaging Department [address] [place] [address] Patient: DAPHNE JACOB Darcie Portillo./Age/Sex: 1960 - 57 - F Unit#: [id number] [facility] Mnemonic/Ordering Site: [facility] Ordering Physician: MILLER TEJEDA DO Mikey Screening Digital - 12/12/17 - 1154 History: Bilateral breast cancer screening. Previous augmentation mammoplasty. Technique: Digital mammography. Conventional CC and MLO projections with implant displaced views, tomography and computer aided detection. Comparison: [facility] 12/30/2005, 11/04/2004 and 07/16/2003. Findings: Breast tissue consists of fatty and fibroglandular elements (category b density) bilaterally. Bilateral subglandular breast implants in place, lucent; therefore, likely saline containing. There is no suspicious group of microcalcifications, mass, architectural distortion or suspicious change in breast tissue density. Impression: No mammographic evidence of malignancy. BIRADS category 1; negative study, 3341F [id number], [id number] Note: Patient information entered into a reminder system with a target due date for the next mammogram: CPT II 7025F Dictating Physician: GEN RILEY MD Electronically Signed by: GEN RILEY MD Dic Date/Time: 12/12/171711 Sign date/Time: 12/12/171712 Procedure Note Gen Riley MD - 02/16/2022 [facility] Diagnostic Imaging Department [address] [place] [address] Patient: DAPHNE JACOB Darcie CaldwellB./Age/Sex: 1960 - 57 - F Unit#: [id number] Location/Status: [facility] Mnemonic/Ordering Site: [facility] Ordering Physician: MILLER TEJEDA DO Mikey Screening Digital - 12/12/17 - 1154 History: Bilateral breast cancer screening. Previous augmentationmammoplasty. Technique: Digital mammography. Conventional CC and MLO projectionswith implant displaced views, tomography and computer aided detection. Comparison: [facility] 12/30/2005, 11/04/2004 and 07/16/2003. Findings: Breast tissue consists of fatty and fibroglandular elements (category b density) bilaterally. Bilateral subglandular breast implantsin place, lucent; therefore, likely saline containing. There is no suspiciousgroup of microcalcifications, mass, architectural distortion or suspiciouschange in breast tissue density. Impression: No mammographic evidence of malignancy. BIRADS category 1; negative study, [id number], [id number] Note: Patient information entered into a reminder [...] CROSS - [place] MED[place] Care Teams Marketing Development Manager Relationship Specialty Start Date End Date Pop Gómez MD [address] [place] [address] PCP - General Internal Medicine 08/09/24
--- OUTSIDE RECORDS SUMMARY | 2024-09-26 14:07 | XMS_ITS | Clinical Summary ---
Author Organization [facility] Address [address] [place], [place] [id number] Phone Care Team Providers Care Affiliate Marketing Coordinator Name Role Phone Lars Ortiz DO Primary Care Provider + [phone] Allergies Active Allergy Reactions Criticality Noted Date Comments Amlodipine Palpitations Low 06/15/2017 Bupropion Hcl Unknown 03/17/2021 Clindamycin Unknown 03/17/2021 Doxycycline Hyclate Unknown 03/17/2021 Escitalopram Oxalate Unknown 03/17/2021 Lisinopril Unknown 03/17/2021 Moxifloxacin Unknown 03/17/2021 Medications omega 0-lxd-rln-fish oil 1,200 (144-216) mg Cap 1 capsule. Active Saccharomyces boulardii (FLORASTOR) 250 mg capsule 1 capsule. Acti ve Ca carb-Ca gluc-Mg ox-Mg gluco (CALCIUM MAGNESIUM) 500 mg calcium -250 mg Tab 1 tablet. Active multivit with minerals/lutei n (MULTIVITAMIN 50 PLUS ORAL) 1 tablet. Active cyanocobalamin /folic acid (VITAMIN B01-MVIEK ACID) 1,000-400 mcg Lozg 1 tablet. Active metoprolol tartrate (LOPRESSOR) 25 MG tablet Take 12.5 mg by mouth 2 (two) times a day. Active ferrous sulfate (IRON ORAL) Take by mouth. Activ e ZINC ORAL Take by mouth. Activ e riboflavin, vitamin B2, (,VITAMIN B-2,) 25 mg Tab Take 100 mg by mouth daily. Active EPINEPHrine 0.3 mg/0.3 mL auto-injector INJECT 1 PEN INTRAMUSCULARLY DIRECTED Active famotidine (PEPCID) 20 MG tablet Take 20 mg by mouth 2 (two) times a day. Active albuterol 90 mcg/actuation inhaler INHALE 1 PUFF INTO THE LUNGS EVERY 4 HOURS NEEDED FOR 30 DAYS Active dimenhyDRINATE (DRAMAMINE) 25 mg Chew dramamine, 0 Refills, Maintenance, 08/16/23 14:07:00 EDT 08/16/19 24 Active estradioL (ESTRACE) 0.01 % (0.1 mg/gram) vaginal cream Place 2 g vaginally 2 (two) times a week. Active Medication-Erik e Text Bio identical hormone replacement daily Active Active Problems Problem Noted Date Diagnosed Date Pre-diabetes 10/25/2022 Assessment & Plan (12/14/2023 12:34 PM EDT): Her glucose control is doing very well based upon the patient's freestyle tyree pro sensor download. She is not using any medications at this time to control her glucose levels. She is continuing to watch her diet and exercise to control her glucose levels. Her average glucose level was 98, time in range was 98%, time high was 1%, time low was 1%. Will have her continue to monitor her diet and exercise to keep her glucose levels under control. Will have her come back in 6 months to monitor for changes Assessment & Plan (11/30/2023 10:34 AM EDT): Placed the freestyle tyree pro sensor to the back of the patient's left arm. No bleeding or redness at the injection site. Reviewed care of the sensor. Reviewed that if the sensor falls off within 3 days to call the office and will place another one. If the sensor falls off after that period to bring in the sensor in a zip lock bag and we will download the data that is available on the sensor at that time. Will continue with current SMBG testing and current medication regimen. To call or message with any issues managing glucose levels. Labs ordered and reviewed today Assessment & Plan (05/25/2023 11:32 AM EDT): Her glucose control is doing very well based upon the patient's freestyle tyree pro sensor download. She is not using any medications at this time to control her glucose levels. She is continuing to watch her diet and exercise to control her glucose levels. Her average glucose level was 101, time in range was 98%, time high was 1%, time low was 1%. Will have her continue to monitor her diet and exercise to keep her glucose levels under control. Will have her come back in 6 months to monitor for changes Assessment & Plan (05/11/2023 11:30 AM EDT): Her glucose control is doing well based upon her A1C of 5.3%. Placed the freestyle tyree pro sensor to the back of her left arm. No bleeding or redness at the injection site. Will download in 2 weeks at visit. Assessment & Plan (11/08/2022 1:42 PM EDT): Her glucose control is very good based upon the patient's freestyle tyree pro sensor download. She is not using any medications to manage her pre-diabetes. She is being careful with her diet and exercise, which is working very well. Her average glucose level is 98, time in range is 97%, time high is 1%, time low is 2%. She will continue to work on watching her diet and being active. To call with any issues. Will repeat in 6 months to determine if there are any changes in her glucose control. Assessment & Plan (10/25/2022 2:10 PM EDT): With the patient now having symptoms of hyperglycemia, will check her to see if she is truly having highs or feeling the change in glucose levels more. Placed a freestyle tyree pro sensor on her inner right arm without any issues. The sensor started reading right away without issues. She will keep a food journal while wearing the sensor to help determine any potential rises or drops in her glucose levels. Discussed calling if the sensor falls off in less than 72 hours to call the office to have another one placed. If it falls off after the 72 hours to bring the sensor in a bag to the office for download on her appointment day. Skin laxity 06/16/2022 History of abdominoplasty 06/16/2022 History of breast augmentation 06/16/2022 Breast ptosis 06/16/2022 Gestational diabetes mellitus 06/26/2008 Overview (04/20/2014): Gestational diabetes mellitus; x 3 pregnancies Encounters Date Type Department Care Team Description 06/27/2024 Telephone [facility] [address] [place] [address] Yola Akins MD Appointment from Last 3 Months Family History Medical History Relation Comments Diabetes Father diabetes mellitu s Heart disease Father Hypertension Father hypertension Uncoded Family History Father cardiac; angioplasty Uncoded Family History Maternal Grandmother canc er; colon Arthritis Mother arthritis Cataracts Mother cataract Heart disease Mother Uncoded Family History Mother cardiac; angioplasty Relation Status Comments Father Maternal Grandmother Mother Social History Tobacco Use Types Packs/Day Years Used Date Smoking Tobacco: Former Cigarettes Q uit: 1999 Smokeless Tobacco: Never Tobacco Cessation:Counseling Given: Not Answered Alcohol Use Standard Drinks/Week Comments Yes 0 (1 standard drink = 0.6 oz pur e alcohol) occasional Education Answer Date Recorded Are you interested in more education? Not on dorota e 07/11/2022 Are you concerned about learning? Not on file 07/11/2022 No 07/11/2022 No 07/11/2022 Digital Access Answer Date Recorded No 07/25/2022 No 07/25/2022 Reliable internet access at home? Not on file 07/25/2022 Device with a working camera? Not on file Comments Unknown Sex and Gender Information Value Date Recorded Sex Assigned at Not on file Legal Sex Female 5:25 PM EST Gender Identity Not on file Sexual Orientation Not on file Last Filed Vital Signs Vital Sign Reading Time Taken Comments Blood Pressure 124/70 12/14/2023 11:00 AM EDT Pulse 71 12/14/2023 11:00 AM EDT Temperature 36.9 C (98.4 F) 12/08/2023 1:25 PM EDT Respiratory Rate - - Oxygen Saturation 99% 12/14/2023 11:00 AM EDT Inhaled Oxygen Concentration - - Weight 51.1 kg (112 lb 9.6 oz) 12/14/2023 11:00 AM EDT Height 153.7 cm (5' 0.51 ) 12/14/2023 11:00 AM E DT Body Mass Index 21.62 12/14/2023 11:00 AM EDT Plan of Treatment Upcoming Encounters Date Type Department Care Team (Late st Contact Info) Description 11/07/2024 10:40 AM EDT Office Visit [facility] [address] [place] [address] Jess Ramirez PA-C [address] [place] [phone] 11/20/2024 11:20 AM EDT Office Visit [facility] [address] [place] [address] Jess Ramirez PA-C [address] [place] [phone] Health Maintenance Due Date Last Done Comments Adult Td,Tdap Booster 1960 LIPID PANEL 1960 DEPRESSION SCREENING 1971 HEPATITIS C SCREENING 1977 HIV ONE-TIME SCREENING (18-6 5 YEARS) 1977 MAMMOGRAM 1999 COLOGUARD 01/26/2004 COLONOSCOPY 01/26/2004 COLORECTAL CANCER SCREENING 01/26/2004 FIT TEST 01/26/2004 FOBT 01/26/2004 SIGMOIDOSCOPY 01/26/2004 VIRTUAL COLONOSCOPY 01/26/2004 PNEUMOCOCCAL VACCINES (50+ years) (1 of 1 - PCV) 2009 ZOSTER VACCINES (1 of 2) 2009 COVID-19 VACCINE (2023-2 5 season) 2023 04/21/2021, 10/16/2020, 09/18/2020 OSTEOPOROSIS SCREENING INITI AL (ONE-TIME) 01/26/2024 SMOKING Hx and SMOKELESS TOBACCO SCREENING 12/13/2024 12/14/2023 RSV VACCINE (1 - 1-dose 75+ series) 2034 HEPATITIS A VACCINES Aged Out No long er eligible based on patient's age to complete this topic HIB VACCINES Aged Out No longer eligi ble based on patient's age to complete this topic MENINGOCOCCAL VACCINES (ACWY) Aged Out No longer eligible based on patient's age to complete this topic MENINGOCOCCAL VACCINES (B) Aged Out N o longer eligible based on patient's age to complete this topic Medical Devices Not on file Insurance MEDICARE PPO BLUE REPLACEMENT MEDICARE PPO BLUE REPLACEMENT MEDICARE PPO BLUE REPLACEMENT MEDICARE PPO BLUE REPLACEMENT MEDICARE PPO BLUE REPLACEMENT MEDICARE PPO BLUE REPLACEMENT MEDICARE PPO BLUE REPLACEMENT MEDICARE PPO BLUE REPLACEMENT MEDICARE PPO BLUE REPLACEMENT Care Teams Affiliate Marketing Coordinator Relationship Specialty Start Date End Date Lars Ortiz DO [address] [place] [phone] PCP - General Internal Medicine 12/23/20 Additional Source Comments The information contained in this document represents components of the legal health record. It is not the complete legal health record.[facility]
--- OUTSIDE RECORDS SUMMARY | 2024-09-26 14:07 | XMS_ITS | Clinical Summary ---
Author Organization [facility] Address [address] [place] [address] Care Team Providers Care Salvage Mechanic Name Role Phone AngelLars baez Primary Care Provider +1 [phone] Allergies Active Allergy Reactions Criticality Noted Date [...] 2009 Shingrix-Zoster Vaccine (1 of 2) 2009 Fall Risk Assessment 01/26/2024 Osteoporosis Screening (DEXA Scan) 01/26/2024 Pneumococcal Vaccine (1 of 1 - PCV) 01/26/2024 Influenza Vaccine (#1) 2024 RSV Adult > 60+ Yrs or Pregn [...] age to complete this topic Care Teams Salvage Mechanic Relationship Specialty Start Date End Date Lars Ortiz DO [address] [place] [phone] PCP - General Internal Medicine 06/13/17
== END 2024-09-26 14:18 | disposition home or self-care (01) ==
LOC: HO.HKA 13:33
PROVIDERS: PCP Internal Medicine; Visit Provider Internal Medicine Nephrology
DX: I10 Essential (primary) hypertension (principal)
CPT/HCPCS: 99204

== ENCOUNTER 2024-10-23 14:44 | Outpatient (REF) | payer MEDICARE, SELFPAY ==
--- OUTSIDE RECORDS SUMMARY | 2024-10-23 13:40 | XMS_ITS | Encounter Summary ---
Author Organization [facility] Address [address] [place] [address] Care Team Providers Care Dryland Farmer Name Role Phone Pop Gómez MD Primary Care Provider [phone]- [phone] Reason for Referral * Imaging (Routine) - Pending Review Specialty Diagnoses / Procedures Referred By Rica hernandez Referred To Contact Radiology Diagnoses PAC (premature atrial contraction) Palpitations Other chest pain Atrial premature depolarization Procedures CT Angio Heart w 3D Imaging/Function Jenifer Brooks PA [address] [place] [address] Dr A[place] [address] [place] [phone] External Performed Referral ID Status Reason Start Date Expiration Date V isits Requested Visits Authorized [id number] Pending Review 10/23/2024 10/23/2025 1 1 Reason for Visit * Reason Comments Follow-up Encounter Details Date Type Department Care Team (Latest Contact Info) Description 10/23/2024 1:40 PM EDT Office Visit [facility] - [address] [facility] [address] [place] [address] Jenifer Brooks PA [address] [place] [address] [place] [address] Other chest pain (Primary Dx); PAC (premature atrial contraction); Palpitations; Atrial premature depolarization Social History Tobacco Use Types Packs/Day Years [...] Sign Reading Time Taken Comments Blood Pressure 132/88 10/23/2024 1:55 PM EDT Pulse 64 10/23/2024 1:55 PM EDT Temperature - - Respiratory Rate - - Oxygen Saturation 97% 10/23/2024 1:55 PM EDT Inhaled Oxygen Concentration - - Weight 51.3 kg (113 lb) 10/23/2024 1:55 PM EDT Height 154.9 cm (5' 1 ) 10/23/2024 1:55 PM EDT Body Mass Index 21.35 10/23/2024 1:55 PM EDT documented in this encounter Ordered Prescriptions Prescription Sig Dispense Quantity Refills Last Filled Start Date End Date metoprolol tartrate (LOPRESSOR) 25 mg tabletIndications:Sergo lpitations,Atrial premature depolarization Take 0.5 tablets (12.5 mg total) by mouth 2 (two) times a day. 90 each 2 10/23/2024 documented in this encounter Progress Notes * SERGO Echols - 10/23/2024 1:40 PM EDT Please call with any questions or concerns Jenifer STEPHEN-C [phone] [facility]iology [address] [place] [address] documented in this encounter Plan of Treatment Scheduled Orders Name Type Priority Associated Diagnoses Orde r Schedule CT Angio Heart w 3D Imaging/Function Cardiac CT/MRI Routine PAC (premature atrial contraction) Palpitations Other chest pain Atrial premature depolarization Expected: 11/23/2024, Expires: 10/23/2025 documented as of this encounter Procedures Procedure Name Priority Date/Time Associated Diagnosis Comments ECG 12-LEAD Routine 10/23/2024 2:01 PM EDT PAC (premature atrial contraction) Palpitations documented in this encounter Results * ECG 12 lead (10/23/2024 2:01 PM EDT) Ventricular Rate ECG 64 BPM GEMUSE Atrial Rate 64 BPM GEMUSE P-R Interval 168 ms GEMUSE QRS Duration 86 ms GEMUSE Q-T Interval 408 ms GEMUSE QTc 420 ms GEMUSE P Wave [place] 70 degrees GEMUSE R [place] 27 degrees GEMUSE T [place] 28 degrees GEMUSE ECG Interpretation Normal sinus rhythm Possible Left atrial enlargement Borderline ECG When compared with ECG of 23-APR-2024 13:02, No significant change was found GEMUSE 10/23/2024 1:52 PM EDT us Jenifer STEPHEN ECG ORDERABLES Final Result GEMUSE documented in this encounter Visit Diagnoses Diagnosis Other chest pain- Primary PAC (premature atrial contraction) Supraventricular premature beats Palpitations Atrial premature depolarization Supraventricular premature beats documented in this encounter Discontinued Medications Medication Sig Discontinue Reason Start Date End Da te multivitamin (MULTIPLE VITAMINS ORAL) Duplicate order 10/23/2024 metoprolol tartrate (LOPRESSOR) 25 mg tabletIndications:Palpitat ions,Atrial premature depolarization Take 0.5 tablets (12.5 mg total) by mouth 2 (two) times a day. Reorder 04/23/2024 10/23/2024 documented as of this encounter Care Teams Dryland Farmer Relationship Specialty Start Date End Date Pop Gómez MD [facility] [address] [place] [address] [address] [place] [address] PCP - General Internal Medicine 08/09/24 documented as of this encounter
--- OUTSIDE RECORDS SUMMARY | 2024-10-23 15:37 | XMS_ITS | Clinical Summary ---
Author Organization [facility] Address [address] [place], [place] [id number] Phone Care Team Providers Care Configuration Release Manager Name Role Phone Lars Oritz DO Primary Care Provider + [phone] Allergies Active Allergy Reactions Criticality Noted Date Comments Amlodipine Palpitations Low 06/15/2017 Bupropion Hcl Unknown 03/17/2021 Clindamycin Unknown 03/17/2021 Doxycycline Hyclate Unknown 03/17/2021 Escitalopram Oxalate Unknown 03/17/2021 Lisinopril Unknown 03/17/2021 Moxifloxacin Unknown 03/17/2021 Medications omega 6-ulw-dxi-fish oil 1,200 (144-216) mg Cap 1 capsule. Active Saccharomyces boulardii (FLORASTOR) 250 mg capsule 1 capsule. Acti ve Ca carb-Ca gluc-Mg ox-Mg gluco (CALCIUM MAGNESIUM) 500 mg calcium -250 mg Tab 1 tablet. Active multivit with minerals/lutei n (MULTIVITAMIN 50 PLUS ORAL) 1 tablet. Active cyanocobalamin /folic acid (VITAMIN Z71-SHGDV ACID) 1,000-400 mcg Lozg 1 tablet. Active [...] (04/20/2014): Gestational diabetes mellitus; x 3 pregnancies Family History Medical History Relation Comments Diabetes [...] Date Smoking Tobacco: Former Cigarettes Q uit: 2000 Smokeless Tobacco: Never Tobacco Cessation:Counseling Given: Not [...] 10:40 AM EDT Office Visit [facility] [address] [place] [address] [place] [address] Jess Ramirez PA-C [address] [place] [address] 11/20/2024 11:20 AM EDT Office Visit [facility] [place] [address] [place] [address] Health Maintenance Due Date Last Done Comments [...] VACCINES (1 of 2) 2009 COVID-19 VACCINE (4 - 2023-2 5 season) 2023 04/21/2021, 10/16/2020, 09/18/2020 OSTEOPOROSIS SCREENING INITI AL (ONE-TIME) 01/26/2024 INFLUENZA VACCINE (#1) 2024 01/07/2021 SMOKING Hx and SMOKELESS TOBACCO SCREENING 12/13/2024 [...] REPLACEMENT MEDICARE PPO BLUE REPLACEMENT Care Teams Configuration Release Manager Relationship Specialty Start Date End Date Lars Ortiz DO [address] [place] [id number] PCP - General Internal Medicine 12/23/20 Additional Source Comments The information contained in this document represents components of the legal health record. It is not the complete legal health record.[facility]
--- OUTSIDE RECORDS SUMMARY | 2024-10-23 15:37 | XMS_ITS | Clinical Summary ---
Author Organization [facility] Address [address] [place] [address] Care Team Providers Care Sales Representative [employer] Name Role Phone AngelLars baez Primary Care Provider [phone] Allergies Active Allergy Reactions Criticality Noted Date [...] age to complete this topic Care Teams Sales Representative [employer] Relationship Specialty Start Date End Date Lars Ortiz DO [address] [place] [phone] PCP - General Internal Medicine 06/13/17
--- OUTSIDE RECORDS SUMMARY | 2024-10-23 15:37 | XMS_ITS | Clinical Summary ---
Author Organization [address] [place] [address] [place] [phone] Phone Care Team Providers Care Corn Miller Name Role Phone Pop Gómez MD Primary Care Provider [phone] Allergies Active Allergy Reactions Criticality Noted Date Comments Amlodipine 04/02/2024 Bupropion 08/11/2020 Clindamycin Diarrhea 09/21/2023 Doxycycline Hyclate 04/02/2024 Escitalopram Oxalate 04/02/2024 Iodinated Contrast Media 10/23/2024 Per pt allergy but doent recall allergic response Lisinopril 04/02/2024 Moxifloxacin Hcl 04/02/2024 Omeprazole Diarrhea,Nausea And Vomiting 08/14/2020 Medications ASCORBIC ACID, VITAMIN C, ORAL Take by mouth daily. Active coenzyme Q-10 10 mg capsule Take by mouth. Active ferrous gluconate (FERGON) 240 mg (27 mg iron) tablet Take by mouth. Active psyllium seed, with sugar, (FIBER ORAL) Take by mouth. Active OMEGA-3 FATTY ACIDS-FISH OIL ORAL Take by mouth. Active CHOLECALCIFEROL, VITAMIN D3, ORAL Take by mouth. Active ZINC SULFATE ORAL Take by mouth. Active cyanocobalamin (VITAMIN B-12) 250 mcg tablet Active folic acid (FOLVITE) 400 mcg tablet Take 400 mcg by mouth daily. 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-mine rals 0.5-0.6-7-0.7 mg elixir Take 5 mL by mouth 1 (one) time each day. Active tretinoin (RETIN-A) 0.05 % cream Apply topically at bedtime. 04/19/19 25 Active metoprolol tartrate (LOPRESSOR) 25 mg tabletIndications: Palpitations,Atria l premature depolarization Take 0.5 tablets (12.5 mg total) by mouth 2 (two) times a day. 90 each 2 10/24/19 25 025 Active multivitamin (MULTIPLE VITAMINS ORAL) 025 Discontin ued(Dupli jhon order) metoprolol tartrate (LOPRESSOR) 25 mg tabletIndications: Palpitations,Atria l premature depolarization Take 0.5 tablets (12.5 mg total) by mouth 2 (two) times a day. 90 each 2 04/23/19 25 025 Discontin ued(Reord er) Active Problems Problem Noted Date Diagnosed Date Fatigue 09/21/2023 Snoring 09/21/2023 PAC (premature atrial contraction) 11/25/2021 Palpitations 11/25/2021 SOB (shortness of breath) 11/25/2021 Other chest pain 07/15/2020 Hypertensive disorder 02/11/2020 Overview (04/02/2024): Hypertensive disorder SVT (supraventricular tachycardia) ([facility] V24) 02/11/2020 Encounters Date Type Department Care Team Description 10/23/2024 1:40 PM EDT Office Visit [facility] Cardiology [facility] [address] [place] [phone] Jenifer Brooks PA Other chest pain (Primary Dx); PAC (premature atrial contraction); Palpitations; Atrial premature depolarization 08/23/2024 Telephone [facility] Cardiology [facility] [address] [place] [phone] Pop Gómez MD 08/15/2024 Telephone [facility] Cardiology [facility] [address] [place] [phone] Deanna Noriega MD 08/09/2024 11:10 AM EDT Office Visit [facility] [address] [place] [address] Jenifer Martino PA Palpitations (Primary Dx); Elevated blood pressure reading; Other chest pain; Hypertension, unspecified type; SVT (supraventricular tachycardia) (CMS/HCC V24); PAC (premature atrial contraction) 08/02/2024 Telephone [facility] [address] [place] [address] Deanna Noriega MD from Last 3 Months Social History Tobacco [...] Mass Index 21.35 10/23/2024 1:55 PM EDT Plan of Treatment Health Maintenance [...] PM EDT PAC (premature atrial contraction) Palpitations HM ANNUAL BMP BLOOD TEST Routine 09/28/2023 LIPID PANEL Routine 09/28/2023 MIKEY SCREENING DIGITAL Routine 12/12/2017 5:13 PM EDT Encounter for screening mammogram for malignant neoplasm of breast from Last 3 Months or Most Recently Relevant to Health Maintenance Results * ECG 12 lead (10/23/2024 2:01 PM EDT) [facility] Ventricular Rate ECG 64 BPM GEMUSE Atrial Rate 64 BPM GEMUSE P-R Interval 168 ms GEMUSE QRS Duration 86 ms GEMUSE Q-T Interval 408 ms GEMUSE QTc 420 ms GEMUSE P Wave [place] 70 degrees GEMUSE R [place] 27 degrees GEMUSE T [place] 28 degrees GEMUSE ECG Interpretation Normal sinus rhythm Possible Left atrial enlargement Borderline ECG When compared with ECG of 23-APR-2024 13:02, No significant change was found GEMUSE 10/23/2024 1:52 PM EDT Jenifer STEPHEN ECG ORDERABLES Final Result GEMUSE * Annual BMP Blood Test (09/28/2023) [facility] Annual BMP Blood Test abstracted Historical Provider HEALTH MAINTENANCE Final Result * (ABNORMAL) Lipid panel (09/28/2023) [facility] LDL/HDL Ratio 3 0 - 4 Triglycerides [...] AM EDT Narrative 12/12/2017 5:13 PM EDT [facility] Diagnostic Imaging Department [address] [place] [address] Patient: DAPHNE JACOB/Age/Sex: 1960 - 57 - F Unit#: [id number] Location/Status: SPDIMAM/REG CLI Mnemonic/Ordering Site: [facility] Ordering Physician: MILLER TEJEDA DO Mikey Screening Digital - 12/12/17 - 1154 History: Bilateral breast cancer screening. Previous augmentation mammoplasty. Technique: Digital mammography. Conventional CC and MLO projections with implant displaced views, tomography and computer aided detection. Comparison: [facility] 12/30/2005, 11/04/2004 and 07/16/2003. Findings: Breast tissue consists of fatty and fibroglandular elements (category b density) bilaterally. Bilateral subglandular breast implants in place, lucent; therefore, likely saline containing. There is no suspicious group of microcalcifications, mass, architectural distortion or suspicious change in breast tissue density. Impression: No mammographic evidence of malignancy. BIRADS category 1; negative study, 3341F 52403, [id number] Note: Patient information entered into a reminder system with a target due date for the next mammogram: CPT II 7025F Dictating Physician: GEN RILEY MD Electronically Signed by: GEN RILEY MD Dic Date/Time: 12/12/171711 Sign date/Time: 12/12/171712 Procedure Note Gen Riley MD - 02/16/2022 [facility] Diagnostic Imaging Department [address] [place] [address] Patient: DAPHNE JACOB/Age/Sex: 1960 - 57 - F Unit#: [id number] Location/Status: SPDIMAM/REG CLI Mnemonic/Ordering Site: [facility] Ordering Physician: MILLER TEJEDA DO Mikey Screening Digital - 12/12/17 - 1154 History: Bilateral breast cancer screening. Previous augmentationmammoplasty. Technique: Digital mammography. Conventional CC and MLO projectionswith implant displaced views, tomography and computer aided detection. Comparison: [facility] 12/30/2005, 11/04/2004 and 07/16/2003. Findings: Breast tissue consists of fatty and fibroglandular elements (category b density) bilaterally. Bilateral subglandular breast implantsin place, lucent; therefore, likely saline containing. There is no suspiciousgroup of microcalcifications, mass, architectural distortion or suspiciouschange in breast tissue density. Impression: No mammographic evidence of malignancy. BIRADS category 1; negative study, 3341F 83883, 27771 Note: Patient information entered into a reminder [...] [place] - [place] MED[place] Care Teams Corn Miller Relationship Specialty Start Date End Date Pop Gómez MD [address] [place] [address] PCP - General Internal Medicine 08/09/24
--- OUTSIDE RECORDS SUMMARY | 2024-10-23 15:37 | XMS_ITS ---
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 This is a 64 year old female who is following up for actinic keratosis on the left nose. She wasseen on March 11, 2023, at which time she was treated with Liquid Nitrogen.The patient presents for further evaluation and management.Today the patient reports: Modifying factors: unchanged by therapy.The patient followed the treatment plan as directed.Interval History: Pt reports spot has recurred. 2. This is a 64 year old female who is following up for dilated pore on the right inferior central malar cheek. She was seen on May 16, 2024, at which time she was treated with Liquid Nitrogen.Since then, the patient states the dilated pore is unchanged.The patient presents for further evaluationand management.Today the patient reports: Modifying factors: unchanged by therapy.The patient followed the treatment plan as directed.Interval History: Pt reports spot persist. Allergies, Adverse Reactions, Alerts Substance RxNorm Reaction(s) Severity Status Start Da te amlodipine 69642 unspecified active clindamycin unspecified active Medications Medication Generic Name RxNorm Strength Strength Unit Route Dose Dose Form Frequency Date Started Date Ended Status Indication Sig ketoconazol e ketocona zole 327217 2 % Topica l thin layer cream PRN 05/17/19 25 active Appl y AM and PM dry skin nose mupirocin mupiroci n 657112 2 % Topica l apply thin layer to skin ointm ent as needed 03/11/19 24 active Appl y AM and PM righ t ignacio k exco riat ions unti l heal ed. Appl y AM noon and PM insi de and arou nd nose for 7 days tretinoin tretinoi n 475231 0.025 % Topica l apply thin layer to skin cream as needed 08/22/19 22 active Appl y to affe cted skin nigh tly for acne . lorazepam lorazepa m 1 mg Oral 1 table t prn active metoprolol tartrate 414381 25 mg Oral 1/2 table t BID active Amoxicillin NULL 10/13/19 19 active Benzoyl Peroxide NULL 0 19 active diazePAM NULL 10/13/19 19 active Diprolene AF NULL 10/01/19 18 active Elidel NULL 03/26/19 10 active Finacea NULL 01/03/20 08 active Latisse NULL 03/04/19 12 active Lisinopril NULL 10/13/19 19 suspend ed MedroxyPROG ESTERone Acetate NULL 07/12/19 15 active Metrogel NULL 01/03/20 08 active OneTouch Ultra Blue NULL 10/12 19 active Oracea NULL 01/03/20 08 active PARoxetine HCl NULL 10/01/19 18 active PredniSONE NULL 10/01/19 18 active ProAir HFA NULL 10/13/19 19 active Protopic NULL 12/19/19 08 active [place] NULL 03/29/19 09 active [place] NULL 05/30/19 08 active Triamcinolo ne Acetonide NULL 18 suspend ed Problems Problem Code Type Status Date of Diagnosis Da te of Resolution Disorder of skin (disorder) 26430327(SNO MED) Diagnosis active 10/23/2024 Inflammatory dermatosis (disorder) 814432414(SN OMED) Diagnosis active 10/23/2024 Neoplasm of uncertain behavior of skin (disorder) 95679965(SNO MED) Diagnosis active 10/23/2024 Hemangioma of skin and subcutaneous tissue (disorder) 756012896(SN OMED) Diagnosis active 05/16/2024 Seborrheic keratosis (disorder) 121097210(SN OMED) Diagnosis active 05/16/2024 Disorder of pigmentation (disorder) 275329491(SN OMED) Diagnosis active 05/16/2024 Melanocytic nevus of trunk (disorder) 870765946(SN OMED) Diagnosis active 05/16/2024 Disorder of skin (disorder) 01062415(SNO MED) Diagnosis active 05/16/2024 Asteatosis cutis (disorder) 07288165(SNO MED) Diagnosis active 05/16/2024 Seborrheic dermatitis (disorder) 89758719(SNO MED) Diagnosis active 05/16/2024 Patient encounter status (finding) 331357456(SN OMED) Diagnosis active 05/16/2024 Actinic keratosis (disorder) (SN OMED) Diagnosis active 03/11/2023 Repetitive self-excoriation (disorder) 446173177(SN OMED) Diagnosis active 03/11/2023 Hemangioma of skin and subcutaneous tissue (disorder) 352421069(SN OMED) Diagnosis active 12/01/2022 Seborrheic keratosis (disorder) 652460510(SN OMED) Diagnosis active 12/01/2022 Disorder of pigmentation (disorder) 437005759(SN OMED) Diagnosis active 12/01/2022 Melanocytic nevus of trunk (disorder) 049504358(SN OMED) Diagnosis active 12/01/2022 Patient encounter status (finding) 957723723(SN OMED) Diagnosis active 12/01/2022 Neoplasm of uncertain behavior of skin (disorder) 18874316(SNO MED) Diagnosis active 12/01/2022 Actinic keratosis (disorder) (SN OMED) Diagnosis active 12/01/2022 Itching of skin (finding) 399465574(SN OMED) Diagnosis active 12/01/2022 Disorder of skin (disorder) 50501300(SNO MED) Diagnosis active 05/06/2022 Itching of skin (finding) 569786802(SN OMED) Diagnosis active 08/21/2021 Acne (disorder) 63853374(SNO MED) Diagnosis active 08/21/2021 Allergic contact dermatitis (disorder) 077013976(SN OMED) Diagnosis active 09/30/2017 Senile hyperkeratosis (disorder) 644221678(SN OMED) Diagnosis active 07/11/2014 Atrial fibrillation (disorder) 52172006(SNO MED) Problem active History of skin disorder (situation) 061928627(SN OMED) Problem active Atrial tachycardia (disorder) 774692774(SN OMED) Problem active Acne vulgaris (disorder) 53692077(SNO MED) Problem active Actinic keratosis (disorder) (SN OMED) Problem active Seborrheic keratosis (disorder) 155919415(SN OMED) Problem active Results No data Encounters Service provided at [address], [address], [place], [place] [id number]. Office phone number is [phone]. Office fax number is [phone]. 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) [place] 10/23/2024 14:00:00 [facility] [id number] Reason For Referral I saw Daphne Ernst in the office on October 23, 2024.Below is a summary of our visit:Dilated Pore: keratotic debris surrounding the pore opening located on the right inferior central malar cheek.Plan: Counseling.Dermatitis Unspecified: patient reports itching and dryness of nares located on the left head of middle turbinate.Plan: Counseling, Prescription, Treatment Regimen, Order Tests, and Additional Notes.Neoplasm of Uncertain Behavior: very light brown patch of left nares itchy at times per patient distributed on the left inferior alar rim.Plan: Counseling, Liquid Nitrogen, and Additional Notes.Neoplasm of Uncertain Behavior: papule that bleeds at times per patient; no worrisome featureswhen viewed with dermatoscope located on the right inferior medial malar cheek.Plan: Benign Destruction Cosmetic and Counseling.My impression and plan was the followin.Dilated Pore, Status: UnchangedCounseling2.Dermatitis UnspecifiedCounselingPrescription: mupirocin 2 % topical ointment TPTreatment Regimen: Initiate Treatment - Mupirocin 2 % topical ointment: Apply AM noon and PM inside and around nose for 7 days-10 days.Order TestsAdditional Notes3.Neoplasm of Uncertain BehaviorCounselingLiquid Nitrogen: left inferior alar rim; Medical Necessity Justification (varies by insurance carrier and by region) - intensely itchy and itchy.Additional Notes4.Neoplasm of Uncertain BehaviorBenign Destruction Cosmetic: right inferior medial malar cheek; Method - cautery.Counseling Procedures Procedure Date Documentation of current medications (pr ocedure) 10/23/2024 12:00 am [place] Destruction of lesion of skin (procedure ) 10/23/2024 12:00 am UT Cryotherapy of skin lesion with liquid n itrogen (procedure) 10/23/2024 12:00 am UTC Cryotherapy of skin lesion with liquid n itrogen (procedure) 05/16/2024 12:00 am UTC Destruction of premalignant skin lesion (procedure) 03/11/2023 12:00 am UTC Cryotherapy of skin lesion with liquid n itrogen (procedure) 12/01/2022 12:00 am UTC Documentation of past medical history (p rocedure) Documentation of past medical history (p rocedure) Documentation of past medical history (p rocedure) Documentation of past medical history (p rocedure) Ablation - action (qualifier value) Ablation - action (qualifier value) Ablation - action (qualifier value) Card iac Review Of Systems Provider reviewed on Oct 23, 2024.A complete review of systems was performed and was notable for problems with scarring (hypertrophic or keloid).No Problems With Healing, No Problems With Bleeding, No Immunosuppression, No Hay Fever, No Chest Pain, No Fever Or Chills, No Night Sweats, No Unintentional Weight Loss, No Thyroid Problems, No Sore Throat, No Blurry Vision, No Abdominal Pain, No Bloody Stool, No Bloody Urine, No Joint Aches, No Muscle Weakness, No Neck Stiffness, No Headaches, No Seizures, No Shortness Of Breath, No Wheezing, No Anxiety, And No Depression. Assessment 1.Dilated Pore, Status: UnchangedCounseling2.Dermatitis UnspecifiedCounselingPrescription: mupirocin 2 % topical ointment TPTreatment Regimen: Initiate Treatment - Mupirocin 2 % topical ointment: Apply AM noon and PM inside and around nose for 7 days-10 days.Order TestsAdditional Notes3.Neoplasm ofUncertain BehaviorCounselingLiquid Nitrogen: left inferior alar rim; Medical Necessity Justification (varies by insurance carrier and by region) - intensely itchy and itchy.Additional Notes4.Neoplasmof Uncertain BehaviorBenign Destruction Cosmetic: right inferior medial malar cheek; Method - cautery.Counseling Plan of Care Future visit for 12/18/2024 - Follow up in 2 months for: Focused Visit - 15 minutes. Other Instructions: recheck in 2-3 mos nose and cheek. Other Instructions: recheck in 2-3 mos nose and cheek. Code Detail Instructions [id number] Anaerobic and Aerobic Culture [facility] 26, [id number] mupirocin 2 % topical ointment A pply AM noon and PM inside and around nose for 7 days-10 days 20291005 ketoconazole 2 % topical cream A pply AM and PM dry skin nose 352384 tretinoin 0.025 % topical cream Apply pea sized amount to face at bedtime. 713326 mupirocin 2 % topical ointment A pply AM and PM right cheek excoriations until healed. Apply AM noon and PM inside and around nose for 7 days 017895 tretinoin 0.025 % topical cream Apply to affected skin nightly for acne. 90 day supply 290484 tretinoin 0.025 % topical cream Apply to affected skin nightly for acne. PRIOR AUTH APPPROVED- PLEASE FILL RX FOR PATIENT [id number] tretinoin 0.025 % topical cream Apply to affected skin nightly for acne. PRIOR AUTH APPROVED- PLEASE FILL RX [id number] tretinoin 0.025 % topical cream Apply to affected skin nightly for acne. 101416 tretinoin 0.025 % topical cream Apply to affected skin nightly for acne. Instructions * I counseled the patient regarding the following:Skin Care: Dilated pores require no specific skin care, but their contents can be expressed with lateral pressure.Expectations: Dilated pores are benign sacs that partially open to the skin surface.Contact Office if: Dilated pores become red and tender. * I counseled the patient regarding the following:Skin care: Avoid scratching or picking at the skin.Applying a bland moisturizer twice daily will help the lesions heal.Expectations: Excoriations are caused by scratching the skin. Discovering the underlying cause can be difficult because the overlying skin damage may mask the underlying primary lesion.Contact office if: you develop a new lesion which has not been scratched or picked. * Begin the following treatment(s): Mupirocin 2 % topical ointment: Apply AM noon and PM inside and around nose for 7 days-10 days. * I counseled the patient regarding the following:Education and explanation to patient.Advised photo protection when outdoors. Reviewed ABCDEs of moles. Patient voiced understanding.Contact Office if: patient notes any new or changing lesions or if lesion recurs. * I counseled the patient regarding the following:Education and explanation to patient.Advised photo protection when outdoors. Reviewed ABCDEs of moles. Patient voiced understanding.Contact Office if: patient notes any new or changing lesions or if lesion recurs. Social History Code Activity Start Date End Date 7645660 (SNOMED) Former smoker Sex female Sexual orientation Unspecified Gender identity Unspecified Vital Signs No data
[2024-10-23 16:12] LABS: Appearance Urine Clear; Glucose Urine UA Negative (Negative); PH 6.0 (5.0-9.0); Specific Gravity - Urine 1.025 (1.005-1.025)
[2024-10-23 16:15] LABS: MANUAL DIFF FLAG NO
[2024-10-23 16:26] LABS: Hematocrit 40.3 % (37.0-47.0); Hemoglobin 13.8 g/dl (12.0-16.0); Imm Gran Abs Auto 0.02 X10*3/uL (0.00-0.03); Imm Gran Pct Auto 0.4 % (0.0-0.4); Lymphocytes Absolute Auto 1.3 X10*3/uL (1.2-4.9); Mean Corpuscular HGB Conc 34.2 g/dl (31.0-35.0); Mean Corpuscular Hemoglobin 33.4 pg (27.0-33.0); Mean Corpuscular Volume 97.6 fL (80.0-98.0); NRBC Abs Auto 0.000 X10*3/uL (0.0-0.012); NRBC Pct Auto 0.0 /100WBC (0.0-0.2); Platelet Count 269 X10*3/uL (160-400); Red Blood Count 4.13 X10*6/uL (4.20-5.50); White Blood Count 5.6 X10*3/uL (4.8-10.8)
[2024-10-23 16:44] LABS: Alanine Aminotransferase 11 U/L (0-31); Anion Gap 11 (12-20); Aspartate Amino Transferase 17 U/L (5-31); Blood Urea Nitrogen 21 mg/dL (9-16); Calcium 8.8 mg/dL (8.4-10.2); Carbon Dioxide 27 mmol/L (22-29); Chloride 107 mmol/L (96-108); Estimated Glomerular Filt Rate > 60; Potassium 4.0 mmol/L (3.3-5.1); Sodium 141 mmol/L (135-145)
[2024-10-23 17:40] LABS: Total Protein Urine Random < 7 mg/dL (<12)
== END 2024-10-23 14:45 | disposition home or self-care (01) ==
LOC: HO.HMGCLDS 14:44
PROVIDERS: PCP Internal Medicine; Visit Provider Internal Medicine Nephrology
DX: I10 Essential (primary) hypertension (principal)
CPT/HCPCS: 36415; 80051; 81003; 82310; 82565; 82570; 84156; 84450; 84460; 84520; 85025

== ENCOUNTER 2024-11-20 13:43 | Outpatient (REF) | payer MEDICARE, SELFPAY ==
[2024-11-20 16:34] LABS: Hematocrit 40.6 % (37.0-47.0); Hemoglobin 14.4 g/dl (12.0-16.0); Mean Corpuscular HGB Conc 35.5 g/dl (31.0-35.0); Mean Corpuscular Hemoglobin 34.0 pg (27.0-33.0); Mean Corpuscular Volume 96.0 fL (80.0-98.0); NRBC Abs Auto 0.000 X10*3/uL (0.0-0.012); NRBC Pct Auto 0.0 /100WBC (0.0-0.2); Platelet Count 255 X10*3/uL (160-400); Red Blood Count 4.23 X10*6/uL (4.20-5.50); White Blood Count 4.5 X10*3/uL (4.8-10.8)
[2024-11-20 17:03] LABS: Hemoglobin A1C 136.1056 umol/L; Total Hemoglobin (HGBA1C) 3752.4094 umol/L
[2024-11-20 17:09] LABS: Vitamin B12 785 pg/mL (200-900)
== END 2024-11-20 13:44 | disposition home or self-care (01) ==
LOC: HO.HMGCLDS 13:43
PROVIDERS: PCP Physician Assistant Medical; Visit Provider Physician Assistant
DX: Z00.00 Encounter for general adult medical examination without abnormal findings (principal); R73.03 Prediabetes; R53.83 Other fatigue; E06.9 Thyroiditis, unspecified
CPT/HCPCS: 36415; 82306; 82607; 83036; 84443; 84480; 84481; 85027

== ENCOUNTER 2024-12-10 12:59 | Outpatient (AMB) | payer MEDICARE, SELFPAY ==
--- NOTE | 2024-12-10 13:05 | MHC.PC.OV ---
Vital Signs 12/10/24 13:06 Height 5 ft Weight 113 lb 8 oz BMI 22.2 BP 126/60 Blood Pressure Location Rt brachial Position Sitting Respiration 16 Pulse 66 Pulse Source Pulse Oximeter Temp 97.9 F Temp Source Temporal Artery Scan Pulse Oximetry (%) 97 Oxygen Delivery Method Room Air Intake Visit Reasons: physical Probation Supervisor Required: No Allergies amlodipine Allergy (Intermediate, Verified 12/10/24 13:33) tachycardia prednisone Allergy (Mild, Verified 12/10/24 13:33) tachycardia clyndamycin Allergy (Intermediate, Uncoded 12/10/24 13:33) Abdominal Pain Medication List - Last Reconciled 12/10/24 by Shelli Butterfield PA-C albuterol sulfate 90 mcg/actuation 2 puffs PO Q6H PRN epinephrine IM DIRECTED lorazepam 1 mg PO DAILY PRN metoprolol tartrate 12.5 mg PO BID multivitamin 1 tab PO DAILY valacyclovir (Valtrex) 1,000 mg PO DAILY PRN Tobacco use date assessed: 12/10/24 Dental Screening Dental Screen Date: 12/10/24 Did you have a dental visit in the last 12 months?: Yes Did you have a dental problem in the last 6 months where you did not have access to dental care?: No Was dental information given to patient?: Patient has dentist HPI physical HPI Details The patient is a 64-year-old female presenting for a physical examination and follow-up on hormone replacement therapy. The patient has been on hormone replacement therapy for 14 years, primarily using estrogen to manage menopausal symptoms such as dryness. She has been exploring different providers for hormone management due to cost concerns with prescriptions. The patient reports a ganglion cyst on her left wrist, which appeared approximately two months ago. The cyst was initially larger but has since reduced in size, although it occasionally fluctuates. A thyroid nodule was identified during the examination, with the patient recalling a similar finding approximately 20 years ago. The patient has a family history of thyroid cancer, as her sister had a cancerous thyroid removed. The patient experienced a fall about a week ago while gardening, resulting in scratches but no loss of consciousness. She did not sustain any significant injuries and has since recovered from soreness. Recent laboratory tests indicate normal vitamin D and B12 levels, with vitamin D at 68.1 and B12 at 785. The patient's hemoglobin A1c was 5.5, and her cholesterol levels were within normal limits, with LDL at 122. Social History - Exercise: Engages in gardening activities - Lifestyle: Uses hormone replacement therapy for menopausal symptoms [facility] Medical History (Updated 12/10/24 @ 14:17 by Shelli Butterfield PA-C) Preventative health care Fall Annual physical exam Thyroid nodule Ganglion cyst SVT (supraventricular tachycardia) Other chest pain SOB (shortness of breath) Palpitations PAC (premature atrial contraction) Snoring Fatigue Hormone replacement therapy Vertigo Upper respiratory disease Upper respiratory infection General medical exam Herpes labialis Atrial fibrillation Chest discomfort Spondylosis Abdominal pain Left shoulder pain Right hip pain History of mammogram (~01/2023) Clostridium difficile colitis Bee sting allergy Hx gestational diabetes Anxiety Depression GERD (gastroesophageal reflux disease) Paroxysmal supraventricular tachycardia Thyroiditis Hypertension Surgical History Hx of breast implants, bilateral History of colonoscopy (~01/12/21) S/P tendon repair History of radiofrequency ablation (RFA) procedure for cardiac arrhythmia History of section History of adenoidectomy History of tonsillectomy History of abdominoplasty Social History Housing: House Alcohol intake: current Alcohol intake frequency: holidays/special occasions only Patient Tobacco Use Status: Former Tobacco user e-Cigarette/Vaping Use: Never Used Second Hand Smoke Exposure: Yes service: No Current occupational status: retired Cognitive needs: No Hearing needs: No Vision needs: Yes (Reading glasses) Questionnaire PHQ-9 Over the last 2 weeks, how often have you been bothered by any of the following problems? 1. Little interest or pleasure in doing things: not at all 2. Feeling down, depressed, or hopeless: not at all 3. Trouble falling or staying asleep, or sleeping too much: several days 4. Feeling tired or having little energy: several days 5. Poor appetite or overeating: not at all 6. Feeling bad about yourself - or that you are a failure or have let yourself or your family down: not at all 7. Trouble concentrating on things, such as reading the newspaper or watching television: not at all 8. Moving or speaking so slowly that other people could have noticed. Or the opposite - being so fidgety or restless that you have been moving around a lot more than usual: not at all 9. Thoughts that you would be better off or of hurting yourself in some way: not at all Total score: 2 Depression Screening Interpretation: Negative Depression Screening Done: Yes [id number] - PHQ-9 Billing: Yes Source: Developed by Drs. Lars Clay, Yanet Manriquez, Og Oliver and colleagues, with an educational jm from [employer]. Thrive Questionnaire Date Thrive assessed: 12/10/24 I am a: Patient What is your living situation today?: I have a steady place to live Within the past 12 months, did the food you bought not last and you didn't have the money to get more?: Never true Within the past 12 months, did you worry whether your food would run out before you got money to buy more?: Never true Do you have trouble paying for medicines?: No Do you have trouble getting transportation to medical appointments?: No Do you have trouble paying your heating and electricity bill?: No Do you have trouble taking care of your child, family member or friend?: No Do you have trouble with day-to-day activities such as bathing, preparing meals, shopping, managing finances, etc.?: No Are you currently unemployed and looking for a job?: No Are you interested in more education?: No Please select the resources that you would like help with: None THRIVE Score: 0 AUDIT C Alcohol Use Questionnaire (AUDIT-C) 1. How often do you have a drink containing alcohol?: 2-4 times a month 3. How often do you have six or more drinks on one occasion?: Never Total Score: 2 Score Reviewed/Action Taken: No RADHA-7 AMB Questionnaire RADHA-7 Date RADHA - 7 assessed: 12/10/24 Feeling nervous, anxious, or on edge: 0 = Not at all Not being able to stop or control worryin = Not at all Worrying too much about different things: 0 = Not at all Trouble relaxin = Not at all Being so restless that it is hard to sit still: 0 = Not at all Becoming easily annoyed or irritable: 0 = Not at all Feeling afraid as if something awful might happen: 0 = Not at all Total RADHA-7 score (0-4 normal; 5-9 mild; 10-14 moderate; 15-21 severe): 0 Source: Developed by Drs. Lars Clay, Yanet Manriquez, Og Oliver and colleagues, with an educational jm from [employer]. Review of Systems Const Details: - Endocrine: Reports dryness associated with menopause - Musculoskeletal: Reports presence of ganglion cyst on left wrist - Neurological: Denies loss of consciousness during recent fall All systems reviewed & are unremarkable except as noted in HPI and below Physical exam (Primary Care) Vital Signs: Last Vital Signs Temp 97.9 F 12/10/24 13:06 Pulse 66 12/10/24 13:06 Resp 16 12/10/24 13:06 BP 126/60 12/10/24 13:06 Pulse Ox 97 12/10/24 13:06 Oxygen Delivery Method Room Air 12/10/24 13:06 Care Plan Goal for BP management: <140/90 at Goal BMI result Body Mass Index 22.2 Normal BMI Tobacco/Smoking Status: Tobacco use Status Tobacco use date assessed 12/10/24 12/10/24 13:10 Patient Tobacco Use Status Former Tobacco user 12/10/24 13:10 e-Cigarette/Vaping Use Never Used 12/10/24 13:10 PHQ-9: PHQ-9 Score PHQ-9: Total score 2 12/10/24 13:10 Depression Screening Interpretation: Negative Thrive Assessment: Date of Thrive Assessment Date Thrive assessed 12/10/24 12/10/24 13:10 Const Other: Appearance: Alert. Oriented X3. No acute distress. Head: Normal external exam. Normocephalic. Atraumatic. Eyes: Pupils are equal, round, and reactive to light. Extraocular movements intact. Conjunctiva and sclera normal. Eyelids normal. Ears: External auditory canal normal. Tympanic membranes normal. Throat: Pharynx normal. Uvula midline. Moist mucous membranes. Neck: Normal inspection. Neck supple. Full range of motion. No adenopathy. Thyroid nodule noted on the left side, slightly larger than the right. No meningeal signs. No neck mass noted. Cardiovascular: Normal heart rate and rhythm. Heart sound normal. No murmurs noted. Respiratory: No respiratory distress. Painless inspiration. Breath sounds normal. No wheezes/rales/rhonchi noted. No accessory muscle usage noted or decreased air movement noted. Abdomen: Soft and nontender. No distention noted. No organomegaly noted. Back: No costovertebral angle tenderness. Full range of motion noted. Skin: Skin warm and dry. Normal skin color. Normal skin turgor. No rashes/lesions/lacerations noted. Extremities: No lower extremity edema. Extremities exhibit normal range of motion. Ganglion cyst noted on the left wrist. Neuro: Oriented X 3. No motor deficit. No sensory deficit. Reflexes normal. Results Reviewed Results Reviewed: - Labs: Vitamin D level at 68.1, Vitamin B12 level at 785 - Labs: Hemoglobin A1c at 5.5 - Labs: LDL cholesterol at 122 Coding Level of Care Code Est Pt Level 4 (69701) Est Pt Prev Care >65y(58339) Diagnoses Annual physical exam Z00.00 Hormone replacement therapy Z79.890 Ganglion cyst M67.40 Thyroid nodule E04.1 Fall W19.XXXA Preventative health care Z00.00 Additional Codes PHQ-9 - 77026 - PHQ-9 Billing: Yes ([id number]) Assessment & Plan Assessment & Plan (1) Annual physical exam: Code(s): Z00.00 - Encounter for general adult medical examination without abnormal findings Category: Medical (2) Hormone replacement therapy: Code(s): Z79.890 - Hormone replacement therapy Category: Medical Plan: The patient will continue hormone replacement therapy to manage menopausal symptoms, primarily using estrogen. She is advised to explore cost-effective options for obtaining prescriptions, possibly through compounding pharmacies. (3) Ganglion cyst: Code(s): M67.40 - Ganglion, unspecified site Category: Medical Plan: The patient is referred to an interactive media marketing specialist for evaluation and potential drainage of the ganglion cyst on her left wrist. (4) Thyroid nodule: Code(s): E04.1 - Nontoxic single thyroid nodule Category: Medical Plan: An ultrasound is recommended to assess the thyroid nodule identified during the examination. Given the family history of thyroid cancer, further evaluation by endocrinology may be necessary based on ultrasound findings. (5) Fall: Code(s): W19.XXXA - Unspecified fall, initial encounter Category: Medical Plan: The patient experienced a fall with no significant injuries and has recovered from initial soreness. No further intervention is required at this time. (6) Preventative health care: Code(s): Z00.00 - Encounter for general adult medical examination without abnormal findings Category: Medical Plan: The patient's CBC, CMP, hormone levels, thyroid function, vitamin D and B12 levels are within normal limits and will continue to be monitored as part of routine preventative care. Plan Plan Patient was informed and verbally consented to the use of an ambient scribe for clinic note documentation during this visit. 1. Hormone Replacement Therapy For Menopause The patient will continue hormone replacement therapy to manage menopausal symptoms, primarily using estrogen. She is advised to explore cost-effective options for obtaining prescriptions, possibly through compounding pharmacies. 2. Ganglion Cyst The patient is referred to an interactive media marketing specialist for evaluation and potential drainage of the ganglion cyst on her left wrist. 3. Thyroid Nodule An ultrasound is recommended to assess the thyroid nodule identified during the examination. Given the family history of thyroid cancer, further evaluation by endocrinology may be necessary based on ultrasound findings. 4. Fall With No Loss Of Consciousness The patient experienced a fall with no significant injuries and has recovered from initial soreness. No further intervention is required at this time. 5. Preventative Care: Monitoring Of Vitamin D And B12 Levels The patient's vitamin D and B12 levels are within normal limits and will continue to be monitored as part of routine preventative care. During the visit, we discussed the continuation of hormone replacement therapy for managing menopausal symptoms, emphasizing the importance of exploring cost-effective options for prescriptions. The patient was informed about the referral to orthopedics for the ganglion cyst and the need for an ultrasound to evaluate the thyroid nodule. We also reviewed her recent fall, confirming no significant injuries, and discussed the normal results of her vitamin D and B12 levels. Orders: Orders US thyroid Today E04.1 - Nontoxic single thyroid nodule Referrals Orthopedics Referral M67.40 - Ganglion, unspecified site Medications: New albuterol sulfate 90 mcg/actuation 2 puffs PO Q6H PRN 8.5 grams 3RF shortness of breath or wheezing valacyclovir (Valtrex) 1,000 mg PO DAILY PRN 90 tabs 3RF cold sores Changed From epinephrine IM DIRECTED To epinephrine 0.3 mL IM DIRECTED 2 ea 3RF Refilled lorazepam 1 mg PO DAILY PRN 60 tabs 0RF anxiety Patient Instructions: - Continue hormone replacement therapy as prescribed. - Explore cost-effective options for hormone prescriptions, such as compounding pharmacies. - Follow up with orthopedics for evaluation of the ganglion cyst. - Schedule an ultrasound for the thyroid nodule. - Monitor vitamin D and B12 levels as part of routine care.
[2024-12-10 13:06] VITALS: BP 126/60; PULSE 66; RESP 16; TEMP 36.6; O2SAT 97; BMI 22.2
== END 2024-12-10 13:47 | disposition home or self-care (01) ==
LOC: HO.HMCSH 12:59
PROVIDERS: PCP Physician Assistant Medical; Visit Provider Physician Assistant Medical
DX: Z00.00 Encounter for general adult medical examination without abnormal findings (principal); E04.1 Nontoxic single thyroid nodule; M67.40 Ganglion, unspecified site; Z79.890 Hormone replacement therapy; W19.XXXA Unspecified fall, initial encounter

== ENCOUNTER → 2024-12-10 12:59 | Outpatient (BNVA) | payer MEDICARE, SELFPAY | PROVIDERS: PCP Physician Assistant Medical; Visit Provider Physician Assistant Medical | DX: Z00.01 Encounter for general adult medical examination with abnormal findings (principal); M67.432 Ganglion, left wrist; E04.1 Nontoxic single thyroid nodule; N95.1 Menopausal and female climacteric states; Z79.890 Hormone replacement therapy; Z91.81 History of falling; Z13.31 Encounter for screening for depression; Z13.39 Encounter for screening examination for other mental health and behavioral disorders | CPT/HCPCS: 96127; 99212; 99397 ==

== ENCOUNTER 2025-01-17 14:02 | Outpatient (REF) | payer MEDICARE, SELFPAY ==
--- OUTSIDE RECORDS SUMMARY | 2025-01-15 23:59 | XMS_ITS | Continuity of Care Document ---
Author Organization [facility] Sara ns [facility] Address [address], [place], [place] [address]- Support Name Relationship Address Phone NIDIA, KUSH Personal Relationship Unknown Un available NIDIA, KUSH Personal Relationship Unknown Un available NIDIA, KUSH Personal Relationship Unknown Un available NIDIA, EDY child Unknown Unavailable NIDIA, MIGUEL child Unknown Unavailable NIDIA, DELROY child Unknown Unavailable NITHIN, ISELA unrelated friend Unknown Unavailab le NIDIA, KUSH Personal Relationship Unknown Un available NIDIA, KUSH Personal Relationship Unknown Un available NIDIA, KUSH Personal Relationship Unknown Un available NIDIA, KUSH Personal Relationship Unknown Un available NIDIA, KUSH Personal Relationship Unknown Un available NITHIN, YVES unrelated friend Unknown Unavailabl e SALVADOR, RC domestic partner Unknown Unavailabl e NIDIA, KUSH Personal Relationship Unknown Un available NIDIA, KUSH Personal Relationship Unknown Un available NIDIA, KUSH Personal Relationship Unknown Un available NIDIA, KUSH Personal Relationship Unknown Un available NIDIA, KUSH Personal Relationship Unknown Un available RANDALLE, KUSH Personal Relationship Unknown [facility] Care Team Providers Care Harbor Pilot Name Role Phone Dalia MALIK, Pop Nieto Primary Care Physician En[place] [facility] Date(s): 01/08/25 - 01/15/25 [facility] Carlos DottiePumodos [facility] [address], [address] [place] [id number] Attending Physician: Kyung Nye MD Referring Physician: Akosua Sanchez CNM Encounter Type: Office Visit Allergies, Adverse Reactions, Alerts Substance Criticality Severity Reaction Reaction Severity Status clindamycin Active amLODIPine Active Medications Ativan 1 mg oral tablet 1 tablet = 1 mg, By Mouth, 3 times a day, 0 Refills, Maintenance, 07/12/20 7:50:00 PM EDT, Partial fill upon patient request if the prescription is for a schedule II opioid drug. Start Date: 07/12/20 Status: Ordered Medication Dispense Status: Completed Total Allowed Fills: 1 Fills Dispensed: 0 BHRT BHRT, 0 Refills, Maintenance, 11/27/24 11:05:00 AM EDT Start Date: 11/27/24 Status: Ordered Medication Dispense Status: Completed Total Allowed Fills: 1 Fills Dispensed: 0 Cholecalciferol By Mouth, 0 Refills, Maintenance, 11/27/24 11:16:00 AM EDT, Partial fill upon patient request if theprescription is for a schedule II opioid drug. Start Date: 11/27/24 Status: Ordered Medication Dispense Status: Completed Total Allowed Fills: 1 Fills Dispensed: 0 CoQ10 100 mg cap = 100 mg, By Mouth, Daily, 0 Refills, Maintenance, 11/27/24 11:14:00 AM EDT, Partial fill upon patient request if the prescription is for a schedule II opioid drug. Start Date: 11/27/24 Status: Ordered Medication Dispense Status: Completed Total Allowed Fills: 1 Fills Dispensed: 0 Estrace Vaginal Cream 0.1 mg/g = 1 Gm, Vaginally, Daily at bedtime, 1g PV 2-3x per week, # 60 Gm, 5 Refills, Maintenance, 11/27/24 11:10:00 AM EDT, [facility]/pharmacy #[id number], to follow 2 week loading dose for maintenance therapy, 153, cm,11/27/24 11:02:00 EDT, Height, 52, kg, 05/16/24 19:52:00 EDT, Dry Weight Start Date: 11/27/24 Status: Ordered Medication Dispense Status: Completed Quantity: 60.0 Unit: g Total Allowed Fills: 6 Fills Dispensed: 0 Florastor 250 mg oral capsule 1 capsule = 250 mg, By Mouth, 2 times a day, # 10 capsule, 0 Refills, Maintenance, 11/27/24 11:15:00AM EDT, Capsule, Partial fill upon patient request if the prescription is for a schedule II opioid drug. Start Date: 11/27/24 Status: Ordered Medication Dispense Status: Completed Quantity: 10.0 Unit: capsule Total Allowed Fills: 1 Fills Dispensed: 0 IRON IRON, 0 Refills, Maintenance, 11/27/24 11:11:00 AM EDT Start Date: 11/27/24 Status: Ordered Medication Dispense Status: Completed Total Allowed Fills: 1 Fills Dispensed: 0 metoprolol 25 mg oral tablet See Instructions, 1/2 tablet By Mouth in AM and NEEDED in PM, 0 Refills, Maintenance, 03/19/14 2:48:20 PM EST Start Date: 03/19/14 Status: Ordered Medication Dispense Status: Completed Total Allowed Fills: 1 Fills Dispensed: 0 Multivitamin 0 Refills, Maintenance, 11/27/24 11:06:00 AM EDT, Partial fill upon patient request if the prescription is for a schedule II opioid drug. Start Date: 11/27/24 Status: Ordered Medication Dispense Status: Completed Total Allowed Fills: 1 Fills Dispensed: 0 Roscoe-3 1000 mg oral capsule 1 capsule = 1,000 mg, By Mouth, 0 Refills, Maintenance, 11/27/24 11:14:00 AM EDT, Partial fill upon patient request if the prescription is for a schedule II opioid drug. Start Date: 11/27/24 Status: Ordered Medication Dispense Status: Completed Total Allowed Fills: 1 Fills Dispensed: 0 omeprazole 20 mg oral enteric coated capsule 1 capsule = 20 mg, By Mouth, Daily, # 30 capsule, 0 Refills, Maintenance, 07/21/20 10:08:00 AM EDT, EC Capsule, [facility]/pharmacy #[id number], Partial fill upon patient request if the prescription is for a schedule II opioid drug., 155, cm, 07/21/20 7:22:00 EDT, Height, 49, kg, 07/19/20 10:21:00 EDT, Dry Weight Start Date: 07/21/20 Status: Ordered Medication Dispense Status: Completed Quantity: 30.0 Unit: capsule Total Allowed Fills: 1 Fills Dispensed: 0 Paxil 10 mg oral tablet 10 mg, 1, tablet, By Mouth, Daily, Refills 0, Maintenance, 01/22/22 2:01:00 PM EST, Partial fill upon patient request if the prescription is for a schedule II opioid drug. Start Date: 01/22/22 Status: Ordered Medication Dispense Status: Completed Total Allowed Fills: 1 Fills Dispensed: 0 Prometrium 100 mg oral capsule 1 capsule = 100 mg, By Mouth, Daily, for 90 days, take at night - may cause drowsiness, # 90 capsule, 3 Refills, Acute 11/22/25 11:11:00 AM EDT, 11/27/24 11:11:00 AM EDT, Capsule, [facility]/pharmacy #[id number], Partial fill upon patient request if the prescription is for a schedule II opioid drug., 153, cm, 11/27/24 11:02:00 EDT, Height, 52, kg, 05/16/24 19:52:00 EDT, Dry Weight Start Date: 11/27/24 Stop Date: 11/22/25 Status: Ordered Medication Dispense Status: Completed Quantity: 90.0 Unit: capsule Total Allowed Fills: 4 Fills Dispensed: 0 Testim 1% (50 mg/5 g) transdermal gel See Instructions, apply 1/10 of a tube (5 mg/pea-sized amount) each day to clean, dry, intact skin on back of calf, alternating sides each day apply to skin, # 30 each, 0 Refills, Maintenance, 12/07/24 5:07:00 PM EDT, Gel, [facility] #[id number], Partial fill upon patient request if the prescription isfor a schedule II opioid drug., 153, cm, 11/27/24 11:02:00 EDT, Height, 50.36, kg, 11/27/24 11:21:00 EDT, Dry Weight Start Date: 12/07/24 Status: Ordered Medication Dispense Status: Completed Quantity: 30.0 Unit: each Total Allowed Fills: 1 Fills Dispensed: 0 Vitamin B12 0 Refills, Maintenance, 11/27/24 11:13:00 AM EDT, Partial fill upon patient request if the prescription is for a schedule II opioid drug. Start Date: 11/27/24 Status: Ordered Medication Dispense Status: Completed Total Allowed Fills: 1 Fills Dispensed: 0 Vivelle-Dot 0.05 mg/24 hours twice weekly transdermal film, extended release See Instructions, 1 patch Topically apply to skin twice weekly, # 24 patch, 3 Refills, Maintenance,11/27/24 11:11:00 AM EDT, [id number], Partial fill upon patient request if the prescription is for a schedule II opioid drug., 153, cm, 11/27/24 11:02:00 EDT, Height, 52, kg, 05/16/24 19:52:00EDT, Dry Weight Start Date: 11/27/24 Status: Ordered Medication Dispense Status: Completed Quantity: 24.0 Unit: patch Total Allowed Fills: 4 Fills Dispensed: 0 Problem List Condition Confirmation Course Effective Dates Status Health St atus Informant Hemorrhoids Confirmed Active Social History Social History Type Response Smoking Status Former smoker entered on: 03/12/14 Sex Sex Representation Female (finding) Imaging * Event Display: [facility] EXPERT WITNESS Transvaginal, Complete * Event Display: [facility] EXPERT WITNESS Transvaginal, Complete Authored Date: [id number] Gynecological Report Signed Final 01/09/2025 4:36 PM Patient Info ID: [id number] NATALIE Yadav: ANNETTE Bland 01/08/2025 11:04 AM FMRN: Name: Date: [id number] 95 9 (64 y) (F) Performed By Attending: Keon Denton MD Referred By: Akosua Sanchez CNM Performed By: Yves Black RDMS Ref Address: [facility] Location: [address] Service(s) Provided Code EXPERT WITNESS Vaginal 24678 (LGS=[id number]) Indications Code Postmenopausal bleeding N95.0 History ------- Age: 64 P: 3 Menses: Postmenopausal Replacement Therapy BRHT, Testosterone gel, progesterone pill, estrogen patch Uterus ------ Uterus: Present Position: Anteverted Cervix Length: 1.9 cm Size (cm) L: 7.5 W: 3.68 H: 3.3 Volume (ml): 35.61 (Cervix excluded) Description: Ut appears anteverted, normal in contour and mildly heterogeneous Endometrium Endometrium: Thickened Thickness (mm): 5.8 Echotexture: Hyperechoic Cervix ------ A collection of fluid is seen within the cervix with some septations. Some vascularity seen within. Nabothian cyst seen as well. [place] No fluid was visualized Right Ovary Status: Visualized Size (cm) L: 1.57 W: 0.83 H: 0.89 Vol. (ml):0.61 Morphology: Normal appearance Left Ovary Staus: Visualized Size (cm) L: 1.72 W: 1.1 H: 1.13 Vol.(ml): 1.12 Morphology: Normal appearance Comments -------- Transvaginal ultrasound performed. Uterus is anteverted and mildly heterogeneous. Nabothian cysts noted. There is a septated cystic lesion noted in the cervix with some color flow. Endometrium appears thickened and hyperechoic. Both ovaries appear normal. No free fluid noted. Impression Thickened endometrium Possible complex nabothian cyst Recommendations Further evaluation of the endometrium with sampling is recommended. Consider repeat US in 3 months to follow cervical cyst and confirm stability. Correlation with pelvic exam recommended Keon Denton MD Electronically Signed Final Report 01/09/2025 4:36 PM * Event Display: [facility] EXPERT WITNESS Transvaginal, Complete Authored Date: Please click on pdf link to open report Patient Care team information Care Team Personnel Name: Mely HARRISON, Yara Nieto Position: [facility] RN Member Role: Primary Care Nurse Name: Floresita Lucia RN Position: S RN Member Role: Primary Care Nurse Name: Ines Vo NP Position: [facility] PCO Associate Professional Member Role: Primary Care Nurse Address: [address] [place] [address], [address] [place] [address]- [place] Telecom: Name: Luther HER, Nikia Cantu Position: Reference Physician Member Role: Primary Care Nurse Address: [address] [place] [address] [address] [place] [address] [place] Telecom: Name: Dalia MALIK, Pop Nieto Position: Reference Physician Member Role: PCP Address: [address] [place] [address]- Telecom: Care Team Related Persons Name: YVES WELLER Name: RC FRANCO Name: EDY JACOB Name: MIGUEL JACOB Insurance Providers Guarantor name: NATALIE JACOB Health Plan Information #: 1 Payer: [facility] PPO Payer Identifier: NA Member Number: [id number] Group Number: [id number] Subscriber Identifier: [id number] Relationship to Subscriber: self Coverage Type: Medicare PPO Coverage Verification Date: Telecom: NA Address:
--- NOTE | ~2025-01-17 | XR_ITS ---
EXAMINATION: XR ELBOW, LEFT CLINICAL INFORMATION: W19.XXXA - Unspecified fall, initial encounter COMPARISON: None available. TECHNIQUE: AP, lateral, and oblique views of the left elbow. FINDINGS: Anterior fat pad is visible, but not grossly displaced. Posterior fat pad is not visualized. No fracture line or deformity is identified. No abnormal soft tissue calcifications are seen. XR/XR elbow LT min 3V IMPRESSION: Unremarkable left elbow. Electronically signed by: Ferdinand Villa MD 01/17/2025 02:32 PM EST
--- NOTE | ~2025-01-17 | XR_ITS ---
EXAMINATION: XR FOREARM, LEFT CLINICAL INFORMATION: M25.512 - Pain in left shoulder COMPARISON: None available. TECHNIQUE: AP and lateral views of the left forearm were obtained. FINDINGS: There is an anchor in the ulnar base of the first proximal phalanx. No fracture is identified. No other deformity is seen. XR/XR forearm LT 2V IMPRESSION: Unremarkable left forearm. Electronically signed by: Ferdinand Villa MD 01/17/2025 02:34 PM EST
--- NOTE | ~2025-01-17 | XR_ITS ---
EXAMINATION: XR SHOULDER, LEFT CLINICAL INFORMATION: M25.512 - Pain in left shoulder COMPARISON: None available. TECHNIQUE: Three views of the left shoulder. FINDINGS: The bones and soft tissues are normal. No fracture. Glenohumeral and acromioclavicular alignment is anatomic with normal joint space. No abnormal soft tissue calcifications. XR/XR shoulder LT min 2V IMPRESSION: Unremarkable left shoulder. Electronically signed by: Ferdinand Villa MD 01/17/2025 02:31 PM EST GEE
--- OUTSIDE RECORDS SUMMARY | 2025-01-17 19:27 | XMS_ITS | Encounter Summary ---
Author Organization [facility] Address [address] [place] [id number] Phone Care Team Providers Care Tempering Machine Operator Name Role Phone Pop Gómez MD Primary Care Provid er Reason for Visit * Reason Onset Date Comments ultrasound 01/10/2025 results Results 01/10/2025 Encounter Details Date Type Department Care Team (Late st Contact Info) Description 01/10/2025 Telephone [facility] [address] [place] [address] Maria Elena Whitmore, CHRISTY [address] [place] [address] [email or web address] ultrasound (results); Results Social History Tobacco Use Types Packs/Day Years Used Date Smoking Tobacco: Former Cigarettes Q uit: 2000 Smokeless Tobacco: Never Alcohol Use Standard Drinks/Week [...] as of this encounter Progress Notes * Yola Akins MD - 01/10/2025 1:53 PM EST See other encounters, result mgmt * Maria Elena Whitmore, CHRISTY - 01/10/2025 1:48 PM EST Pt left a voicemail, looking for her ultrasound results from 01/07. She was told to call us. Looking for interpretation and plan. documented in this encounter Plan of Treatment Upcoming Encounters Date Type Department Care Team (Late st Contact Info) Description 01/28/2025 Procedure Pass [facility] Cardiovascular And Interventional Radiology [address] [place] [id number] 01/28/2025 9:00 AM EST Hospital Encounter [facility] Cardiovascular And Interventional Radiology [address] [place] [id number] Gen Duckworth MD [address] [place] [id number] 01/28/2025 9:00 AM EST - 01/28/2025 9:50 AM EST Surgery [facility] Cardiovascular And Interventional Radiology [address] [place] [phone] Gen Duckworth MD [address] [place] [phone] Ultrasound Guided Fine Needle Aspiration 06/05/2025 10:40 AM EDT Office Visit [facility] [address] [place] [address] Jess Ramirez PA-C [address] [place] [phone] 06/18/2025 11:00 AM EDT Office Visit [facility] [address] [place] [address] Jess Ramirez PA-C [address] [place] [address] [email or web address] documented as of this encounter Visit Diagnoses Not on filedocumented in this encounter Care Teams Tempering Machine Operator Relationship Specialty Start Date End Date Pop Gómez MD [address] [place] [id number] PCP - General Internal Medicine 12/31/24 documented as of this encounter Additional Source Comments The information contained in this document represents components of the legal health record. It is not the complete legal health record.[facility]
--- OUTSIDE RECORDS SUMMARY | 2025-01-17 19:27 | XMS_ITS | Clinical Summary ---
Author Organization [facility] Address [address] [place] [address] [place] [phone] Phone Care Team Providers Care Glass Inserter Name Role Phone Pop Gómez MD Primary Care Provid er Allergies Active Allergy Reactions Criticality Noted Date Comments Amlodipine Palpitations Low 06/15/2017 Bupropion Hcl Unknown 03/17/2021 Clindamycin Unknown 03/17/2021 Doxycycline Hyclate Unknown 03/17/2021 Escitalopram Oxalate Unknown 03/17/2021 Lisinopril Unknown 03/17/2021 Moxifloxacin Unknown 03/17/2021 Medications omega 8-yem-kvx-fish oil 1,200 (144-216) mg Cap 1 capsule. Active Saccharomyces boulardii (FLORASTOR) 250 mg capsule 1 capsule. Acti ve Ca carb-Ca gluc-Mg ox-Mg gluco (CALCIUM MAGNESIUM) 500 mg calcium -250 mg Tab 1 tablet. Active multivit with minerals/lutei n (MULTIVITAMIN 50 PLUS ORAL) 1 tablet. Active cyanocobalamin /folic acid (VITAMIN F81-DEBAU ACID) 1,000-400 mcg Lozg 1 tablet. Active [...] 0 Refills, Maintenance, 08/16/23 14:07:00 EDT 08/16/19 Active estradioL (ESTRACE) 0.01 % (0.1 mg/gram) vaginal cream Place 2 g vaginally 2 (two) times a week. Active Medication-Erik e Text Bio identical hormone replacement daily Active Active Problems Problem Noted Date Diagnosed Date Multinodular goiter 01/02/2025 Assessment & Plan (01/02/2025 4:29 PM EST): Finding of thyroid nodule(s) on exam. 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 Sister has a hx of thyroid CA. She was euthyroid on recent labs. Reviewed ddx & evaluation of thyroid nodules. Will obtain u/s to determine if any nodule(s) that warrant FNA. Further recommendations to follow. Hoarseness 01/02/2025 Assessment & Plan (01/02/2025 4:29 PM EST): Possibly, but unlikely related to thyroid. Will evaluate thyroid as planned. Would get into see ENT. Fatigue 11/07/2024 Assessment & Plan (11/07/2024 11:20 AM EDT): She has been feeling very fatigued for the last several months. Will order blood work to rule out possible causes of the fatigue. She will do the blood work next week and we will rview at her follow up appointment in 2 weeks Pre-diabetes 10/25/2022 Assessment & Plan (11/20/2024 12:16 PM EDT): Control is reasonable based upon the patient's office provided dexcom G6 professional CGM download. Her average reading is 118, time in range is 94%, time high is 6%. When reviewing her food log compared to her CGM download, we saw several patterns in her glucose tends in relation to what she is eating. She has stopped being as active as she had been. She is going to work on improving her snacks. She is also going to work on doing more walking as it made a big difference in her glucose levels. She did not get a chance to do her blood work after her last visit. Will try to do them today Assessment & Plan (11/07/2024 11:15 AM EDT): The patient is coming in to have a dexcom G6 professional CGM placed to be able to monitor her glucose levels for the next 10 days. Placed the dexcom G6 pro sensor to the patient's left upper arm. No bleeding or redness at the injection site. Reviewed care of the sensor and transmitter. Reviewed that if the sensor falls off within 3 days to call the office and another will be placed. If the sensor falls off after that period to bring in the sensor and transmitter in a zip lock bag and we will download the data that is available on the sensor at that time. Transmitter # [id number] Assessment & Plan (12/14/2023 12:34 PM EDT): [...] Encounters Date Type Department Care Team Description 01/10/2025 Telephone [facility] [address] [place] [address] Maria Elena Whitmore RN ultrasound (results); Results 01/10/2025 Orders Only [facility] [address] [place] [address] Yola Akins MD Multinodular goiter (Primary Dx) 01/07/2025 4:01 PM EST - 01/07/2025 11:59 PM EST Hospital Encounter [facility], Ultrasound - [address] [address] Yola Akins MD Discharge Disposition: Home or Self Care 01/02/2025 Telephone CD Pulmonary, Allergy and Critical Care Medicine [address] [place] [address] Tameka Bedoya ultrasound 12/31/2024 9:20 AM EST Office Visit [facility] Endocrinology [address] [place] [phone] Yola Akins MD Multinodular goiter (Primary Dx); Hoarseness 11/26/2024 Telephone [facility] [address] [place] [address] Pretty Barrios MA Labs 11/20/2024 11:20 AM EDT Office Visit [facility] [address] [place] [address] Jess Ramirez PA-C Pre-diabetes (Primary Dx) 11/07/2024 10:40 AM EDT Office Visit [facility] [address] [place] [address] Jess Ramirez PA-C Pre-diabetes (Primary Dx); Fatigue, unspecified type from Last 3 Months Immunizations Immunization Administration Dates Next Due Influenza Quadrivalent w/ Preservative IM 2020 Family History Medical History Relation Comments Diabetes [...] Sign Reading Time Taken Comments Blood Pressure 114/66 12/31/2024 9:23 AM EST Pulse 55 12/31/2024 9:23 AM EST Temperature 36.9 C (98.4 F) 12/08/2023 1:25 PM EDT Respiratory Rate - - Oxygen Saturation 98% 12/31/2024 9:23 AM EST Inhaled Oxygen Concentration - - Weight 52.2 kg (115 lb) 12/31/2024 9:23 AM EST Height 153.7 cm (5' 0.51 ) 12/31/2024 9:23 AM ES T Body Mass Index 22.08 12/31/2024 9:23 AM EST Plan of Treatment Upcoming Encounters Date Type Department Care Team (Late st Contact Info) Description 01/28/2025 Procedure Pass [facility] [address] [place] [address] 01/28/2025 9:00 AM EST Hospital Encounter [facility] [address] [place] [address] Gen Duckworth MD [address] [place] [address] 01/28/2025 9:00 AM EST - 01/28/2025 9:50 AM EST Surgery [facility] [address] [place] [address] Gen Duckworth MD [address] [place] [address] Ultrasound Guided Fine Needle Aspiration 06/05/2025 10:40 AM EDT Office Visit [facility] [address] [place] [address] Jess Ramirez PA-C [address] [place] [address] 06/18/2025 11:00 AM EDT Office Visit [facility] [address] [place] [address] Jess Ramirez PA-C [address] [place] [address] Health Maintenance Due Date Last Done Comments Adult Td,Tdap Booster 1959 DEPRESSION SCREENING 1971 SMOKING Hx and SMOKELESS TOBACCO SCREENING 01/26/1972 HEPATITIS C SCREENING 1977 HIV ONE-TIME SCREENING (18-6 5 YEARS) 1977 MAMMOGRAM 1999 COLOGUARD 01/26/2004 COLONOSCOPY 01/26/2004 COLORECTAL CANCER SCREENING 01/26/2004 FIT TEST 01/26/2004 FOBT 01/26/2004 SIGMOIDOSCOPY 01/26/2004 VIRTUAL COLONOSCOPY 01/26/2004 PNEUMOCOCCAL VACCINES (50+ years) (1 of 1 - PCV) 2009 ZOSTER VACCINES (1 of 2) 2009 OSTEOPOROSIS SCREENING INITI AL (ONE-TIME) 01/26/2024 INFLUENZA VACCINE (#1) 2024 01/07/2021 COVID-19 VACCINE (4 - 2024-2 6 season) 2024 04/21/2021, 10/16/2020, 09/18/2020 LIPID PANEL 09/27/2028 09/28/2023 RSV VACCINE (1 - 1-dose 75+ series) 2034 HEPATITIS A VACCINES Aged Out No long er eligible based on patient's age to complete this topic HIB VACCINES Aged Out No longer eligi ble based on patient's age to complete this topic IPV VACCINES Aged Out No longer eligi ble based on patient's age to complete this topic MENINGOCOCCAL VACCINES (ACWY) Aged Out No longer eligible based on patient's age to complete this topic MENINGOCOCCAL VACCINES (B) Aged Out N o longer eligible based on patient's age to complete this topic Medical Devices Not on file Procedures Procedure Name Priority Date/Time Associated Diagnosis Comments US THYROID GLAND Routine 01/07/2025 5:11 PM EST Multinodular goiter HEMOGLOBIN A1C Routine 11/20/2024 3:13 PM EDT Pre-diabetes VITAMIN B12 Routine 11/20/2024 3:13 PM EDT Fatigue, unspecified type TSH WITH REFLEX Routine 11/20/2024 3:12 PM EDT Fatigue, unspecified type 25-OH VITAMIN D Routine 11/20/2024 3:12 PM EDT Fatigue, unspecified type CBC Routine 11/20/2024 3:12 PM EDT Fatigue, unspecified type from Last 3 Months Results * US Thyroid Gland (01/07/2025 5:11 PM EST) Anatomical Region Laterality Modality Neck, Head, Chest Ultrasound 01/07/2025 6:22 PM EST Impressions 01/07/2025 6:25 PM EST TR 4 nodule identified within the isthmus. ACR TI-RADS risk category: TR4 (4-6 points). ACR TI-RADS recommendation: No follow-up indicated. ACR TI-RADS recommendations TR5 (>7 points) - FNA if >1cm, follow-up if 0.5 - 0.9 cm every year for 5 years TR4 (4-6 points) - FNA if >1.5cm, follow-up if 1 - 1.4 cm in 1, 2, 3 and 5 years TR3 (3 points)- FNA if >2.5cm, follow-up if 1.5 - 2.4 cm in 1, 3 and 5 years TR2 (2 points) & TR1 (0 points) - No FNA and no follow-up indicated These guidelines for management of thyroid nodules are based on the ACR Thyroid Ultrasound Reporting Lexicon, April 2016: https://doi.org/10.1016.j.jacr.2017.01.046 Narrative 01/07/2025 6:25 PM EST Procedure: US THYROID GLAND 01/07/2025 4:37 PM US Indications: Multinodular Goiter. Comparison: No relevant recent comparisons. Technique: Two-dimensional real-time grayscale ultrasound of the thyroid bed and neck was performed, with color Doppler imaging. FINDINGS: Total number of nodules >1 cm: 0 Number of spongiform nodules >2 cm not described below (TR1): 0 Number of mixed cystic and solid nodules >1.5 cm not described below (TR2): 0 Background echogenicity: The gland is mildly heterogeneous. Vascularity: There is normal background vascularity to the gland. RIGHT LOBE: 5.6 x 1.6 x 1.9 cm. No suspicious nodules are identified. LEFT LOBE: 5.4 x 1.4 x 2.0 cm. No suspicious nodules are identified. ISTHMUS: 0.5 cm. Nodule #: 1 Maximum size: 0.8 cm. Position: Right isthmus Composition: Solid/almost completely solid (2 pts) Echogenicity: Hypoechoic (2 pts) Shape: Srfvq-uyyi-qoey (0) Margins: Ill-defined (0 pts) Echogenic Foci: No calcifications (0 pts) Additional Echogenic foci: None (0 pts) Significant change is size (>/= 20% in two dimensions or increase in 2mm): N/A Change in Features: N/A ACR TI-RADS total points: 4 ACR TI-RADS risk category: TR4 (4-6 points) ACR TI-RADS recommendation: No follow-up indicated Cervical lymphadenopathy: None. Parathyroid adenoma: None. Procedure Note Nine, Jairo Bush MD - 01/07/2025 Procedure: US THYROID GLAND 01/07/2025 4:37 PM US Indications: Multinodular Goiter. Comparison: No relevant recent comparisons. Technique: Two-dimensional real-time grayscale ultrasound of the thyroidbed and neck was performed, with color Doppler imaging. FINDINGS: Total number of nodules >1 cm: 0 Number of spongiform nodules >2 cm not described below (TR1): 0 Number of mixed cystic and solid nodules >1.5 cm not described below(TR2): 0 Background echogenicity: The gland is mildly heterogeneous. Vascularity: There is normal background vascularity to the gland. RIGHT LOBE: 5.6 x 1.6 x 1.9 cm. No suspicious nodules are identified. LEFT LOBE: 5.4 x 1.4 x 2.0 cm. No suspicious nodules are identified. ISTHMUS: 0.5 cm. Nodule #: 1 Maximum size: 0.8 cm. Position: Right isthmus Composition: Solid/almost completely solid (2 pts) Echogenicity: Hypoechoic (2 pts) Shape: Gwjoh-jpej-vmjm (0) Margins: Ill-defined (0 pts) Echogenic Foci: No calcifications (0 pts) Additional Echogenic foci: None (0 pts) Significant change is size (>/= 20% in two dimensions or increase in 2mm):N/A Change in Features: N/A ACR TI-RADS total points: 4 ACR TI-RADS risk category: TR4 (4-6 points) ACR TI-RADS recommendation: No follow-up indicated Cervical lymphadenopathy: None. Parathyroid adenoma: None. IMPRESSION: TR 4 nodule identified within the isthmus. ACR TI-RADS risk category: TR4 (4-6 points). ACR TI-RADS recommendation: No follow-up indicated. ACR TI-RADS recommendations TR5 (>7 points) - FNA if >1cm, follow-up if 0.5 - 0.9 cm every year for 5years TR4 (4-6 points) - FNA if >1.5cm, follow-up if 1 - 1.4 cm in 1, 2, 3 and 5years TR3 (3 points)- FNA if >2.5cm, follow-up if 1.5 - 2.4 cm in 1, 3 and 5years TR2 (2 points) & TR1 (0 points) - No FNA and no follow-up indicated These guidelines for management of thyroid nodules are based on the ACRThyroid Ultrasound Reporting Lexicon, April 2016: https://doi.org/10.1016.j.jacr.2017.01.046 Yola Akins MD IMG US THYROID Final Result * Hemoglobin A1c (11/20/2024 3:13 PM EDT) Blood Jess STEPHEN-C LAB BLOOD BKR ORDE IRISLES Final Result Performing Organization Address [facility] Co de Phone Number [address] [phone] * Vitamin B12 (11/20/2024 3:13 PM EDT) Blood Jess Ramirez PA-C LAB BLOOD BKR ORDE IRISADRIENNE Final Result Performing Organization Address City/[facility]/ZIP Co de Phone Number [address] [phone] * TSH with reflex (11/20/2024 3:12 PM EDT) Blood Jess STEPHEN-C LAB BLOOD BKR ORDE RABLES Final Result Performing Organization Address [facility] Co de Phone Number [address] [phone] * 25-OH vitamin D (11/20/2024 3:12 PM EDT) Blood us Jess Ramirez PA-C LAB BLOOD BKR DEDRICK NUNEZ Final Result Performing Organization Address [facility]/ZIP Co de Phone Number [address] [phone] * CBC (11/20/2024 3:12 PM EDT) Blood us Jess Ramirez PA-C LAB BLOOD BKR DEDRICK NUNEZ Final Result Performing Organization Address [facility]/ZIP Co de Phone Number [address] [phone] from Last 3 Months Insurance MEDICARE PPO BLUE REPLACEMENT MEDICARE PPO BLUE REPLACEMENT MEDICARE PPO BLUE REPLACEMENT MEDICARE PPO BLUE REPLACEMENT MEDICARE PPO BLUE REPLACEMENT MEDICARE PPO BLUE REPLACEMENT MEDICARE PPO BLUE REPLACEMENT MEDICARE PPO BLUE RE[place]AC[place] RE[place]AC[place] Care Teams Glass Inserter Relationship Specialty Start Date End Date Pop Gómez MD [address] [place] [phone] PCP - General Internal Medicine 12/31/24 Additional Source Comments The information contained in this document represents components of the legal health record. It is not the complete legal health record.[facility]
--- OUTSIDE RECORDS SUMMARY | 2025-01-17 19:27 | XMS_ITS | Data Portability ---
Author Organization [place] - [facility], Allergy Address [address] [address] Assessment Encounter Date Assessment Date Assessment LastModified [...] regards to her dizziness, she did defer [place] [facility] today for fear of symptoms worsening. [...] Organization Details Last Modified Time Details Appointments Establish ed 15 2024 11:00A M JAYY PATEL MD Not available Not available Not available Lab unlisted lab - allergens , zone 1 2023 024 JACOB [facility] (Centralized Electronic Ordering - All Locations), Patient Can Go To The Location Of Their Choice, [id number] 08/22/2023 07:35:22 nettle IgE Ab, serum 2023 024 JACOB [facility] (Centralized Electronic Ordering - All Locations), Patient Can Go To The Location Of Their Choice, [id number] 08/22/2023 07:46:21 bahia grass IgE Ab, quantitat zaki, serum [address] [facility] ([facility] Order[facility] - All Locations), Patient Can Go To The Location Of Their Choice, 09/15/2023 12:52:39 bermuda grass ige, serum 2023 024 [facility] ([facility] Order[facility] - All Locations), Patient Can Go To The Location Of Their Choice, 09/15/2023 12:52:39 wolof plantain ige, serum 2023 024 [place] [facility] ([facility]ized Electronic Ordering - All Locations), Patient Can Go To The Location Of Their Choice, 08/22/2023 07:46:22 ige, total, serum 2023 [place] [facility] ([facility]ized Electronic Ordering - All Locations), Patient Can Go To The Location Of Their Choice, 08/22/2023 07:35:23 Referral None recorded. Procedures None recorded. [...] >100. 00 Very High Not Available [facility] ([facility]) [address] [facility], [place], [address], 08/22/2023 07:35:22 08/18/19 24 08/21/2023 ALLER GENS, ZONE 1 E603-RdH D pteronyssinu s <0.10 kU/L class 0 Not Available [facility] ([facility]) [address] [facility], [place], [address], 08/22/2023 07:35:22 08/18/19 24 08/21/2023 ALLER GENS, ZONE 1 Q996-PrD D farinae <0.10 kU/L class 0 Not Available [facility] ([facility]) [address] [facility], [place], [address], 08/22/2023 07:35:22 08/18/19 24 08/21/2023 ALLER GENS, ZONE 1 Z665-YsA CAT dander <0.10 kU/L class 0 Not Available [facility] ([facility]) [address] [facility], [place], [address], 08/22/2023 07:35:22 08/18/19 24 08/21/2023 ALLER GENS, ZONE 1 B250-RoY dog dander <0.10 kU/L class 0 Not Available [facility] ([facility]) [address] [place], [address], 08/22/2023 07:35:22 08/18/19 24 08/21/2023 ALLER GENS, ZONE 1 q429-RxX bermuda grass <0.10 kU/L class 0 Not Available [facility] ([facility]) [address] [place], [address], 08/22/2023 07:35:22 08/18/19 24 08/21/2023 ALLER GENS, ZONE 1 o650-DqA bluegrass, [facility] <0.10 kU/L class 0 Not Available [facility] ([facility]) [address] [place], [address], 08/22/2023 07:35:22 08/18/19 24 08/21/2023 ALLER GENS, ZONE 1 l082-SwZ bahia grass <0.10 kU/L class 0 Not Available [facility] ([facility]) [address] [facility] [place], [address], 08/22/2023 07:35:22 08/18/19 24 08/21/2023 ALLER GENS, ZONE 1 Y084-LnJ cockroach, bulgarian <0.10 kU/L class 0 Not Available [facility] ([facility]) [address] [facility] [place], [address], 08/22/2023 07:35:22 08/18/19 24 08/21/2023 ALLER GENS, ZONE 1 C569-YjE penicillium chrysogen <0.10 kU/L class 0 Not Available [facility] ([facility]) [address] [facility] [place], [address], 08/22/2023 07:35:22 08/18/19 24 08/21/2023 ALLER GENS, ZONE 1 G514-EvE cladosporium herbarum <0.10 kU/L class 0 Not Available [facility] ([facility]) [address] [place], [address], 08/22/2023 07:35:22 08/18/19 24 08/21/2023 ALLER GENS, ZONE 1 V004-FoM aspergillus fumigatus <0.10 kU/L class 0 Not Available [facility] ([facility]) [address] [place], [address], 08/22/2023 07:35:22 08/18/19 24 08/21/2023 ALLER GENS, ZONE 1 U021-VzW mucor racemosus <0.10 kU/L class 0 Not Available [facility] ([facility]) [address] [place], [address], 08/22/2023 07:35:22 08/18/19 24 08/21/2023 ALLER GENS, ZONE 1 B593-JzR alternaria alternata <0.10 kU/L class 0 Not Available [facility] ([facility]) [address] [facility] [place], [address], 08/22/2023 07:35:22 08/18/19 24 08/21/2023 ALLER GENS, ZONE 1 U157-XxF stemphylium herbarum <0.10 kU/L class 0 Not Available [facility] ([facility] [facility]) [address] [facility] [place], [address], 08/22/2023 07:35:22 08/18/19 24 08/21/2023 ALLER GENS, ZONE 1 B627-TrX common silver birch <0.10 kU/L class 0 Not Available [facility] ([place] [facility]) [address] [facility] [place], [address], 08/22/2023 07:35:22 08/18/19 24 08/21/2023 ALLER GENS, ZONE 1 S946-LtI oak, white <0.10 kU/L class 0 Not Available [facility] ([facility]) [address] [facility] [place], [address], 08/22/2023 07:35:22 08/18/19 24 08/21/2023 ALLER GENS, ZONE 1 V902-XuP elm, bulgarian <0.10 kU/L class 0 Not Available [facility] ([facility]) [address] [place], [address], 08/22/2023 07:35:22 08/18/19 24 08/21/2023 ALLER GENS, ZONE 1 O329-VqI den, white <0.10 kU/L class 0 Not Available [facility] ([place] [facility]) [address] [facility] [place], [address], 08/22/2023 07:35:22 08/18/19 24 08/21/2023 ALLER GENS, ZONE 1 W746-HyA maple/box elder <0.10 kU/L class 0 Not Available [facility] ([place] [facility]) [address], [place], [address], 08/22/2023 07:35:22 08/18/19 24 08/21/2023 ALLER GENS, ZONE 1 H550-BwU hazelnut tree <0.10 kU/L class 0 Not Available [facility] ([place] [facility]) [address], [place], [address], 08/22/2023 07:35:22 08/18/19 24 08/21/2023 ALLER GENS, ZONE 1 V969-LdN hickory, white <0.10 kU/L class 0 Not Available [facility] ([place] [facility]) [address], [place], [address], 08/22/2023 07:35:22 08/18/19 24 08/21/2023 ALLER GENS, ZONE 1 C880-CxY white mulberry <0.10 kU/L class 0 Not Available [facility] ([place] [facility]) [address], [place], [address], 08/22/2023 07:35:22 08/18/19 24 08/21/2023 ALLER GENS, ZONE 1 P749-KkX cedar, mountain <0.10 kU/L class 0 Not Available [facility] ([place] [facility]) [address] [facility], [place], [address], 08/22/2023 07:35:22 08/18/19 24 08/21/2023 ALLER GENS, ZONE 1 M934-DaZ ragweed, short <0.10 kU/L class 0 Not Available [facility] ([place] [facility]) [address] [facility], [place], [address], 08/22/2023 07:35:22 08/18/19 24 08/21/2023 ALLER GENS, ZONE 1 H752-KdU mugwort <0.10 kU/L class 0 Not Available [facility] ([facility]) [address], [place], [address], 08/22/2023 07:35:22 08/18/19 24 08/21/2023 ALLER GENS, ZONE 1 Q346-QhR plantain, wolof <0.10 kU/L class 0 Not Available [facility] ([facility]) [address], [place], [address], 08/22/2023 07:35:22 08/18/19 24 08/21/2023 ALLER GENS, ZONE 1 R408-IhZ pigweed, common <0.10 kU/L class 0 Not Available [facility] ([facility]) [address], [place], [address], 08/22/2023 07:35:22 08/18/19 24 08/21/2023 ALLER GENS, ZONE 1 Z249-YdH sheep sorrel <0.10 kU/L class 0 Not Available [facility] ([facility]) [address], [place], [address], 08/22/2023 07:35:22 08/18/19 24 08/21/2023 ALLER GENS, ZONE 1 T665-EiL nettle <0.10 kU/L class 0 Not Available [facility] ([facility]) [address], [place], [address], 08/22/2023 07:35:22 08/18/19 24 08/21/2023 IMMUN OGLOB ULIN E, TOTAL immunoglobul in E, total 66 IU/mL 6-495 Not Available [facility] ([facility]) [address] [place], [address], 08/22/2023 07:35:23 08/02/19 24 02/04/2021 CT, abdom en + pelvi s, w/o contr ast No observ ation record ed. BARCODE Not Available 2023 09:55:11 08/05/19 24 08/04/2023 [facility] Diagno stic Imagin g Depart ment [address] [place] [address] ____ Patien t: KOLBY JONES /Age/S ex: 1959 - 63 - F Unit#: [id number] Locati on/Sta tus: SPDICA T/REG CLI Accoun t#: [id number] Mnemon ic/Ord ering Site: [facility] MOLINA/SP CT Orderi ng Physic delon: JULIETTE LOU RE P MD ___ CT CT Maxill ofacia l WO - - 1502 Report Status :Vijaya d EXAMIN ATION: CT maxill ofacia l bones INDICA TION left ear pain, atypic al face pain. TECHNI QUE: Noncon trast maxill ofacia l CT obtain ed. No prior studie s availa ble for compar apurva. Scanne r: [employer] peed 64 slice VCT Dose reduct ion [...] optic drusen 's. Dictat ing Physic delon: Katharine BENITES Electr onical ly Signed by: Katharine BENITES Dic Date/T jacek: 1117 Sign date/T jacek: 1124 [id number] [facility] Central Scheduling) Any [facility], [place], [address], 08/05/2023 13:06:37 08/17/19 24 08/04/2023 CT, maxil [...] Name and Address Organization Details Recorded Time Temporoma ndibular joint disorder 20706144 Active 2016 Temporoma ndibular joint disorder, unspecifi ed; Note: Date Diagnosed : 03/24/2016 12:38 PM (M26.60) Not Available [facility] 4 02:34:44 Gastroeso phageal reflux disease without esophagit is 200338650 Active 2016 Gastro-es ophageal reflux disease without esophagit is; Note: Date Diagnosed : 03/25/2016 12:06 PM (K21.9) Not Available [facility] 4 02:34:48 Chronic rhinitis 21564318 Active 2016 Chronic rhinitis; Note: Date Diagnosed : 03/25/2016 12:05 PM (J31.0) Not Available [facility] 4 02:34:49 Dizziness and giddiness 793336522 Active 2016 Dizziness and giddiness ; Note: Date Diagnosed : 7 4:11 PM (R42) Not Available [facility] 4 02:34:43 Benign paroxysma l positiona l vertigo 530593058 Active 2017 Benign paroxysma l vertigo, right ear; Note: Date Diagnosed : 01/03/2018 3:32 PM (H81.11) Benign paroxysma l vertigo, left ear; Note: Date Diagnosed : 7 4:29 PM (H81.12) ; Start Date : 7 Not Available [facility] 4 02:34:49 Bilateral temporoma ndibular joint pain 84604012927 090090 Active 2020 Arthralgi a of bilateral temporoma ndibular joint; Note: Date Diagnosed : 04/09/2020 2:38 PM (M26.623) Not Available [facility] 4 02:34:56 Otalgia of left ear 0087476637 Active 2020 Otalgia, left ear; Note: Date Diagnosed : 04/09/2020 2:38 PM (H92.02) Not Available [facility] 4 02:34:51 Acute sinusitis 89722823 Active 2022 Other acute sinusitis ; Note: Date Diagnosed : 07/05/2022 12:08 PM (J01.80) Not Available [facility] 4 02:34:43 Pain of left temporoma ndibular joint 40951619517 270490 Active 2023 Arthralgi a of left temporoma ndibular joint; Note: Date Diagnosed : 06/02/2023 3:09 PM (M26.622) Not Available [facility] 4 02:34:53 Atypical facial pain 26153994 Active 2023 CRISTINA MOROCHO MD [address] [address], [place], [address] , [place] - [facility] 4 21:21:14 Problem Notes None recorded. Medical Equipment None Reported. Allergies Allergen ID Allergen Name Allergen Category Reaction Reaction Severity Criticality Documentation Date Start Date Code Code System Note Provider Name and Address Organization Details Recorded Time 083050 amlodipin e medicatio n Not available Not available Not available 08/17/2023 42728 RxNorm Jenifer mehta [place] - [facility] 4 14:16:13 428615 bupropion hydrochlo ride medicatio n Not available Not available Not available 01/11/20252021 30938 4 RxNorm unrec ogniz ed react ion (text : Unkno wn, code: 49561 5006) (from exter nal sourc e) Not Available jacob - External Data Service - prod 5 16:06:06 136858 clindamyc in Not available Not available Not available Not available 01/11/20252021 2582 RxNorm unrec ogniz ed react ion (text : Unkno wn, code: 28828 5006) (from exter nal sourc e) Not Available jacob - External Data Service - prod 5 16:06:06 623993 doxycycli ne hyclate medicatio n Not available Not available Not available 01/11/20252021 58612 RxNorm unrec ogniz ed react ion (text : Unkno wn, code: 96637 5006) (from exter nal sourc e) Not Available [employer] External Data Service - prod 5 16:06:06 357047 escitalop amara oxalate medicatio n Not available Not available Not available 01/11/20252021 27378 8 RxNorm unrec ogniz ed react ion (text : Unkno wn, code: 36643 5006) (from exter nal sourc e) Not Available [employer] External Data Service - prod 5 16:06:06 087161 lisinopri l medicatio n Not available Not available Not available 01/11/20252021 29827 RxNorm unrec ogniz ed react ion (text : Unkno wn, code: 97340 5006) (from exter nal sourc e) Not Available jacob - External Data Service - prod 5 16:06:06 375574 moxifloxa david medicatio n Not available Not available Not available 01/11/20252021 43842 2 RxNorm unrec ogniz ed react ion (text : Unkno wn, code: 57358 5006) (from exter nal sourc e) Not Available jacob - External Data Service - prod 16:06:06 382147 bupropion Not available Not available Not available Not available 01/11/20252020 62074 RxNorm Not Available jacob - External Data Service - prod 16:10:00 215282 Iodinated contrast media (substanc e) medicatio n Not available Not available Not available 01/11/20252024 73471 2004 SNOMED Per pt aller gy but doent recal l aller gic respo nse Not Available jacob - External Data Service - prod 5 16:10:00 482271 moxifloxa david hydrochlo ride medicatio n Not available Not available Not available 01/11/20252024 83283 0 RxNorm Not Available jacob - External Data Service - prod 5 16:10:00 414229 omeprazol e medicatio n diarrhea Not available Not available 01/11/20252020 7646 RxNorm unrec ogniz ed react ion (text : Nause a And Vomit ing, code: 58007 000) (from exter nal sourc e) Not Available jacob [employer] External Data Service - prod 16:10:00 Medications Name Sig Start Date Stop Date Status Note LastModified by Organization Details LastModified Time amoxicill in 500 mg capsule TAKE 1 CAPSULE BY MOUTH THREE TIMES A DAY FOR 7 DAYS 08/16 completed Not Available Not Available Not Available Augmentin 875 mg-125 mg tablet Take 1 tablet by mouth twice a day with meals 08/16 completed Medicati on ID: [id number] D uration Value: 14 Brand Name: Augmenti n Send Method: E-Prescr ibed Sub s Allowed: subs OK Medic ationGen ericName : Augmenti n Medica tion ID: [id number] D uration Value: 14 Brand Name: Augmenti [...] mg tablet 07/05 completed Medicati on ID: [id number] D uration Value: 30 Brand Name: valacycl ovir Sen d Method: E-Prescr ibed Sub s Allowed: subs OK Medic ationGen ericName : valacycl ovir Not Available Not Available Not Available tramadol 50 mg tablet TAKE 1 TABLET 4 TIMES DAILY NEEDED FOR PAIN. 08/16 completed Not Available Not Available Not Available famotidin e 20 mg tablet active Medicati on ID: 103387 B rand Name: famotidi ne Send Method: [...] mg tablet 01/27 completed Medicati on ID: [id number] D uration Value: 30 Brand Name: paroxeti ne HCl Send Method: E-Prescr ibed Sub s Allowed: subs OK Medic ationGen ericName : paroxeti ne HCl Not Available Not Available Not Available mupirocin 2 % topical ointment PLEASE SEE ATTACHED FOR DETAILED DIRECTIO NS active Not Available Not Available No t Available lorazepam 1 mg tablet active Medicati on ID: [id number] B rand Name: natividad alcantar Send Method: E-Prescr ibed Sub s Allowed: subs OK Medic ationGen ericName : lorazepa katharine Not Available Not Available Not Available epinephri [...] Test Strip 07/05 completed Medicati on ID: [id number] D uration Value: 90 Brand Name: OneTouch Ultra Blue Test Strip Se nd Method: E-Prescr ibed Sub s Allowed: subs OK Medic ationGen ericName : OneTouch Ultra Blue Test Strip Not Available Not Available Not Available Vitals Date Recorded Body height Body mass index (BMI) Body weight Provider Name and Address Organization Details Last Updated DateTime 08/17/2023 154.94 cm 20.6 kg/m2 63288.57 g Jenifer Olivera [place] - [facility] 08/17/2023 14:16:02 Social History None recorded. Functional Status None recorded. Mental Status None recorded. Family History Nothing Reported. Medical History No medical history recorded. Gynecological HistoryNo gynecological history recorded. Obstetrics History GPAL:G 0 P 0 0 0 0 Past Encounters Encounter ID Performer Location Encounter Start Date Encounter Closed Date Diagnosis/Indication Diagnosis SNOMED-CT Code Diagnosis ICD10 Code Diagnosis IMO Codes Diagnosis Note [id number] CODIE TORRES PA-C [facility] on [address] [place] [address] 08/17/2023 14:06:29 08/17/2023 14:44:36 Chronic rhinitis 67462882 J31.0 Atypical facial pain 713 44014 G50.1 Dizziness and giddiness 386824161 R42 Health Concerns Section Related Observation LastModified by Organization Detai ls LastModified Time None Recorded Concern Status LastModified by Organization Details LastModified Time None Recorded Advance Directives Directive None Recorded Payers Insurance Date Sequence Insurance Name Policy Number Policy Waterman Covered Member ID Waterman Member ID Guarantor Name 01/11/2025 1 [employer]: MEDICARE PPO BLUE (MEDICARE REPLACEMENT PPO) [id number] Daphne Ernst [id number] Daphne Ernst Notes Date Note Type Note Provider Name and Address Organization Details Recorded Time 08/17/2023 text/html ROS as noted in the HPI 63 year old female presents today to [...] mehta [place] - [facility] 08/17/2023 17:07:03 OBGyn Episode No OBEpisode recorded.
--- OUTSIDE RECORDS SUMMARY | 2025-01-17 19:27 | XMS_ITS | Clinical Summary ---
Author Organization [facility] Address [address] [place] [address] Care Team Providers Care Electroplating Worker Name Role Phone AngelLars baez Primary Care Provider [phone] Allergies Active Allergy Reactions Criticality Noted Date [...] age to complete this topic Care Teams Electroplating Worker Relationship Specialty Start Date End Date Lars Ortiz DO [address] [place] [phone] PCP - General Internal Medicine 06/13/17
== END 2025-01-17 14:03 | disposition home or self-care (01) ==
LOC: HO.HMGCX 14:02
PROVIDERS: PCP Physician Assistant Medical; Visit Provider Physician Assistant Medical
DX: M25.512 Pain in left shoulder (principal); M79.602 Pain in left arm; W19.XXXA Unspecified fall, initial encounter
CPT/HCPCS: 73030; 73080; 73090

== ENCOUNTER → 2025-01-17 14:05 | Outpatient (BNV) | payer MEDICARE, SELFPAY | PROVIDERS: PCP Physician Assistant Medical; Visit Provider Radiology Diagnostic Radiology | DX: M25.512 Pain in left shoulder (principal); Z04.3 Encounter for examination and observation following other accident; M79.632 Pain in left forearm | CPT/HCPCS: 73030; 73080; 73090 ==